=== PATIENT | female | born 1950 | race Caucasian/White ===

== ENCOUNTER 2019-11-15 08:26 | Emergency (ER) | payer MEDICARE, SELFPAY ==
--- NOTE | 2019-11-15 08:27 | XR_ITS ---
WS: [id number] Left wrist, 3 views, 11/15/2019 Clinical Data: injury Comparison: None. Findings: There is a comminuted impacted fracture of the distal radius. There is a fracture of the ulnar styloi d. Soft tissue swelling about the fracture site is present. There is also dorsal displacement of the distal radial fracture. The carpal bones show no fractures. The metacarpals are not remarkable. XR/XR wrist LT min 3V* [id number] Impression: 1. Comminuted, impacted and dorsally displaced fracture of the distal left radi us. 2. Ulnar styloid fracture.
[2019-11-15 08:32] VITALS: BP 162/93; PULSE 65; RESP 18; TEMP 36.8; O2SAT 93; BMI 27.4
--- NOTE | 2019-11-15 08:47 | W.ED.EXTPRO ---
HPI - Extremity Problem General: Chief complaint: Extremity Injury, Upper Stated complaint: LEFT WRIST PAIN Time Seen by Provider: 11/15/19 08:44 Source: patient Mode of arrival: ambulatory Limitations: no limitations History of Present Illness: HPI Narrative: 69-year-old female who fell this morning out of a chair. She states she fell backwards and try to catch herself with her left arm and injured her left wrist. She has obvious deformity to the wrist. States her pain is a 7 out of 10. Denies any other injuries. Denies hitting her head. MD Complaint: extremity pain Onset (ago): hour(s) Associated symptoms: Deny chest pain, fever(s) or rash Review of Systems Const: Denies: fever(s), chills, body aches or change in appetite Eyes: Denies: blurry vision or eye discomfort ENMT: Denies: throat pain or dental pain Card: Denies: chest pain Resp: Denies: dyspnea GI: Denies: abdominal pain, nausea, vomiting or diarrhea : Denies: dysuria Musc: Reports: extremity pain Skin/Breast: Denies: rash Neuro: Denies: headache(s) Psych: Denies: depression Kang/Lymph: Denies: easy bruising All/Imm: Denies: urticaria Physical Exam Const: COMMON NORMALS: no acute distress, patient oriented x3 and healthy appearing HENMT: COMMON NORMALS: normocephalic and atraumatic HEAD & SCALP: normocephalic and atraumatic Eye: COMMON NORMALS: Equal, round and reactive pupils present and EOMs intact bilaterally PUPIL: Yes Equal, round and reactive pupils present Neck/C-Spine: COMMON NORMALS: full ROM and supple Chest: COMMONS NORMALS: normal inspection of the chest and normal palpation of entire chest wall Resp: COMMON NORMALS: normal respiratory effort, No retractions, No use of accessory muscles and clear to auscultation bilaterally AUSCULTATION: clear to auscultation bilaterally Cardio: COMMON NORMALS: regular rate, regular rhythm and No murmurs present (Cardio) RATE: regular rate RHYTHM: regular rhythm GI: COMMON NORMALS: Normal to inspection, nondistended, normoactive bowel sounds present, Soft to palpation, non-tender and no masses PALPATION: Yes Soft to palpation Extremity: NARRATIVE EXTREMITY EXAM: Distal pulses and sensation intact. Obvious deformity to left wrist. No elbow or shoulder pain. Neuro: COMMON NORMALS: patient oriented x3, moves all extremities and no focal motor deficits Psych: COMMON NORMALS: mental status grossly normal, Normal thought process present and cooperative THOUGHT PROCESS: Normal thought process present Skin: COMMON NORMALS: no rashes or lesions noted and no wounds GENERAL SKIN EXAM: no rashes or lesions noted Procedures Orthopedic Fracture Reduction Fracture #1: Time Out Performed: Yes Side: right Fracture Reduction Location: radius Analgesia: procedural sedation Technique: direct manipulation Post Reduction X-rays Demonstrate: anatomical reduction Post-reduction neuro exam: intact Post-reduction vascular exam: intact Splint Applied: Yes Patient Tolerated Procedure: well Procedural Sedation Indication: fracture/dislocation reduction ASA Class: I Time of Last PO Intake: 06:07 IV Propofol dose (mg): 50 Patient Tolerated Procedure: well Complications: none Course Vital Signs: Vital signs: Vital Signs Temperature 98.3 F 11/15/19 08:32 Pulse Rate 67 11/15/19 10:01 Respiratory Rate 20 H 11/15/19 10:01 Blood Pressure 186/102 11/15/19 10:01 Pulse Oximetry 97 11/15/19 10:00 MDM - Extremity (Nontraumatic) MDM Narrative: Medical decision making narrative: Patient presents with a distal radius fracture that was reduced in the ER. Patient placed in a sugar tong splint and is to follow-up with orthopedics. She has good cap refill after reduction and minimal pain. She has no signs of compartment syndrome. Imaging Data^: xr l wrist: Radiologist's impression: [place] [address] XRay Report Signed Patient: Keri Fang Unit #: [id number] : [id number] Age/Sex: 69 / F ADM Date: 11/15/19 Loc: ER Room/Bed: Attending Dr: Ordering Provider/Ordering MD: Swapnil Matias MD Date of Service: 11/15/19 Procedure(s): XR wrist LT min 3V* [id number] Accession Number(s): [id number] Report Number: [id number] WS: [id number] Left wrist, 3 views, 11/15/2019 Clinical Data: injury Comparison: None. Findings: There is a comminuted impacted fracture of the distal radius. There is a fracture of the ulnar styloid. Soft tissue swelling about the fracture site is present. There is also dorsal displacement of the distal radial fracture. The carpal bones show no fractures. The metacarpals are not remarkable. XR/XR wrist LT min 3V* [id number] Impression: 1. Comminuted, impacted and dorsally displaced fracture of the distal left radius. 2. Ulnar styloid fracture. Discharge Plan Discharge Patient Disposition: Home, Self-Care Clinical Impression: Fracture of wrist Qualifiers: Encounter type: initial encounter Fracture type: closed Laterality: left Qualified Code(s): S62.102A - Fracture of unspecified carpal bone, left wrist, initial encounter for closed fracture Condition: Stable Prescriptions: [facility] 5-325 mg tablet 1 tab PO Q6H PRN (Reason: pain) Qty: 14 RF: 0 No Action metformin 500 mg tablet 500 mg PO BID RF: 0 clonidine HCl 0.1 mg tablet 0.1 mg PO BID PRN (Reason: Blood Pressure) RF: 0 atorvastatin 20 mg tablet 20 mg PO DAILY RF: 0 trazodone 50 mg tablet 50 mg PO BEDTIME RF: 0 alendronate 70 mg tablet 70 mg PO Q7D RF: 0 clonazepam 1 mg tablet 1 mg PO DAILY PRN (Reason: Anxiety) RF: 0 glipizide 5 mg tablet extended release 24hr 5 mg PO BID RF: 0 cephalexin 500 mg capsule 500 mg PO TID RF: 0 pantoprazole 40 mg tablet,delayed release (DR/EC) 40 mg PO DAILY PRN (Reason: Acid Reflux) RF: 0 metoprolol tartrate 50 mg tablet 50 mg PO BID RF: 0 aspirin 81 mg Tablet,Chewable 81 mg PO DAILY RF: 0 lisinopril 40 mg tablet 40 mg PO DAILY RF: 0 escitalopram oxalate 20 mg tablet 20 mg PO DAILY RF: 0 Discharge Orders: Discharge Order (Routine); Ordered 11/15/19 Ordered By: Swapnil Matias Referrals: Angela Herrera MD [Physician] - 1-3 days Discharge Diet: Advance as tolerated Discharge Activity: Resume usual activity Patient Instructions: Wrist Fracture in Adults (ED) Coding Level of Care Code ED 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
--- NOTE | 2019-11-15 09:41 | DCPLANNER ---
material control manager was asked to schedule a follow up appointment for patient with ortho. material control manager called the ortho clinic, spoke with Sana, gave clinic patients information. material control manager was told that patients information would be printed and reviewed. Clinic will call patient with appointment information.
[2019-11-15] MEDS: propofol 10 mg/mL SDV 20 mL 50 MG IVP (09:50)
[2019-11-15 09:51] VITALS: BP 175/92; BP 186/102; PULSE 62; PULSE 67; RESP 18; RESP 20; O2SAT 96; O2SAT 97
--- NOTE | 2019-11-15 09:59 | XR_ITS ---
WS: [id number] WRIST LEFT TECHNIQUE: 2 views of the left wrist CLINICAL INFORMATION: post reduction COMPARISON: None. FINDINGS: Splint material. Comminuted impacted fracture of the distal radius. Ulna styloid avulsion. Alignment improved from previous. XR/XR wrist LT 2V [id number] IMPRESSION: Postreduction comminuted impacted fracture distal left radius.
[2019-11-15 10:00] VITALS: BP 171/92; PULSE 62; RESP 20; O2SAT 97
[2019-11-15 10:01] VITALS: BP 186/102; PULSE 67; RESP 20; O2SAT 96
[2019-11-15] MEDS: HYDROcodone-acetaminophen 7.5-325 mg Tablet 2 TAB PO (11:16)
[2019-11-15 11:17] VITALS: BP 172/99; PULSE 70; RESP 17; O2SAT 97
--- NOTE | 2019-11-15 14:30 | PC.NURSE ---
Read and agree with assessment.
--- NOTE | 2019-11-16 08:18 | DCPLANNER ---
Patient has a follow up appointment scheduled for Saturday, November 16, 2019 at 11:[address] Parks at the ortho clinic. Clinic will call patient with appointment information.
--- NOTE | 2019-11-17 15:04 | DCPLANNER ---
Patient attended appointment scheduled for 11.16.19 with ortho.
== END 2019-11-15 11:18 | disposition home or self-care (01) ==
PROVIDERS: Emergency Provider Emergency Medicine
DX: S52.592A Other fractures of lower end of left radius, initial encounter for closed fracture (principal); S52.615A Nondisplaced fracture of left ulna styloid process, initial encounter for closed fracture; W07.XXXA Fall from chair, initial encounter; Z79.82 Long term (current) use of aspirin
CPT/HCPCS: 12345; 25605; 73100; 73110; 96375; 99283; 99284; A4590; J2704

== ENCOUNTER → 2019-11-23 14:28 | Outpatient (BNVA) | payer MEDICARE, SELFPAY | PROVIDERS: Visit Provider Orthopaedic Surgery | DX: S52.502A Unspecified fracture of the lower end of left radius, initial encounter for closed fracture (principal); S52.592A Other fractures of lower end of left radius, initial encounter for closed fracture; X58.XXXA Exposure to other specified factors, initial encounter | CPT/HCPCS: 73110 ==

== ENCOUNTER → 2019-11-26 09:26 | Outpatient (BNVA) | payer MEDICARE, SELFPAY | PROVIDERS: Visit Provider Nurse Practitioner Family | DX: Z11.59 Encounter for screening for other viral diseases (principal); J40 Bronchitis, not specified as acute or chronic; R68.89 Other general symptoms and signs | CPT/HCPCS: 87400; 87635 ==

== ENCOUNTER → 2019-11-30 08:53 | Outpatient (BNVA) | payer MEDICARE, SELFPAY | PROVIDERS: Visit Provider Orthopaedic Surgery | DX: S52.502A Unspecified fracture of the lower end of left radius, initial encounter for closed fracture (principal); S52.572A Other intraarticular fracture of lower end of left radius, initial encounter for closed fracture; X58.XXXA Exposure to other specified factors, initial encounter | CPT/HCPCS: 73110 ==

== ENCOUNTER 2019-11-30 14:38 | Outpatient (CLI) | payer MEDICARE, SELFPAY | END 2019-11-30 14:39 | disposition home or self-care (01) | LOC: SPT 14:39 | PROVIDERS: Visit Provider Orthopaedic Surgery | DX: Z46.89 Encounter for fitting and adjustment of other specified devices (principal); S52.592D Other fractures of lower end of left radius, subsequent encounter for closed fracture with routine healing; X58.XXXD Exposure to other specified factors, subsequent encounter; S52.502A Unspecified fracture of the lower end of left radius, initial encounter for closed fracture; S52.572A Other intraarticular fracture of lower end of left radius, initial encounter for closed fracture; X58.XXXA Exposure to other specified factors, initial encounter | CPT/HCPCS: 73110; 97760; L3982 ==

== ENCOUNTER → 2019-12-21 08:57 | Outpatient (BNVA) | payer MEDICARE, SELFPAY | PROVIDERS: Visit Provider Orthopaedic Surgery | DX: S52.502D Unspecified fracture of the lower end of left radius, subsequent encounter for closed fracture with routine healing (principal); X58.XXXD Exposure to other specified factors, subsequent encounter | CPT/HCPCS: 73110 ==

== ENCOUNTER → 2020-01-18 08:09 | Outpatient (BNVA) | payer MEDICARE, SELFPAY | PROVIDERS: Visit Provider Orthopaedic Surgery | DX: S52.502D Unspecified fracture of the lower end of left radius, subsequent encounter for closed fracture with routine healing (principal); W07.XXXD Fall from chair, subsequent encounter | CPT/HCPCS: 73110 ==

== ENCOUNTER → 2020-03-27 12:30 | Outpatient (BNVA) | payer MEDICARE, SELFPAY | PROVIDERS: Visit Provider Specialist | DX: R20.0 Anesthesia of skin (principal); G56.02 Carpal tunnel syndrome, left upper limb; F17.210 Nicotine dependence, cigarettes, uncomplicated | CPT/HCPCS: 95886; 95910; 95911; G0463 ==

== ENCOUNTER → 2020-04-10 13:15 | Outpatient (BNVA) | payer MEDICARE, SELFPAY | PROVIDERS: Visit Provider Orthopaedic Surgery | DX: G56.02 Carpal tunnel syndrome, left upper limb (principal); S52.502D Unspecified fracture of the lower end of left radius, subsequent encounter for closed fracture with routine healing; S52.612D Displaced fracture of left ulna styloid process, subsequent encounter for closed fracture with routine healing; X58.XXXD Exposure to other specified factors, subsequent encounter | CPT/HCPCS: 73110 ==

== ENCOUNTER → 2020-04-18 10:35 | Outpatient (BNVA) | payer MEDICARE, SELFPAY | PROVIDERS: Referring Provider Orthopaedic Surgery; Visit Provider Orthopaedic Surgery | DX: Z20.828 Contact with and (suspected) exposure to other viral communicable diseases (principal); Z01.812 Encounter for preprocedural laboratory examination | CPT/HCPCS: 87635 ==

== ENCOUNTER 2020-04-24 06:19 | Day surgery (SDC) | payer MEDICARE, SELFPAY ==
[2020-04-21 08:28] VITALS: BMI 26.3
[2020-04-24 06:50] VITALS: BP 220/126; PULSE 104; RESP 18; TEMP 36.6; O2SAT 100
[2020-04-24 06:57] VITALS: BP 220/106
[2020-04-24] MEDS: sodium chloride 0.9% 1,000 ML 30 ML IV (07:10)
[2020-04-24 07:13] LABS: Glucose Point of Care 165 mg/dL (70-110)
--- NOTE | 2020-04-24 07:22 | ANES.PREANE2 ---
Pre-Anesthetic Assessment Pre-Anesthetic Assessment: Height/Weight: Height 1.57 m Weight 65.317 kg Temp Pulse Resp BP Pulse Ox 98 F 104 H 18 220/106 100 04/24/20 06:50 04/24/20 06:50 04/24/20 06:50 04/24/20 06:57 04/24/20 06:50 Preop Diagnosis: Carpal tunnel syndrome left Proposed Procedure: Operation Date: 04/24/20 08:00 Proposed Procedures p Carpal Tunnel Release 11781 G56.02(Left) - Sundar Parks MD Was Beta Kg taken within 24 hours: Yes Last intake: Intake Last Liquid Date 04/23/20 Last Liquid Time 00:00 Last Solid Date 04/23/20 Last Solid Time 00:00 Social: Social History: Tobacco and No alcohol Exam: Pre-Anes Outpt Exam: alert, oriented x 3, clear to auscultation bilaterally and regular rate & rhythm Airway: Submandibular: WNL Cervical ROM: WNL MP: 2 Dentition: Full History/ROS: Other Pulmonary: Pulmonary: COPD CV/HEM: CV/HEM: HTN Comments: Poorly controlled HTN : : None reported Hepatic: Hepatic: None reported GI: GI: GERD Metabolic: Metabolic: None reported Musc/skel: Comments: Left hand contracted Neuropsych: Neuropsych: None reported Anesthetic Plan: ASA status: 3 Anesthesia: MAC and Regional (specify below) Other: Vikymargo christianson Risk of > 500 ml blood loss (7ml/kg in children): No Meds/Allergies Current Medications: Current Medications Generic Name Dose Route Start Last Admin Trade Name Freq PRN Reason Stop Dose Admin Sodium Chloride 1,000 mls @ 30 ml s/hr 04/24/20 06:30 04/24/20 07:10 Sodium Chloride 0.9% IV 04/25/20 06:29 30 mls/hr .Q24H BIBIANA Administration PFSH Anesthesia PFSH: Social History Smoking and tobacco status: current every day smoker cigarettes Alcohol intake: never History of recent travel: No Data Anesthesia Other Labs: Laboratory Results - last 48 hr 04/24/20 07:05 POC Glucose 165 H Cardiac Studies: No Data to Display
--- NOTE | 2020-04-24 09:44 | W.PM.OPSUD ---
Surgery/Procedure H&P Update DATE OF PROCEDURE: April 24, 2020 DATE H&P PERFORMED: 04/10/20 PREOP DIAGNOSIS: Carpal tunnel syndrome left PLANNED PROCEDURE: Operation Date: 04/24/20 08:30 Proposed Procedures p Carpal Tunnel Release 63318 G56.02(Left) - Sundar Parks MD
[2020-04-24 10:31] VITALS: BP 192/109; PULSE 58; RESP 18; TEMP 36.4; O2SAT 94
--- NOTE | 2020-04-24 10:36 | PM.OP ---
Operative Report Date of procedure: April 24, 2020 Pre-op Diagnosis: Carpal tunnel syndrome left Post-op diagnosis: same Post-op Findings: Same Procedure Done: Left carpal tunnel release Pathology: none sent Anesthesia: General Estimated blood loss (mL): 2 Tourniquet time (min): 21 Complications: None Condition: stable Disposition: same day Procedure: Patient was taken to the operating room and anesthesia provided by the anesthesia service. She was prepped and draped with the arm exposed. A timeout was performed. A 3 cm long incision was made in line with the fourth ray from the distal edge of the carpal tunnel extending proximally. The subcutaneous fat and palmar fascia was divided with a scalpel blade. Under loupe magnification the ulnar neurovascular bundle was identified distally. A hemostat could be passed under the transverse carpal ligament allowing the distal 25% to be divided. A slotted guide was then passed beneath the transverse carpal ligament and the middle 50% divided. Blunt scissors were then passed over the guide freeing the proximal ligament. The tourniquet was deflated. Hemostasis provided with electrocautery. Wound edges were infiltrated with 10 cc of a half percent Marcaine solution. Skin edges were reapproximated with 3-0 Prolene. Sterile dressings were applied. The patient was taken to the recovery room in stable condition
[2020-04-24 10:45] VITALS: BP 224/140; PULSE 63; RESP 16; O2SAT 92
--- NOTE | 2020-04-24 11:32 | ANE.PACU2 ---
Inpatient post-anesthesia follow up: Airway intact: Yes Vital signs: Temperature 97.6 F Pulse Rate 63 Respiratory Rate 16 Blood Pressure 224/140 Pulse Oximetry 92 Oxygen Delivery Me thod Room Air Oxygen Flow Rate Fraction of Inspir ed Oxygen Hydration adequate: Yes Nausea and vomiting: No Pain level: 1 Mental status: Baseline
== END 2020-04-24 11:08 | disposition home or self-care (01) ==
PROVIDERS: Visit Provider Orthopaedic Surgery
PROC: (CPT 64721; principal; 2020-04-24 08:30)
DX: G56.02 Carpal tunnel syndrome, left upper limb (principal); J44.9 Chronic obstructive pulmonary disease, unspecified; I10 Essential (primary) hypertension; K21.9 Gastro-esophageal reflux disease without esophagitis; F17.210 Nicotine dependence, cigarettes, uncomplicated; Z79.82 Long term (current) use of aspirin; Z79.84 Long term (current) use of oral hypoglycemic drugs
CPT/HCPCS: 64721; 12345; 36416; 82962; 96365; J0690; J2704; J3010; J3490; J7030

== ENCOUNTER 2021-05-24 08:49 | Day surgery (SDC) | payer MEDICARE, SELFPAY ==
[2021-05-21 14:48] VITALS: BMI 23.8
--- NOTE | 2021-05-24 09:05 | ANES.PREANE2 ---
Pre-Anesthetic Assessment Pre-Anesthetic Assessment: Height/Weight: Height 1.57 m Weight 58.967 kg Preop Diagnosis: Carpal tunnel syndrome left Proposed Procedure: Operation Date: 05/24/21 10:30 Proposed Procedures p Colonoscopy 38185 Z86.010 R63.4(Not Applicable) - Rafael Andrade MD Familial anesthetic complications: None Was Beta Kg taken within 24 hours: N/A Was Clonidine taken within 24 hours: N/A Last intake: > 8 hrs Social: Social History: Tobacco and No alcohol Exam: Pre-Anes Outpt Exam: alert, oriented x 3, clear to auscultation bilaterally and regular rate & rhythm Airway: MP: 2 Dentition: Other (missing) CV/HEM: CV/HEM: HTN GI: GI: GERD Metabolic: Metabolic: DM Neuropsych: Neuropsych: CVA (2010 - no residual deficits) Anesthetic Plan: ASA status: 3 Anesthesia: MAC Risk of > 500 ml blood loss (7ml/kg in children): No PFSH Anesthesia PFSH: Social History Smoking and tobacco status: current every day smoker cigarettes Alcohol intake: never History of recent travel: No Data Anesthesia Cardiac Studies: No Data to Display
[2021-05-24] MEDS: sodium chloride 0.9% 1,000 ML 30 ML IV (09:55)
--- NOTE | 2021-05-24 10:18 | W.PM.OPSUD ---
Surgery/Procedure H&P Update DATE OF PROCEDURE: May 24, 2021 DATE H&P PERFORMED: 05/07/21 H&P UPDATE INFORMATION: I have reviewed H&P completed within last 30 days, I have examined patient prior to procedure and No changes to prior documentation PREOP DIAGNOSIS: History of colon polyps and chronic diarrhea PRIMARY INDICATION FOR PROCEDURE: The same PLANNED PROCEDURE: Operation Date: 05/24/21 10:30 Proposed Procedures p Colonoscopy 69747 Z86.010 R63.4(Not Applicable) - Rafael Andrade MD
[2021-05-24 11:17] VITALS: BP 141/79; PULSE 62; RESP 16; TEMP 36.1; O2SAT 97
--- NOTE | 2021-05-24 11:19 | ANE.PACU2 ---
Inpatient post-anesthesia follow up: Airway intact: Yes Vital signs: Temperature 97.0 F Pulse Rate 62 Respiratory Rate 16 Blood Pressure 141/79 Pulse Oximetry 97 Oxygen Delivery Me thod Nasal Cannula Oxygen Flow Rate 3 Fraction of Inspir ed Oxygen Hydration adequate: Yes Nausea and vomiting: No Pain level: 1 Mental status: Baseline
[2021-05-24 11:26] VITALS: BP 139/90; PULSE 62; RESP 16; O2SAT 95
== END 2021-05-24 11:50 | disposition home or self-care (01) ==
PROVIDERS: Visit Provider Surgery
PROC: 0DJD8ZZ Inspection of Lower Intestinal Tract, Via Natural or Artificial Opening Endoscopic (ICD-10-PCS; CPT 45378; principal; 2021-05-24 10:30)
DX: D12.8 Benign neoplasm of rectum (principal); Z86.010 Personal history of colon polyps; R63.4 Abnormal weight loss; Z68.23 Body mass index [BMI] 23.0-23.9, adult; I10 Essential (primary) hypertension; K21.9 Gastro-esophageal reflux disease without esophagitis; E11.9 Type 2 diabetes mellitus without complications; Z86.73 Personal history of transient ischemic attack (TIA), and cerebral infarction without residual deficits; F17.210 Nicotine dependence, cigarettes, uncomplicated
CPT/HCPCS: 45385; 88305; J2704; J7030

== ENCOUNTER 2021-06-26 10:36 | Outpatient (CLI) | payer MEDICARE, SELFPAY ==
--- NOTE | 2021-06-26 11:15 | FL_ITS ---
WS: [id number] Exam: FL small bowel series* [id number] Date/Time of Exam: 06/26/2021 10:58 AM Reason For Exam: R19.7 - Diarrhea, unspecified Fluoroscopy time: .5 minutes Preliminary abdominal survey shows scattered gas in both large and small bowel loops suggesting adyna jamila ileus. Barium courses through the small bowel without acute obstruction. Small bowel transit time is top vanegas its normal at about 3 hours. The mucosal pattern of the duodenum, jejunum and ileum appears normal. N o sign of bowel loop herniation or displacement. There are several diverticuli of the jejunum. A sing le prominent diverticulum is noted involving the fourth segment of the duodenal C-loop. Compression s pot images of the ileocecal valve demonstrate no significant abnormal finding. Contrast noted in the cecum at about 3 hours. FL/FL small bowel series* [id number] IMPRESSION: 1. Barium courses through the small bowel without acute obstruction. Small justin l transit time was about 3 hours which is top limits normal. 2. Several diverticuli noted in the duodenum and jejunum. 3. Small bowel mucosal pattern is essentially normal.
== END 2021-06-26 10:37 | disposition home or self-care (01) ==
LOC: RAD 10:40
PROVIDERS: PCP Family Medicine; Visit Provider Surgery
DX: R19.7 Diarrhea, unspecified (principal); K57.10 Diverticulosis of small intestine without perforation or abscess without bleeding
CPT/HCPCS: 74250

== ENCOUNTER → 2021-07-09 09:41 | Outpatient (BNVA) | payer MEDICARE, SELFPAY | PROVIDERS: PCP Family Medicine; Visit Provider Surgery | DX: Z20.822 Contact with and (suspected) exposure to COVID-19 (principal); Z11.52 Encounter for screening for COVID-19 | CPT/HCPCS: 87635 ==

== ENCOUNTER 2021-07-12 07:48 | Day surgery (SDC) | payer MEDICARE, SELFPAY ==
--- NOTE | 2021-07-12 08:10 | ANES.PREANE2 ---
Pre-Anesthetic Assessment Height/Weight: Height 1.57 m Weight 58.06 kg Preop Diagnosis: History of colon polyps and chronic diarrhea Operation Date: 07/12/21 09:30 Proposed Procedures p EGD 25001/r19.7(Not Applicable) - Rafael Andrade MD Familial anesthetic complications: None Was Beta Kg taken within 24 hours: Yes Was Clonidine taken within 24 hours: N/A Social Tobacco and No alcohol Exam alert, oriented x 3 and regular rate & rhythm rhonchi Airway Submandibular: within normal limits Cervical ROM: within normal limits Mallampati: Class II Dentition: chipped Comments: Comments: Missing some Pulmonary Chronic Obstructive Pulmonary Disease CV/HEM Hypertension and Peripheral Vascular Disease Metabolic Diabetes Mellitus and Hyperlipidemia Anesthetic Plan ASA status: 3 Anesthesia: MAC Medications/Allergies Home Medications Medication Instructions Recorded Confirmed Last Taken Type aspirin 81 mg chewable tablet 81 mg PO DAILY 11/15/19 07/10/21 05/23/21 History atorvastatin 20 mg tablet 20 mg PO DAILY 11/15/19 07/10/21 05/23/21 History clonazepam 1 mg tablet 1 mg PO DAILY PRN 11/15/19 07/10/21 05/17/21 History escitalopram oxalate 20 mg tablet 20 mg PO DAILY 11/15/19 07/10/21 05/23/21 History glipizide 5 mg tablet, extended 5 mg PO BID 11/15/19 07/10/21 05/23/21 History release 24 hr lisinopril 40 mg tablet 40 mg PO DAILY 11/15/19 07/10/21 05/23/21 History metformin 500 mg tablet 500 mg PO BID 11/15/19 07/10/21 05/23/21 History metoprolol tartrate 50 mg tablet 50 mg PO BID 11/15/19 07/10/21 05/24/21 History pantoprazole 40 mg tablet,delayed 40 mg PO DAILY PRN 11/15/19 07/10/21 04/23/20 History release trazodone 50 mg tablet 50 mg PO BEDTIME 11/15/19 07/10/21 05/23/21 History amlodipine 10 mg tablet 10 mg PO DAILY 05/21/21 07/10/21 05/23/21 History colesevelam 625 mg tablet 625 mg PO DAILY 05/21/21 07/10/21 05/23/21 History duloxetine 60 mg capsule,delayed 60 mg PO DAILY 05/21/21 07/10/21 05/23/21 History release hydralazine 50 mg tablet 50 mg PO TID 05/21/21 07/10/21 05/23/21 History Allergies Allergy/AdvReac Type Severity Reaction Status Date / Time No Known Allergies Allergy Verified 07/10/21 09:05 [facility] Anesthesia Medical History History of colon polyps Social History Smoking and tobacco status: current every day smoker cigarettes Alcohol intake: never History of recent travel: No Data Anesthesia Cardiac Studies: No Data to Display
[2021-07-12 08:19] VITALS: BP 164/94; PULSE 65; RESP 18; TEMP 36.4; O2SAT 96
[2021-07-12] MEDS: sodium chloride 0.9% 1,000 ML 30 ML IV (08:31)
--- NOTE | 2021-07-12 08:45 | W.PM.OPSUD ---
Surgery/Procedure H&P Update DATE OF PROCEDURE: July 12, 2021 DATE H&P PERFORMED: 06/27/21 CHANGES TO PREVIOUS DOCUMENTATION: None PREOP DIAGNOSIS: Change in bowel habits PRIMARY INDICATION FOR PROCEDURE: The same PLANNED PROCEDURE: Operation Date: 07/12/21 09:30 Proposed Procedures p EGD 67935/r19.7(Not Applicable) - Rafael Andrade MD
[2021-07-12 09:44] VITALS: BP 136/73; PULSE 66; RESP 18; TEMP 36.1; O2SAT 91
[2021-07-12 09:57] VITALS: BP 139/87; PULSE 61; RESP 16; O2SAT 95
--- NOTE | 2021-07-12 12:46 | ANE.PACU2 ---
Inpatient post-anesthesia follow up: Airway intact: Yes Vital signs: Temperature 97 F Pulse Rate 61 Respiratory Rate 16 Blood Pressure 139/87 Pulse Oximetry 95 Oxygen Delivery Me thod Room Air Oxygen Flow Rate Fraction of Inspir ed Oxygen Hydration adequate: Yes Nausea and vomiting: No Pain level: 1 Mental status: Baseline
== END 2021-07-12 10:10 | disposition home or self-care (01) ==
PROVIDERS: PCP Family Medicine; Visit Provider Surgery
PROC: 0DJ08ZZ Inspection of Upper Intestinal Tract, Via Natural or Artificial Opening Endoscopic (ICD-10-PCS; CPT 43235; principal; 2021-07-12 09:30)
DX: R19.4 Change in bowel habit (principal); K21.00 Gastro-esophageal reflux disease with esophagitis, without bleeding; K29.70 Gastritis, unspecified, without bleeding; K44.9 Diaphragmatic hernia without obstruction or gangrene; J44.9 Chronic obstructive pulmonary disease, unspecified; I10 Essential (primary) hypertension; I73.9 Peripheral vascular disease, unspecified; E11.9 Type 2 diabetes mellitus without complications; E78.5 Hyperlipidemia, unspecified; Z79.82 Long term (current) use of aspirin; Z79.84 Long term (current) use of oral hypoglycemic drugs; F17.210 Nicotine dependence, cigarettes, uncomplicated
CPT/HCPCS: 43239; 88305; J2704; J7030

== ENCOUNTER 2022-03-06 09:47 | Observation (INO) | payer MEDICARE, SELFPAY ==
[2022-03-06] VITALS (29 sets, daily range): BP systolic 120–169; BP diastolic 70–101; PULSE 61–133; RESP 16–28; TEMP 36.6–37.2; O2SAT 62–98; BMI 21.9
--- NOTE | 2022-03-06 09:58 | CT_ITS ---
WS: [id number] CT HEAD TECHNIQUE: Noncontrast CT of the head obtained from the skullbase to the vertex. CLINICAL INFORMATION: ams, l facial droop COMPARISON: CT 2019 DLP: 968.[address] scans at [facility] use at least one of these dose optimization techniques: automated e xposure control; mA and/or kV adjustment per patient size (includes targeted exams where dose is matc hed to clinical indication); or iterative reconstruction. FINDINGS: No evidence of intracranial hemorrhage or mass effect. Ventricular system and basal cisterns are sorenson nt. Moderate small vessel changes with moderate parenchymal volume loss. A few chronic lacunar infarc ts in the RIGHT basal ganglia. Tiny chronic appearing lacunar infarct in the ilana. No extra-axial flu id collections. No evidence of mass or mass effect. Paranasal sinuses and mastoid air cells are well aerated. .Normal visualized soft tissues. CT/CT head wo con* [id number] IMPRESSION: 1. No evidence of intracranial hemorrhage or mass effect. 2. Moderate small vessel changes. Moderate parenchymal loss. 3. Tiny chronic lacunar infarcts RIGHT basal ganglia and internal capsule. 4. Tiny chronic appearing lacunar infarct in the ilana. This is new from 2019 b ut has a chronic appearance. 5. No acute intracranial findings.
--- NOTE | 2022-03-06 09:58 | XRR_ITS ---
PROCEDURE INFORMATION: Exam: XR Chest Exam date and time: 03/06/2022 10:03 AM Age: 71 years old Clinical indication: Cough and shortness of breath; Additional info: Hypoxemia TECHNIQUE: Imaging protocol: Radiologic exam of the chest. Views: 1 view. COMPARISON: CR XR chest 2V* [id number] 04/02/2018 4:10 PM FINDINGS: Lungs: There is a right basilar infiltrate consistent with a pneumonia. The left lung is clear. Pleural spaces: Unremarkable. No pleural effusion. No pneumothorax. Heart/Mediastinum: Unremarkable. No cardiomegaly. Bones/joints: Unremarkable. XR/XR chest 1V portable [id number] IMPRESSION: Right basilar pneumonia.
--- NOTE | 2022-03-06 09:58 | W.ED.SOB ---
HPI - SOB/Dyspnea General: Chief Complaint: General Medical Stated Complaint: stroke like symptoms Time Seen by Provider: 03/06/22 09:58 History of Present Illness: HPI Narrative: Ms Fang is a 71-year-old lady with history of hypertension, hyperlipidemia, diabetes, tobaccoism presenting to the emergency department due to strokelike symptoms. Last known normal was last night sometime and awoke this morning with possible left facial droop. Patient endorses a few day history of cough, congestion, and generalized malaise. Intensity of symptoms has worsened and is moderate to severe. No other specific changes in health, exacerbating, or alleviating factors identified. Onset (ago): day(s) Timing: progressively worsening Associated symptoms: Reports chest congestion, cough, myalgias and other Review of Systems General: Reports: 10 or more systems reviewed and unremarkable except in HPI and below Resp: Reports: chest congestion PFSH ED PFSH: Medical History Broken wrist Helicobacter pylori gastritis Hiatal hernia History of colon polyps History of skin cancer Surgical History History of appendectomy History of surgery on left wrist History of tubal ligation Family History (Updated 03/07/22 @ 08:28 by Haylie Cleary MD) Other CAD (coronary artery disease) Social History Smoking and tobacco status: current every day smoker cigarettes Alcohol intake: never History of recent travel: No Physical Exam Const: COMMON NORMALS: patient oriented x3 and alert GENERAL APPEARANCE: cooperative and well developed HENMT: COMMON NORMALS: normocephalic and atraumatic HEAD & SCALP: normocephalic and atraumatic THROAT: posterior oropharynx normal Eye: COMMON NORMALS: conjunctivae normal CONJUNCTIVA: Yes conjunctivae normal SCLERA: sclerae normal Neck/C-Spine: COMMON NORMALS: supple GENERAL: Yes trachea midline Resp: EFFORT & INSPECTION: Yes able to speak in complete sentences and Yes tachypneic AUSCULTATION: diminished lung sounds Cardio: COMMON NORMALS: regular rate and regular rhythm RATE: regular rate RHYTHM: regular rhythm GI: COMMON NORMALS: Soft to palpation PALPATION: Yes Soft to palpation and No Tenderness to palpation present (GI) PERCUSSION: normal to percussion Extremity: GENERAL: Yes normal exam except as noted and No edema Neuro: COMMON NORMALS: patient oriented x3, moves all extremities, no focal motor deficits and no sensory deficits noted; negative for CN's II-XII intact bilaterally (Mild left facial droop) SENSORIUM/ORIENTATION: Yes alert and No Orientation impaired Psych: COMMON NORMALS: mental status grossly normal and Normal thought process present THOUGHT PROCESS: Normal thought process present Course Vital Signs: Vital signs: Vital Signs Temperature 98.2 F 03/09/22 14:47 Pulse Rate 73 03/09/22 14:47 Respiratory Rate 17 03/09/22 14:47 Blood Pressure 159/82 03/09/22 14:47 Pulse Oximetry 90 03/09/22 14:47 Oxygen Delivery Me thod 03/09/22 11:59 Oxygen Flow Rate 2 03/09/22 12:57 Fraction of Inspir ed Oxygen 50 03/08/22 08:00 MDM - SOB/Dyspnea Medical Decision Making 71-year-old lady with history of smoking though denies history of known underlying lung disease or baseline oxygen requirement presenting with concern of left facial droop and not acting right. Patient does not have clear last known well and found to have hypoxemia in the 60% range with good waveform which is more likely explain symptoms. Supplemental oxygen applied. Given unknown last well time patient is not a tPA candidate. EKG shows sinus rhythm with right bundle branch block. Laboratory studies with no leukocytosis, normal hemoglobin. Metabolic panel with increased bicarb, no other significant electrolyte derangement. 2-hour delta troponin is negative. COVID PCR panel negative. ABG compensated however hypercapnia and hypoxia are present. Chest x-ray with right basilar pneumonia. 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 Antibiotics for CAP administered. Patient did subsequently develop A. fib, rate improved with metoprolol. Most likely etiology of the patient's symptoms is pneumonia with acute hypercapnic and hypoxic respiratory failure with strokelike symptoms which are likely related to hypoxia. The results of ED evaluation were discussed with the patient including plan for admission due to requirement for level of care not available if discharged to prevent significant worsening/deterioration. Patient agreeable with plan. Hospitalist service contacted and patient admitted. Medical Records I reviewed the patient's medical records. Lab Data I reviewed the patient's lab results. : 03/09/22 04:46 03/09/22 04:46 Labs/Radiology: Radiology Impressions Chest X-Ray 03/06/22 09:58 IMPRESSION: Right basilar pneumonia. Head CT 03/06/22 09:58 IMPRESSION: 1. No evidence of intracranial hemorrhage or mass effect. 2. Moderate small vessel changes. Moderate parenchymal loss. 3. Tiny chronic lacunar infarcts RIGHT basal ganglia and internal capsule. 4. Tiny chronic appearing lacunar infarct in the ilana. This is new from 2019 but has a chronic appearance. 5. No acute intracranial findings. Chest CTA 03/07/22 07:12 IMPRESSION: 1. No evidence of pulmonary embolus. 2. Normal caliber thoracic aorta. 3. Small RIGHT pleural effusion with compressive atelectasis in RIGHT lower lobe and RIGHT middle lobe 4. Patchy infiltrates in the RIGHT middle lobe and RIGHT lower lobe. Secretions in the RIGHT lower lobe bronchi and RIGHT middle lobe bronchi. 5. Tiny LEFT pleural effusion with LEFT basilar atelectasis. 6. No other acute findings. KUB X-Ray 03/08/22 18:30 IMPRESSION: Constipation without bowel dilation to indicate obstruction. Laboratory Results WBC 9.6 10^3/uL (4.0-10.0) 03/06/22 10:00 WBC Cancelled 03/06/22 10:00 Corrected WBC Cancelled 03/06/22 10:00 RBC 4.16 10^6/uL (4.1-5.3) 03/06/22 10:00 RBC Cancelled 03/06/22 10:00 Hgb 12.0 g/dL (11.5-15.3) 03/06/22 10:00 Hgb Cancelled 03/06/22 10:00 Hct 39.8 % (37.0-47.0) 03/06/22 10:00 Hct Cancelled 03/06/22 10:00 MCV 95.7 fl (81-99) 03/06/22 10:00 MCV Cancelled 03/06/22 10:00 MCH 28.8 pg (28.0-34.0) 03/06/22 10:00 MCH Cancelled 03/06/22 10:00 MCHC 30.2 g/dL (30.0-36.0) 03/06/22 10:00 MCHC Cancelled 03/06/22 10:00 RDW 13.7 % (12.1-15.1) 03/06/22 10:00 RDW Cancelled 03/06/22 10:00 Plt Count 185 10^3/cmm (130-400) 03/06/22 10:00 Plt Count Cancelled 03/06/22 10:00 MPV 10.8 fL (7.4-10.4) H 03/06/22 10:00 MPV Cancelled 03/06/22 10:00 Gran % Cancelled 03/06/22 10:00 Neut % (Auto) 80.3 % 03/06/22 10:00 Neut % (Auto) Cancelled 03/06/22 10:00 Lymph % (Auto) 9.9 % 03/06/22 10:00 Lymph % (Auto) Cancelled 03/06/22 10:00 [place] % (Auto) 8.3 % 03/06/22 10:00 [place] % (Auto) Cancelled 03/06/22 10:00 Eos % (Auto) 0.1 % 03/06/22 10:00 Eos % (Auto) Cancelled 03/06/22 10:00 Baso % (Auto) 0.4 % 03/06/22 10:00 Baso % (Auto) Cancelled 03/06/22 10:00 Neut # (Auto) 7.74 10^3/uL (1.8-7.7) H 03/06/22 10:00 Neut # (Auto) Cancelled 03/06/22 10:00 Lymph # (Auto) 1.0 10^3/uL (0.8-4.8) 03/06/22 10:00 Lymph # (Auto) Cancelled 03/06/22 10:00 [place] # (Auto) 0.8 10^3/uL (0.2-0.9) 03/06/22 10:00 [place] # (Auto) Cancelled 03/06/22 10:00 Eos # (Auto) 0.0 10^3/uL (0.0-0.8) 03/06/22 10:00 Eos # (Auto) Cancelled 03/06/22 10:00 Baso # (Auto) 0.0 10^3/uL (0.0-0.1) 03/06/22 10:00 Baso # (Auto) Cancelled 03/06/22 10:00 Absolute Gran (auto) Cancelled 03/06/22 10:00 Nucleated RBC % (auto) 0 % 03/06/22 10:00 Nucleated RBC % (auto) Cancelled 03/06/22 10:00 Nucleated RBCs # 0.0 /100WBC 03/06/22 10:00 Nucleated RBCs # Cancelled 03/06/22 10:00 D-Dimer 1.09 ug/mIFEU (0-0.59) H 03/06/22 10:19 Specimen Type Arterial 03/06/22 10:06 Sample Site Radial, left 03/06/22 10:06 ABG pH 7.39 (7.35-7.45) 03/06/22 10:06 ABG pCO2 57.0 mmHg (35-45) H 03/06/22 10:06 ABG pO2 69.1 mmHg (80.0-100.0) L 03/06/22 10:06 ABG HCO3 34.2 mmol/L (22-26) H 03/06/22 10:06 ABG O2 Saturation 91.7 03/06/22 10:06 ABG Base Excess 7.5 mmol/L (-2.0-2.0) H 03/06/22 10:06 Isai Test Pos 03/06/22 10:06 A-a O2 Gradient 15.7 mmHg (5-10) H 03/06/22 10:06 Hematocrit 37.4 % (37-47) 03/06/22 10:06 Hgb O2 Saturation 88.6 % (95-100) L 03/06/22 10:06 Carboxyhemoglobin 2.0 %THgb (0.4-20.1) 03/06/22 10:06 Methemoglobin 1.2 % (0.4-1.5) 03/06/22 10:06 Total Hemoglobin 12.2 g/dL (12-16) 03/06/22 10:06 Sodium 142.0 mmol/L (131-143) 03/06/22 10:06 Potassium 3.7 mmol/L (3.5-5.0) 03/06/22 10:06 Glucose 175.0 mg/dL (70-115) H 03/06/22 10:06 Ionized Calcium 1.2 mmol/L (1.1-1.4) 03/06/22 10:06 O2 Delivery Device Nc 03/06/22 10:06 O2 Liters/Min 4.0 % 03/06/22 10:06 FiO2 36.0 % 03/06/22 10:06 Front Desk Associate ID Cak 03/06/22 10:06 Sodium 142 mmol/L (136-145) 03/06/22 10:19 Potassium 4.2 mmol/L (3.5-5.1) 03/06/22 10:19 Chloride 99 mmol/L (98-107) 03/06/22 10:19 Carbon Dioxide 32 mmol/L (22-29) H 03/06/22 10:19 Anion Gap 15.2 (5-19) 03/06/22 10:19 BUN 13 mg/dL (8-23) 03/06/22 10:19 Creatinine 0.7 mg/dL (0.5-0.9) 03/06/22 10:19 GFR Calculation Not Reportable 03/06/22 10:19 Glucose 168 mg/dL (65-115) H 03/06/22 10:19 Calculated Osmolality 298 mOsm/kg (285-295) H 03/06/22 10:19 Calcium 9.3 mg/dL (8.5-10.5) 03/06/22 10:19 Total Bilirubin 0.7 mg/dL (0.15-1.2) 03/06/22 10:19 AST 12 U/L (0-32) 03/06/22 10:19 ALT 12 U/L (0-33) 03/06/22 10:19 Alkaline Phosphatase 84 U/L (35-105) 03/06/22 10:19 Troponin T Baseline 28 ng/L (0-10) H 03/06/22 10:19 Troponin T 120 Minute 28.32 ng/L (0-10) H 03/06/22 12:09 Delta Troponin T 0.32 ABS# (0-10) 03/06/22 12:09 C-Reactive Protein 32.4 mg/L (0.0-4.9) H 03/06/22 10:19 NT-Pro-B Natriuret Pep 6146 pg/mL (0-125) H 03/06/22 10:19 Total Protein 6.8 g/dL (6.6-8.7) 03/06/22 10:19 Albumin 4.1 g/dL (3.5-5.2) 03/06/22 10:19 Globulin 2.7 g/dL (1.3-4.6) 03/06/22 10:19 Procalcitonin 0.03 ng/mL (0-0.5) 03/06/22 10:19 Procalcitonin 0.03 ng/mL (0-0.5) 03/06/22 10:19 TSH 0.81 uIU/mL (0.27-4.20) 03/06/22 12:09 Coronavirus 229E (PCR) Not detected (NOT DETECT) 03/06/22 10:12 SARS-CoV-2 (PCR) Not detected (NOT DETECT) 03/06/22 10:12 Critical Care Time Critical Care Time: Critical Care Time: Yes Total Critical Care Time: 45 Attestation: Due to a high probability of clinically significant, possibly life threatening deterioration, the patient required my highest level of attention and preparedness to intervene emergently and I personally spent this critical care time directly and personally managing the patient. This critical care time included obtaining a history; examining the patient; pulse oximetry; ordering and review of laboratory and imaging studies; arranging urgent treatment with development of a management plan; evaluation of patient's response to treatment; frequent reassessment; and, discussions with other providers as applicable. It was exclusive of separately billable procedures. Primary system involved is cardiopulmonary and neuro Discharge Plan Discharge Patient Disposition: Admitted As Inpatient Admit Provider: Haylie Cleary Clinical Impression: Pneumonia, Acute respiratory failure with hypoxia and hypercarbia, Facial droop, New onset a-fib Condition: Stable Coding Level of Care Code ED Nickel Plater for Chg Fwd Exam Comprehensive
--- NOTE | 2022-03-06 10:05 | ECG_ITS ---
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 Measurements Intervals [place] Rate: 84 P: 66 AK: 126 QRS: 56 QRSD: 127 T: 15 QT: 375 QTc: 444 Interpretive Statements SINUS RHYTHM RIGHT BUNDLE BRANCH BLOCK [120+ ms QRS DURATION, UPRIGHT V1, 40+ ms S IN I/aVL/V4/V5/V6] Compared to ECG 09/15/2017 17:25:50 T-wave abnormality no longer present Possible ischemia no longer present Electronically Signed On 03-06-2022 12:08:23 CDT by Brandy Castillo M.D. [id number]
[2022-03-06 10:16] LABS: Basophils % 0.4 %; Eosinophils % 0.1 %; Hematocrit 39.8 % (37.0-47.0); Lymphocytes % 9.9 %; Mean Corpuscular HGB Conc 30.2 g/dL (30.0-36.0); Mean Corpuscular Hemoglobin 28.8 pg (28.0-34.0); Mean Corpuscular Volume 95.7 fl (81-99); Mean Platelet Volume 10.8 fL (7.4-10.4); Monocytes # 0.8 10^3/uL (0.2-0.9); Monocytes % 8.3 %; Neutrophils # 7.74 10^3/uL (1.8-7.7); Neutrophils % 80.3 %; Nucleated Red Blood Cells % 0 %; Platelet Count 185 10^3/cmm (130-400); Red Blood Count 4.16 10^6/uL (4.1-5.3); Red Cell Distribution Width 13.7 % (12.1-15.1); White Blood Count 9.6 10^3/uL (4.0-10.0)
[2022-03-06 10:17] LABS: ABG PH Result 7.39 (7.35-7.45); Alveolar-Arterial Oxygen Gradi 15.7 mmHg (5-10); Arterial Blood Gas Hematocrit 37.4 % (37-47); Base Excess ABG 7.5 mmol/L (-2.0-2.0); Blood Gas Allen Test Pos; Blood Gas Operator Identificat CAK; Blood Gas Sample Site Radial, left; Blood Gas Sample Type Arterial; HCO3 ABG 34.2 mmol/L (22-26); HGB O2 Sat 88.6 % (95-100); Ionized Calcium Level - ABG 1.2 mmol/L (1.1-1.4); Methemoglobin 1.2 % (0.4-1.5); Oxygen Device NC; Oxygen Saturation ABG 91.7; PO2 ABG 69.1 mmHg (80.0-100.0); Potassium Level - ABG 3.7 mmol/L (3.5-5.0); Total Hemoglobin 12.2 g/dL (12-16)
[2022-03-06 10:19] LABS: Slide Review Slide Review Perform
[2022-03-06] MEDS: cefTRIAXone 1,000 MG in sodium chloride 0.9% (plus) 50 ML 100 MG IV (10:34)
--- NOTE | 2022-03-06 10:50 | PC.PHAR ---
pt states she takes care of her own medications-pt states she is taking colesevelam 625mg every other day rx filled 02/18/22 30d/s 625mg daily-pt states she has an inhaler that she is suppose to use daily but states she doesnt use it and cant remember the name of it ext med history doesnt show an inhaler filled recently
[2022-03-06] MEDS: doxycycline 100 MG in sodium chloride 0.9% (plus) 100 ML IV (11:02)
[2022-03-06 11:24] LABS: Troponin(5th) Baseline 28 ng/L (0-10)
[2022-03-06 11:32] LABS: NT Pro B Type Natriuretic Pept 6146 pg/mL (0-125); Procalcitonin 0.03 ng/mL (0-0.5); Thyroid Stimulating Hormone 0.87 uIU/mL (0.27-4.20)
[2022-03-06 11:43] LABS: Alanine Aminotransferase 12 U/L (0-33); Albumin Level 4.1 g/dL (3.5-5.2); Alkaline Phosphatase 84 U/L (35-105); Anion Gap 15.2 (5-19); Aspartate Amino Transferase 12 U/L (0-32); Blood Urea Nitrogen 13 mg/dL (8-23); C Reactive Protein 32.4 mg/L (0.0-4.9); Calcium 9.3 mg/dL (8.5-10.5); Carbon Dioxide 32 mmol/L (22-29); Chloride 99 mmol/L (98-107); Globulin 2.7 g/dL (1.3-4.6); Glucose 168 mg/dL (65-115); Osmolality Calculated 298 mOsm/kg (285-295); Potassium 4.2 mmol/L (3.5-5.1); Sodium 142 mmol/L (136-145); Total Bilirubin 0.7 mg/dL (0.15-1.2); Total Protein 6.8 g/dL (6.6-8.7)
--- NOTE | 2022-03-06 11:59 | ECG_ITS ---
[facility] Test Date: 2022-03-06 Pat Name: Keri Fang Department: Room: Gender: Female Svp Digital Sales: : 1950 Requested By: Shawn Cerda Order Number: [id number] Nikky MD: Brandy Castillo M.D. Measurements Intervals [place] Rate: 82 P: 91 MI: 108 QRS: 92 QRSD: 138 T: 47 QT: 384 QTc: 449 Interpretive Statements SINUS RHYTHM WITH SHORT MI INTERVAL RIGHT BUNDLE BRANCH BLOCK [120+ ms QRS DURATION, UPRIGHT V1, 40+ ms S IN I/aVL/V4/V5/V6] Compared to ECG 03/06/2022 10:05:38 Short MI interval now present Electronically Signed On 03-06-2022 12:13:06 CDT by Brandy Castillo M.D. [id number]
[2022-03-06] MEDS: metoprolol tartrate 1 mg/1 mL SDV 5 mL 5 MG IVP (12:41)
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
[2022-03-06 13:05] LABS: Adenovirus Not Detected (NOT DETECT); Chlamydia Pneumoniae Not Detected (NOT DETECT); Coronavirus 229E,HKU1,NL63,OC4 Not Detected (NOT DETECT); Human Metapneumovirus Not Detected (NOT DETECT); Human Rhinovirus/Enterovirus Not Detected (NOT DETECT); Influenza A Not Detected (NOT DETECT); Influenza A H1 Not Detected (NOT DETECT); Influenza A H1-2009 Not Detected (NOT DETECT); Influenza A H3 Not Detected (NOT DETECT); Influenza B Not Detected (NOT DETECT); Mycoplasma Pneumoniae Not Detected (NOT DETECT); Parainfluenza Virus Type 1 Not Detected (NOT DETECT); Parainfluenza Virus Type 2 Not Detected (NOT DETECT); Parainfluenza Virus Type 3 Not Detected (NOT DETECT); Parainfluenza Virus Type 4 Not Detected (NOT DETECT); Respiratory Syncytial Virus A Not Detected (NOT DETECT); Respiratory Syncytial Virus B Not Detected (NOT DETECT); SARS-COV-2 Not Detected (NOT DETECT)
[2022-03-06 13:11] LABS: Troponin 5 2HR 28.32 ng/L (0-10)
[2022-03-06 13:11] LABS: D Dimer 1.09 ug/mIFEU (0-0.59)
[2022-03-06 13:13] LABS: Troponin 5 2HR Delta 0.32 ABS# (0-10)
[2022-03-06 13:24] LABS: Procalcitonin 0.03 ng/mL (0-0.5)
[2022-03-06 15:39] LABS: Thyroid Stimulating Hormone 0.81 uIU/mL (0.27-4.20)
[2022-03-06] MEDS: enoxaparin 60 mg/0.6 mL Syringe 55 MG SUBCUT (15:58)
[2022-03-06] MEDS: hyDRALAzine 50 mg Tablet PO ×2 (16:01→19:54)
[2022-03-06] MEDS: predniSONE 20 mg Tablet 40 MG PO (16:02)
[2022-03-06 17:32] LABS: Troponin 5 6HR 33.11 ng/L (0-10); Troponin 5 6HR Delta 5.11 ng/L (0-12)
[2022-03-06] MEDS: lisinopril 20 mg Tablet PO (18:46)
[2022-03-06] MEDS: CLONazepam 0.5 mg Tablet PO (18:46)
[2022-03-06] MEDS: metoprolol tartrate 50 mg Tablet PO (18:46)
--- NOTE | 2022-03-06 19:30 | PC.NURSE ---
Report given to Coleen Lea RN.
[2022-03-07] VITALS (14 sets, daily range): BP systolic 117–149; BP diastolic 71–78; PULSE 64–75; RESP 10–26; TEMP 36.7–37.2; O2SAT 90–99
--- NOTE | 2022-03-07 02:04 | PC.NURSE ---
Patient's heart rate dropping into the 30s for brief seconds, non-sustaining. Patient denies any symptoms except for feeling tired and want to sleep. No distress observed. Informed Dr Ocampo at this time. Waiting instruction.
[2022-03-07 03:20] LABS: Anion Gap 13.4 (5-19); Blood Urea Nitrogen 13 mg/dL (8-23); C Reactive Protein 36.5 mg/L (0.0-4.9); Calcium 8.8 mg/dL (8.5-10.5); Carbon Dioxide 29 mmol/L (22-29); Chloride 100 mmol/L (98-107); Glucose 183 mg/dL (65-115); Magnesium 1.6 mg/dL (1.7-2.3); Osmolality Calculated 291 mOsm/kg (285-295); Potassium 4.4 mmol/L (3.5-5.1); Sodium 138 mmol/L (136-145)
[2022-03-07] MEDS: enoxaparin 60 mg/0.6 mL Syringe 55 MG SUBCUT ×2 (04:45→16:25)
[2022-03-07 06:16] LABS: ABG PH Result 7.35 (7.35-7.45); Arterial Blood Gas Hematocrit 37.3 % (37-47); Base Excess ABG 6.5 mmol/L (-2.0-2.0); Blood Gas Allen Test Pos; Blood Gas Operator Identificat WALCI; Blood Gas Sample Site Radial, left; Blood Gas Sample Type Arterial; HCO3 ABG 33.9 mmol/L (22-26); Oxygen Device NC; PO2 ABG 62.9 mmHg (80.0-100.0)
[2022-03-07 06:17] LABS: ABG PCO2 61.3 mmHg (35-45)
--- NOTE | 2022-03-07 07:12 | CT_ITS ---
WS: [id number] CTA OF THE CHEST WITH PULMONARY EMBOLISM PROTOCOL TECHNIQUE: High-resolution contrast enhanced CTA of the chest with coronal and sagittal reformatted i mages with pulmonary embolism protocol. MIP images are also reviewed. CLINICAL INFORMATION: hypoxia COMPARISON: None. DLP: 267.[address] scans at [facility] use at least one of these dose optimization techniques: automated e xposure control; mA and/or kV adjustment per patient size (includes targeted exams where dose is matc hed to clinical indication); or iterative reconstruction. FINDINGS: Proximal main pulmonary arteries are normal. Normal segmental and subsegmental pulmonary arteries. No evidence of pulmonary embolus. Normal caliber thoracic aorta. Aortic calcification. Small RIGHT pleural effusion with compressive at electasis in the RIGHT lower lobe. Secretions with partial opacification the RIGHT lower lobe bronchi . Additional secretions opacification the RIGHT middle lobe bronchus. Patchy infiltrates within the R IGHT middle lobe and RIGHT lower lobe.. LEFT lung is well aerated. Tiny LEFT pleural effusion with LEFT basilar atelectasis.Mild thoracic kyp hosis. Incidental hemangioma mid thoracic spine. Small esophageal hiatal hernia. Mild diffuse body wall anasarca. Adrenal glands are normal. CT/CT angio chest PE protcl [id number] IMPRESSION: 1. No evidence of pulmonary embolus. 2. Normal caliber thoracic aorta. 3. Small RIGHT pleural effusion with compressive atelectasis in RIGHT lower lo be and RIGHT middle lobe 4. Patchy infiltrates in the RIGHT middle lobe and RIGHT lower lobe. Secretion s in the RIGHT lower lobe bronchi and RIGHT middle lobe bronchi. 5. Tiny LEFT pleural effusion with LEFT basilar atelectasis. 6. No other acute findings.
[2022-03-07] MEDS: ipratropium-albuterol 3 mL Neb INHALATION (08:11)
--- NOTE | 2022-03-07 08:26 | USCV_ITS ---
Keri Fang Age: 71 Gender: F : 1950 Exam Date: 03/07/2022 09:24 Ordering Phys: Haylie Cleary MD Technologist: Jeffry uDran [place] [facility] [place]: Congestive heart failure BP: 149 / 78 HR: 65 Rhythm: Sinus Technical Quality: Adequate MEASUREMENTS (Male / Female) Normal Values 2D ECHO LV Diastolic Diameter PLAX 4.4 cm 4.2 - 5.9 / 3.9 - 5.3 cm LV Systolic Diameter PLAX 2.7 cm IVS Diastolic Thickness 1.1 cm 0.6 - 1.0 / 0.6 - 0.9 cm IVS Systolic Thickness 1.3 cm LVPW Diastolic Thickness 1.1 cm 0.6 - 1.0 / 0.6 - 0.9 cm LVPW Systolic Thickness 1.3 cm LVOT Diameter 2.0 cm LV Ejection Fraction 2D Teich 67.7 % LV Ejection Fraction MOD 2C 57.3 % LV Ejection Fraction 2C AL 59.1 % LA Diameter 5.0 cm Aorta at Sinotubular Diameter 2.8 cm M-MODE Aortic Annulus Diameter 3.1 cm LA Ao Ratio MM 1.6 MV E Point Septal Separation 0.7 cm DOPPLER AV Peak Velocity 204.0 cm/s LVOT Peak Velocity 121.0 cm/s AV Area Cont Eq vti 2.2 cm squared AV Area Cont Eq pk 1.9 cm squared MV Area PHT 5.0 cm squared Mitral E to A Ratio 1.6 MV E' Velocity 51.0 cm/s Mitral E to MV E' Ratio 9.0 Mitral E to LV E' Lateral Ratio 7.9 Mitral E to LV E' Septal Ratio 10.4 TR Peak Velocity 290.3 cm/s TR Peak Gradient 33.7 mmHg TV Peak E Velocity 63.0 cm/s Right Atrial Pressure 3.0 mmHg Pulmonary Artery Systolic Pressu 36.7 mmHg PV Peak Velocity 73.0 cm/s RV Acceleration Time 0.1 s FINDINGS Left Ventricle Normal left ventricular size, systolic function and increased wall thickness, with no regional wall motion abnormalities. Left ventricular ejection fraction is estimated at 65 %. Right Ventricle Normal right ventricular size and systolic function. Right Atrium Mildly increased right atrial size. Left Atrium Moderately increased left atrial size. Mitral Valve Mild mitral annular calcification. Mildly thickened mitral valve. No mitral valve stenosis. Trace mitral valve regurgitation. Aortic Valve Aortic valve not well visualized. No aortic valve stenosis. No aortic valve regurgitation. Tricuspid Valve Structurally normal tricuspid valve. Trace to mild tricuspid valve regurgitation. Pulmonic Valve Pulmonic valve not well visualized. Pericardium No pericardial effusion. Aorta Aorta not well visualized. IVC Inferior vena cava not visualized. CONCLUSIONS 1. Normal left ventricular size, systolic function and increased wall thickness, with no regional wall motion abnormalities. Left ventricular ejection fraction is estimated at 65 %. 2. No significant change when compared to study dated 04/02/2018. Brandy Castillo MD (Electronically Signed) Final Date: 09 March 2022 10:40 S
--- NOTE | 2022-03-07 08:31 | PM.PN ---
Subjective Subjective: This morning noticed PO2 PCO2 160 I have requested patient to stay compliant with BiPAP No active symptoms pH is compensated Family is at the bedside Added low-dose sliding scale Change diet to consistent carb Requested CTA to rule out PE for high D-dimer Vitals/I&O/Wt Last Vital Signs Temp 98.7 F 03/07/22 07:37 Pulse 70 03/07/22 08:00 Resp 20 H 03/07/22 08:00 BP 149/78 03/07/22 07:37 Pulse Ox 94 03/07/22 08:00 O2 Del Method 03/07/22 08:00 O2 Flow Rate 4 03/07/22 08:00 FiO2 50 03/06/22 13:41 03/06/22 03/07/22 03/07/22 22:59 06:59 14:59 Intake Total 1000 / 1150 Balance 1000 / 1150 Weight last 48 hrs Weight 54.431 kg Weight 54.431 kg Physical Exam Narrative: Patient is awake and alert Diminished breath sounds no active wheezing Family at the bedside Currently on 4 L No active crackles o conversational dyspnea Abdomen soft No signs of edema S1, S2 sinus tachycardia with PVCs Data : 03/07/22 02:35 03/07/22 02:35 Micro: Microbiology 03/06/22 10:20 Blood Culture - Preliminary Blood SPECIMEN COLLECTED 03/06/22 10:19 Blood Culture - Preliminary Blood SPECIMEN COLLECTED A&P Assessment and plan (1) Acute respiratory failure with hypoxia and hypercarbia: (2) Hypoxia: (3) Afib: (4) COPD exacerbation: (5) Pneumonia: (6) New onset a-fib: Plan Patient is stating that her numbness and slurring of speech was very transient which improved before she came to the hospital CT scan of head unremarkable COPD exacerbation related pneumonia Continue antibiotics Continue steroids Requested CT rule out PE Follow-up with echo Troponin unremarkable Patient does not require nicotine patch for now Essential hypertension continue home regiment Moderate dose sliding scale Check A1c level Full code Currently on therapeutic Lovenox and low-dose metoprolol for her intermittent A. fib TSH normal I will keep her here 1 more day plan to discharge her home with home O2 evaluation probably follow-up tomorrow Attestations Medical Necessity Statement*: Discharge tomorrow if clinically stable Time Spent in Patient Care: 30 Coding Level of Care Code Acute Machine Stonecutter for Chg Fwd Diagnoses Acute respiratory failure with hypoxia and hypercarbia J96.01; J96.02 Hypoxia R09.02 Afib I48.91 COPD exacerbation J44.1 Pneumonia J18.9 New onset a-fib I48.91
[2022-03-07] MEDS: cefTRIAXone 1,000 MG in sodium chloride 0.9% (plus) 50 ML 100 MG IV (08:59)
[2022-03-07] MEDS: azithromycin 250 mg Tablet 500 MG PO (08:59)
[2022-03-07] MEDS: aspirin 81 mg EC Tablet PO (08:59)
[2022-03-07] MEDS: hyDRALAzine 50 mg Tablet PO ×3 (09:00→20:14)
[2022-03-07] MEDS: lisinopril 20 mg Tablet PO ×2 (09:00→17:20)
[2022-03-07] MEDS: duloxetine 60 mg Capsule PO (09:00)
[2022-03-07 09:01] LABS: Estmated Average Glucose 140; Hemoglobin A1C 6.5 % (4.0-6.0)
[2022-03-07] MEDS: sennosides-docusate Tablet 1 TAB PO (09:01)
[2022-03-07] MEDS: pantoprazole DR 40 mg Tablet PO (09:01)
[2022-03-07 10:17] LABS: Add Urine Culture? No; Add Urine Microscopic? YES; Bacteria Urine TRACE /hpf; Bilirubin Urine Neg (Negative); Blood Urine Neg (Negative); Glucose Urine UA Norm (Normal); Ketones Urine Negative (Negative); Leukocyte Esterase Urine Negative (Negative); Nitrate Urine Negative (Negative); Protein Urine Trace (Negative); RBC Urine 0-4 /hpf (0-2); Specific Gravity, Urine 1.015 (1.005-1.030); Squamous Epithelial Cell Urine 0-4 /hpf (0-5); Urine Appearance Clear (CLEAR); Urine Color Yellow (Yellow); Urobilinogen Urine Norm (Negative); WBC Urine 0-4 /hpf (0-5); pH Urine 5 (5-7)
[2022-03-07] MEDS: iohexol 350 mg/mL 500 mL Btl (per mL) IV (10:26)
[2022-03-07 10:52] LABS: Glucose Point of Care 183 mg/dL (70-110)
--- NOTE | 2022-03-07 11:00 | PC.CHAP ---
Pastoral Care Encounter/Spiritual Assessment Type of Contact [] Declined color blender visit [] Patient/Family/Request visit [] Outpatient visit [] Follow-up visit [] Physician referral [] Code/Alert [] Routine visit [] Staff referral [] Actively dying [] Patient sleeping [] Family support [] [] Out of room [] Palliative care [] [] Receiving care in room [] Pre-surgical visit [] Trauma [] Long length of stay [] ICU visit [x] Other: Isolation Relational/Emotional Strength [] Patient feels connected with others/family/visitors/staff [] Distress [] Loneliness/isolation [] Abandonment Spirituality of Patient [] Person of Vivian [] Attends Methodist of their Vivian [] Believes in Prayer [] Reads Bible or Mormon materials [] There are Spiritual issues to be addressed Manager Event Interventions [] Prayer [] Active listening [] Non-anxious presence [] Spiritual/emotional support [] Crisis/trauma care [] Spiritual counseling [] Bereavement support [] Provided bereavement packet [] Provided Bible/devotional materials [] Provided toy/stuffed animal, coloring book to patient or family member [] Provided Communion [] Anointing/[place] [] Salvation [] Completed spiritual assessment [] Other: Impact on Illness or Injury [] Angry [] Fearful [] Anxious [] Often cries [] Exhaustion [] Unable to work [] Unable to attend samaritan [] Unable to walk/stand [] Unable to read [] Unable to drive [] Unable to eat/drink [] Unable to sleep [] Unable to be with family [] Patient intubated [] Other: Summary Isolation Time spent with patient 5 mins
[2022-03-07] MEDS: insulin lispro 100 unit/1 mL SUBCUT ×2 (11:56→17:27)
[2022-03-07] MEDS: dextrose 50% syringe 50 mL 25 ML IVP (14:03)
[2022-03-07 14:04] LABS: Glucose Point of Care 50 mg/dL (70-110)
--- NOTE | 2022-03-07 14:14 | PC.NURSE ---
Addendum entered by Chayito Lovelace RN 03/07/22 14:43: repeat blood [id number].pt is asymptomatic.dr diane has placed pt on low dose insulin regime. Original Note: at 1405 pt rang for staff.c/o dizziness,shaking,sweating, i feel weird .bp153/84,hr 80 sr w/occas pvc's,o2 sat 92% on 2l o2.negative neuro check.blood sugar checked..it was 50.6 units humalog s/s insulin given sq prior to lunch for bgm 183.pt states i only ate strawberries for lunch.1/2 amp d50 given ivp...and juice and snack provided.pt quickly improved.dr diane notified of incident.
[2022-03-07 14:41] LABS: Glucose Point of Care 144 mg/dL (70-110)
[2022-03-07 16:55] LABS: Glucose Point of Care 235 mg/dL (70-110)
[2022-03-07] MEDS: CLONazepam 0.5 mg Tablet PO (20:13)
[2022-03-07 20:32] LABS: Glucose Point of Care 181 mg/dL (70-110)
[2022-03-08] VITALS (14 sets, daily range): BP systolic 122–145; BP diastolic 66–85; PULSE 41–79; RESP 16–29; TEMP 36.5–37.1; O2SAT 91–97
[2022-03-08 02:52] LABS: Basophils % 0.3 %; Eosinophils # 0.1 10^3/uL (0.0-0.8); Eosinophils % 1.6 %; Hematocrit 34.3 % (37.0-47.0); Hemoglobin 10.5 g/dL (11.5-15.3); Lymphocytes # 1.3 10^3/uL (0.8-4.8); Lymphocytes % 17.6 %; Mean Corpuscular HGB Conc 30.6 g/dL (30.0-36.0); Mean Corpuscular Hemoglobin 28.6 pg (28.0-34.0); Mean Corpuscular Volume 93.5 fl (81-99); Monocytes # 0.7 10^3/uL (0.2-0.9); Monocytes % 8.8 %; Neutrophils # 5.34 10^3/uL (1.8-7.7); Neutrophils % 71.4 %; Nucleated Red Blood Cells % 0 %; Platelet Count 179 10^3/cmm (130-400); Red Blood Count 3.67 10^6/uL (4.1-5.3); Red Cell Distribution Width 13.6 % (12.1-15.1); White Blood Count 7.5 10^3/uL (4.0-10.0)
[2022-03-08 03:12] LABS: Anion Gap 9.8 (5-19); Blood Urea Nitrogen 16 mg/dL (8-23); Carbon Dioxide 32 mmol/L (22-29); Chloride 101 mmol/L (98-107); Glucose 140 mg/dL (65-115); Osmolality Calculated 291 mOsm/kg (285-295); Potassium 3.8 mmol/L (3.5-5.1); Sodium 139 mmol/L (136-145)
[2022-03-08] MEDS: enoxaparin 60 mg/0.6 mL Syringe 55 MG SUBCUT ×2 (04:40→15:16)
[2022-03-08 06:36] LABS: Glucose Point of Care 153 mg/dL (70-110)
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
[2022-03-08] MEDS: cefTRIAXone 1,000 MG in sodium chloride 0.9% (plus) 50 ML 100 MG IV (07:55)
[2022-03-08] MEDS: aspirin 81 mg EC Tablet PO (07:56)
[2022-03-08] MEDS: lisinopril 20 mg Tablet PO ×2 (07:56→17:40)
[2022-03-08] MEDS: hyDRALAzine 50 mg Tablet PO ×3 (07:56→20:36)
[2022-03-08] MEDS: pantoprazole DR 40 mg Tablet PO (07:56)
[2022-03-08] MEDS: insulin lispro 100 unit/1 mL SUBCUT ×2 (07:57→11:48)
[2022-03-08] MEDS: duloxetine 60 mg Capsule PO (08:03)
[2022-03-08] MEDS: azithromycin 250 mg Tablet 500 MG PO (08:03)
[2022-03-08] MEDS: metoprolol tartrate 25 mg Tablet 12.5 MG PO (08:59)
[2022-03-08] MEDS: amiodarone 200 mg Tablet 400 MG PO (09:17)
--- NOTE | 2022-03-08 10:17 | PM.PN ---
Subjective Subjective: I was about to discharge the patient, everything was set up however right at the time of discharge with home O2 evaluation treatment A. fib RVR discharge order was canceled And started on Cardizem drip No active symptoms Patient is asymptomatic heart rate has been fluctuating 140s to 150s She was given metoprolol p.o. 12.5 mg, low-dose was chosen because yesterday she became bradycardic with metoprolol however today she is showing refractory response hence decision was made to start her on Cardizem drip, family was updated twice Vitals/I&O/Wt Last Vital Signs Temp 98.7 F 03/08/22 08:00 Pulse 69 03/08/22 08:00 Resp 18 03/08/22 08:00 BP 145/66 03/08/22 08:00 Pulse Ox 94 03/08/22 08:00 O2 Del Method 03/08/22 08:00 O2 Flow Rate 3 03/08/22 08:00 FiO2 50 03/08/22 03:50 03/07/22 03/08/22 03/08/22 22:59 06:59 14:59 Intake Total 170 / 170 Output Total 400 / 600 250 / 850 Balance -400 / -430 -250 / -680 170 / 170 Weight last 48 hrs Weight 54.431 kg Physical Exam Narrative: A. fib RVR heart rate in 140s Euvolemic Abdomen soft No active chest pain Variable S1-S2 Currently on 3 L of oxygen Abdomen is nontender No signs of edema Pleasant cooperative during evaluation Data : 03/08/22 01:46 03/08/22 01:46 Micro: Microbiology 03/06/22 10:20 Blood Culture - Preliminary Blood NEGATIVE TO DATE 03/06/22 10:19 Blood Culture - Preliminary Blood NEGATIVE TO DATE A&P Assessment and plan (1) COPD exacerbation: (2) Afib: (3) Hypoxia: (4) Pneumonia: (5) Acute respiratory failure with hypoxia and hypercarbia: (6) Facial droop: (7) New onset a-fib: Plan Facial droop slurring of speech improved CT head unremarkable Possible TIA Echo report is pending Follow-up with report of carotid Doppler She should get Plavix and Eliquis at the time of discharge A. fib RVR currently on Cardizem drip I have started her on metoprolol as well which is 50 mg twice daily Currently patient is on Cardene drip will need to switch her to p.o. Cardizem once heart rate is better [id number] 4 Patient has been prescribed Eliquis for the discharge In the hospital she is on therapeutic Lovenox Essential hypertension she does get metoprolol, hydralazine, lisinopril COPD exacerbation Acute hypoxia related to community-acquired pneumonia She will need outpatient Dr. Green's appointment I have prescribed inhalers She will need antibiotics at the time of discharge Currently doing well on ceftriaxone and azithromycin Acute hypoxia related to COPD Will need home O2 evaluation before discharge Bradycardic episodes noted after getting AV mireille blocking agent and night ago continue on telemetry monitoring Patient will be able to go home over the weekend Continue cardiac consistent carb diet Glucose well managed on low-dose sliding scale hemoglobin A1c 6.5 Attestations Medical Necessity Statement*: Continue medical management Time Spent in Patient Care: 30 Coding Level of Care Code Acute Industrial Gas Service Helper for [facility] Fwd Diagnoses COPD exacerbation J44.1 Afib I48.91 Hypoxia R09.02 Pneumonia J18.9 Acute respiratory failure with hypoxia and hypercarbia J96.01; J96.02 Facial droop R29.810 New onset a-fib I48.91
--- NOTE | 2022-03-08 10:18 | PC.NURSE ---
pt had discharge orders entered...then at 0840,pt noted to be in afib on monitor...with rate 130-140's.pt stated she felt sob.no chest pain/diaphoresis.bp 131/97.dr diane notified and he initially ordered metoprolol 12.5 po,which was given.then amioderone 400 mg po,which was given...then cardizem drip, which was initiated at 0955 at 5 mg/min.discharge was cancelled.heart rate slowly coming down.pt no longer c/o sob.
--- NOTE | 2022-03-08 10:19 | USCV_ITS ---
Keri Fang Age: 71 Gender: F : 1950 Exam Date: 03/08/2022 10:48 Ordering Phys: Haylie Cleary MD Technologist: CT Exam Location: [facility] – [place] Indication: SYNCOPE Risk Factors: Previous Vascular Surgery: Right Brachial BP: / Left Brachial BP: / Right Left Velocity (cm/s) Spectral Plaque Velocity (cm/s) Spectral Plaque Syst/Diast Broadening Syst/Diast Broadening 61.10/ 10.40 Prox CCA 81.00 / 23.00 56.30/ 15.10 Mid CCA 69.20 / 19.20 46.40/ 12.80 Distal CCA 52.05 / 13.60 41.20/ 13.90 Prox ICA 49.63 / 14.47 49.90/ 15.70 Mid ICA 44.50 / 15.95 48.20/ 15.50 Distal ICA 52.30 / 16.95 33.10 ECA 40.60 0.82 ICA/CCA 0.69 Antegrade Vertebral Antegrade 27.10/ 9.80 cm/s 27.75/ 12.20 cm/s Tri Subclavian Tri 70.60 70.35 CONCLUSIONS Right ICA stenosis <50%. Left ICA stenosis <50%. Normal antegrade Doppler flow noted in the right vertebral artery. Normal antegrade Doppler flow noted in the left vertebral artery. Manas Reyes MD (Electronically Signed) Final Date: 08 March 2022 17:30 S
[2022-03-08 11:08] LABS: Glucose Point of Care 149 mg/dL (70-110)
[2022-03-08 11:29] LABS: Magnesium 1.6 mg/dL (1.7-2.3); Thyroid Stimulating Hormone 2.47 uIU/mL (0.27-4.20)
[2022-03-08] MEDS: dilTIAZem 30 mg Tablet PO ×2 (11:48→23:30)
--- NOTE | 2022-03-08 11:55 | PC.NURSE ---
noted to convert to sr with pac's and pvc's at approx 11:00.dr lock notified.will start on po cardizem and wean drip off as ordered.
[2022-03-08] MEDS: potassium chloride ER 20 mEq Tablet 40 MEQ PO (13:33)
[2022-03-08 16:46] LABS: Glucose Point of Care 99 mg/dL (70-110)
[2022-03-08] MEDS: CLONazepam 0.5 mg Tablet PO (17:40)
--- NOTE | 2022-03-08 17:49 | ECG_ITS ---
[facility] Test Date: 2022-03-08 Pat Name: Keri Fang Department: Room: 276 Gender: Female Records Management Associate: : 1950 Requested By: Haylie Cleary Order Number: [id number] Nikky MD: Brandy Castillo M.D. Measurements Intervals [place] Rate: 62 P: 78 WV: 115 QRS: 23 QRSD: 129 T: -9 QT: 429 QTc: 438 Interpretive Statements SINUS RHYTHM WITH SHORT WV INTERVAL WITH OCCASIONAL VENTRICULAR PREMATURE COMPLEXES RIGHT BUNDLE BRANCH BLOCK [120+ ms QRS DURATION, UPRIGHT V1, 40+ ms S IN I/aVL/V4/V5/V6] Compared to ECG 03/06/2022 10:44:59 Ventricular premature complex(es) now present Electronically Signed On 03-08-2022 18:00:19 CDT by Brandy Castillo M.D. [id number]
--- NOTE | 2022-03-08 18:30 | XRR_ITS ---
PROCEDURE INFORMATION: Exam: XR Abdomen Exam date and time: 03/08/2022 6:35 PM Age: 71 years old Clinical indication: Abdominal pain; Additional info: Left abdominal pain TECHNIQUE: Imaging protocol: Radiologic exam of the abdomen. Views: Frontal supine view of the abdomen. 1 View. COMPARISON: CT abdomen pelvis w con* [id number] 10/28/2015 2:29 PM FINDINGS: Gastrointestinal tract: Constipation without bowel dilation to indicate obstruction. Bones/joints: Unremarkable. XR/XR KUB portable [id number] IMPRESSION: Constipation without bowel dilation to indicate obstruction.
[2022-03-08] MEDS: temazepam 15 mg Capsule PO (20:36)
[2022-03-08] MEDS: morphine IR 15 mg Tablet PO (20:36)
[2022-03-08] MEDS: metoprolol tartrate 50 mg Tablet PO (20:37)
[2022-03-08 21:21] LABS: Glucose Point of Care 208 mg/dL (70-110)
[2022-03-09] VITALS (8 sets, daily range): BP systolic 145–159; BP diastolic 73–82; PULSE 58–73; RESP 17–22; TEMP 36.8–36.9; O2SAT 86–94
[2022-03-09] MEDS: dilTIAZem 30 mg Tablet PO (04:49)
[2022-03-09] MEDS: enoxaparin 60 mg/0.6 mL Syringe 55 MG SUBCUT (04:50)
[2022-03-09 05:24] LABS: Basophils # 0.1 10^3/uL (0.0-0.1); Basophils % 0.4 %; Eosinophils # 0.4 10^3/uL (0.0-0.8); Eosinophils % 2.9 %; Hematocrit 37.1 % (37.0-47.0); Lymphocytes # 0.8 10^3/uL (0.8-4.8); Mean Corpuscular HGB Conc 29.6 g/dL (30.0-36.0); Mean Corpuscular Hemoglobin 27.8 pg (28.0-34.0); Mean Corpuscular Volume 93.7 fl (81-99); Monocytes # 0.9 10^3/uL (0.2-0.9); Monocytes % 7.2 %; Neutrophils # 10.74 10^3/uL (1.8-7.7); Nucleated Red Blood Cells % 0 %; Platelet Count 220 10^3/cmm (130-400); Red Blood Count 3.96 10^6/uL (4.1-5.3); Red Cell Distribution Width 13.5 % (12.1-15.1); White Blood Count 12.9 10^3/uL (4.0-10.0)
[2022-03-09 06:01] LABS: Anion Gap 9.6 (5-19); Blood Urea Nitrogen 11 mg/dL (8-23); Calcium 8.6 mg/dL (8.5-10.5); Carbon Dioxide 33 mmol/L (22-29); Chloride 97 mmol/L (98-107); Glucose 154 mg/dL (65-115); Magnesium 1.7 mg/dL (1.7-2.3); Osmolality Calculated 282 mOsm/kg (285-295); Potassium 4.6 mmol/L (3.5-5.1); Sodium 135 mmol/L (136-145)
[2022-03-09 07:35] LABS: Glucose Point of Care 160 mg/dL (70-110)
[2022-03-09] MEDS: aspirin 81 mg EC Tablet PO (08:44)
[2022-03-09] MEDS: lisinopril 20 mg Tablet PO (08:44)
[2022-03-09] MEDS: azithromycin 250 mg Tablet 500 MG PO (08:44)
[2022-03-09] MEDS: pantoprazole DR 40 mg Tablet PO (08:44)
[2022-03-09] MEDS: insulin lispro 100 unit/1 mL SUBCUT (08:44)
[2022-03-09] MEDS: duloxetine 60 mg Capsule PO (08:44)
[2022-03-09] MEDS: sennosides-docusate Tablet 1 TAB PO (08:44)
[2022-03-09] MEDS: hyDRALAzine 50 mg Tablet PO (08:45)
[2022-03-09] MEDS: cefTRIAXone 1,000 MG in sodium chloride 0.9% (plus) 50 ML 100 MG IV (09:22)
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
[2022-03-09 11:07] LABS: Glucose Point of Care 103 mg/dL (70-110)
--- NOTE | 2022-03-09 14:50 | PC.NURSE ---
Discharge Note Patient discharged to home via car accompanied by friend. Discharge instructions reviewed with patient and/or customer development representative. Mobile pharmacy medications and/or prescriptions provided. Belongings/home medications returned.
== END 2022-03-09 14:51 | disposition home or self-care (01) ==
LOC: ER 12:50 → MEDSURG 17:27 → CSU 03-07 08:35
PROVIDERS: Admitting Provider Internal Medicine; Emergency Provider Emergency Medicine; PCP Family Medicine; Visit Provider Internal Medicine
DX: J18.9 Pneumonia, unspecified organism (principal); J44.1 Chronic obstructive pulmonary disease with (acute) exacerbation; I48.91 Unspecified atrial fibrillation; J96.01 Acute respiratory failure with hypoxia; J96.02 Acute respiratory failure with hypercapnia; R29.810 Facial weakness; I45.10 Unspecified right bundle-branch block; F17.210 Nicotine dependence, cigarettes, uncomplicated; Z79.82 Long term (current) use of aspirin; E11.9 Type 2 diabetes mellitus without complications; I10 Essential (primary) hypertension; E78.5 Hyperlipidemia, unspecified
CPT/HCPCS: 36415; 36416; 36600; 70450; 71045; 71275; 74018; 80048; 80051; 80053; 81001; 82330; 82803; 82805; 82962; 83036; 83735; 83880; 84145; 84443; 84484; 85025; 85378; 86140; 87040; 87070; 87635; 93005; 93306; 93880; 94640; 94660; 94760; 96365; 96366; 96367; 96372; 96375; 99291; G0378; J0696; J1650; J1815; J3475; J3490; J7512; Q0144; Q9967

== ENCOUNTER 2022-03-24 15:22 | Observation (INO) | payer MEDICARE, SELFPAY ==
[2022-03-24] VITALS (8 sets, daily range): BP systolic 158–174; BP diastolic 72–81; PULSE 51–55; RESP 16–20; TEMP 36.6–36.8; O2SAT 81–94
--- NOTE | 2022-03-24 16:40 | CTR_ITS ---
PROCEDURE INFORMATION: Exam: CTA Chest With Contrast Exam date and time: 03/24/2022 5:54 PM Age: 71 years old Clinical indication: Abdominal pain; Chest pressure; Additional info: Pcp ordered CT for llq pain for several weeks TECHNIQUE: Imaging protocol: Computed tomographic angiography of the chest with contrast. 3D rendering (Not supervised by radiologist): MIP and/or 3D reconstructed images were created by the technologist. Radiation optimization: All CT scans at this facility use at least one of these dose optimization techniques: automated exposure control; mA and/or kV adjustment per patient size (includes targeted exams where dose is matched to clinical indication); or iterative reconstruction. Contrast material: OMNIPAQUE 350; Contrast volume: 100 ml; Contrast route: INTRAVENOUS (IV); COMPARISON: CT angio chest PE protcl [id number] 03/07/2022 10:18 AM RADIATION DOSE METRICS: Total DLP (mGy-cm): 650.49 FINDINGS: Pulmonary arteries: The pulmonary arteries are adequately opacified for evaluation to the subsegmental level. There is no filling defect to suggest embolism. Aorta: There is mild aortic atherosclerotic disease. Lungs: There is subsegmental atelectasis in the lung bases. Pleural spaces: Small bilateral pleural effusions. Heart: There is mild cardiac enlargement. There is no pericardial effusion. There is mild coronary artery calcification. Lymph nodes: There is no mediastinal or hilar lymphadenopathy. Diaphragm: There is a small sliding-type hiatal hernia. Intraperitoneal space: Visible structures in the upper abdomen are unremarkable. Bones/joints: Bones are unremarkable. Soft tissues: The extrathoracic soft tissues are unremarkable. PROCEDURE INFORMATION: Exam: CT Abdomen And Pelvis With Contrast Exam date and time: 03/24/2022 5:54 PM Age: 71 years old Clinical indication: Abdominal pain; Chest pressure; Additional info: Pcp ordered CT for llq pain for several weeks TECHNIQUE: Imaging protocol: Computed tomography of the abdomen and pelvis with contrast. Radiation optimization: All CT scans at this facility use at least one of these dose optimization techniques: automated exposure control; mA and/or kV adjustment per patient size (includes targeted exams where dose is matched to clinical indication); or iterative reconstruction. Contrast material: OMNIPAQUE 350; Contrast volume: 100 ml; Contrast route: INTRAVENOUS (IV); COMPARISON: CT abdomen pelvis w con* [id number] 10/28/2015 2:29 PM RADIATION DOSE METRICS: Total DLP (mGy-cm): 650.49 FINDINGS: Diaphragm: There is a small sliding-type hiatal hernia. Liver: The liver is normal. Gallbladder and bile ducts: The gallbladder is absent. There is ectasia of the common bile duct and central intrahepatic ducts. Pancreas: There is mild atrophy of the pancreas. Spleen: The spleen is unremarkable. Adrenal glands: The adrenal glands are hypertrophic bilaterally. Kidneys and ureters: There is an intermediate density right lower pole renal mass measuring 2.4 x 2.0 cm on series 6, image 35. This is significantly increased in size since 2016 when it measured 9 mm diameter. The left kidney and ureter are unremarkable. Stomach and bowel: The stomach is decompressed, preventing meaningful evaluation of wall thickness. The small bowel is nondilated. The colon is unremarkable. The rectum is stool distended. No sign of inflammation. Appendix: The appendix is not visible. Intraperitoneal space: There is no free air or significant intraperitoneal free fluid. Vasculature: There is moderate aortic atherosclerotic disease. The portal, splenic and superior mesenteric veins are patent. Lymph nodes: There is no lymphadenopathy in the retroperitoneum, mesentery, pelvis or inguinal regions. Urinary bladder: The urinary bladder is unremarkable. Reproductive: The uterus is unremarkable. There is no adnexal mass or large cyst. Bones/joints: There is mild degenerative disease in the lumbar spine. The pelvis and hips are unremarkable. Soft tissues: There is a 2.5 x 2.0 cm peripherally hypodense and centrally hyperdense mass centered in the left lower quadrant muscular abdominal wall. See series 6, image 35. The mass is new since the prior abdomen CT in 2016. CT/CT angio chest w abd pel w con IMPRESSION: 1. Small bilateral pleural effusions. 2. No pulmonary embolism. 3. Incidental findings above. IMPRESSION: 1. Left lower quadrant abdominal wall mass measuring 2.5 x 2.0 cm. Possible benign or malignant primary neoplasm versus metastasis. 2. 2.4 x 2.0 cm right renal mass or complicated cyst. Recommend non-emergent MRI without and with contrast or non-emergent CT without and with contrast. MRI is preferred for masses under 1.5 cm. There is no hydronephrosis or stones. 3. Incidental findings above. COMMENTS: Consistent with the [employer]'s Incidental Findings Committee white paper (J Am Micaela Radiol 2018): Any incidental renal lesion less than 1 cm or classified as too small to characterize, or any incidental cystic renal lesion characterized as simple-appearing, is likely benign. No follow-up imaging is recommended for these lesions per consensus recommendations based on imaging criteria.
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
--- NOTE | 2022-03-24 16:48 | ED_ITS ---
HPI - Fall General: Chief Complaint: Fall Stated Complaint: SOB Time Seen by Provider: 03/24/22 16:29 History of Present Illness: 71-year-old former smoker who presents emergency department for generalized weakness resulting in her knees giving out and her falling and hitting the back of her head. She denies loss of consciousness but does take Eliquis for history of atrial fibrillation. The patient was discharged on 09 March and reports she really did not get any improvement like she was hoping. She did take antibiotics in the hospital for pneumonia and was also treated for COPD. She was discharged on Levaquin and completed that at home. Patient reports she is wheezing and coughing up green mucus. Her daughter thought she felt warm this morning but no objectively measured fever. She reports she has not eaten anything today and has no appetite. On the remainder of the history I found out that she has been experiencing left lower quadrant pain for a few weeks now and has constipation. Her doctor had ordered a CT scan of her abdomen and pelvis to be done outpatient but has not yet happened. After talking with the family and the patient we will go ahead and p ursue CT imaging of the head, chest abdomen and pelvis. Typically I would not start with a chest CT but since she already needs a abdomen and pelvis and is already going for a CT scan of her head per [facility] criteria, will add the chest. Associated symptoms-after fall: Reports difficulty walking and lightheadedness; Denies chest pain, headache(s) or neck pain Review of Systems General: Reports: 10 or more systems reviewed and unremarkable except in HPI and below Const: Reports: change in appetite, fatigue, malaise and daytime sleepiness; Denies: fever(s), chills or body aches Eyes: Denies: change in vision ENMT: Denies: throat pain Card: Reports: lightheadedness; Denies: chest pain, edema, swelling of feet/ankles or syncope Resp: Reports: dyspnea, productive cough, wheezing, change in phlegm color and chest congestion; Denies: pain on inspiration or hemoptysis GI: Denies: nausea, vomiting or diarrhea : Denies: flank pain, dysuria or urinary frequency Musc: Denies: neck pain, back pain, extremity pain or extremity swelling Skin/Breast: Denies: rash or erythema Neuro: Reports: weakness in extremities (Generalized weakness) and difficulty walking; Denies: headache(s), numbness in extremities or lack of coordination PFSH ED 2 PFSH: Medical History Broken wrist Helicobacter pylori gastritis Hiatal hernia History of colon polyps History of skin cancer Surgical History History of appendectomy History of surgery on left wrist History of tubal ligation Family History (Updated 03/07/22 @ 08:28 by Haylie Cleary MD) Other CAD (coronary artery disease) Social History Smoking and tobacco status: current every day smoker cigarettes Alcohol intake: never History of recent travel: No Physical Exam Const: COMMON NORMALS: no limitations and alert EXAM LIMITATIONS: no altered mental status HENMT: COMMON NORMALS: normocephalic, atraumatic and external ears normal HEAD & SCALP: normocephalic and atraumatic EXTERNAL EAR: Yes external ears normal MOUTH: no muffled voice Eye: COMMON NORMALS: EOMs intact bilaterally and conjunctivae normal CONJUNCTIVA: Yes conjunctivae normal Neck/C-Spine: GENERAL: Yes normal visual inspection and Yes trachea midline Resp: EFFORT & INSPECTION: No able to speak in complete sentences, Yes abnormal respiratory pattern, Yes tachypneic, Yes respiratory distress, Yes pursed lip breathing, Yes labored, Yes retractions, Yes uses accessory muscles and Yes audible wheezes AUSCULTATION: rales, wheezes and diminished lung sounds Cardio: COMMON NORMALS: regular rhythm RATE: bradycardic RHYTHM: regular rhythm GI: COMMON NORMALS: Soft to palpation PALPATION: Yes Soft to palpation, Yes Tenderness to palpation present (GI) Details: LLQ, No Guarding due to palpation present (GI) and No Rebound tenderness present Extremity: COMMON NORMALS: normal to inspection Neuro: COMMON NORMALS: moves all extremities, no focal motor deficits and no sensory deficits noted SENSORIUM/ORIENTATION: Yes alert Psych: COMMON NORMALS: mental status grossly normal, Normal thought process present, cooperative, normal affect and speech normal SPEECH: Yes normal spee ch THOUGHT PROCESS: Normal thought process present Skin: COMMON NORMALS: no rashes or lesions noted and no jaundice GENERAL SKIN EXAM: no rashes or lesions noted Course Vital Signs: Vital signs: Vital Signs Temperature 98.2 F 03/24/22 16:06 Pulse Rate 55 L 03/24/22 17:02 Respiratory Rate 18 03/24/22 16:55 Blood Pressure 158/74 03/24/22 16:06 Pulse Oximetry 94 03/24/22 16:55 Oxygen Delivery Me thod 03/24/22 16:55 MDM - Fall Medical Decision Making 71-year-old female who was recently admitted to the hospital for pneumonia and COPD among others who presents with increased work of breathing and respiratory distress as well as generalized weakness that resulted in a fall. She did hit the back of her head but there is no signs of trauma on my examination. Because of her age and Eliquis she will get a head CT scan. Furthermore the patient was discharged on 2 L of oxygen and is 87% using the 2 L of oxygen in the emergency department. She has been using Advair, Spiriva, albuterol at home. She is no longer smoking. She has an increase in sputum and the color is green but has not had any fever. This very well could be a COPD exacerbation but given her recent pneumonia I will give her a dose of antibiotics and obtain blood cultures until the CT scan is performed. Due to her weakness and increased oxygen demand as well as her work of breathing, she will likely require admission. ABG is showing compensated respiratory acidosis. White blood cell count is normal. Remainder of labs are unremarkable or unchanged. CT scan of the head did not show any acute findings. CT scan of the chest abdomen and pelvis revealed small bilateral pleural effusions, no pulmonary embolism, and other incidental findings noted in the report. The CT scan of the abdomen and pelvis which was performed for ongoing left lower quadrant pain does demonstrate an abdominal wall mass in the left lower quadrant measuring 2.5 x 2 cm. Unclear etiology. There is also a right renal mass or possibly a complicated cyst that will need further work-up. Taken as a whole, the presentation is most consistent with a COPD exacerbation. I have already given 1 dose of antibiotics and I do not believe that any further antibiotics are required. I have already given some breathing treatments and steroids. Given the patient's increased oxygen demand, weakness and anorexia with falling today, I have paged the hospitalist for admission. Patient will need further work-up of the abdominal wall mass although this may or may not be done in the hospital. Lab Data 03/24/22 17:17 03/24/22 17:17 Radiology Impressions Chest/Abdomen/Pelvis CT 03/24/22 16:40 IMPRESSION: 1. Small bilateral pleural effusions. 2. No pulmonary embolism. 3. Incidental findings above. IMPRESSION: 1. Left lower quadrant abdominal wall mass measuring 2.5 x 2.0 cm. Possible benign or malignant primary neoplasm versus metastasis. 2. 2.4 x 2.0 cm right renal mass or complicated cyst. Recommend non-emergent MRI without and with contrast or non-emergent CT without and with contrast. MRI is preferred for masses under 1.5 cm. There is no hydronephrosis or stones. 3. Incidental findings above. COMMENTS: Consistent with the [employer]'s Incidental Findings Committee white paper (J Am Micaela Radiol 2018): Any incidental renal lesion less than 1 cm or classified as too small to characterize, or any incidental cystic renal lesion characterized as simple-appearing, is likely benign. No follow-up imaging is recommended for these lesions per consensus recommendations based on imaging criteria. Head CT 03/24/22 16:40 IMPRESSION: No acute intracranial abnormality. Laboratory Results WBC 8.5 10^3/uL (4.0-10.0) 03/24/22 17:17 RBC 4.20 10^6/uL (4.1-5.3) 03/24/22 17:17 Hgb 11.8 g/dL (11.5-15.3) 03/24/22 17:17 Hct 40.0 % (37.0-47.0) 03/24/22 17:17 MCV 95.2 fl (81-99) 03/24/22 17:17 MCH 28.1 pg (28.0-34.0) 03/24/22 17:17 MCHC 29.5 g/dL (30.0-36.0) L 03/24/22 17:17 RDW 14.1 % (12.1-15.1) 03/24/22 17:17 Plt Count 244 10^3/cmm (130-400) 03/24/22 17:17 MPV 10.6 fL (7.4-10.4) H 03/24/22 17:17 Neut % (Auto) 79.9 % 03/24/22 17:17 Lymph % (Auto) 12.0 % 03/24/22 17:17 Humphreys % (Auto) 5.6 % 03/24/22 17:17 Eos % (Auto) 1.6 % 03/24/22 17:17 Baso % (Auto) 0.5 % 03/24/22 17:17 Neut # (Auto) 6.79 10^3/uL (1.8-7.7) 03/24/22 17:17 Lymph # (Auto) 1.0 10^3/uL (0.8-4.8) 03/24/22 17:17 Humphreys # (Auto) 0.5 10^3/uL (0.2-0.9) 03/24/22 17:17 Eos # (Auto) 0.1 10^3/uL (0.0-0.8) 03/24/22 17:17 Baso # (Auto) 0.0 10^3/uL (0.0-0.1) 03/24/22 17:17 Nucleated RBC % (auto) 0 % 03/24/22 17:17 Nucleated RBCs # 0.0 /100WBC 03/24/22 17:17 Specimen Type Arterial 03/24/22 16:56 Sample Site Radial, left 03/24/22 16:56 ABG pH 7.41 (7.35-7.45) 03/24/22 16:56 ABG pCO2 55.9 mmHg (35-45) H 03/24/22 16:56 ABG pO2 51.8 mmHg (80.0-100.0) L 03/24/22 16:56 ABG HCO3 35.7 mmol/L (22-26) H 03/24/22 16:56 ABG Base Excess 9.5 mmol/L (-2.0-2.0) H 03/24/22 16:56 Isai Test Pos 03/24/22 16:56 Hematocrit 32.3 % (37-47) L 03/24/22 16:56 O2 Delivery Device Nc 03/24/22 16:56 O2 Liters/Min 2.0 % 03/24/22 16:56 FiO2 28.0 % 03/24/22 16:56 Integration Technician ID Cak 03/24/22 16:56 Sodium 135 mmol/L (136-145) L 03/24/22 17:17 Potassium 4.0 mmol/L (3.5-5.1) 03/24/22 17:17 Chloride 94 mmol/L (98-107) L 03/24/22 17:17 Carbon Dioxide 36 mmol/L (22-29) H 03/24/22 17:17 Anion Gap 9.0 (5-19) 03/24/22 17:17 BUN 13 mg/dL (8-23) 03/24/22 17:17 Creatinine 0.6 mg/dL (0.5-0.9) 03/24/22 17:17 GFR Calculation Not Reportable 03/24/22 17:17 Glucose 150 mg/dL (65-115) H 03/24/22 17:17 Calculated Osmolality 283 mOsm/kg (285-295) L 03/24/22 17:17 Calcium 9.2 mg/dL (8.5-10.5) 03/24/22 17:17 Magnesium 1.9 mg/dL (1.7-2.3) 03/24/22 17:17 Total Bilirubin 0.5 mg/dL (0.15-1.2) 03/24/22 17:17 AST 15 U/L (0-32) 03/24/22 17:17 ALT 12 U/L (0-33) 03/24/22 17:17 Alkaline Phosphatase 84 U/L (35-105) 03/24/22 17:17 NT-Pro-B Natriuret Pep 5702 pg/mL (0-125) H 03/24/22 17:17 Total Protein 7.3 g/dL (6.6-8.7) 03/24/22 17:17 Albumin 3.7 g/dL (3.5-5.2) 03/24/22 17:17 Globulin 3.6 g/dL (1.3-4.6) 03/24/22 17:17 EKG Data EKG 1: Interpretation: Sinus bradycardia at a rate of 53 bpm, normal axis, the QRS is prolonged and there is a right bundle branch block morphology, there are T wave inversions in lead III and some nonspecific ST morphology changes in V3. Discharge Plan Discharge Condition: Stable Prescriptions: No Action atorvastatin 20 mg tablet 20 mg PO QPM glipizide 5 mg tablet extended release 24hr 5 mg PO BID pantoprazole 40 mg tablet,delayed release (DR/EC) 40 mg PO DAILY lisinopril 40 mg tablet 20 mg PO BID hydralazine 50 mg tablet 50 mg PO TID duloxetine 60 mg capsule,delayed release(DR/EC) 60 mg PO DAILY clonazepam 0.5 mg tablet 0.5 mg PO QPM aspirin 81 mg Tablet,Delayed Release (Dr/Ec) 81 mg PO DAILY azelastine 137 mcg (0.1 %) aerosol,spray 2 spray INTRANASAL BID PRN (Reason: Nasal Congestion) Advair HFA 45-21 mcg/actuation HFA aerosol inhaler 2 inh inhalation BID Qty: 12 3RF Spiriva Respimat 1.25 mcg/actuation mist 2 inh inhalation DAILY Qty: 4 2RF albuterol sulfate 90 mcg/actuation HFA aerosol inhaler 2 inh inhalation Q8H PRN (Reason: shortness of breath or wheezing) Qty: 8.5 2RF Eliquis DVT-PE Treat 30D Start 5 mg (74 tabs) tablets,dose pack 5 mg PO BID Qty: 74 2RF trazodone 50 mg Tablet 50 - 150 mg PO BEDTIME PRN (Reason: Insomnia) metoprolol tartrate 50 mg Tablet 50 mg PO TID Referrals: Chayito Kaur MD [Primary Care Provider] - Coding Level of Care Code ED Replanting Machine Operator for Chg Fwd Exam Comprehensive
[2022-03-24] MEDS: ipratropium-albuterol 3 mL Neb INHALATION (16:55)
[2022-03-24 17:08] LABS: ABG PCO2 55.9 mmHg (35-45); ABG PH Result 7.41 (7.35-7.45); Arterial Blood Gas Hematocrit 32.3 % (37-47); Base Excess ABG 9.5 mmol/L (-2.0-2.0); Blood Gas Allen Test Pos; Blood Gas Operator Identificat CAK; Blood Gas Sample Site Radial, left; Blood Gas Sample Type Arterial; HCO3 ABG 35.7 mmol/L (22-26); Oxygen Device NC; PO2 ABG 51.8 mmHg (80.0-100.0)
--- NOTE | 2022-03-24 17:18 | ECG_ITS ---
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 Measurements Intervals [place] Rate: 53 P: 74 CA: 153 QRS: 62 QRSD: 124 T: 4 QT: 483 QTc: 454 Interpretive Statements SINUS BRADYCARDIA RIGHT BUNDLE BRANCH BLOCK [120+ ms QRS DURATION, UPRIGHT V1, 40+ ms S IN I/aVL/V4/V5/V6] Compared to ECG 03/08/2022 17:49:15 Sinus rhythm no longer present Short CA interval no longer present Electronically Signed On 03-25-2022 17:09:44 BLOCK MASON by Yuval Landis M.D. [id number]
[2022-03-24 17:39] LABS: Basophils % 0.5 %; Eosinophils # 0.1 10^3/uL (0.0-0.8); Eosinophils % 1.6 %; Hemoglobin 11.8 g/dL (11.5-15.3); Mean Corpuscular HGB Conc 29.5 g/dL (30.0-36.0); Mean Corpuscular Hemoglobin 28.1 pg (28.0-34.0); Mean Corpuscular Volume 95.2 fl (81-99); Mean Platelet Volume 10.6 fL (7.4-10.4); Monocytes # 0.5 10^3/uL (0.2-0.9); Monocytes % 5.6 %; Neutrophils # 6.79 10^3/uL (1.8-7.7); Neutrophils % 79.9 %; Nucleated Red Blood Cells % 0 %; Platelet Count 244 10^3/cmm (130-400); Red Cell Distribution Width 14.1 % (12.1-15.1); White Blood Count 8.5 10^3/uL (4.0-10.0)
[2022-03-24] MEDS: iohexol 350 mg/mL 500 mL Btl (per mL) IV (17:53)
[2022-03-24 18:07] LABS: Alanine Aminotransferase 12 U/L (0-33); Albumin Level 3.7 g/dL (3.5-5.2); Alkaline Phosphatase 84 U/L (35-105); Aspartate Amino Transferase 15 U/L (0-32); Blood Urea Nitrogen 13 mg/dL (8-23); Calcium 9.2 mg/dL (8.5-10.5); Carbon Dioxide 36 mmol/L (22-29); Chloride 94 mmol/L (98-107); Creatinine Clr Calc Pharmacy 52.1444; Globulin 3.6 g/dL (1.3-4.6); Glucose 150 mg/dL (65-115); Magnesium 1.9 mg/dL (1.7-2.3); NT Pro B Type Natriuretic Pept 5702 pg/mL (0-125); Osmolality Calculated 283 mOsm/kg (285-295); Sodium 135 mmol/L (136-145); Total Bilirubin 0.5 mg/dL (0.15-1.2); Total Protein 7.3 g/dL (6.6-8.7)
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
[2022-03-25] VITALS (14 sets, daily range): BP systolic 142–173; BP diastolic 71–86; PULSE 54–85; RESP 16–58; TEMP 36.6–37.1; O2SAT 90–96
[2022-03-25] MEDS: enoxaparin 40 mg/0.4 mL Syringe SUBCUT (00:06)
[2022-03-25] MEDS: FUROsemide 10 mg/mL SDV 4mL 40 MG IVP (00:06)
[2022-03-25] MEDS: ipratropium-albuterol 3 mL Neb INHALATION ×4 (03:15→21:16)
[2022-03-25 05:48] LABS: Basophils % 0.1 %; Hematocrit 39.3 % (37.0-47.0); Hemoglobin 11.6 g/dL (11.5-15.3); Lymphocytes # 0.2 10^3/uL (0.8-4.8); Lymphocytes % 2.8 %; Mean Corpuscular HGB Conc 29.5 g/dL (30.0-36.0); Mean Corpuscular Hemoglobin 27.8 pg (28.0-34.0); Monocytes % 0.4 %; Neutrophils # 7.49 10^3/uL (1.8-7.7); Neutrophils % 95.9 %; Nucleated Red Blood Cells % 0 %; Platelet Count 227 10^3/cmm (130-400); Red Blood Count 4.18 10^6/uL (4.1-5.3); Red Cell Distribution Width 13.9 % (12.1-15.1); White Blood Count 7.8 10^3/uL (4.0-10.0)
[2022-03-25 06:05] LABS: Alanine Aminotransferase 10 U/L (0-33); Albumin Level 3.4 g/dL (3.5-5.2); Alkaline Phosphatase 78 U/L (35-105); Anion Gap 11.1 (5-19); Aspartate Amino Transferase 7 U/L (0-32); Blood Urea Nitrogen 12 mg/dL (8-23); Calcium 9.1 mg/dL (8.5-10.5); Carbon Dioxide 36 mmol/L (22-29); Chloride 96 mmol/L (98-107); Creatinine Clr Calc Pharmacy 52.1444; Globulin 3.4 g/dL (1.3-4.6); Glucose 309 mg/dL (65-115); Osmolality Calculated 299 mOsm/kg (285-295); Potassium 4.1 mmol/L (3.5-5.1); Sodium 139 mmol/L (136-145); Total Bilirubin 0.5 mg/dL (0.15-1.2); Total Protein 6.8 g/dL (6.6-8.7)
--- NOTE | 2022-03-25 07:22 | ECG_ITS ---
[facility] Test Date: 2022-03-25 Pat Name: Keri Fang Department: Room: 264 Gender: Female Gluing Machine Adjuster: : 1950 Requested By: Kia Ocampo Order Number: [id number] Nikky MD: Yuval Landis M.D. Measurements Intervals [place] Rate: 77 P: 67 FL: 142 QRS: 30 QRSD: 128 T: -2 QT: 416 QTc: 472 Interpretive Statements SINUS RHYTHM WITH OCCASIONAL VENTRICULAR PREMATURE COMPLEXES INDETERMINATE AXIS RIGHT BUNDLE BRANCH BLOCK [120+ ms QRS DURATION, UPRIGHT V1, 40+ ms S IN I/aVL/V4/V5/V6] Compared to ECG 03/24/2022 17:18:15 Ventricular premature complex(es) now present Indeterminate axis now present Sinus bradycardia no longer present Electronically Signed On 03-25-2022 17:07:57 CHANGE ANALYST by Yuval Landis M.D. [id number]
[2022-03-25] MEDS: aspirin 81 mg EC Tablet PO (07:57)
[2022-03-25] MEDS: duloxetine 60 mg Capsule PO (07:57)
[2022-03-25] MEDS: pantoprazole DR 40 mg Tablet PO (07:57)
[2022-03-25] MEDS: lisinopril 20 mg Tablet PO ×2 (07:57→16:38)
[2022-03-25] MEDS: hyDRALAzine 50 mg Tablet PO ×3 (07:57→20:31)
[2022-03-25] MEDS: apixaban 5 mg Tablet PO ×2 (07:58→16:38)
[2022-03-25 08:11] LABS: Troponin(5th) Baseline 18 ng/L (0-10)
[2022-03-25] MEDS: budesonide 0.5 mg/2 mL Neb INHALATION ×2 (08:59→21:16)
--- NOTE | 2022-03-25 09:22 | ECG_ITS ---
[facility] Test Date: 2022-03-25 Pat Name: Keri Fang Department: Room: 264 Gender: Female Tie Tamper: : 1950 Requested By: Kia Ocampo Order Number: [id number] Nikky MD: Yuval Landis M.D. Measurements Intervals [place] Rate: 65 P: 50 [place]: 164 QRS: -30 QRSD: 102 T: 125 QT: 341 QTc: 357 Interpretive Statements SINUS RHYTHM POSSIBLE ANTERIOR MYOCARDIAL INFARCTION , PROBABLY OLD [30 ms Q WAVE IN V3/V4, OR R < 0.2 mV IN V4] Compared to ECG 03/25/2022 09:51:18 Myocardial infarct finding now present Ventricular premature complex(es) no longer present Indeterminate axis no longer present Right bundle-branch block no longer present Electronically Signed On 03-25-2022 18:28:29 ALIGNMENT SPECIALIST by Yuval Landis M.D. [id number]
--- NOTE | 2022-03-25 14:11 | ECG_ITS ---
[facility] Test Date: 2022-03-25 Pat Name: Keri Fang Department: Room: 264 Gender: Female Party Plan Sales Unit Sales Leader: : 1950 Requested By: Kia Ocampo Order Number: [id number] Nikky MD: Yuval Landis M.D. Measurements Intervals [place] Rate: 66 P: 84 [place]: 138 QRS: 24 QRSD: 124 T: -3 QT: 458 QTc: 480 Interpretive Statements SINUS RHYTHM RIGHT BUNDLE BRANCH BLOCK [120+ ms QRS DURATION, UPRIGHT V1, 40+ ms S IN I/aVL/V4/V5/V6] Compared to ECG 03/25/2022 11:00:46 Right bundle-branch block now present Myocardial infarct finding no longer present Electronically Signed On 03-25-2022 18:27:59 CARBONIZER TESTER by Yuval Landis M.D. [id number]
--- NOTE | 2022-03-25 14:39 | PM.PN ---
Subjective Subjective: This morning she was having wheezing, still feeling little better, had just had a breathing treatment, still coughing. At home she is normally on 2 L. She Giurgius [place] and a half, but had stopped chest 5 on exertion. Vitals/I&O/Wt Last Vital Signs Temp 97.8 F 03/25/22 12:00 Pulse 70 03/25/22 14:14 Resp 18 03/25/22 14:07 BP 151/74 03/25/22 12:00 Pulse Ox 92 03/25/22 14:07 O2 Del Method 03/25/22 14:07 O2 Flow Rate 3 03/25/22 14:07 03/24/22 03/25/22 03/25/22 22:59 06:59 14:59 Intake Total 240 / 240 100 / 340 360 / 360 Output Total 1000 / 1000 Balance 240 / 240 -900 / -660 360 / 360 Weight last 48 hrs Weight 56.699 kg Physical Exam Const: COMMON NORMALS: patient oriented x3 and alert GENERAL APPEARANCE: cooperative ORIENTATION/CONSCIOUSNESS: Yes awake HENMT: COMMON NORMALS: oropharynx normal Neck/C-Spine: COMMON NORMALS: no JVD Resp: COMMON NORMALS: normal respiratory effort AUSCULTATION: diminished lung sounds Cardio: COMMON NORMALS: no JVD, regular rhythm, S1 normal heart sound present, S2 normal heart sound present and No murmurs present (Cardio) RHYTHM: regular rhythm HEART SOUNDS: S1 normal heart sound present and S2 normal heart sound present GI: COMMON NORMALS: Normal to inspection, nondistended, normoactive bowel sounds present, Soft to palpation and non-tender PALPATION: Yes Soft to palpation Extremity: COMMON NORMALS: no joint enlargement and no pedal edema Neuro: COMMON NORMALS: patient oriented x3 and moves all extremities SENSORIUM/ORIENTATION: Yes alert Skin: COMMON NORMALS: no rashes or lesions noted GENERAL SKIN EXAM: no rashes or lesions noted Data 03/25/22 05:23 03/25/22 05:23 Micro: Microbiology 03/24/22 17:17 Blood Culture - Preliminary Blood SPECIMEN COLLECTED 03/24/22 17:28 Blood Culture - Preliminary Blood SPECIMEN COLLECTED A&P Assessment and plan (1) Acute exacerbation of chronic obstructive pulmonary disease: Continue Solu-Medrol, budesonide nebs. Continue scheduled DuoNebs, will also add as needed. COVID and influenza rapid antigen requested. Received 1 dose of Lasix, currently not volume overloaded, will not continue for now. Reassess volume status. (2) Abdominal wall mass of left lower quadrant: (3) A-fib: (4) Syncope and collapse: Mild to moderate decrease in blood pressure from 166/86 to 152/75 standing. Heart rate went from 60-72. Elevated bradycardia in the 50s, currently 60s-70s. Troponin series not suggestive of acute ID. She is free of chest pain. As she is noted requiring up to 5 L of oxygen on exertion, normally wears 2 L at home, syncope may have been precipitated by exertional hypoxia. Continue treatment of COPD exacerbation as above. Continue to monitor heart rate on telemetry with initial bradycardia. Beta-roby currently is held. Attestations Medical Necessity Statement*: Continue admission for cyst management of COPD exacerbation, worsening hypoxia, significant exertional hypoxia, syncope and collapse. Coding Level of Care Code Acute Oil And Gas Drafter for Arnold Drake Diagnoses Acute exacerbation of chronic obstructive pulmonary disease J44.1 Abdominal wall mass of left lower quadrant R19.04 A-fib I48.91 Syncope and collapse R55
[2022-03-25 14:45] LABS: Troponin 5 6HR 18.06 ng/L (0-10)
[2022-03-25 14:46] LABS: Troponin 5 6HR Delta 0.06 ng/L (0-12)
[2022-03-25 15:35] LABS: Influenza A by IFA negative (Negative); Influenza B by IFA negative (Negative)
[2022-03-25 15:37] LABS: SARS Covid-2 Antigen negative (Negative)
[2022-03-25] MEDS: atorvastatin 40 mg Tablet 20 MG PO (16:38)
[2022-03-25] MEDS: acetaminophen 325 mg Tablet 650 MG PO (23:27)
[2022-03-26] VITALS (9 sets, daily range): BP systolic 146–182; BP diastolic 70–85; PULSE 69–82; RESP 16–18; TEMP 36.8–37.1; O2SAT 85–96
[2022-03-26] MEDS: HYDROcodone-acetaminophen 5-325 mg Tablet 1 TAB PO (00:36)
[2022-03-26] MEDS: ipratropium-albuterol 3 mL Neb INHALATION ×2 (03:28→09:13)
[2022-03-26 05:28] LABS: Basophils % 0.1 %; Hematocrit 33.8 % (37.0-47.0); Hemoglobin 10.4 g/dL (11.5-15.3); Lymphocytes # 0.2 10^3/uL (0.8-4.8); Mean Corpuscular HGB Conc 30.8 g/dL (30.0-36.0); Mean Corpuscular Hemoglobin 28.3 pg (28.0-34.0); Mean Corpuscular Volume 92.1 fl (81-99); Mean Platelet Volume 11.5 fL (7.4-10.4); Monocytes # 0.2 10^3/uL (0.2-0.9); Monocytes % 1.6 %; Neutrophils # 10.45 10^3/uL (1.8-7.7); Neutrophils % 95.7 %; Nucleated Red Blood Cells % 0 %; Platelet Count 205 10^3/cmm (130-400); Red Blood Count 3.67 10^6/uL (4.1-5.3); Red Cell Distribution Width 14.1 % (12.1-15.1); White Blood Count 10.9 10^3/uL (4.0-10.0)
[2022-03-26 05:54] LABS: Blood Urea Nitrogen 19 mg/dL (8-23); Calcium 8.9 mg/dL (8.5-10.5); Carbon Dioxide 32 mmol/L (22-29); Chloride 92 mmol/L (98-107); Creatinine Clr Calc Pharmacy 52.1444; Glucose 330 mg/dL (65-115); Osmolality Calculated 291 mOsm/kg (285-295); Sodium 133 mmol/L (136-145)
[2022-03-26 05:59] LABS: Anion Gap 13.4 (5-19)
[2022-03-26 06:00] LABS: Potassium 4.4 mmol/L (3.5-5.1)
[2022-03-26] MEDS: lisinopril 20 mg Tablet PO (07:57)
[2022-03-26] MEDS: pantoprazole DR 40 mg Tablet PO (07:57)
[2022-03-26] MEDS: hyDRALAzine 50 mg Tablet PO (07:57)
[2022-03-26] MEDS: apixaban 5 mg Tablet PO (07:57)
[2022-03-26] MEDS: duloxetine 60 mg Capsule PO (07:57)
[2022-03-26] MEDS: aspirin 81 mg EC Tablet PO (07:57)
[2022-03-26] MEDS: budesonide 0.5 mg/2 mL Neb INHALATION (09:13)
--- NOTE | 2022-03-26 12:23 | PM.DCS ---
Discharge Providers Date of Admission: 03/24/22 19:07 Date of Discharge: March 26, 2022 Attending Provider at Admission: Kia Ocampo MD Attending Provider at Discharge: Vincenzo French Primary Care Provider: Chayito Kaur MD Diagnoses at Discharge Discharge Diagnosis (1) Acute exacerbation of chronic obstructive pulmonary disease: Status: Acute (2) Abdominal wall mass of left lower quadrant: Status: Acute (3) A-fib: Status: Acute (4) Syncope and collapse: Status: Acute Reason for Visit Reason for Visit: SOB Hospital Course Hospital Course Pleasant 71-year-old lady with history of COPD, current smoker, with history of atrial fibrillation on anticoagulation, previously admitted in beginning of March and treated for right-sided pneumonia and required BiPAP support, who was admitted for assessment management after presenting with worsening dyspnea, cough, felt very weak, got dizzy, fell at home and struck her head on the floor. CT of the head showed no intracranial bleeding. On presentation CT showed no PE, no focal pneumonia. However, incidentally found to have following incidental findings among others: 1. Left lower quadrant abdominal wall mass measuring 2.5 x 2.0 cm. Possible benign or malignant primary neoplasm versus metastasis. 2. 2.4 x 2.0 cm right renal mass or complicated cyst. Recommend non-emergent MRI without and with contrast or non-emergent CT without and with contrast. MRI is preferred for masses under 1.5 cm. There is no hydronephrosis or stones. On presentation she had also noted vague chest discomfort, and troponin EKG series was completed which noted mild troponin elevation, without suggestion of acute RI on the studies. She remained chest pain-free subsequently. In hospital was treated for COPD exacerbation, was noted to have increased oxygen demand, up to 5 L with exertion initially, which may have contributed to her lightheadedness and syncopal episode. Rapid COVID-19 and influenza antigens were negative. Was treated with Solu-Medrol, budesonide inhalation, duo nebs. Continue with supplemental O2. Showed improvement subjectively feeling better, oxygenation remained steady, however, does have continued increased need with 3 L at rest but 4 L with exertion. Some mild to moderate decrease in blood pressure noted from standing on orthostatic vitals, 166/86 - 152/75, heart rate went from 60-73, but not significant for orthostatic hypotension. At discharge she will complete prednisone taper, short course of cefdinir, and nebulizer is requested for her to continue nebulizer treatments at home. She is also given referral again to follow-up with pulmonology. She is instructed to quit smoking. Once she recovers from COPD exacerbation, please refer her for PFT, stress testing. Continue to encourage smoking cessation, optimize coronary disease risk factors. With some consideration that abdominal wall mass could also be due to hematoma she is on anticoagulation after a fall, she is asked to hold continuation for a week for now. Additionally with renal mass a three-phase CT scan abdomen pelvis is ordered within a week, which should help reassess in the left lower abdominal wall mass as well for resolution in case of hematoma. She is also asked to follow-up with urology. Physical Exam Const: COMMON NORMALS: patient oriented x3 and alert GENERAL APPEARANCE: cooperative ORIENTATION/CONSCIOUSNESS: Yes awake HENMT: COMMON NORMALS: oropharynx normal Neck/C-Spine: COMMON NORMALS: no JVD Resp: COMMON NORMALS: normal respiratory effort AUSCULTATION: other (Better air entry, mild coarse wheeze in the right lower lung.) Cardio: COMMON NORMALS: no JVD, regular rhythm, S1 normal heart sound present, S2 normal heart sound present and No murmurs present (Cardio) RHYTHM: regular rhythm HEART SOUNDS: S1 normal heart sound present and S2 normal heart sound present GI: COMMON NORMALS: Normal to inspection, nondistended, normoactive bowel sounds present, Soft to palpation and non-tender PALPATION: Yes Soft to palpation Extremity: COMMON NORMALS: no joint enlargement and no pedal edema Neuro: COMMON NORMALS: patient oriented x3 and moves all extremities SENSORIUM/ORIENTATION: Yes alert Skin: COMMON NORMALS: no rashes or lesions noted GENERAL SKIN EXAM: no rashes or lesions noted Discharge Data Studies Completed and Pending Completed Studies During Hospitalization Category Date Time Status CT angio chest w abd pel w con Stat Cat Scan 03/24/22 16:[address] head wo con* [id number] Stat Cat Scan 03/24/22 16:40 Completed Pending at discharge Category Date Time Status Basic Metabolic Panel AM LABS Lab 03/27/22 04:00 Ordered Basic Metabolic Panel AM LABS Lab 03/28/22 04:00 Ordered Blood Culture Stat Lab 03/24/22 17:17 Results Complete Blood Count w/Auto AM LABS Lab 03/27/22 04:00 Ordered Complete Blood Count w/Auto AM LABS Lab 03/28/22 04:00 Ordered Radiology Impressions Chest/Abdomen/Pelvis CT 03/24/22 16:40 IMPRESSION: 1. Small bilateral pleural effusions. 2. No pulmonary embolism. 3. Incidental findings above. IMPRESSION: 1. Left lower quadrant abdominal wall mass measuring 2.5 x 2.0 cm. Possible benign or malignant primary neoplasm versus metastasis. 2. 2.4 x 2.0 cm right renal mass or complicated cyst. Recommend non-emergent MRI without and with contrast or non-emergent CT without and with contrast. MRI is preferred for masses under 1.5 cm. There is no hydronephrosis or stones. 3. Incidental findings above. COMMENTS: Consistent with the [employer]'s Incidental Findings Committee white paper (J Am Micaela Radiol 2018): Any incidental renal lesion less than 1 cm or classified as too small to characterize, or any incidental cystic renal lesion characterized as simple-appearing, is likely benign. No follow-up imaging is recommended for these lesions per consensus recommendations based on imaging criteria. Head CT 03/24/22 16:40 IMPRESSION: No acute intracranial abnormality. Laboratory Results WBC 10.9 10^3/uL (4.0-10.0) H 03/26/22 05:09 RBC 3.67 10^6/uL (4.1-5.3) L 03/26/22 05:09 Hgb 10.4 g/dL (11.5-15.3) L 03/26/22 05:09 Hct 33.8 % (37.0-47.0) L 03/26/22 05:09 MCV 92.1 fl (81-99) 03/26/22 05:09 MCH 28.3 pg (28.0-34.0) 03/26/22 05:09 MCHC 30.8 g/dL (30.0-36.0) 03/26/22 05:09 RDW 14.1 % (12.1-15.1) 03/26/22 05:09 Plt Count 205 10^3/cmm (130-400) 03/26/22 05:09 MPV 11.5 fL (7.4-10.4) H 03/26/22 05:09 Neut % (Auto) 95.7 % 03/26/22 05:09 Lymph % (Auto) 2.0 % 03/26/22 05:09 [place] % (Auto) 1.6 % 03/26/22 05:09 Eos % (Auto) 0.0 % 03/26/22 05:09 Baso % (Auto) 0.1 % 03/26/22 05:09 Neut # (Auto) 10.45 10^3/uL (1.8-7.7) H 03/26/22 05:09 Lymph # (Auto) 0.2 10^3/uL (0.8-4.8) L 03/26/22 05:09 [place] # (Auto) 0.2 10^3/uL (0.2-0.9) 03/26/22 05:09 Eos # (Auto) 0.0 10^3/uL (0.0-0.8) 03/26/22 05:09 Baso # (Auto) 0.0 10^3/uL (0.0-0.1) 03/26/22 05:09 Nucleated RBC % (auto) 0 % 03/26/22 05:09 Nucleated RBCs # 0.0 /100WBC 03/26/22 05:09 Specimen Type Arterial 03/24/22 16:56 Sample Site Radial, left 03/24/22 16:56 ABG pH 7.41 (7.35-7.45) 03/24/22 16:56 ABG pCO2 55.9 mmHg (35-45) H 03/24/22 16:56 ABG pO2 51.8 mmHg (80.0-100.0) L 03/24/22 16:56 ABG HCO3 35.7 mmol/L (22-26) H 03/24/22 16:56 ABG Base Excess 9.5 mmol/L (-2.0-2.0) H 03/24/22 16:56 Isai Test Pos 03/24/22 16:56 Hematocrit 32.3 % (37-47) L 03/24/22 16:56 O2 Delivery Device Nc 03/24/22 16:56 O2 Liters/Min 2.0 % 03/24/22 16:56 FiO2 28.0 % 03/24/22 16:56 [employer] Tufting Machine Operator ID Cak 03/24/22 16:56 Sodium 133 mmol/L (136-145) L 03/26/22 05:09 Potassium 4.4 mmol/L (3.5-5.1) 03/26/22 05:09 Chloride 92 mmol/L (98-107) L 03/26/22 05:09 Carbon Dioxide 32 mmol/L (22-29) H 03/26/22 05:09 Anion Gap 13.4 (5-19) 03/26/22 05:09 BUN 19 mg/dL (8-23) 03/26/22 05:09 Creatinine 0.6 mg/dL (0.5-0.9) 03/26/22 05:09 GFR Calculation Not Reportable 03/26/22 05:09 Glucose 330 mg/dL (65-115) H 03/26/22 05:09 Calculated Osmolality 291 mOsm/kg (285-295) 03/26/22 05:09 Calcium 8.9 mg/dL (8.5-10.5) 03/26/22 05:09 Magnesium 1.9 mg/dL (1.7-2.3) 03/24/22 17:17 Total Bilirubin 0.5 mg/dL (0.15-1.2) 03/25/22 05:23 AST 7 U/L (0-32) 03/25/22 05:23 ALT 10 U/L (0-33) 03/25/22 05:23 Alkaline Phosphatase 78 U/L (35-105) 03/25/22 05:23 Troponin T Baseline 18 ng/L (0-10) H 03/25/22 07:45 Troponin T 120 Minute 18.70 ng/L (0-10) H 03/25/22 09:30 Delta Troponin T 0.70 ABS# (0-10) 03/25/22 09:30 Troponin T Hi Sens 6Hr 18.06 ng/L (0-10) H 03/25/22 14:08 Troponin T Hi Sens 6Hr Delta 0.06 ng/L (0-12) 03/25/22 14:08 NT-Pro-B Natriuret Pep 5702 pg/mL (0-125) H 03/24/22 17:17 Total Protein 6.8 g/dL (6.6-8.7) 03/25/22 05:23 Albumin 3.4 g/dL (3.5-5.2) L 03/25/22 05:23 Globulin 3.4 g/dL (1.3-4.6) 03/25/22 05:23 Influenza Type A Ag negative (Negative) 03/25/22 15:00 Influenza Type B Ag negative (Negative) 03/25/22 15:00 SARS-CoV-2 Ag (Rapid) negative (Negative) 03/25/22 15:00 Vitals Last Vital Signs Temp 98.7 F 03/26/22 11:11 Pulse 77 03/26/22 11:11 Resp 18 03/26/22 11:11 BP 174/70 03/26/22 11:11 Pulse Ox 93 03/26/22 11:11 O2 Del Method 03/26/22 11:11 O2 Flow Rate 4 03/26/22 10:40 Discharge Plan Discharge Patient Disposition: Home Condition: Stable Prescriptions: New ipratropium-albuterol 0.5 mg-3 mg(2.5 mg base)/3 mL solution for nebulization 3 ml inhalation Q8H Qty: 90 0RF ipratropium-albuterol 0.5 mg-3 mg(2.5 mg base)/3 mL solution for nebulization 3 ml inhalation Q8H PRN (Reason: shortness of breath or wheezing) Qty: 90 0RF prednisone 20 mg tablet See Rx Instructions .ROUTE .COMPLEX Qty: 20 0RF Rx Instructions: 3 tab daily for 3 days, then 2 tab for 3 days, then 1 tab for 3 days, then 1/2 tab for 2 days. cefdinir 300 mg capsule 300 mg PO BID 5 Days Qty: 10 0RF Mucinex 600 mg tablet extended release 12hr 600 mg PO BID PRN (Reason: congestion) Qty: 20 0RF Continued atorvastatin 20 mg tablet 20 mg PO QPM glipizide 5 mg tablet extended release 24hr 5 mg PO BID pantoprazole 40 mg tablet,delayed release (DR/EC) 40 mg PO DAILY lisinopril 40 mg tablet 20 mg PO BID hydralazine 50 mg tablet 50 mg PO TID duloxetine 60 mg capsule,delayed release(DR/EC) 60 mg PO DAILY clonazepam 0.5 mg tablet 0.5 mg PO QPM aspirin 81 mg Tablet,Delayed Release (Dr/Ec) 81 mg PO DAILY azelastine 137 mcg (0.1 %) aerosol,spray 2 spray INTRANASAL BID PRN (Reason: Nasal Congestion) Advair HFA 45-21 mcg/actuation HFA aerosol inhaler 2 inh inhalation BID Qty: 12 3RF Spiriva Respimat 1.25 mcg/actuation mist 2 inh inhalation DAILY Qty: 4 2RF albuterol sulfate 90 mcg/actuation HFA aerosol inhaler 2 inh inhalation Q8H PRN (Reason: shortness of breath or wheezing) Qty: 8.5 2RF trazodone 50 mg Tablet 50 - 150 mg PO BEDTIME PRN (Reason: Insomnia) metoprolol tartrate 50 mg Tablet 50 mg PO TID Held Eliquis DVT-PE Treat 30D Start 5 mg (74 tabs) tablets,dose pack 5 mg PO BID Qty: 74 2RF Hold Instructions: Resume on 04/04/22. Until after CT is complete and follow up Discharge Orders: Discharge Order (Routine); Ordered 03/26/22 Ordered By: Vincenzo French Other Ambulatory Orders: CT abdomen pelvis w con* [id number] (Routine) Timeframe: 1 Week Facility: [facility] - Location: [facility] Ordered By: Vincenzo French DME: Nebulizer with Neb Kit (Order) Location: None Selected Ordered By: Vincenzo French DME: Oxygen (Order) Location: None Selected Ordered By: Vincenzo French Referrals: David Green MD [Physician] - 05/30/22 1:45 pm (COPD) Alessandro Faye MD [Physician] - 7-10 days (renal mass Message sent to office. Clinic will call patient for an appointment ) Chayito Kaur MD [Primary Care Provider] - 4-7 days (Please call and make a follow up appointment for 1 week) Discharge Diet: Cardiac and Diabetic Discharge Activity: Oxygen as instructed Patient Instructions: Prednisone (By mouth), Ipratropium/Albuterol (By breathing), Cefdinir (By mouth), How to Stop Smoking (GEN), Cigarette Smoking and Your Health (GEN), Using Oxygen at Home (GEN), COPD (Chronic Obstructive Pulmonary Disease) (GEN), Hypoxia (GEN), Opioid Safety Activity Restrictions/Additional Instructions: Please complete prednisone taper, antibiotic course, continue breathing treatments for COPD exacerbation. Please follow-up with your primary doctor for reassessment, you are also given referral for follow-up with lung specialist. Once you recover from acute COPD sedation, please discuss with your primary doctor to refer you for pulmonary function test ideally before seeing the lung specialist. With regards to incidental finding of 2.5 cm x 2 cm left lower quadrant abdominal wall mass, with possibility of benign or malignant primary neoplasm versus metastasis. There is some possibility of this being a small hematoma, due to this please hold blood thinner medication for now until reassessment with CT and follow-up with your primary doctor. Additionally noted 2.4 x 2 cm right renal mass or complicated cyst. Please follow-up with the specialist CT scan of abdomen and pelvis as requested to further visualize the mass, and he will also referred for follow-up with urology. Please stop smoking. Continue smoking will lead to further worsening of lung disease, worsening of COPD, and risking other lung conditions, with also risk of heart disease, cancer and other complications if continue to smoke. Never smoke in 1 year oxygen due to severe fire hazard and risk of airway estrella. Once you recover from COPD exacerbation, please also discuss. Chronic doctor referral for stress testing due to risk factors to further assess for possible coronary disease. Increase oxygen flow with exertion as instructed. Discharge Attestations Time Spent in Discharge Care*: greater than 30 min Quality Metrics Clinical Quality Measures [ No reported AMI, CVA or VTE this stay] Coding Level of Care Code Acute g FW MI note Diagnoses Acute exacerbation of chronic obstructive pulmonary disease J44.1 Abdominal wall mass of left lower quadrant R19.04 A-fib I48.91 Syncope and collapse R55
== END 2022-03-26 14:00 | disposition home or self-care (01) ==
LOC: ER 19:07 → MEDSURG 20:15
PROVIDERS: Admitting Provider Student in an Organized Health Care Education/Training Program; Emergency Provider Emergency Medicine; PCP Family Medicine; Visit Provider Internal Medicine
DX: J44.1 Chronic obstructive pulmonary disease with (acute) exacerbation (principal); R19.04 Left lower quadrant abdominal swelling, mass and lump; I48.91 Unspecified atrial fibrillation; R55 Syncope and collapse; F17.210 Nicotine dependence, cigarettes, uncomplicated; Z79.01 Long term (current) use of anticoagulants; N28.9 Disorder of kidney and ureter, unspecified; R09.02 Hypoxemia
CPT/HCPCS: 36415; 36600; 70450; 71275; 74177; 80048; 80053; 82803; 83735; 83880; 84484; 85025; 87040; 87426; 87804; 93005; 94640; 94664; 94760; 96365; 96372; 96375; 99285; 99291; 99292; G0378; J1650; J1940; J2543; J2920; J2930; J7626; Q9967

== ENCOUNTER → 2022-04-17 13:31 | Outpatient (BNVA) | payer MEDICARE, SELFPAY | PROVIDERS: PCP Family Medicine; Visit Provider Urology | DX: N28.89 Other specified disorders of kidney and ureter (principal) | CPT/HCPCS: 81003; 99203 ==

== ENCOUNTER 2022-05-03 10:43 | Outpatient (CLI) | payer MEDICARE, SELFPAY ==
--- NOTE | 2022-05-03 11:00 | US_ITS ---
WS: [id number] RENAL ULTRASOUND HISTORY: Renal Mass COMPARISON: CT 03/24/2022. TECHNIQUE: 2-D and color Doppler imaging of the kidney submitted. Right kidney: 10.2 cm x 5.0 cm x 3.6 cm. Normal echogenicity with no hydronephrosis or mass. Previously described mass in the lower pole the R IGHT kidney is not evident by ultrasound. The lower pole as well visualized by ultrasound but there d id appear to be a mass in the lower pole on the prior CT. Left kidney: 9.4 cm x 4.2 cm x 3.9 cm. Normal echogenicity with no hydronephrosis or mass. Aorta: Normal. Urinary Bladder: Nondistended. US/US renal BI* [id number] IMPRESSION: 1. No renal mass identified in the lower pole the RIGHT kidney as suspected on the prior CT from 03/24/2022. Recommend additional MR or CT follow-up as the m ass did appear real on the prior CT. Recommend MRI or CT with and without contr ast. 2. No hydronephrosis.
== END 2022-05-03 10:44 | disposition home or self-care (01) ==
LOC: RAD 10:43
PROVIDERS: PCP Family Medicine; Visit Provider Urology
DX: N28.89 Other specified disorders of kidney and ureter (principal)
CPT/HCPCS: 76770; 81003; 99213

== ENCOUNTER → 2022-05-30 13:28 | Outpatient (BNVA) | payer MEDICARE, SELFPAY | PROVIDERS: PCP Family Medicine; Visit Provider Internal Medicine Pulmonary Disease | DX: J96.01 Acute respiratory failure with hypoxia (principal); J96.02 Acute respiratory failure with hypercapnia; J44.9 Chronic obstructive pulmonary disease, unspecified; N28.89 Other specified disorders of kidney and ureter; Z87.891 Personal history of nicotine dependence; I48.91 Unspecified atrial fibrillation; Z79.01 Long term (current) use of anticoagulants | CPT/HCPCS: 99204 ==

== ENCOUNTER 2022-06-19 06:59 | Outpatient (CLI) | payer MEDICARE, SELFPAY | END 2022-06-19 07:00 | disposition home or self-care (01) | LOC: RT 07:02 | PROVIDERS: PCP Family Medicine; Visit Provider Internal Medicine Pulmonary Disease | DX: J44.9 Chronic obstructive pulmonary disease, unspecified (principal); R09.02 Hypoxemia | CPT/HCPCS: 94010; 94618; 94726; 94729; J7613 ==

== ENCOUNTER 2022-06-21 05:55 | Outpatient (CLI) | payer MEDICARE, SELFPAY ==
--- NOTE | 2022-06-21 06:30 | CT_ITS ---
WS: [id number] CT CHEST TECHNIQUE: Noncontrast CT of the chest with coronal and sagittal reformatted images. CLINICAL INFORMATION: Chronic cough. Shortness of breath. COPD. COMPARISON: CT March 24, 2022 DLP: 222.[address] scans at [facility] use at least one of these dose optimization techniques: automated e xposure control; mA and/or kV adjustment per patient size (includes targeted exams where dose is matc hed to clinical indication); or iterative reconstruction. FINDINGS: Moderate chronic emphysematous changes. Subsegmental atelectasis lung bases. Small LEFT and tiny RIGH T pleural effusions. RIGHT pleural effusion has decreased slightly compared to previous. LEFT pleural effusion has increased slightly. Aortic calcification. Coronary calcification. Numerous anterior mediastinal and peribronchial lymph n odes not pathologically enlarged. Adrenal glands are normal. Cholecystectomy clips. Tiny esophageal h iatal hernia. No axillary lymphadenopathy. Incidental hemangioma in the upper thoracic spine at T6 CT/CT chest wo con [id number] IMPRESSION: 1. Moderate chronic emphysematous changes. 2. Small LEFT greater than RIGHT pleural effusions. Subsegmental atelectasis i n the lung bases. RIGHT pleural effusion has decreased from previous. LEFT pleu ral effusion has increased slightly. 3. Aortic calcification. Coronary calcification. 4. Numerous normal sized anterior mediastinal and peribronchial lymph nodes. T hese are nonspecific but likely reactive. 5. Incidental hemangioma in the upper thoracic spine at T6
== END 2022-06-21 05:56 | disposition home or self-care (01) ==
PROVIDERS: PCP Family Medicine; Visit Provider Internal Medicine Pulmonary Disease
DX: Z12.2 Encounter for screening for malignant neoplasm of respiratory organs (principal); J44.9 Chronic obstructive pulmonary disease, unspecified; J96.90 Respiratory failure, unspecified, unspecified whether with hypoxia or hypercapnia; D18.09 Hemangioma of other sites; I70.0 Atherosclerosis of aorta; I25.10 Atherosclerotic heart disease of native coronary artery without angina pectoris; J90 Pleural effusion, not elsewhere classified; J98.11 Atelectasis
CPT/HCPCS: 71250; 99204

== ENCOUNTER 2022-07-10 12:42 | Outpatient (CLI) | payer MEDICARE, SELFPAY ==
--- NOTE | 2022-07-10 12:53 | MR_ITS ---
WS: [id number] MRI ABDOMEN with and without CONTRAST. COMPARISON: Prior CT 03/24/2022, renal ultrasound 05/03/[address] 10/28/2015. Multiplanar, multisequence imaging is performed with and without contrast. MultiHance 13 mL IV RIGHT kidney: Normal size with no hydronephrosis. Heterogeneous a normally cystic mass exophytic from the lower pole measures 1.7 x 1.9 cm. There is a hypointense focus within the central portion along the anterior margin of this cyst. This is a well-circumscribed mass. The postcontrast imaging there i s enhancement which is predominantly within the solid nodular component. The remaining cysts very mil dly enhances also. There is an additional cortical lesion with a maximum diameter of 8 mm in the mid kidney which does not enhance. This may be a small angiomyolipoma. On out of phase images there is si gnificant decreased in signal intensity. LEFT kidney: Normal size. No obstruction. No solid mass. Very tiny cortical cysts in the upper pole a re too small to characterize. No enhancing renal mass. Normal size liver. No solid enhancing masses. Spleen is normal size. No pancreatic mass identified. T he pancreas is not well visualized. No ascites or adenopathy. No thrombus in the renal veins or IVC. Negative portal vein. Seen only on a few of the sequences is an abnormal soft tissue mass in the pelvis. Variable signal in tensity on several sequences. I suspect this could be possibly a fibroid. This enhancing masses to th e LEFT of midline measuring 3.8 x 2.9 cm. MR/MR abdomen wo/w con* [id number] IMPRESSION: 1. Enhancing mass lower pole RIGHT kidney measures 1.7 x 1.9 cm. Suspicious fo r cystic renal neoplasm until proven otherwise. Predominantly cystic mass with focal intracystic nodular enhancing component. 2. Additional angiomyolipoma RIGHT kidney. 3. No thrombus in the RIGHT renal vein. 4. No adenopathy or ascites. 5. Enhancing mass in the LEFT pelvis. Suspect this is a fibroid. Recommend fol low-up transvaginal pelvic ultrasound for evaluation of the uterus and adnexa.
[2022-07-10] MEDS: gadobenate dimeglumine 20 mL vial IV (14:15)
== END 2022-07-10 12:43 | disposition home or self-care (01) ==
LOC: RAD 12:47
PROVIDERS: PCP Family Medicine; Visit Provider Urology
DX: N28.89 Other specified disorders of kidney and ureter (principal); D17.71 Benign lipomatous neoplasm of kidney
CPT/HCPCS: 74183; 81003; 99213; A9577

== ENCOUNTER 2022-07-10 19:14 | Emergency (ER) | payer MEDICARE, SELFPAY ==
--- NOTE | 2022-07-10 19:18 | ECG_ITS ---
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 Measurements Intervals [place] Rate: 62 P: 72 MN: 127 QRS: 117 QRSD: 142 T: -20 QT: 458 QTc: 466 Interpretive Statements SINUS RHYTHM WITH FREQUENT VENTRICULAR PREMATURE COMPLEXES RIGHT AXIS DEVIATION [QRS AXIS > 100] RIGHT BUNDLE BRANCH BLOCK AND POSSIBLE RIGHT VENTRICULAR HYPERTROPHY [RBBB, 1.5 mV R IN V1, RAD] MODERATE T-WAVE ABNORMALITY, CONSIDER ANTEROLATERAL ISCHEMIA [-0.1+ mV T-WAVE IN V3-V6] MODERATE T-WAVE ABNORMALITY, CONSIDER INFERIOR ISCHEMIA [-0.1+ mV T-WAVE IN II/aVF] Compared to ECG 03/25/2022 14:11:00 Ventricular premature complex(es) now present Right-axis deviation now present T-wave abnormality now present Possible ischemia now present Electronically Signed On 07-11-2022 23:29:51 [employer] REPORTS DEVELOPER by Norm Michel M.D. [id number]
--- NOTE | 2022-07-10 19:18 | XRR_ITS ---
PROCEDURE INFORMATION: Exam: XR Chest Exam date and time: 07/10/2022 7:26 PM Age: 71 years old Clinical indication: Shortness of breath; Additional info: SOB, low o2, dizzy, light headed TECHNIQUE: Imaging protocol: Radiologic exam of the chest. Views: 1 view. COMPARISON: CT chest con [id number] 06/21/2022 6:28 AM FINDINGS: Lungs: Emphysematous changes. Right lower lateral lung field 16 mm nodule, not seen on prior exam, chest CT could further evaluate this. Bibasilar atelectasis. Pleural spaces: Unremarkable. No pleural effusion. No pneumothorax. Heart/Mediastinum: Unremarkable. No cardiomegaly. Bones/joints: Unremarkable. XR/XR chest 1V portable [id number] IMPRESSION: 1. Emphysematous changes. 2. Right lower lateral lung field 16 mm nodule, not seen on prior exam, chest CT could further evaluate this. 3. Bibasilar atelectasis.
[2022-07-10 19:25] VITALS: BP 170/82; PULSE 59; RESP 24; TEMP 36.4; O2SAT 99; BMI 21.9
[2022-07-10 20:15] LABS: Basophils % 0.6 %; Eosinophils # 0.3 10^3/uL (0.0-0.8); Eosinophils % 3.8 %; Hematocrit 38.1 % (37.0-47.0); Hemoglobin 11.1 g/dL (11.5-15.3); Lymphocytes # 1.2 10^3/uL (0.8-4.8); Lymphocytes % 16.9 %; Mean Corpuscular HGB Conc 29.1 g/dL (30.0-36.0); Mean Corpuscular Volume 89.2 fl (81-99); Mean Platelet Volume 10.8 fL (7.4-10.4); Monocytes # 0.6 10^3/uL (0.2-0.9); Monocytes % 7.7 %; Neutrophils # 5.07 10^3/uL (1.8-7.7); Neutrophils % 70.7 %; Nucleated Red Blood Cells % 0 %; Platelet Count 178 10^3/cmm (130-400); Red Blood Count 4.27 10^6/uL (4.1-5.3); Red Cell Distribution Width 14.9 % (12.1-15.1); White Blood Count 7.2 10^3/uL (4.0-10.0)
[2022-07-10 20:30] LABS: INR 1.19 (0.8-1.2)
[2022-07-10 20:39] LABS: Troponin(5th) Baseline 20 ng/L (0-10)
[2022-07-10 20:46] LABS: Alanine Aminotransferase 31 U/L (0-33); Albumin Level 4.1 g/dL (3.5-5.2); Alkaline Phosphatase 86 U/L (35-105); Anion Gap 11.8 (5-19); Aspartate Amino Transferase 25 U/L (0-32); Blood Urea Nitrogen 19 mg/dL (8-23); Carbon Dioxide 32 mmol/L (22-29); Chloride 99 mmol/L (98-107); Globulin 2.4 g/dL (1.3-4.6); Glucose 124 mg/dL (65-115); NT Pro B Type Natriuretic Pept 2470 pg/mL (0-125); Osmolality Calculated 292 mOsm/kg (285-295); Potassium 3.8 mmol/L (3.5-5.1); Sodium 139 mmol/L (136-145); Total Bilirubin 0.5 mg/dL (0.15-1.2); Total Protein 6.5 g/dL (6.6-8.7)
[2022-07-10 20:59] VITALS: BP 162/73; PULSE 55; RESP 19; TEMP 36.7; O2SAT 99
== END 2022-07-10 22:59 | disposition left against medical advice (07) ==
LOC: ER 19:21
PROVIDERS: Emergency Medicine; Emergency Provider Family Medicine; PCP Family Medicine
DX: Z53.21 Procedure and treatment not carried out due to patient leaving prior to being seen by health care provider (principal)
CPT/HCPCS: 36415; 71045; 80053; 83880; 84484; 85025; 85610; 93005; 99285

== ENCOUNTER → 2022-07-30 12:42 | Outpatient (BNVA) | payer MEDICARE, SELFPAY | PROVIDERS: PCP Family Medicine; Visit Provider Internal Medicine Pulmonary Disease | DX: J44.9 Chronic obstructive pulmonary disease, unspecified (principal); J96.12 Chronic respiratory failure with hypercapnia; N28.89 Other specified disorders of kidney and ureter; Z87.891 Personal history of nicotine dependence; I48.92 Unspecified atrial flutter; Z79.01 Long term (current) use of anticoagulants; Z99.81 Dependence on supplemental oxygen | CPT/HCPCS: 99214 ==

== ENCOUNTER 2022-08-26 11:00 | Outpatient (CLI) | payer MEDICARE, SELFPAY | END 2022-08-26 11:01 | disposition home or self-care (01) | LOC: SLEEP 08-27 08:45 | PROVIDERS: PCP Family Medicine; Visit Provider Internal Medicine Pulmonary Disease | DX: R09.02 Hypoxemia (principal); J44.9 Chronic obstructive pulmonary disease, unspecified; J96.90 Respiratory failure, unspecified, unspecified whether with hypoxia or hypercapnia | CPT/HCPCS: 94762 ==

== ENCOUNTER 2022-09-04 07:24 | Outpatient (CLI) | payer MEDICARE, SELFPAY ==
--- NOTE | 2022-09-04 08:37 | USCV_ITS ---
Keri Fang Age: 71 Gender: F : 1950 Exam Date: 09/04/2022 08:53 Ordering Phys: Chayito Kaur MD Technologist: MIRIAM Exam Location: [facility] [place] Indication: Rt Leg Swelling HISTORY: Lower extremity swelling. PROCEDURES: Venous duplex imaging was performed in only the right lower extremity. The following venous structures were evaluated: common femoral vein, profunda vein, proximal portion of the greater saphenous vein, superficial femoral vein, and the popliteal vein. In addition, the posterior tibial and peroneal trunk were evaluated. Serial compression, augmentation maneuvers, and spectral Doppler flow evaluation were performed. FINDINGS: No evidence of DVT seen in any vessel visualized at this time. CONCLUSIONS No evidence of right lower extremity DVT. Manas Reyes MD (Electronically Signed) Final Date: 04 Sep 2022 12:16 S
== END 2022-09-04 07:25 | disposition home or self-care (01) ==
PROVIDERS: PCP Family Medicine; Visit Provider Family Medicine
DX: M79.661 Pain in right lower leg (principal)
CPT/HCPCS: 93971

== ENCOUNTER 2022-12-30 19:50 | Emergency (ER) | payer MEDICARE, SELFPAY ==
--- NOTE | 2022-12-30 19:52 | XRR_ITS ---
PROCEDURE INFORMATION: Exam: XR Chest Exam date and time: 12/30/2022 7:59 PM Age: 72 years old Clinical indication: Pain; Chest pressure; Additional info: Cp TECHNIQUE: Imaging protocol: Radiologic exam of the chest. Views: 1 view. COMPARISON: CR XR chest 1V portable [id number] 07/10/2022 7:26 PM FINDINGS: Lungs: Hyperinflated lungs. No consolidation. Pleural spaces: No pleural effusion. No pneumothorax. Heart/Mediastinum: Atherosclerotic calcifications noted at the aortic arch. No cardiomegaly. Bones/joints: Visualized osseous structures are intact. XR/XR chest 1V portable [id number] IMPRESSION: No acute findings.
--- NOTE | 2022-12-30 19:52 | ECG_ITS ---
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 Measurements Intervals [place] Rate: 85 P: -17 CO: 144 QRS: 11 QRSD: 131 T: 27 QT: 377 QTc: 449 Interpretive Statements SINUS RHYTHM WITH OCCASIONAL VENTRICULAR PREMATURE COMPLEXES WITH OCCASIONAL SUPRAVENTRICULAR PREMATURE COMPLEXES RIGHT BUNDLE BRANCH BLOCK [120+ ms QRS DURATION, UPRIGHT V1, 40+ ms S IN I/aVL/V4/V5/V6] Compared to ECG 07/10/2022 19:36:11 Right-axis deviation no longer present T-wave abnormality no longer present Possible ischemia no longer present Electronically Signed On 12-31-2022 23:53:20 CDT by Norm Michel M.D. [id number]
[2022-12-30 20:04] VITALS: BP 175/84; PULSE 86; RESP 18; TEMP 36.7; O2SAT 93; BMI 22.8
[2022-12-30 20:54] LABS: Basophils % 0.4 %; Eosinophils # 0.2 10^3/uL (0.0-0.8); Eosinophils % 2.2 %; Hematocrit 38.5 % (36-47); Lymphocytes % 10.8 %; Mean Corpuscular HGB Conc 31.4 g/dL (30-55); Mean Corpuscular Hemoglobin 27.5 pg (27-33); Mean Corpuscular Volume 87.5 fl (85-98); Mean Platelet Volume 10.1 fL (7.4-10.4); Monocytes % 9.8 %; Neutrophils # 7.39 10^3/uL (1.8-7.7); Neutrophils % 76.6 %; Nucleated Red Blood Cells % 0 %; Platelet Count 224 10^3/cmm (157-399); Red Cell Distribution Width 15.3 % (12.1-15.1); White Blood Count 9.65 10^3/uL (3.29-11.43)
--- NOTE | 2022-12-30 21:06 | ED_ITS ---
HPI - Chest Pain General: Chief Complaint: Chest Pain Stated Complaint: Chest pain Time Seen by Provider: 12/30/22 20:49 History of Present Illness: 72-year-old female presents the emergency department complaining of headache and a chest pressure that is been present since she woke up at about 7 AM this morning. She also found out on arrival to the emergency department that her bl ood pressure is quite elevated. Patient states her medications include metoprolol, hydralazine, lisinopril for blood pressure. She has longstanding hypertension. She denies any history of coronary artery disease although she has been a smoker for a long time. She has not had any nausea, vomiting, neck pain, jaw pain, arm pain, lightheadedness, dizziness. She does have a history of paroxysmal atrial fibrillation and takes Eliquis. Associated symptoms: Deny abdominal pain, dyspnea, fever(s), nausea, syncope or vomiting Review of Systems General: Reports: 10 or more systems reviewed and unremarkable except in HPI and below Const: Denies: fever(s), chills or body aches Eyes: Denies: change in vision ENMT: Denies: throat pain Card: Denies: edema or syncope Resp: Denies: dyspnea or productive cough GI: Denies: abdominal pain, nausea, vomiting or diarrhea : Denies: flank pain, dysuria or urinary frequency Musc: Denies: neck pain, back pain, extremity pain or extremity swelling Skin/Breast: Denies: rash or erythema Neuro: Denies: numbness in extremities, weakness in extremities, lack of coordination or difficulty walking FORMERLY [facility], [facility]–1983 ED PFSH: Medical History Acute respiratory failure with hypoxia and hypercarbia Afib Broken wrist COPD (chronic obstructive pulmonary disease) COPD exacerbation Facial droop Helicobacter pylori gastritis Hiatal hernia History of colon polyps History of skin cancer Hypoxia New onset a-fib Pneumonia Right renal mass Surgical History History of appendectomy History of surgery on left wrist History of tubal ligation Family History Mother , at age 75 Cancer Breast Alzheimer disease Father , at age 69 CAD (coronary artery disease) Pancreatic adenocarcinoma Social History Smoking and tobacco status: former smoker Quit status (tobacco): has quit using tobacco Year quit tobacco: 2021 Former quit date comment: 1.5 ppd X 51 years Alcohol intake: never Substance/Drug Use: never Adopted: No Household members: spouse Marital status: Current occupational status: retired Physical Exam Const: COMMON NORMALS: no limitations, alert and well nourished EXAM LIMITATIONS: no altered mental status HENMT: COMMON NORMALS: normocephalic, atraumatic and external ears normal HEAD & SCALP: normocephalic and atraumatic EXTERNAL EAR: Yes external ears normal MOUTH: no muffled voice Eye: COMMON NORMALS: EOMs intact bilaterally, conjunctivae normal and no scleral icterus CONJUNCTIVA: Yes conjunctivae normal Neck/C-Spine: COMMON NORMALS: no JVD GENERAL: Yes normal visual inspection and Yes trachea midline Resp: COMMON NORMALS: normal respiratory effort and No use of accessory muscles AUSCULTATION: wheezes expiratory wheezes and throughout Cardio: COMMON NORMALS: no JVD and regular rate RATE: regular rate RHYTHM: abnormal rhythm GI: COMMON NORMALS: Soft to palpation and non-tender PALPATION: Yes Soft to palpation and No Guarding due to palpation present (GI) Extremity: COMMON NORMALS: normal to inspection Neuro: COMMON NORMALS: moves all extremities, no focal motor deficits and no sensory deficits noted SENSORIUM/ORIENTATION: Yes alert SPEECH: speech normal Psych: COMMON NORMALS: mental status grossly normal, Normal thought process present, cooperative, normal affect and speech normal SPEECH: Yes normal speech THOUGHT PROCESS: Normal thought process present Skin: COMMON NORMALS: no rashes or lesions noted, turgor normal and no jaundice GENERAL SKIN EXAM: no rashes or lesions noted and turgor normal Course Vital Signs: Vital signs: Vital Signs Temperature 98.0 F 12/30/22 20:04 Pulse Rate 67 12/30/22 23:45 Respiratory Rate 16 12/30/22 23:45 Blood Pressure 141/71 12/30/22 23:45 Pulse Oximetry 94 12/30/22 23:45 Oxygen Delivery Me thod Room Air 12/30/22 20:04 MDM - Chest Pain Medical Decision Making EKG taken at 2006 shows sinus rhythm with PACs and PVCs. [place] within normal limits, QRS is wide at 131 ms with a right bundle branch block morphology, there are few repolarization changes in the precordium, suspected pulmonary P waves . No concerning ST segment elevations or depressions. Differential diagnosis includes accelerated hypertension, CHF, COPD, asthma, ACS, pulmonary edema, paroxysmal atrial fibrillation or other arrhythmia, other. Low suspicion for pulmonary embolism. No acute findings on chest x-ray. Troponin baseline is 24. Patient was reassessed. She says she still has a pressure in her chest but her headache is gone and her blood pressure is improved down into the 140s systolic. Patient is here with 2 family members. We had a [place] conversation about her lifelong smoking and the strong possibility that she has coronary artery disease. She is refusing to be admitted to the hospital. She understands she is at risk of having heart attack, sudden cardiac , or permanent cardiac disability. She will restart aspirin and follow-up as an outpatient. Her family has talked her into staying for a delta troponin. If the delta troponin is significantly elevated, she may change her mind. Patient is already on multiple blood pressure medications including hydralazine, clonidine, large doses of metoprolol, and lisinopril. She does not want to add any further medication because she does not know whether her blood pressure will be up just today or whether it will stay elevated. She is willing to take, prescription for nitroglycerin assuming that her delta troponin is stable. Trop stable. D/c AMA. PCP f/u. BP checks, nitro, return warnings. Lab Data 12/30/22 20:46 12/30/22 20:46 Radiology Impressions Chest X-Ray 12/30/22 19:52 IMPRESSION: No acute findings. Laboratory Results WBC 9.65 10^3/uL (3.29-11.43) 12/30/22 20:46 RBC 4.40 10^6/uL (3.85-5.65) 12/30/22 20:46 Hgb 12.10 g/dL (11.27-16.99) 12/30/22 20:46 Hct 38.5 % (36-47) 12/30/22 20:46 MCV 87.5 fl (85-98) 12/30/22 20:46 MCH 27.5 pg (27-33) 12/30/22 20:46 MCHC 31.4 g/dL (30-55) 12/30/22 20:46 RDW 15.3 % (12.1-15.1) H 12/30/22 20:46 Plt Count 224 10^3/cmm (157-399) 12/30/22 20:46 MPV 10.1 fL (7.4-10.4) 12/30/22 20:46 Neut % (Auto) 76.6 % 12/30/22 20:46 Lymph % (Auto) 10.8 % 12/30/22 20:46 [place] % (Auto) 9.8 % 12/30/22 20:46 Eos % (Auto) 2.2 % 12/30/22 20:46 Baso % (Auto) 0.4 % 12/30/22 20:46 Neut # (Auto) 7.39 10^3/uL (1.8-7.7) 12/30/22 20:46 Lymph # (Auto) 1.0 10^3/uL (0.8-4.8) 12/30/22 20:46 [place] # (Auto) 1.0 10^3/uL (0.2-0.9) H 12/30/22 20:46 Eos # (Auto) 0.2 10^3/uL (0.0-0.8) 12/30/22 20:46 Baso # (Auto) 0.0 10^3/uL (0.0-0.1) 12/30/22 20:46 Nucleated RBC % (auto) 0 % 12/30/22 20:46 Nucleated RBCs # 0.0 /100WBC 12/30/22 20:46 PT 14.70 SECONDS (12.1-14.9) 12/30/22 20:46 INR 1.11 (0.8-1.2) 12/30/22 20:46 Sodium 138 mmol/L (136-145) 12/30/22 20:46 Potassium 4.8 mmol/L (3.5-5.1) 12/30/22 20:46 Chloride 98 mmol/L (98-107) 12/30/22 20:46 Carbon Dioxide 31 mmol/L (22-29) H 12/30/22 20:46 Anion Gap 13.8 (5-19) 12/30/22 20:46 BUN 16 mg/dL (8-23) 12/30/22 20:46 Creatinine 0.9 mg/dL (0.5-0.9) 12/30/22 20:46 GFR Calculation Not Reportable 12/30/22 20:46 Glucose 139 mg/dL (65-115) H 12/30/22 20:46 Calculated Osmolality 289 mOsm/kg (285-295) 12/30/22 20:46 Calcium 9.0 mg/dL (8.5-10.5) 12/30/22 20:46 Total Bilirubin 0.5 mg/dL (0.15-1.2) 12/30/22 20:46 AST 10 U/L (0-32) 12/30/22 20:46 ALT 6 U/L (0-33) 12/30/22 20:46 Alkaline Phosphatase 80 U/L (35-105) 12/30/22 20:46 Troponin T Baseline 24 ng/L (0-10) H 12/30/22 20:46 Troponin T 120 Minute 24.25 ng/L (0-10) H 12/30/22 23:06 Delta Troponin T 0.25 ABS# (0-10) 12/30/22 23:06 Total Protein 6.8 g/dL (6.6-8.7) 12/30/22 20:46 Albumin 4.3 g/dL (3.5-5.2) 12/30/22 20:46 Globulin 2.5 g/dL (1.3-4.6) 12/30/22 20:46 Lipase 15 U/L (13-60) 12/30/22 20:46 Discharge Plan Discharge Patient Disposition: Left Against Medical Advice Clinical Impression: Chest tightness, Elevated blood pressure reading, Currently smokes tobacco Condition: Stable Prescriptions: New nitroglycerin 0.4 mg tablet, sublingual 0.4 mg sublingual Q5M MDD 6 tabs PRN (Reason: chest pain) Qty: 30 0RF Rx Instructions: do not exceed 3 doses per episode No Action (DME) oxygen-air delivery systems Device See Rx Instructions .ROUTE Rx Instructions: As directed atorvastatin 20 mg tablet 20 mg PO QPM glipizide 5 mg tablet extended release 24hr 5 mg PO BID pantoprazole 40 mg tablet,delayed release (DR/EC) 40 mg PO DAILY lisinopril 40 mg tablet 20 mg PO BID hydralazine 50 mg tablet 50 mg PO TID duloxetine 60 mg capsule,delayed release(DR/EC) 60 mg PO DAILY clonazepam 0.5 mg tablet 0.5 mg PO QPM aspirin 81 mg Tablet,Delayed Release (Dr/Ec) 81 mg PO DAILY azelastine 137 mcg (0.1 %) aerosol,spray 2 spray INTRANASAL BID PRN (Reason: Nasal Congestion) Advair HFA 45-21 mcg/actuation HFA aerosol inhaler 2 inh inhalation BID Qty: 12 3RF Spiriva Respimat 1.25 mcg/actuation mist 2 inh inhalation DAILY Qty: 4 2RF albuterol sulfate 90 mcg/actuation HFA aerosol inhaler 2 inh inhalation Q8H PRN (Reason: shortness of breath or wheezing) Qty: 8.5 2RF Eliquis DVT-PE Treat 30D Start 5 mg (74 tabs) tablets,dose pack 5 mg PO BID Qty: 74 2RF Hold Instructions: Resume on 04/04/22. Until after CT is complete and follow up trazodone 50 mg Tablet 50 - 150 mg PO BEDTIME PRN (Reason: Insomnia) metoprolol tartrate 50 mg Tablet 50 mg PO TID ipratropium-albuterol 0.5 mg-3 mg(2.5 mg base)/3 mL solution for nebulization 3 ml inhalation Q8H PRN (Reason: shortness of breath or wheezing) Qty: 90 0RF Discharge Orders: Discharge ED (Routine); Ordered 12/30/22 Ordered By: Nik Finnegan Referrals: Chayito Kaur MD [Primary Care Provider] - 1-3 days (Call tomorrow) Discharge Diet: Advance as tolerated Discharge Activity: Increase activity as tolerated Patient Instructions: Angina (ED), Chest Pain (ED), Hypertension (ED) Activity Restrictions/Additional Instructions: You have been found to have elevated blood pressure here in the emergency department. This could be the cause of your chest tightness. However, as we discussed, you could have coronary artery disease. Many times blood pressure lability and chest pressure are the warning signs of a heart attack. Return to the emergency department if you have ongoing chest discomfort, worsening blood pressure problems, shortness of breath, unexplained nausea, lightheadedness, dizziness, jaw pain, arm pain, or any other worrisome symptoms. Troponin test do not rule out coronary artery disease and you have significant risk factors for heart disease. Coding Level of Care Code ED Senior Java Web Developer for Arnold Drake
[2022-12-30 21:12] LABS: INR 1.11 (0.8-1.2)
[2022-12-30] MEDS: nitroglycerin 0.4 mg sublingual Tablet SUBLINGUAL (21:13)
[2022-12-30] MEDS: acetaminophen 325 mg Tablet 975 MG PO (21:13)
[2022-12-30 21:17] LABS: Troponin(5th) Baseline 24 ng/L (0-10)
[2022-12-30] MEDS: cloNIDine 0.1 mg Tablet PO (21:19)
[2022-12-30 21:21] LABS: Alanine Aminotransferase 6 U/L (0-33); Albumin Level 4.3 g/dL (3.5-5.2); Alkaline Phosphatase 80 U/L (35-105); Anion Gap 13.8 (5-19); Aspartate Amino Transferase 10 U/L (0-32); Blood Urea Nitrogen 16 mg/dL (8-23); Carbon Dioxide 31 mmol/L (22-29); Chloride 98 mmol/L (98-107); Globulin 2.5 g/dL (1.3-4.6); Glucose 139 mg/dL (65-115); Lipase 15 U/L (13-60); Osmolality Calculated 289 mOsm/kg (285-295); Potassium 4.8 mmol/L (3.5-5.1); Sodium 138 mmol/L (136-145); Total Bilirubin 0.5 mg/dL (0.15-1.2); Total Protein 6.8 g/dL (6.6-8.7)
--- NOTE | 2022-12-30 21:52 | ECG_ITS ---
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 Measurements Intervals [place] Rate: 77 P: 86 DE: 135 QRS: 69 QRSD: 129 T: 45 QT: 380 QTc: 431 Interpretive Statements SINUS RHYTHM WITH OCCASIONAL VENTRICULAR PREMATURE COMPLEXES WITH FREQUENT SUPRAVENTRICULAR PREMATURE COMPLEXES RIGHT BUNDLE BRANCH BLOCK [120+ ms QRS DURATION, UPRIGHT V1, 40+ ms S IN I/aVL/V4/V5/V6] Compared to ECG 12/30/2022 20:07:42 No significant changes Electronically Signed On 01-01-2023 0:01:51 CDT by Norm Michel M.D. [id number]
[2022-12-30 21:57] VITALS: BP 157/85; PULSE 81; RESP 16; O2SAT 94
[2022-12-30 23:45] VITALS: BP 141/71; PULSE 67; RESP 16; O2SAT 94
[2022-12-30 23:46] LABS: Troponin 5 2HR 24.25 ng/L (0-10)
[2022-12-30] MEDS: aspirin 81 mg Chew Tablet 324 MG PO (23:49)
[2022-12-30 23:51] LABS: Troponin 5 2HR Delta 0.25 ABS# (0-10)
[2022-12-31 00:13] VITALS: BP 141/71; PULSE 67; RESP 16; TEMP 36.7; O2SAT 94
== END 2022-12-31 00:14 | disposition left against medical advice (07) ==
PROVIDERS: Emergency Medicine; Emergency Provider Emergency Medicine; PCP Family Medicine
DX: R07.89 Other chest pain (principal); F17.210 Nicotine dependence, cigarettes, uncomplicated; R03.0 Elevated blood-pressure reading, without diagnosis of hypertension; Z79.84 Long term (current) use of oral hypoglycemic drugs; Z79.82 Long term (current) use of aspirin; J44.9 Chronic obstructive pulmonary disease, unspecified
CPT/HCPCS: 36415; 71045; 80053; 83690; 84484; 85025; 85610; 93005; 99285

== ENCOUNTER 2023-01-12 19:24 | Inpatient (IN) | payer MEDICARE, SELFPAY ==
[2023-01-12] VITALS (9 sets, daily range): BP systolic 150–202; BP diastolic 94–134; PULSE 84–126; RESP 20–31; TEMP 36.6–36.7; O2SAT 86–99; BMI 22.1
--- NOTE | 2023-01-12 19:33 | ECG_ITS ---
[facility] Test Date: 2023-01-12 Pat Name: Keri Fagn Department: Room: Gender: Female Credit Resolution Representative: : 1950 Requested By: Dorian Mendez Order Number: [id number] Nikky MD: Rod Fallon M.D. Measurements Intervals [place] Rate: 126 P: 0 AR: 0 QRS: 42 QRSD: 142 T: 40 QT: 330 QTc: 479 Interpretive Statements Irregular tachycardia, likely sinus with frequent PACs and PVCs. RIGHT BUNDLE BRANCH BLOCK [120+ ms QRS DURATION, UPRIGHT V1, 40+ ms S IN I/aVL/V4/V5/V6] Compared to ECG 12/30/2022 21:45:56 No change. Electronically Signed On 01-13-2023 16:01:45 CDT by Rod Fallon M.D. [id number]
--- NOTE | 2023-01-12 19:33 | XRR_ITS ---
PROCEDURE INFORMATION: Exam: XR Chest Exam date and time: 01/12/2023 7:59 PM Age: 72 years old Clinical indication: Chest pressure; Patient HX: C/O chest pain. History of copd. ; Additional info: Cp TECHNIQUE: Imaging protocol: Radiologic exam of the chest. Views: 1 view. COMPARISON: CR (CHEST, ) 12/30/2022 7:59 PM FINDINGS: Lungs: Septal thickening is present. Left midlung and basilar subsegmental atelectasis. Pleural spaces: Small bilateral pleural effusions, left greater than right. No pneumothorax. Heart/Mediastinum: New enlargement of the cardiac silhouette. Normal mediastinal contours. Aortic calcifications as before. Bones/joints: No acute osseous abnormality. XR/XR chest 1V portable [id number] IMPRESSION: 1. Enlargement of the cardiac silhouette which may reflect elevated intravascular volume with cardiac chamber enlargement and/or pericardial effusion. Recommend correlation with echocardiogram. 2. Mild interstitial pulmonary edema. Small bilateral pleural effusions.
[2023-01-12] MEDS: aspirin 325 mg Tablet PO (19:52)
[2023-01-12] MEDS: nitroglycerin 1 gm/inch oint Pkt 1 INCH TOPICAL (19:52)
[2023-01-12] MEDS: metoprolol tartrate 1 mg/1 mL SDV 5 mL 5 MG IVP (19:52)
[2023-01-12 19:59] LABS: Basophils % 0.3 %; Eosinophils # 0.1 10^3/uL (0.0-0.8); Eosinophils % 0.5 %; Hematocrit 36.3 % (36-47); Lymphocytes # 1.2 10^3/uL (0.8-4.8); Lymphocytes % 10.1 %; Mean Corpuscular HGB Conc 31.1 g/dL (30-55); Mean Corpuscular Hemoglobin 27.4 pg (27-33); Mean Corpuscular Volume 88.1 fl (85-98); Mean Platelet Volume 11.1 fL (7.4-10.4); Monocytes # 0.9 10^3/uL (0.2-0.9); Monocytes % 7.5 %; Neutrophils # 9.41 10^3/uL (1.8-7.7); Nucleated Red Blood Cells % 0 %; Platelet Count 325 10^3/cmm (157-399); Red Blood Count 4.12 10^6/uL (3.85-5.65); Red Cell Distribution Width 15.6 % (12.1-15.1); White Blood Count 11.62 10^3/uL (3.29-11.43)
--- NOTE | 2023-01-12 20:06 | W.ED.CHESTPA ---
HPI - Chest Pain General: Chief Complaint: Chest Pain Stated Complaint: chest pains Time Seen by Provider: 01/12/23 19:33 History of Present Illness: 72-year-old female with a history of hypertension, COPD, atrial fibrillation, and diabetes. She is a smoker as well. She presents with chest discomfort and shortness of breath that started yesterday. She had been at a family reunion, and began to feel ill. Pain and shortness of breath got worse today. No swelling of her feet. She complains of an increased cough. No fever. She does not normally use oxygen. Associated symptoms: Reports dyspnea and palpitations; Deny abdominal pain, fever(s), nausea or vomiting Review of Systems Const: Denies: fever(s) ENMT: Denies: throat pain Card: Reports: chest pain and palpitations Resp: Reports: dyspnea and non-productive cough GI: Denies: abdominal pain, nausea, vomiting or diarrhea Neuro: Denies: headache(s) Psych: Reports: anxiety PFSH ED PFSH: Medical History Acute respiratory failure with hypoxia and hypercarbia Afib Broken wrist COPD (chronic obstructive pulmonary disease) COPD exacerbation Facial droop Helicobacter pylori gastritis Hiatal hernia History of colon polyps History of skin cancer Hypoxia New onset a-fib Pneumonia Right renal mass Surgical History History of appendectomy History of surgery on left wrist History of tubal ligation Family History Mother , at age 75 Cancer Breast Alzheimer disease Father , at age 69 CAD (coronary artery disease) Pancreatic adenocarcinoma Social History Smoking and tobacco status: former smoker Quit status (tobacco): has quit using tobacco Year quit tobacco: 2021 Former quit date comment: 1.5 ppd X 51 years Alcohol intake: never Substance/Drug Use: never Adopted: No Household members: spouse Marital status: Current occupational status: retired Physical Exam Const: GENERAL APPEARANCE: cooperative, ill appearing and frail appearing ORIENTATION/CONSCIOUSNESS: Yes awake HENMT: COMMON NORMALS: normocephalic, atraumatic and Normal external nose present HEAD & SCALP: normocephalic and atraumatic FACE & SINUS: normal facial exam NOSE: Normal external nose present Eye: COMMON NORMALS: Equal, round and reactive pupils present and EOMs intact bilaterally PUPIL: Yes Equal, round and reactive pupils present Neck/C-Spine: GENERAL: Yes trachea midline Chest: CHEST: Yes Symmetrical chest wall rise Resp: COMMON NORMALS: clear to auscultation bilaterally EFFORT & INSPECTION: Yes tachypneic and Yes labored AUSCULTATION: clear to auscultation bilaterally Cardio: RATE: tachycardic RHYTHM: abnormal rhythm irregularly irregular GI: COMMON NORMALS: Normal to inspection, nondistended, normoactive bowel sounds present Extremity: COMMON NORMALS: capillary refill normal Course Vital Signs: Vital signs: Vital Signs Temperature 98.1 F 01/12/23 19:26 Pulse Rate 105 H 01/12/23 21:14 Respiratory Rate 20 H 01/12/23 21:14 Blood Pressure 155/97 01/12/23 21:14 Pulse Oximetry 92 01/12/23 21:14 Oxygen Delivery Me thod Nasal Cannula 01/12/23 21:14 Oxygen Flow Rate 4 01/12/23 21:14 MDM - Chest Pain Medical Decision Making The patient is quite hypertensive on arrival. 200 systolic. Heart rate in the 140s. She is given 5 mg of IV metoprolol with improvement in blood pressure and rate. Rate is down to 100-1 10 currently. Blood pressure 170 systolic. Saturations are 90% on 3 L. Chest x-ray shows Pulmonary vascular congestion without infiltrate, as well as interstitial edema and small pleural effusions with cardiomegaly. Currently patient is on 4 L satting 93%. Blood pressures improved. Metoprolol improved rate, but did not control it sufficiently. She is now on diltiazem drip. Heart rate is 90. Blood pressure is 147 systolic. She is breathing easier. She has been given Nitropaste for chest discomfort, and afterload reduction, IV Lasix. Breathing treatment for COPD. She will be swabbed for respiratory viral panel. Spoke with hospitalist. She will see the patient in the ER. She will go to the CSU. Lab Data 01/12/23 19:45 01/12/23 19:45 Radiology Impressions Chest X-Ray 01/12/23 19:33 IMPRESSION: 1. Enlargement of the cardiac silhouette which may reflect elevated intravascular volume with cardiac chamber enlargement and/or pericardial effusion. Recommend correlation with echocardiogram. 2. Mild interstitial pulmonary edema. Small bilateral pleural effusions. Laboratory Results WBC 11.62 10^3/uL (3.29-11.43) H 01/12/23 19:45 RBC 4.12 10^6/uL (3.85-5.65) 01/12/23 19:45 Hgb 11.30 g/dL (11.27-16.99) 01/12/23 19:45 Hct 36.3 % (36-47) 01/12/23 19:45 MCV 88.1 fl (85-98) 01/12/23 19:45 MCH 27.4 pg (27-33) 01/12/23 19:45 MCHC 31.1 g/dL (30-55) 01/12/23 19:45 RDW 15.6 % (12.1-15.1) H 01/12/23 19:45 Plt Count 325 10^3/cmm (157-399) 01/12/23 19:45 MPV 11.1 fL (7.4-10.4) H 01/12/23 19:45 Neut % (Auto) 81.0 % 01/12/23 19:45 Lymph % (Auto) 10.1 % 01/12/23 19:45 [place] % (Auto) 7.5 % 01/12/23 19:45 Eos % (Auto) 0.5 % 01/12/23 19:45 Baso % (Auto) 0.3 % 01/12/23 19:45 Neut # (Auto) 9.41 10^3/uL (1.8-7.7) H 01/12/23 19:45 Lymph # (Auto) 1.2 10^3/uL (0.8-4.8) 01/12/23 19:45 [place] # (Auto) 0.9 10^3/uL (0.2-0.9) 01/12/23 19:45 Eos # (Auto) 0.1 10^3/uL (0.0-0.8) 01/12/23 19:45 Baso # (Auto) 0.0 10^3/uL (0.0-0.1) 01/12/23 19:45 Nucleated RBC % (auto) 0 % 01/12/23 19:45 Nucleated RBCs # 0.0 /100WBC 01/12/23 19:45 PT 19.00 SECONDS (12.1-14.9) H 01/12/23 19:45 INR 1.54 (0.8-1.2) H 01/12/23 19:45 APTT 34.3 SECONDS (23.9-36.7) 01/12/23 19:45 Sodium 134 mmol/L (136-145) L 01/12/23 19:45 Potassium 4.8 mmol/L (3.5-5.1) 01/12/23 19:45 Chloride 94 mmol/L (98-107) L 01/12/23 19:45 Carbon Dioxide 29 mmol/L (22-29) 01/12/23 19:45 Anion Gap 15.8 (5-19) 01/12/23 19:45 BUN 15 mg/dL (8-23) 01/12/23 19:45 Creatinine 0.8 mg/dL (0.5-0.9) 01/12/23 19:45 GFR Calculation Not Reportable 01/12/23 19:45 Glucose 340 mg/dL (65-115) H 01/12/23 19:45 Calculated Osmolality 292 mOsm/kg (285-295) 01/12/23 19:45 Calcium 9.0 mg/dL (8.5-10.5) 01/12/23 19:45 Total Bilirubin 0.8 mg/dL (0.15-1.2) 01/12/23 19:45 AST 14 U/L (0-32) 01/12/23 19:45 ALT 20 U/L (0-33) 01/12/23 19:45 Alkaline Phosphatase 110 U/L (35-105) H 01/12/23 19:45 Troponin T Baseline 29 ng/L (0-10) H 01/12/23 19:45 NT-Pro-B Natriuret Pep 2126 pg/mL (0-125) H 01/12/23 19:45 Total Protein 7.1 g/dL (6.6-8.7) 01/12/23 19:45 Albumin 4.3 g/dL (3.5-5.2) 01/12/23 19:45 Globulin 2.8 g/dL (1.3-4.6) 01/12/23 19:45 Critical Care Time Critical Care Time: Critical Care Time: Yes Total Critical Care Time: 40 Attestation: This case had a high probability of a clinically significant, sudden, or life threatening deterioration of this patient's condition which required my full and direct attention, intervention and personal management. Time excludes any procedures performed. Discharge Plan Discharge Patient Disposition: Admitted As Inpatient Clinical Impression: Acute respiratory failure with hypoxia and hypercarbia, Chest pain, Atrial fibrillation with RVR Condition: Fair Prescriptions: No Action (DME) oxygen-air delivery systems Device See Rx Instructions .ROUTE Rx Instructions: As directed atorvastatin 20 mg tablet 20 mg PO QPM glipizide 5 mg tablet extended release 24hr 5 mg PO BID pantoprazole 40 mg tablet,delayed release (DR/EC) 40 mg PO DAILY lisinopril 40 mg tablet 20 mg PO BID hydralazine 50 mg tablet 50 mg PO TID duloxetine 60 mg capsule,delayed release(DR/EC) 60 mg PO DAILY nitroglycerin 0.4 mg tablet, sublingual 0.4 mg sublingual Q5M MDD 6 tabs PRN (Reason: chest pain) Qty: 30 0RF Rx Instructions: do not exceed 3 doses per episode clonazepam 0.5 mg tablet 0.5 mg PO QPM aspirin 81 mg Tablet,Delayed Release (Dr/Ec) 81 mg PO DAILY azelastine 137 mcg (0.1 %) aerosol,spray 2 spray INTRANASAL BID PRN (Reason: Nasal Congestion) Advair HFA 45-21 mcg/actuation HFA aerosol inhaler 2 inh inhalation BID Qty: 12 3RF Spiriva Respimat 1.25 mcg/actuation mist 2 inh inhalation DAILY Qty: 4 2RF albuterol sulfate 90 mcg/actuation HFA aerosol inhaler 2 inh inhalation Q8H PRN (Reason: shortness of breath or wheezing) Qty: 8.5 2RF Eliquis DVT-PE Treat 30D Start 5 mg (74 tabs) tablets,dose pack 5 mg PO BID Qty: 74 2RF Hold Instructions: Resume on 04/04/22. Until after CT is complete and follow up trazodone 50 mg Tablet 50 - 150 mg PO BEDTIME PRN (Reason: Insomnia) metoprolol tartrate 50 mg Tablet 50 mg PO TID ipratropium-albuterol 0.5 mg-3 mg(2.5 mg base)/3 mL solution for nebulization 3 ml inhalation Q8H PRN (Reason: shortness of breath or wheezing) Qty: 90 0RF Referrals: Chayito Kaur MD [Primary Care Provider] - Coding Level of Care Code ED Leather Belt Loop Cutter for Jerrellg Noelle
[2023-01-12 20:14] LABS: INR 1.54 (0.8-1.2)
[2023-01-12 20:15] LABS: Partial Thromboplastin Time 34.3 SECONDS (23.9-36.7)
[2023-01-12 20:22] LABS: Troponin(5th) Baseline 29 ng/L (0-10)
[2023-01-12] MEDS: metoprolol tartrate 1 mg/1 mL SDV 5 mL 2.5 MG IVP (20:23)
[2023-01-12 20:24] LABS: Alanine Aminotransferase 20 U/L (0-33); Albumin Level 4.3 g/dL (3.5-5.2); Alkaline Phosphatase 110 U/L (35-105); Aspartate Amino Transferase 14 U/L (0-32); Blood Urea Nitrogen 15 mg/dL (8-23); Carbon Dioxide 29 mmol/L (22-29); Chloride 94 mmol/L (98-107); Creatinine Clr Calc Pharmacy 52.7102; Globulin 2.8 g/dL (1.3-4.6); Glucose 340 mg/dL (65-115); Osmolality Calculated 292 mOsm/kg (285-295); Sodium 134 mmol/L (136-145); Total Bilirubin 0.8 mg/dL (0.15-1.2); Total Protein 7.1 g/dL (6.6-8.7)
[2023-01-12 20:27] LABS: Anion Gap 15.8 (5-19); Potassium 4.8 mmol/L (3.5-5.1)
[2023-01-12 21:01] LABS: NT Pro B Type Natriuretic Pept 2126 pg/mL (0-125)
[2023-01-12] MEDS: ipratropium-albuterol 3 mL Neb INHALATION (21:01)
[2023-01-12] MEDS: FUROsemide 10 mg/mL SDV 10mL 60 MG IVP (21:10)
[2023-01-12] MEDS: dilTIAZem 100 MG in sodium chloride 0.9% (add-van) 100 ML IV (21:18)
[2023-01-12] MEDS: dilTIAZem 5 mg/mL SDV 5 mL 10 MG IVP (21:20)
--- NOTE | 2023-01-12 21:33 | ECG_ITS ---
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 Measurements Intervals [place] Rate: 89 P: 0 VT: 0 QRS: 16 QRSD: 145 T: 1 QT: 385 QTc: 469 Interpretive Statements ATRIAL FIBRILLATION RIGHT BUNDLE BRANCH BLOCK [120+ ms QRS DURATION, UPRIGHT V1, 40+ ms S IN I/aVL/V4/V5/V6] Compared to ECG 01/12/2023 19:28:50 Aberrant conduction of supraventricular beat(s) no longer present Ventricular premature complex(es) no longer present Electronically Signed On 01-13-2023 16:04:01 CDT by Rod Fallon M.D. [id number]
[2023-01-12 22:02] LABS: SARS Covid-2 Antigen negative (Negative)
[2023-01-13] VITALS (14 sets, daily range): BP systolic 129–152; BP diastolic 74–106; PULSE 76–108; RESP 16–27; TEMP 36.5–36.7; O2SAT 88–96
--- NOTE | 2023-01-13 00:41 | P.HP_ITS ---
Providers/Chief Complaint Admitting Physician: Melanie Aranda MD Primary Care Provider: Chayito Kaur MD Chief Complaint: chest pains History of Present Illness Keri Fang is a 72 year old female with history of atrial fibrillation on Eliquis diabetes COPD not on home oxygen therapy hypertension presented with complaint of shortness of breath chest discomfort and cough productive of green sputum since 2 days. She reports feeling chest tightness initially which gr adually worsened and associated with shortness of breath and cough. She denies any history of fever chest pain nausea vomiting or urinary complaints. In ER she was found to have atrial fibrillation at 140 bpm and hypoxia 88% on room air. She received IV metoprolol x2 and was started on Cardizem drip. Also started on 4 L nasal cannula for hypoxia Review of Systems Narrative: As per HPI Medications/Allergies Home Medications Medication Instructions Recorded Confirmed Last Taken Type atorvastatin 20 mg tablet 20 mg PO QPM 11/15/19 01/12/23 03/23/22 History glipizide 5 mg tablet, extended 5 mg PO BID 11/15/19 01/12/23 03/24/22 History release 24 hr lisinopril 40 mg tablet 20 mg PO BID 11/15/19 01/12/23 03/24/22 History pantoprazole 40 mg tablet,delayed 40 mg PO DAILY 11/15/19 01/12/23 03/24/22 History release duloxetine 60 mg capsule,delayed 60 mg PO DAILY 05/21/21 01/12/23 03/24/22 History release hydralazine 50 mg tablet 50 mg PO TID 05/21/21 01/12/23 03/24/22 History aspirin 81 mg tablet,delayed 81 mg PO DAILY 03/06/22 01/12/23 03/24/22 History release azelastine 137 mcg (0.1 %) nasal 2 spray intranasal BID PRN Nasal 03/06/22 01/12/23 Unknown History spray aerosol Congestion clonazepam 0.5 mg tablet 0.5 mg PO QPM 03/06/22 01/12/23 03/23/22 History apixaban 5 mg (74 tabs) tablets in 5 mg PO BID #74 ea 03/08/22 01/12/23 03/24/22 Rx a dose pack (Eliquis DVT-PE Treat 30D Start) metoprolol tartrate 50 mg tablet 50 mg PO TID 03/24/22 01/12/23 03/24/22 History trazodone 50 mg tablet 50 - 150 mg PO BEDTIME PRN Insomnia 03/24/22 01/12/23 Unknown History nitroglycerin 0.4 mg sublingual 0.4 mg sublingual Q5M PRN chest 12/30/22 01/12/23 Unknown Rx tablet pain #30 tabs Allergies Allergy/AdvReac Type Severity Reaction Status Date / Time No Known Allergies Allergy Verified 12/30/22 20:04 PFSH Acute PFSH: Medical History (Updated 01/13/23 @ 01:38 by Melanie Aranda MD) Acute respiratory failure with hypoxia and hypercarbia Afib Broken wrist COPD (chronic obstructive pulmonary disease) COPD exacerbation Facial droop Helicobacter pylori gastritis Hiatal hernia History of colon polyps History of skin cancer Hypoxia New onset a-fib Pneumonia Right renal mass Surgical History History of appendectomy History of surgery on left wrist History of tubal ligation Family History Mother , at age 75 Cancer Breast Alzheimer disease Father , at age 69 CAD (coronary artery disease) Pancreatic adenocarcinoma Social History Smoking and tobacco status: former smoker Quit status (tobacco): has quit using tobacco Year quit tobacco: 2021 Former quit date comment: 1.5 ppd X 51 years Alcohol intake: never Substance/Drug Use: never Adopted: No Household members: spouse Marital status: Current occupational status: retired Vitals/I&O/Wt Last Vital Signs Temp 97.8 F 01/12/23 23:23 Pulse 89 01/12/23 23:23 Resp 22 H 01/12/23 23:23 BP 150/95 01/12/23 23:23 Pulse Ox 96 01/12/23 23:23 O2 Del Method Nasal Cannula 01/12/23 23:23 O2 Flow Rate 4 01/12/23 22:52 01/12/23 01/12/23 01/13/23 14:59 22:59 06:59 Intake Total 3.117 / 3.117 10.25 / 13.367 Balance 3.117 / 3.117 02.26 Weight last 48 hrs Weight 56.699 kg Physical Exam Narrative: She is alert awake oriented x3, lying comfortably in bed pleasant and divine ative Chest decreased bilateral air entry, bilateral posterior basal crackles present Cardiovascular normal heart sounds with regular rhythm Abdomen NAD Extremities trace bilateral lower extremity edema present Data 01/12/23 19:45 01/12/23 19:45 CXR: Radiologist's impression: IMPRESSION: 1. ? Enlargement of the cardiac silhouette which may reflect elevated intravascular volume with cardiac chamber enlargement and/or pericardial effusion.? Recommend correlation with echocardiogram. 2. ? Mild interstitial pulmonary edema. Small bilateral pleural effusions. ? EKG 1: My Interpretation: Atrial fibrillation with rapid ventricular rate of 126 bpm, right bundle branch block, occasional PVCs seen A&P Assessment and plan (1) Atrial fibrillation with RVR: (2) Acute and chronic respiratory failure with hypoxia: (3) Pulmonary vascular congestion: (4) COPD exacerbation: Plan 72-year-old female with history of atrial fibrillation on Eliquis COPD presented with shortness of breath chest discomfort and productive cough since 2 days, found to have atrial fibrillation with RVR and hypoxia on arrival in ER likely secondary to acute hypoxic respiratory failure secondary to COPD exacerbation secondary to URI I Will start IV ceftriaxone 1 g daily IV azithromycin 1 g daily DuoNebs every 6 hours Continue supplemental oxygen to keep saturation 90 to 92% IV methylprednisone 60 mg daily In view of pulmonary vascular congestion we will give IV Lasix 40 mg x 1 dose now Continue Cardizem drip for now Check 2D echo in a.m. Resume home medications, cardiac diet IV Pepcid 20 mg every 12 for stress ulcer prophylaxis She is already on Eliquis for atrial fibrillation, no need for further DVT prophylaxis She is DNR/DNI Attestations Medical Necessity Statement*: She needs continued hospitalization for more than 2 midnights for management of atrial fibrillation and acute toxic respiratory failure secondary to COPD exacerbation secondary to URI Time Spent in Patient Care: 40 minutes Coding Level of Care Code Critical Care >/= 30 minutes Diagnoses Atrial fibrillation with RVR I48.91 Acute and chronic respiratory failure with hypoxia J96.21 Pulmonary vascular congestion R09.89 COPD exacerbation J44.1 Time Spent (min) 40
[2023-01-13 01:21] LABS: Adenovirus Not Detected (NOT DETECT); Chlamydia Pneumoniae Not Detected (NOT DETECT); Coronavirus 229E,HKU1,NL63,OC4 Not Detected (NOT DETECT); Human Metapneumovirus Not Detected (NOT DETECT); Human Rhinovirus/Enterovirus Not Detected (NOT DETECT); Influenza A Not Detected (NOT DETECT); Influenza A H1 Not Detected (NOT DETECT); Influenza A H1-2009 Not Detected (NOT DETECT); Influenza A H3 Not Detected (NOT DETECT); Influenza B Not Detected (NOT DETECT); Mycoplasma Pneumoniae Not Detected (NOT DETECT); Parainfluenza Virus Type 1 Not Detected (NOT DETECT); Parainfluenza Virus Type 2 Not Detected (NOT DETECT); Parainfluenza Virus Type 3 Not Detected (NOT DETECT); Parainfluenza Virus Type 4 Not Detected (NOT DETECT); Respiratory Syncytial Virus A Not Detected (NOT DETECT); Respiratory Syncytial Virus B Not Detected (NOT DETECT); SARS-COV-2 Not Detected (NOT DETECT)
[2023-01-13 01:49] LABS: Troponin 5 6HR 21.85 ng/L (0-10)
[2023-01-13 01:57] LABS: NT Pro B Type Natriuretic Pept 2203 pg/mL (0-125)
[2023-01-13] MEDS: FUROsemide 10 mg/mL SDV 4mL 40 MG IVP (02:03)
[2023-01-13] MEDS: azithromycin 500 MG in sodium chloride 0.9% 250 ML 250 MG IV (02:06)
[2023-01-13] MEDS: hyDRALAzine 25 mg Tablet PO (03:12)
[2023-01-13] MEDS: cefTRIAXone 1,000 MG in sodium chloride 0.9% (plus) 50 ML 100 MG IV (03:16)
--- OUTSIDE RECORDS SUMMARY | 2023-01-13 06:40 | XMS_ITS | Continuity of Care Document ---
Author Name Unknown Organization [facility] Address [address] [place] [address]- Care Team Providers Care Library Information Technician Name Role Phone Chayito Kaur MD Primary Care Physician Encounter [facility] Number [id number] Date(s): 09/11/22 - 09/13/22 [facility] [address] [place] [address]- Attending Physician: Russ Mckeon MD Allergies, Adverse Reactions, Alerts No Known Allergies Assessment and Plan Future Appointments Appointment Date:09/18/2022 11:15:00 AM Scheduled Provider: Location:[facility] Surgery Appointment Type:Surgery Appointment Date:10/03/2022 11:45:00 AM Scheduled Provider:Tariq Luu Location:[facility] Appointment Type:Hospital Follow Up (Established) Appointment Date:11/29/2022 10:45:00 AM Scheduled Provider:Chayito Kaur MD Location:[facility] Appointment Type:Established Patient Future Scheduled Tests Radiology* CT Abd Pelvis w Contrast Routine 02/12/22 * US VL Venous LE Right 08/29/22 Immunizations Given and Recorded Vaccine Date Status Refusal Reason COVID-19 Moderna Bivalent Booster 6+ 02/07/22 Chris rded influenza virus vaccine 01/17/22 Recorded influenza virus vaccine 01/26/21 Given influenza virus vaccine 02/03/20 Recorded influenza virus vaccine 02/04/19 Given influenza virus vaccine 01/22/18 Given influenza virus vaccine 02/14/16 Given influenza virus vaccine 03/07/15 Given influenza virus vaccine 02/14/14 Given influenza virus vaccine 01/21/13 Given influenza virus vaccine 01/31/12 Given Tdap-ADULT/ADOL tetanus/diphth/pertuss,a 12/06/21 Given Tdap-ADULT/ADOL tetanus/diphth/pertuss,a 02/15/15 Given COVID-19 SARS-CoV-2 mRNA-1273 Moderna 09/12/21 Rec orded COVID-19 SARS-CoV-2 mRNA-1273 Moderna 03/09/21 Rec orded COVID-19 SARS-CoV-2 mRNA-1273 Moderna 08/10/20 Rec orded COVID-19 SARS-CoV-2 mRNA-1273 Moderna 07/13/20 Rec orded COVID-19 SARS-CoV-2 mRNA-1273 Moderna 1 07/13/20 R ecorded zoster vaccine Shingrix, inactivated 12/06/19 Chris rded zoster vaccine Shingrix, inactivated 12/05/19 Chris rded zoster vaccine Shingrix, inactivated 09/15/19 Chris rded Pneumovax 23 pneumococcal 23-valent 01/22/18 Given Pneumovax 23 pneumococcal 23-valent 06/08/10 Given Prevnar 13 pneumococcal 13-valent 03/07/15 Given tetanus-diphth toxoids (Td) adult/adol 01/11/05 Gi taina tetanus-diphth toxoids (Td) adult/adol 02/03/96 Re corded 1Location History: [facility] Medications Advair HFA 45 mcg-21 mcg/inh inhalation aerosol 2 puff, Inhalation, BID, rinse mouth and throat after use, # 12 g, Refill(s) 5, Route to Pharmacy Electronically, Pharmacy: [facility], [id number], AEROSOL, 2 puff Inhalation BID,Instr:rinse mouth and throat afte... Start Date: 05/10/22 Status: Ordered Albuterol (Eqv-ProAir HFA) 90 mcg/inh inhalation aerosol 8 g, Refill(s) 0 Start Date: 03/13/22 Status: Ordered albuterol 2.5 mg/3 mL (0.083%) inhalation solution = 1 vial, NEB, Q6H, PRN for shortness of breath, # 300 mL, Refill(s) 5, Pharmacy: [facility], [id number], 1 vial NEB Q6H,PRN:for shortness of breath, 58.18, 05/07/22 9:30:00 MEDICAL PRACTICE MANAGER, kg, Weight Start Date: 05/10/22 Status: Ordered atorvastatin 20 mg oral tablet = 1 tab, By mouth, QPM (every evening), FOR CHOLESTEROL., # 30 tab, Refill(s) 11, Pharmacy: [facility], [id number], TAKE 1 TABLET BY MOUTH DAILY EVERY EVENING FOR CHOLESTEROL, 58.64, 12/06/21 16:14:00 CDT, kg, We... Start Date: 12/06/21 Status: Ordered azelastine nasal 0.1% (137 mcg/inh) spray 2 spray, Intranasal, BID, # 30 mL, 30, Refill(s) 5, Route to Pharmacy Electronically, Pharmacy: [facility], [id number], 2 SPRAYS BOTH NOSTRILS TWICE A DAY, 55, 0 07/11/22 10:17:00 MEDICAL PRACTICE MANAGER, kg, Weight Start Date: 07/31/22 Status: Ordered Chantix 1 mg oral tablet 1 mg = 1 tab, By mouth, BID, after meals, # 60 tab, Refill(s) 5, Pharmacy: [facility],[id number], 1 tab By mouth BID,Instr:after meals, 56.82, 08/15/22 11:17:00 CDT, kg, Weight Start Date: 08/15/22 Status: Ordered clonazePAM 0.5 mg oral tablet 0.5 mg, = 1 tab, By mouth, QPM (every evening), reduced from 1mg as of 4.29.21, 30 tab, 5, 5, Substitution Permitted, [facility], 63, Height, 05/07/22 9:30:00 MEDICAL PRACTICE MANAGER, in, 58.18, Weight, 05/07/22 9:30:00 MEDICAL PRACTICE MANAGER, kg Start Date: 05/24/22 Status: Ordered cloNIDine 0.1 mg oral tablet See Instructions, 1 tab po bid, # 60 tab, Refill(s) 5, Pharmacy: [facility], [id number], Instructions Replace Required Details, 1 tab po bid, 55, 07/11/22 10:17:00 MEDICAL PRACTICE MANAGER, kg, Weight Start Date: 07/19/22 Status: Ordered dilTIAZem 180 mg/24 hours oral tablet, extended release 180 mg = 1 tab, By mouth, BID, # 60 EA, Refill(s) 5, Pharmacy: [facility], [id number], this replaces once a day as of 3.9.23, 1 tab By mouth BID, 55, 07/11/22 10:17:00 MEDICAL PRACTICE MANAGER, kg, Weight Start Date: 07/11/22 Status: Ordered DULoxetine 60 mg oral delayed release capsule = 1 cap, By mouth, Daily, THIS IS TO REPLACE LEXAPRO., # 30 cap, Refill(s) 5, Pharmacy: [facility], [id number], TAKE 1 CAPSULE BY MOUTH DAILY THIS IS TO REPLACELEXAPRO, 61.82, 04/02/22 15:04:00 MEDICAL PRACTICE MANAGER, kg, Weight Start Date: 04/16/22 Status: Ordered Eliquis 5 mg oral tablet 5 mg = 1 tab, By mouth, BID, 60 tab, # 60 tab, Refill(s) 11, Pharmacy: [facility], [id number], TAB, 1 tab By mouth BID,Instr:60 tab, 54.55, 06/10/22 11:12:00 MEDICAL PRACTICE MANAGER, kg, Weight Start Date: 06/10/22 Status: Ordered glipiZIDE 5 mg oral tablet, extended release See Instructions, 1 TABLET BY MOUTH TWICE A DAY WITH MEALS, # 60 tab, Refill(s) 5, Pharmacy: [facility], NCPDP_ID-[id number], Instructions Replace Required Details, 1 TABLET BY MOUTH TWICE A DAY WITH MEALS, 56.82, 08/15/22 11:17:00 CDT, kg,... Start Date: 08/29/22 Status: Ordered hydrALAZINE 100 mg oral tablet 100 mg = 1 tab, By mouth, TID, # 270 tab, Refill(s) 1, Pharmacy: [facility], [id number], this replaces 50mg, 1 tab By mouth TID, 55.45, 06/25/22 13:25:00 MEDICAL PRACTICE MANAGER, kg, Weight Start Date: 06/25/22 Status: Ordered hydroCHLOROthiazide 12.5 mg oral tablet 12.5 mg = 1 tab, By mouth, Daily, # 90 tab, Refill(s) 0, Pharmacy: [facility], [id number], 1 tab By mouth Daily, 56.82, 08/15/22 11:17:00 CDT, kg, Weight Start Date: 08/15/22 Status: Ordered lisinopril 40 mg oral tablet See Instructions, TAKE 1/2 TABLET BY MOUTH TWICE A DAY, # 30 tab, Refill(s) 5, Pharmacy: [facility], [id number], Instructions Replace Required Details, TAKE 1/2TABLET BY MOUTH TWICE A DAY, 54.55, 06/10/22 11:12:... Start Date: 06/25/22 Status: Ordered metformin 500 mg oral tablet 1,000 mg = 2 tab, By mouth, QPM (every evening), # 180 tab, Refill(s) 1, Pharmacy: [facility], NCPDP_ID-[id number], new higher amount per day as of 08.30.22, 2 tab By mouth QPM (every evening), 55.45, 08/29/22 11:24:00 CDT, kg, Weight Start Date: 08/30/22 Status: Ordered mupirocin topical 2% ointment See Instructions, apply to sore Topical TID X 10d, # 15 g, Refill(s) 0, Route to Pharmacy Electronically, Pharmacy: [facility], [id number], Instructions ReplaceRequired Details, apply to sore Topical TID X 10d,... Start Date: 11/02/21 Status: Ordered One Touch Ultra One Touch Ultra, See Instructions, Test strips and lancets and one glucometer to check glucose oncedaily E11.65, # 100 EA, Refills(s) 3, Route to Pharmacy Electronically, Pharmacy: [facility], Test strips and lancets and one glucometer t... Start Date: 04/02/22 Status: Ordered pantoprazole 40 mg oral delayed release tablet = 1 tab, By mouth, Daily, # 30 tab, Refill(s) 5, Pharmacy: [facility], [id number], TAKE 1 TABLET BY MOUTH DAILY, 55, 07/11/22 10:17:00 MEDICAL PRACTICE MANAGER, kg, Weight Start Date: 07/31/22 Status: Ordered SEROquel 25 mg oral tablet 25 mg = 1 tab, By mouth, QPM (every evening), to replace abilify, # 30 tab, Refill(s) 5, Pharmacy: [facility], [id number], 1 tab By mouth QPM (every evening),Ins tr:to replace abilify, 55, 07/11/22 10:17:00 MEDICAL PRACTICE MANAGER, k... Start Date: 07/11/22 Status: Ordered Spiriva HandiHaler 18 mcg inhalation capsule = 1 cap, Inhalation, Daily, # 30 cap, Refill(s) 1, Pharmacy: [facility], [id number], 1 cap Inhalation Daily, 55, 07/11/22 10:17:00 MEDICAL PRACTICE MANAGER, kg, Weight Start Date: 07/31/22 Status: Ordered traZODone 150 mg oral tablet 150 mg = 1 tab, By mouth, at bedtime, for sleep; this replaces 3 tabs of 50mg as of ..22, # 90 tab, Refill(s) 1, Pharmacy: [facility], NCPDP_ID- [id number], 1 tab By mouth at bedtime,Instr:for sleep; this replaces 3 tabs of 50mg as of 11.... Start Date: 08/29/22 Status: Ordered Welchol 625 mg oral tablet = 1 tab, By mouth, Daily, # 30 tab, Refill(s) 11, Pharmacy: [facility], [id number], TAKE 1 TABLET BY MOUTH DAILY, 56.82, 11/02/21 9:11:00 CDT, kg, Weight Start Date: 11/07/21 Status: Ordered Problem List Condition Confirmation Course Effective Dates Status Health Status Informant Abdominal aortic atherosclerosis Confirmed Active Chronic diarrhea Confirmed Active Chronic gastritis Confirmed Active COPD, severity to be determined Confirmed Active Stress reaction, chronic Confirmed Active C. difficile diarrhea Confirmed Resolved Requires oxygen therapy 1 Confirmed Active Oxygen dependent Confirmed Active Depression Confirmed 01/20/12 Active Anticoagulated by anticoagulation treatment Confirmed Active Bilateral lower extremity edema Confirmed Active Essential hypertension Confirmed Active Ex-smoker Confirmed Active patient Fatigue Confirmed Active Hiatal hernia with GERD and esophagitis Confirmed Active Helicobacter pylori gastritis Confirmed Active Hx of TIA (transient ischemic attack) and stroke Confirmed Active Hypercholesteremia Confirmed Active Hyponatremia Confirmed Resolved Knee pain Confirmed 06/17/13 Active Low back pain Confirmed 11/29/13 Active Bilateral lower abdominal pain Confirmed Resolved Left lower quadrant abdominal wall mass 2 Confirmed Active Osteoporosis Confirmed Active Mastodynia Confirmed Resolved Paresthesia Confirmed 08/16/14 Active Paroxysmal atrial fibrillation Confirmed Active Insomnia Confirmed 12/23/13 Active Recent weight loss Confirmed Resolved Right renal mass 3, 4, 5 Confirmed Active Tobacco use Confirmed Active patient Transient ischemic attack (TIA) Confirmed 08/13/10 Active Uncontrolled type 2 diabetes mellitus with peripheral neuropathy Confirmed Active Uncontrolled type 2 diabetes mellitus with hyperglycemia, without long-term current use of insulin Confirmed Active Urinary incontinence Confirmed Active 1started on portable Oxygen while hospitalized [facility] for pneumonia 2on CT at [facility] 03/26---they have ordered another [address]--it is scheduled for May 30 2022--it is thought it may be hematoma as she was on eliquis and fell 3now has seen urology at [facility]--it is renal cell CA--going to have surgery 43.12.25 MRI shows probable kidney cancer per family--Dr. Young referred her to urologist In [facility]. [place] 5on CT at [facility] 03.26.22--2.4 X 2.0cm; they scheduled her f/u with Dr. Young urology to follow on this Procedures Procedure Date Related Diagnosis Body Site Status EGD done at [facility]--see comments 1, 2 07/12/21 Completed Colonoscopy at [facility]: adenomat ous polyps, repeat 2 yrs 05/24/21 Completed right cataract 01/2021 Completed left cataract 12/12/20 Completed Left Carpal Tunnel Release 12/2019 Completed Cholecystectomy 1993 Completed Tubal ligation 1972 Completed Appendectomy 1955 Completed Colonoscopy 11-24-15--no poly ps; has c diff Completed 1reflux esophagitis, hiatal hernia, gastritis--biopsies taken--no report yet 2he treated her for H pylori Social History Social History Type Response Smoking Status Former smoker; Smoke less tobacco use: Never; Former smoker last 30 days Former smoker > 30 days; Has the patient smoked in the last 365 days, even once? Yes; Type: Cigarettes 1 entered on: 09/11/22 Sex Female 1quit Implantable Device List Procedure Provider Procedure Date Device Type Site Extraction Cataract Phacoemulsification Unknown 01/16/21 Unknown Eye, Right Device Identifier Serial Number Lot or Batch Number Manufacturing Date Expiration Date Distinct Identification Code MRI Safety Implantable Status Assigning Authority [id number] Unknown Unknown 04/03/24 Unknown Unknown Active GS1 Procedure Provider Procedure Date Device Type Site Extraction Cataract Phacoemulsification Unknown 12/12/20 Non Biological Eye, Left Device Identifier Serial Number Lot or Batch Number Manufacturing Date Expiration Date Distinct Identification Code MRI Safety Implantable Status Assigning Authority [id number] Unknown [id number] Unknown 02/02/24 Unknown Unknown Active GS1 Patient Care team information Care Team Personnel Name: Chayito Kaur MD Position: PX Physician - Family Practice Member Role: Primary Care Physician Address: Address: [address] [place] [address]- [place] Name: Russ Mckeon MD Position: PX Physician - Urology Med Service: Urology Member Role: Attending Physician Address: Address: [address] [place] [address]- [place] Care Team Related Persons Name: RADHA ZAFAR Name: RENATO ZAFAR Name: DOMINIQUE ZAFAR Address: home [address] [place], [place] [id number] [facility] Address: mailing [address] [place] [phone] [facility] Name: ECHO DONOVAN
--- OUTSIDE RECORDS SUMMARY | 2023-01-13 06:40 | XMS_ITS | Continuity of Care Document ---
Author Name Unknown Organization [facility] Address [address] [place] [address]- Care Team Providers Care Supervisor Television [employer] Name Role Phone Vincent HOOD, Chayito Sherwood Primary Care Physician Encounter 10/03/22 - 10/04/22 [id number] [address] [place] [address]- [place] Encounter Diagnosis Right renal mass(Discharge Diagnosis) - 10/03/22 Encounter for screening for other disorder(Discharge Diagnosis) - 10/03/22 Attending Physician: Tariq Luu Allergies, Adverse Reactions, Alerts No Known Allergies Assessment and Plan Extracted from: Title:Office Visit - Comprehensive Author:Tariq Luu Date:10/03/22 1.??Right renal mass(Other s pecified disorders of kidney and ureter: N28.89) Patient is doing??well??postoperatively.?? Creatinine??stable at 0.70.?She is having some abdominal tenderness, however, she is not requiring pain??medications and this is expected postoperatively.?? I??discussed with the patient to avoid heavy??lifting for??at least??6 weeks postoperatively. ??I??discussed with the patient that if she continues??to??have low-grade??temperatures, I would recommend??that??she reach out to??her primary??care as??she does not appear??to have a UTI??and surgical incision??sites do not??appear to be infected.?? Patient verbalized understanding.?Pathology??revealed benign simple cyst.?? We will plan to??have the patient repeat a??renal ultrasound??in??6 months to assess for development??of new cysts. ??If this is unremarkable, no further workup??is needed. Ordered: [place] Visit [id number] ?? Orders: BMP Urinalysis w/ microscopy RTC??in??6 months with??UA/bilateral renal ultrasound? Future Appointments Appointment Date:11/29/2022 10:45:00 AM Scheduled Provider:Chayito Kaur MD Location:[facility] [facility] Appointment Type:Established Patient Appointment Date:04/04/2023 09:30:00 AM Scheduled Provider: Location: Radiology Appointment Type:Ultrasound 30 Appointment Date:04/04/2023 10:45:00 AM Scheduled Provider:Tariq Luu Location:-Urology Sp Appointment Type:Established Patient Future Scheduled Tests Radiology* CT Abd Pelvis w Contrast Routine 02/12/22 * US VL Venous LE Right 08/29/22 Immunizations Given and Recorded Vaccine Date Status Refusal Reason SARS-CoV-2 (COVID-19) mRNA-1273 biv vax 02/07/22 R ecorded influenza virus vaccine 01/17/22 Recorded influenza virus [...] Refill(s) 5, Route to Pharmacy Electronically, Pharmacy: [facility], [id number], AEROSOL, 2 puff Inhalation BID,Instr:rinse mouth and throat afte... 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, kg, Weight Start Date: 05/10/22 Status: Ordered atorvastatin 20 mg oral tablet = 1 tab, By mouth, QPM (every evening), FOR CHOLESTEROL., # 60 tab, Refill(s) 11, Pharmacy: [facility], [id number], TAKE 1 TABLET BY MOUTH DAILY EVERY EVENING FOR CHOLESTEROL, 55.4, 09/18/22 10:04:00 CDT, kg, Weight Start Date: 09/27/22 Status: Ordered azelastine nasal 0.1% (137 mcg/inh) spray 2 spray, Intranasal, BID, # 30 mL, 30, Refill(s) 5, Route to Pharmacy Electronically, Pharmacy: [facility], [id number], 2 SPRAYS BOTH NOSTRILS TWICE A DAY, 55, 0 07/11/22 10:17:00 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, kg, Weight Start Date: 07/31/22 Status: Ordered Chantix 1 mg oral tablet 1 mg = 1 tab, By mouth, BID, after meals, # 60 tab, Refill(s) 5, Pharmacy: [facility],[id number], 1 tab By mouth BID,Instr:after meals, 56.82, 08/15/22 11:17:00 CDT, kg, Weight Start Date: 08/15/22 Status: Ordered clonazePAM 0.5 mg oral tablet 0.5 mg, = 1 tab, By mouth, QPM (every evening), reduced from 1mg as of 4.29.21, 30 tab, 5, 5, Substitution Permitted, [facility], 63, Height, 05/07/22 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, in, 58.18, Weight, 05/07/22 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, kg Start Date: 05/24/22 Status: Ordered cloNIDine 0.1 mg oral tablet = 1 tab, By mouth, BID, # 180 tab, Refill(s) 5, Pharmacy: [facility], [id number], TAKE 1 TABLET BY MOUTH TWICE A DAY, 55.4, 09/18/22 10:04:00 CDT, kg, Weight Start Date: 09/27/22 Status: Ordered DilTIAZem (Eqv-Cardizem CD) 180 mg/24 hours oral capsule, extended release = 1 cap, By mouth, Daily, # 90 cap, Refill(s) 5, Pharmacy: [facility], [id number], TAKE 1 CAPSULE BY MOUTH DAILY, 55.4, 09/18/22 10:04:00 CDT, kg, Weight Start Date: 09/27/22 Status: Ordered docusate sodium 100 mg oral capsule 100 mg = 1 cap, By mouth, BID, PRN for constipation, # 20 cap, Refill(s) 0, Pharmacy: [facility], [id number], 1 cap By mouth BID,PRN:for constipation, 55.4, 09/18/22 10:04:00 CDT, kg, Weight Start Date: 09/20/22 Status: Ordered DULoxetine 60 mg oral delayed release capsule = 1 cap, By mouth, Daily, THIS IS TO REPLACE LEXAPRO., # 30 cap, Refill(s) 5, Pharmacy: [facility], [id number], TAKE 1 CAPSULE BY MOUTH DAILY THIS IS TO REPLACELEXAPRO, 55.4, 09/18/22 10:04:00 CDT, kg, Weight Start Date: 09/27/22 Status: Ordered Eliquis 5 mg oral tablet 5 mg = 1 tab, By mouth, BID, 60 tab, # 60 tab, Refill(s) 11, Pharmacy: [facility], [id number], TAB, 1 tab By mouth BID,Instr:60 tab, 54.55, 06/10/22 11:12:00 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 Start Date: 08/29/22 Status: Ordered hydrALAZINE 100 mg oral tablet = 1 tab, By mouth, TID, # 270 tab, Refill(s) 1, Pharmacy: [facility], [id number], 1 TABLET BY MOUTH 3 TIMES A DAY, 55.4, 09/18/22 10:04:00 CDT, kg, Weight Start Date: 09/27/22 Status: Ordered hydroCHLOROthiazide 12.5 mg oral tablet 12.5 mg = 1 tab, By mouth, Daily, # 90 tab, Refill(s) 0, Pharmacy: [facility], [id number], 1 tab By mouth Daily, 56.82, 08/15/22 11:17:00 CDT, kg, Weight Start Date: 08/15/22 Status: Ordered lisinopril 40 mg oral tablet = 0.5 tab, By mouth, BID, # 90 tab, Refill(s) 5, Pharmacy: [facility], [id number], TAKE 1/2 TABLET BY MOUTH TWICE A DAY, 55.4, 09/18/22 10:04:00 CDT, kg, Weight Start Date: 09/27/22 Status: Ordered metformin 500 mg oral tablet 1,000 mg = 2 tab, By mouth, QPM (every evening), # 180 tab, Refill(s) 1, Pharmacy: [facility], NCPDP_ID-[id number], new higher amount per day as of .., 2 tab By mouth QPM (every evening), 55.45, 08/29/22 11:24:00 CDT, kg, Weight Start Date: 08/30/22 Status: Ordered mupirocin topical 2% ointment See Instructions, apply to sore Topical TID X 10d, # 15 g, Refill(s) 0, Route to Pharmacy Electronically, Pharmacy: [facility], [id number], Instructions ReplaceRequired Details, apply to sore Topical TID X 10d,... Start Date: 11/02/21 Status: Ordered One Touch Ultra One Touch Ultra, See Instructions, Test strips and lancets and one glucometer to check glucose oncedaily E11.65, # 100 EA, Refills(s) 3, Route to Pharmacy Electronically, Pharmacy: [facility], Test strips and lancets and one glucometer t... 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 Start Date: 09/27/22 Status: Ordered Spiriva HandiHaler 18 mcg inhalation capsule = 1 cap, Inhalation, Daily, # 30 cap, Refill(s) 1, Pharmacy: [facility], [id number], 1 cap Inhalation Daily, 55.4, 09/18/22 10:04:00 CDT, kg, Weight Start Date: 09/27/22 Status: Ordered traZODone 150 mg oral tablet = 1 tab, By mouth, at bedtime, FOR SLEEP., # 90 tab, Refill(s) 1, Pharmacy: [facility], [id number], TAKE 1 TABLET BY MOUTH BY MOUTH AT BEDTIME FOR SLEEP, 55.4, 09/18/22 10:04:00 CDT, kg, Weight Start Date: 09/27/22 Status: Ordered Welchol 625 mg oral tablet = 1 tab, By mouth, Daily, # 30 tab, Refill(s) 11, Pharmacy: [facility], [id number], TAKE 1 TABLET BY MOUTH DAILY, 56.82, [...] Active 1started on portable Oxygen while hospitalized [facility] for pneumonia 2on CT at [facility] 03/26---they have ordered another [address]--it is scheduled for May 30 2022--it is thought it may be hematoma as she was on eliquis and fell 3now has seen urology at [facility]--it is renal cell CA--going to have surgery 43.8.23 MRI shows probable kidney cancer per family--Dr. Young referred her to urologist In [facility]. HOme 5on CT at [facility] 03.26.22--2.4 X 2.0cm; they scheduled her f/u with Dr. Young urology to follow on this Procedures Procedure Date Related Diagnosis Body Site Status EGD done at [facility]--see comments 1, 2 07/12/21 Completed Colonoscopy at [facility]: adenomat ous polyps, repeat 2 yrs 05/24/21 Completed right cataract 01/2021 Completed left cataract 12/12/20 Completed Left Carpal Tunnel Release 12/2019 Completed Cholecystectomy 1993 Completed Tubal ligation 1972 Completed Appendectomy 1955 Completed Colonoscopy 11-24-15--no poly ps; has c diff Completed 1reflux esophagitis, hiatal hernia, gastritis--biopsies taken--no report yet 2he treated her for H pylori Vital Signs Most recent to oldest [Reference Range]: 1 Height (inches) (Clinical) 64 in (10/03/22 11:47 AM) BMI (Clinical) 0 kg/m2 (10/03/22 11:47 AM) Social History Social History Type Response Smoking [...] Code MRI Safety Implantable Status Assigning Authority [id number] Unknown Unknown 04/03/24 Unknown Unknown Active GS1 Procedure Provider Procedure Date Device Type Site Extraction Cataract Phacoemulsification Unknown 12/12/20 Non Biological Eye, Left Device Identifier Serial Number Lot or Batch Number Manufacturing Date Expiration Date Distinct Identification Code MRI Safety Implantable Status Assigning Authority [id number] Unknown [id number] Unknown 02/02/24 Unknown Unknown Active GS1 Urology Outpatient Note * [facility]: PERFORM Event Display: Urology Office/Clinic Note Authored Date: [id number] Chief Complaint 2wk po partial nephrectomy Nurse Intake Nursing Intake?? General Information?? Pain Information?? Physicians and Specialties: Dr Kaur - PCP ?? CMTG Dr Vidales ??cataract ??[employer] Hugo PraterDr Giurgius ?? GI- ??OZHDr Young OZH ??Urology (10/03/22) Pain ??Quality: Dull (10/03/22) ?? Pain Present: Yes actual or suspected pain (10/03/22) History of Present Illness Patient is a??71-year-old female??who presents today??for??2 week follow-up.?? Patient??has a history??of 2 cm right??renal mass and underwent a robotic right??partial??nephrectomy with?Mike??on 09/23. ?? Patient reports??that she has been doing well.?? She states??she does have some??abdominal??discomfort, however, states??that she is no longer taking??any??pain medications.?? She denies any??UTI symptoms.?? She??was discharged home with??home oxygen.?? She states??she is no longer utilizing??this during??the day??but??will wear this at night.?? She denies??any??shortness of breath.?? She??does state that she??checks her??pulse oximetry twice a day and this has remained over 90%.?She does states that over the past??week??she??has experienced??a low-grade fever for approximately 100.??Denies any redness, drainage, or increased??swelling??from surgical incision sites. ?? UA today shows??1+ protein, otherwise unremarkable Creatinine 0.70 (previously 0.79) -Pathology shows mass to be a benign simple cyst Physical Exam Vitals & Measurements HT:??64??in?? BMI:??0?? General: alert and oriented in no acute distress. Resp: nonlabored respirations CV: normal peripheral perfusion MSK: ambulatory Abdomen: ??Surgical incision sites present.?? No redness or??drainage??is noted.?? They appear to be healing well. Assessment/Plan 1.??Right renal mass(Other specified disorders of kidney and ureter: N28.89) Patient is doing??well??postoperatively.?? Creatinine??stable at 0.70.?She is having some abdominal tenderness, however, she is not requiring pain??medications and this is expected postoperatively.?? I??discussed with the patient to avoid heavy??lifting for??at least??6 weeks postoperatively. ??I ??discussed with the patient that if she continues??to??have low- grade??temperatures, I would recommend??that??she reach out to??her primary??care as??she does not appear??to have a UTI??and surgical incision??sites do not??appear to be infected.?? Patient verbalized understanding.?Pathology??revealed benign simple cyst.?? We will plan to??have the patient repeat a??renal ultrasound??in??6 months to assess for development??of new cysts. ??If this is unremarkable, no further workup??is needed. Ordered: Postoperative Follow Up Visit [id number] ?? Orders: BMP Urinalysis w/ microscopy Other RTC??in??6 months with??UA/bilateral renal ultrasound? Problem List/Past Medical History Abdominal aortic atherosclerosis: ?? Chronic diarrhea: ?? Chronic gastritis: ?? COPD, severity to be determined: ?? Stress reaction, chronic: ?? Requires oxygen therapy: ??started on portable Oxygen while hospitalized [facility] for pneumonia Oxygen dependent: ?? Depression: ?? Anticoagulated by anticoagulation treatment: ?? Bilateral lower extremity edema: ?? Essential hypertension: ?? Fatigue: ?? Hiatal hernia with GERD and esophagitis: ?? Helicobacter pylori gastritis: ?? Hx of TIA (transient ischemic attack) and stroke: ?? Hypercholesteremia: ?? Knee pain: ?? Low back pain: ?? Left lower quadrant abdominal wall mass: ??on CT at [facility] 03/26---they have ordered another [address]--it is scheduled for May 30 2022--it is thought it may be hematoma as she was on eliquis and fell Osteoporosis: ?? Paresthesia: ?? Paroxysmal atrial fibrillation: ?? Insomnia: ?? Right renal mass: ??now has seen urology at [facility]--it is renal cell CA--going to have surgery Transient ischemic attack (TIA): ?? 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 Uncontrolled type 2 diabetes mellitus with hyperglycemia, without long-term current use of insulin:?? Urinary incontinence: ?? Procedure/Surgical History ???EGD done at [facility]--see comments (07/12/2021)???Colonoscopy at [facility]: adenomatous polyps, repeat 2 yrs (05/24/2021)???right cataract ()???left cataract (12/12/2020)???Left Carpal Tunnel Release ()???Cholecystectomy (1993)???Tubal ligation (1972)???Appendectomy (1955)???Colonoscopy 11-24-15--no polyps; has c diff Medications Home Medications (24) Active Advair HFA 45 mcg-21 mcg/inh inhalation aerosol??2 puff,Start_date: 05/10/22,Refills: 5, Inhalation, BID Albuterol (Eqv-ProAir HFA) 90 mcg/inh inhalation aerosol?? albuterol 2.5 mg/3 mL (0.083%) inhalation solution??1 vial,Start_date: 05/10/22,Refills: 5, PRN, NEB, Q6H atorvastatin 20 mg oral tablet??1 tab,Start_date: 09/27/22,Refills: 11, By mouth, QPM (every evening) azelastine nasal 0.1% (137 mcg/inh) spray??2 spray,Start_date: 07/31/22,Refills: 5, Intranasal, BID Chantix 1 mg oral tablet??1 mg = 1 tab,Start_date: 08/15/22,Refills: 5, By mouth, BID clonazePAM 0.5 mg oral tablet??0.5 mg = 1 tab,Start_date: 05/24/22,Refills: 5, By mouth, QPM (everyevening) cloNIDine 0.1 mg oral tablet??1 tab,Start_date: 09/27/22,Refills: 5, By mouth, BID DilTIAZem (Eqv-Cardizem CD) 180 mg/24 hours oral capsule, extended release??1 cap,Start_date: 09/27/22,Refills: 5, By mouth, Daily docusate sodium 100 mg oral capsule??100 mg = 1 cap,Start_date: 09/20/22,Refills: 0, PRN, By mouth,BID DULoxetine 60 mg oral delayed release capsule??1 cap,Start_date: 09/27/22,Refills: 5, By mouth, Daily Eliquis 5 mg oral tablet??5 mg = 1 tab,Start_date: 06/10/22,Refills: 11, By mouth, BID glipiZIDE 5 mg oral tablet, extended release??See Instructions:1 TABLET BY MOUTH TWICE A DAY WITH MEALS,Start_date: 08/29/22,Refills: 5 hydrALAZINE 100 mg oral tablet??1 tab,Start_date: 09/27/22,Refills: 1, By mouth, TID hydroCHLOROthiazide 12.5 mg oral tablet??12.5 mg = 1 tab,Start_date: 08/15/22,Refills: 0, By mouth,Daily lisinopril 40 mg oral tablet??0.5 tab,Start_date: 09/27/22,Refills: 5, By mouth, BID metformin 500 mg oral tablet??1,000 mg = 2 tab,Start_date: 08/30/22,Refills: 1, By mouth, QPM (every evening) mupirocin topical 2% ointment??See Instructions:apply to sore Topical TID X 10d,Start_date: 11/02/21,Refills: 0 One Touch Ultra??See Instructions:Test strips and lancets and one glucometer to check glucose once daily E11.65,Start_date: 04/02/22,Refills: 3 pantoprazole 40 mg oral delayed release tablet??1 tab,Start_date: 07/31/22,Refills: 5, By mouth, Daily QUEtiapine 25 mg oral tablet??1 tab,Start_date: 09/27/22,Refills: 5, By mouth, QPM (every evening) Spiriva HandiHaler 18 mcg inhalation capsule??1 cap,Start_date: 09/27/22,Refills: 1, Inhalation, Daily traZODone 150 mg oral tablet??1 tab,Start_date: 09/27/22,Refills: 1, By mouth, at bedtime Welchol 625 mg oral tablet??1 tab,Start_date: ,Refills: 11, By mouth, Daily Medication reconciliation completed on this patient today Allergies No Known Allergies Social History Alcohol Denies Employment/School Highest education level: Some college. Status: Unemployed. 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 Exercise Frequency: None. Type: active--carrying in wood every day. Home/Environment Marital status . 2 living children. Had a daugther who was handicapped and age 33 of [place]. Seatbelt use: Always. Lives with: Spouse. Nutrition/Health Type of diet: Poor dietary habits. Caffeine intake amount: 1-2 drinks/day. Type of caffeine drinks:Coffee, Tea. Calcium intake: Adequate Intake. Sun exposure: Frequently - w/o sunscreen. Sexual Sexually active: No. High risk behavior: No. Substance Abuse Denies Tobacco Smoking Status: Former smoker. Smokeless tobacco use: Never. Former smoker last 30 days: Former smoker > 30 days. Has the patient smoked in the last 365 days, even once? Yes. Type: Cigarettes. Family History Alzheimer disease.....: MOTHER. Breast cancer: MOTHER. Colon cancer.: MGF. Crohn disease: SISTER. Hypertension: FATHER and MGM. Liver disease.....: SISTER. Lung cancer.....: MGM. KS (myocardial infarction).....: PGM.Negative: MGM. Pancreatic cancer: FATHER. Electronically signed by:Tariq Luu 10/03/22 14:11 Electronically cosigned by: Russ Mckeon MD 10/04/22 08:53 Patient Care team information Care Team Personnel Name: Chayito Kaur MD Position: PX Physician - Family Practice Member Role: Primary Care Physician Address: Address: [address] [place] [address]- Care Team Related Persons Name: RADHA ZAFAR Name: RENATO ZAFAR Name: DOMINIQUE ZAFAR Address: home [address] [place], [place] [id number] [facility] Address: mailing [address] [place] [phone] [facility] Name: ECHO DONOVAN
--- OUTSIDE RECORDS SUMMARY | 2023-01-13 06:40 | XMS_ITS | Continuity of Care Document ---
Author Name Unknown Organization [facility] Address [address] [place] [address]- Care Team Providers Care Digital Campaign Specialist Name Role Phone Vincent HOOD, Chayito Sherwood Primary Care Physician Encounter 08/20/22 - 08/21/22 [facility] [address] [place] [address]- [place] Encounter Diagnosis Renal mass(Discharge Diagnosis) - 08/13/22 Urinary frequency(Discharge Diagnosis) - 08/20/22 Nocturia(Discharge Diagnosis) - 08/20/22 Encounter for screening for other disorder(Discharge Diagnosis) - 08/20/22 Attending Physician: Russ Mckeon MD Allergies, Adverse Reactions, Alerts No Known Allergies Assessment and Plan Extracted from: Title:Office Visit - Comprehensive Author:Russ Mcneill MD Date:08/20/22 1.??Renal mass(Other specifi ed disorders of kidney and ureter: N28.89) The patient has a small right renal mass??consistent??with??renal cell carcinoma.??It appears localized??on imaging. I reviewed the imaging with the patient. I discussed the 2cm renal mass with the patient her??family including diagnosis, natural history, and outlined management options including: ?? 1. active surveillance 2. cryoablation number 3. partial nephrectomy ?? I then reviewed a meta-analysis from Urology Gold Journal from 2018 that describe the safety of Active Surveillance in small renal masses with a risk of progression 1% with imaging protocols of q3-6mo for the first year. ? I??further discussed the??partial nephrectomy including risks, benefits, and alternatives.?? I??discussed her??hospital expectations??as well??as potential??severe??complications??including VT, CVA, DVT, PE.??We also discussed that??there is??potential the??whole kidney may have to be removed during surgery if the partial nephrectomy??is determined to be unsafe. ? The patient is in agreement??with??getting??scheduled??for a robotic right partial nephrectomy??and we will get her??on the schedule in the near future.? 2.??Urinary frequency(Frequency of micturition: R35.0) 3.??Nocturia(Nocturia: R35.1) We will contact PCP to ensure pt is able to hold ASA and Eliquis for the procedure. The scribe's notes accurately reflects work done and decisions made directly by Physician. Future Appointments Appointment Date:08/29/2022 11:30:00 AM Scheduled Provider:Chayito Kaur MD Location:[facility] Appointment Type:Established Patient Appointment Date:09/18/2022 11:15:00 AM Scheduled Provider: Location:[facility] Surgery Appointment Type:Surgery Appointment Date:10/03/2022 11:45:00 AM Scheduled Provider:Tariq Luu Location:-Urology Sp Appointment Type:Hospital Follow Up (Established) Future Scheduled Tests Radiology* CT Abd Pelvis w Contrast Routine 02/12/22 * [place] Mammo Screen Bilat Digital 07/27/21 Immunizations Given and Recorded Vaccine Date Status [...] Refill(s) 5, Route to Pharmacy Electronically, Pharmacy: [facility], [id number], AEROSOL, 2 puff Inhalation BID,Instr:rinse mouth and throat afte... Start Date: 05/10/22 Status: Ordered Albuterol (Eqv-ProAir HFA) 90 mcg/inh inhalation aerosol 8 g, Refill(s) 0 Start Date: 03/13/22 Status: Ordered albuterol 2.5 mg/3 mL (0.083%) inhalation solution = 1 vial, NEB, Q6H, PRN for shortness of breath, # 300 mL, Refill(s) 5, Pharmacy: [facility], [id number], 1 vial NEB Q6H,PRN:for shortness of breath, 58.18, 05/07/22 9:30:00 PHYSICIAN COMPENSATION ANALYST, kg, Weight Start Date: 05/10/22 Status: Ordered aspirin 81 mg oral tablet 81 mg = 1 tab, By mouth, Daily, # 30 tab, Refill(s) 0, other Start Date: 03/07/15 Status: Ordered atorvastatin 20 mg oral tablet = 1 tab, By mouth, QPM (every evening), FOR CHOLESTEROL., # 30 tab, Refill(s) 11, Pharmacy: [facility], [id number], TAKE 1 TABLET BY MOUTH DAILY EVERY EVENING FOR CHOLESTEROL, 58.64, 12/06/21 16:14:00 CDT, kg, We... Start Date: 12/06/21 Status: Ordered azelastine nasal 0.1% (137 mcg/inh) spray 2 spray, Intranasal, BID, # 30 mL, 30, Refill(s) 5, Route to Pharmacy Electronically, Pharmacy: [facility], [id number], 2 SPRAYS BOTH NOSTRILS TWICE A DAY, 55, 0 07/11/22 10:17:00 PHYSICIAN COMPENSATION ANALYST, kg, Weight Start Date: 07/31/22 Status: Ordered Chantix 1 mg oral tablet 1 mg = 1 tab, By mouth, BID, after meals, # 60 tab, Refill(s) 5, Pharmacy: [facility],[id number], 1 tab By mouth BID,Instr:after meals, 56.82, 08/15/22 11:17:00 CDT, kg, Weight Start Date: 08/15/22 Status: Ordered clonazePAM 0.5 mg oral tablet 0.5 mg, = 1 tab, By mouth, QPM (every evening), reduced from 1mg as of 4.29.21, 30 tab, 5, 5, Substitution Permitted, [facility], 63, Height, 05/07/22 9:30:00 PHYSICIAN COMPENSATION ANALYST, in, 58.18, Weight, 05/07/22 9:30:00 PHYSICIAN COMPENSATION ANALYST, kg Start Date: 05/24/22 Status: Ordered cloNIDine 0.1 mg oral tablet See Instructions, 1 tab po bid, # 60 tab, Refill(s) 5, Pharmacy: [facility], [id number], Instructions Replace Required Details, 1 tab po bid, 55, 07/11/22 10:17:00 PHYSICIAN COMPENSATION ANALYST, kg, Weight Start Date: 07/19/22 Status: Ordered dilTIAZem 180 mg/24 hours oral tablet, extended release 180 mg = 1 tab, By mouth, BID, # 60 EA, Refill(s) 5, Pharmacy: [facility], [id number], this replaces once a day as of 3.9.23, 1 tab By mouth BID, 55, 07/11/22 10:17:00 PHYSICIAN COMPENSATION ANALYST, kg, Weight Start Date: 07/11/22 Status: Ordered DULoxetine 60 mg oral delayed release capsule = 1 cap, By mouth, Daily, THIS IS TO REPLACE LEXAPRO., # 30 cap, Refill(s) 5, Pharmacy: [facility], [id number], TAKE 1 CAPSULE BY MOUTH DAILY THIS IS TO REPLACELEXAPRO, 61.82, 04/02/22 15:04:00 PHYSICIAN COMPENSATION ANALYST, kg, Weight Start Date: 04/16/22 Status: Ordered Eliquis 5 mg oral tablet 5 mg = 1 tab, By mouth, BID, 60 tab, # 60 tab, Refill(s) 11, Pharmacy: [facility], [id number], TAB, 1 tab By mouth BID,Instr:60 tab, 54.55, 06/10/22 11:12:00 PHYSICIAN COMPENSATION ANALYST, kg, Weight Start Date: 06/10/22 Status: Ordered glipiZIDE 5 mg oral tablet, extended release = 1 tab, By mouth, BIDWM (twice daily with meals), # 60 tab, Refill(s) 5, Pharmacy: [facility], [id number], 1 TABLET BY MOUTH TWICE A DAY WITH MEALS, 56.36, 02/11/22 13:14:00 CDT, kg, Weight Start Date: 02/18/22 Status: Ordered hydrALAZINE 100 mg oral tablet 100 mg = 1 tab, By mouth, TID, # 270 tab, Refill(s) 1, Pharmacy: [facility], [id number], this replaces 50mg, 1 tab By mouth TID, 55.45, 06/25/22 13:25:00 PHYSICIAN COMPENSATION ANALYST, kg, Weight Start Date: 06/25/22 Status: Ordered hydroCHLOROthiazide 12.5 mg oral tablet 12.5 mg = 1 tab, By mouth, Daily, # 90 tab, Refill(s) 0, Pharmacy: [facility], [id number], 1 tab By mouth Daily, 56.82, 08/15/22 11:17:00 CDT, kg, Weight Start Date: 08/15/22 Status: Ordered lisinopril 40 mg oral tablet See Instructions, TAKE 1/2 TABLET BY MOUTH TWICE A DAY, # 30 tab, Refill(s) 5, Pharmacy: [facility], [id number], Instructions Replace Required Details, TAKE 1/2TABLET BY MOUTH TWICE A DAY, 54.55, 06/10/22 11:12:... Start Date: 06/25/22 Status: Ordered metformin 500 mg oral tablet 500 mg = 1 tab, By mouth, QPM (every evening), # 90 tab, Refill(s) 1, Pharmacy: [facility], [id number], 1 tab By mouth QPM (every evening), 58.18, 05/07/22 9:30:00 PHYSICIAN COMPENSATION ANALYST, kg, Weight Start Date: 05/08/22 Status: Ordered mupirocin topical 2% ointment See Instructions, apply to sore Topical TID X 10d, # 15 g, Refill(s) 0, Route to Pharmacy Electronically, Pharmacy: [facility], [id number], Instructions ReplaceRequired Details, apply to sore Topical TID X 10d,... Start Date: 11/02/21 Status: Ordered One Touch Ultra One Touch Ultra, See Instructions, Test strips and lancets and one glucometer to check glucose oncedaily E11.65, # 100 EA, Refills(s) 3, Route to Pharmacy Electronically, Pharmacy: [facility], Test strips and lancets and one glucometer t... Start Date: 04/02/22 Status: Ordered pantoprazole 40 mg oral delayed release tablet = 1 tab, By mouth, Daily, # 30 tab, Refill(s) 5, Pharmacy: [facility], [id number], TAKE 1 TABLET BY MOUTH DAILY, 55, 07/11/22 10:17:00 PHYSICIAN COMPENSATION ANALYST, kg, Weight Start Date: 07/31/22 Status: Ordered SEROquel 25 mg oral tablet 25 mg = 1 tab, By mouth, QPM (every evening), to replace abilify, # 30 tab, Refill(s) 5, Pharmacy: [facility], [id number], 1 tab By mouth QPM (every evening),Ins tr:to replace abilify, 55, 07/11/22 10:17:00 PHYSICIAN COMPENSATION ANALYST, k... Start Date: 07/11/22 Status: Ordered Spiriva HandiHaler 18 mcg inhalation capsule = 1 cap, Inhalation, Daily, # 30 cap, Refill(s) 1, Pharmacy: [facility], [id number], 1 cap Inhalation Daily, 55, 07/11/22 10:17:00 PHYSICIAN COMPENSATION ANALYST, kg, Weight Start Date: 07/31/22 Status: Ordered traZODone 150 mg oral tablet 150 mg = 1 tab, By mouth, at bedtime, for sleep; this replaces 3 tabs of 50mg as of 11.28.22, # 90 tab, Refill(s) 1, Pharmacy: [facility], [id number], 1 tab By mouth at bedtime,Instr:for sleep; this replaces 3 ta... Start Date: 04/02/22 Status: Ordered Welchol 625 mg oral tablet = 1 tab, By mouth, Daily, # 30 tab, Refill(s) 11, Pharmacy: [facility], [id number], TAKE 1 TABLET BY MOUTH DAILY, 56.82, [...] loss Confirmed Resolved Right renal mass 3, 4 Confirmed Active Tobacco use Confirmed Active patient Transient ischemic attack (TIA) Confirmed 08/13/10 Active Uncontrolled type 2 diabetes mellitus with peripheral neuropathy Confirmed Active Uncontrolled type 2 diabetes mellitus with hyperglycemia, without long-term current use of insulin Confirmed Active Urinary incontinence Confirmed Active 1started on portable Oxygen while hospitalized [facility] for pneumonia 2on CT at [facility] 03/26---they have ordered another [address]--it is scheduled for May 30 2022--it is thought it may be hematoma as she was on eliquis and fell 33.8.23 MRI shows probable kidney cancer per family--Dr. Young referred her to urologist In [facility]. [place] 4on CT at [facility] 03.26.22--2.4 X 2.0cm; they scheduled her f/u with Dr. Young urology to follow on this Procedures Procedure Date Related Diagnosis Body Site Status EGD done at [facility]--see comments 1, 2 07/12/21 Completed Colonoscopy at [facility]: adenomat ous polyps, repeat 2 [...] oldest [Reference Range]: 1 Height (inches) (Clinical) 63 in (08/20/22 11:24 AM) BMI (Clinical) 0 kg/m2 (08/20/22 11:24 AM) Social History Social History Type Response Smoking Status Current every day sm oker; Smokeless tobacco use: Never; Former smoker last 30 days Former smoker > 30 days; Has the patient smoked in the last 365 days, even once? Yes; Type: Cigarettes; Tobacco use per day: 10 or more cigarettes (1/2 pack or more)/day in last 30 days 1 entered on: 07/11/22 Sex Female 1quit Implantable Device List Procedure Provider Procedure Date Device Type Site Extraction Cataract Phacoemulsification Unknown 01/16/21 Unknown Eye, Right Device Identifier Serial Number Lot or Batch Number Manufacturing Date Expiration Date Distinct Identification Code MRI Safety Implantable Status Assigning Authority [id number] Unknown Unknown 04/03/24 Unknown Unknown Active GS1 Procedure Provider Procedure Date Device Type Site Extraction Cataract Phacoemulsification Unknown 12/12/20 Non Biological Eye, Left Device Identifier Serial Number Lot or Batch Number Manufacturing Date Expiration Date Distinct Identification Code MRI Safety Implantable Status Assigning Authority [id number] Unknown [id number] Unknown 02/02/24 Unknown Unknown Active GS1 Urology Outpatient Note * Mike HOOD, Russ Domingo: PERFORM, MODIFY Janis Cardoso: MODIFY Event Display: Urology Office/Clinic Note Authored Date: [id number] Chief Complaint New Patient--- Renal mass General Information Information Given By: Patient, Other: Granddaughter (08/20/22 11:24:00) Nurse Intake Nursing Intake?? General Information?? Pain Information?? Physicians and Specialties: Dr Kaur - PCP ?? CMTG Dr Vidales ??cataract ??[employer] Hugo PraterDr Giurgius ?? GI- ??[facility]Or Young [facility] ??Urology (08/20/22) Pain Intensity: 5 (08/20/22) Information Given By: Patient, Other: Granddaughter (08/20/22) Pain Location: Abdomen (08/20/22) ?? Pain ??Quality: Aching (08/20/22) ?? Pain Present: Yes actual or suspected pain (08/20/22) History of Present Illness This note was created by Janis Cardoso acting as a chief medical director for Dr. Russ Mckeon MD.? The patient is a??71 YO??female with numerous medical comorbidities including T2DM, COPD, hx of AFIB who presents for renal mass. She was referred by urology: Dr. Young in [place]. I have reviewed the external documents and radiology. She is on ASA and Eliquis. No urologic meds. ?? Pt reports she had MRI abd/pelvis done around the time she had pneumonia and she was having numerous labs/scans??done. States she has urinary frequency and endorses nocturia. She takes glipizide for T2DM. ?? Her PCP is managing anti-coagulant. ?? PSHx: appendectomy, tubal ligation, cholecystectomy ?? Cr. from February 2022: 0.67 MRI abd/pelvis 07/10 showed 2cm enhancing cystic mass on posterior??lower pole of right kidney. Left kidney was normal. UA shows 3+ glucose, otherwise normal Physical Exam Vitals & Measurements HT:??63??in?? BMI:??0?? GENERAL: In no acute distress. Alert & oriented. Behavior and affect appropriate to situation. HEENT: normocephalic, no scleral icterus INTEGUMENT: Warm and dry. No rash or suspicious lesions noted. Skin turgor normal for age. CV: Normal peripheral perfusion. RESP: Respirations even and unlabored. MUSK: Ambulatory. Assessment/Plan 1.??Renal mass(Other specified disorders of kidney and ureter: N28.89) The patient has a small right renal mass??consistent??with??renal cell carcinoma.??It appears localized??on imaging. I reviewed the imaging with the patient. I discussed the 2cm renal mass with the patient her??family including diagnosis, natural history, and outlined management options including: ?? 1. active surveillance 2. cryoablation number 3. partial nephrectomy ?? I then reviewed a meta-analysis from Urology Gold Journal from 2018 that describe the safety of Active Surveillance in small renal masses with a risk of progression 1% with imaging protocols of q3-6mo for the first year. ?? I??further discussed the??partial nephrectomy including risks, benefits, and alternatives.?? I??discussed her??hospital expectations??as well??as potential??severe??complications??including VT, CVA, DVT, PE.??We also discussed that??there is??potential the??whole kidney may have to be removed during surgery if the partial nephrectomy??is determined to be unsafe. ? The patient is in agreement??with??getting??scheduled??for a robotic right partial nephrectomy??and we will get her??on the schedule in the near future.? 2.??Urinary frequency(Frequency of micturition: R35.0) 3.??Nocturia(Nocturia: R35.1) We will contact PCP to ensure pt is able to hold ASA and Eliquis for the procedure. Other The scribe's notes accurately reflects work done and decisions made directly by Physician. Problem List/Past Medical History Abdominal aortic atherosclerosis: ?? Chronic diarrhea: ?? Chronic gastritis: ?? COPD, severity to be determined: ?? Stress reaction, chronic: ?? Requires oxygen therapy: ??started on portable Oxygen while hospitalized [facility] for pneumonia Oxygen dependent: ?? Depression: ?? Anticoagulated by anticoagulation treatment: ?? Bilateral lower extremity edema: ?? Essential hypertension: ?? Fatigue: ?? Hiatal hernia with GERD and esophagitis: ?? Helicobacter pylori gastritis: ?? Hx of TIA (transient ischemic attack) and stroke: ?? Hypercholesteremia: ?? Knee pain: ?? Low back pain: ?? Left lower quadrant abdominal wall mass: ??on CT at [facility] 03/26---they have ordered another [address]--it is scheduled for May 30 2022--it is thought it may be hematoma as she was on eliquis and fell Osteoporosis: ?? Paresthesia: ?? Paroxysmal atrial fibrillation: ?? Insomnia: ?? Right renal mass: ??3.8. MRI shows probable kidney cancer per family--Dr. Young referred her to urologist In [facility]. HOme Transient ischemic attack (TIA): ?? 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 Uncontrolled type 2 diabetes mellitus with hyperglycemia, without long-term current use of insulin:?? Urinary incontinence: ?? Procedure/Surgical History ???EGD done at [facility]--see comments (07/12/2021)???Colonoscopy at [facility]: adenomatous polyps, repeat 2 yrs (05/24/2021)???right cataract ()???left cataract (12/12/2020)???Left Carpal Tunnel Release ()???Cholecystectomy (1993)???Tubal ligation (1972)???Appendectomy (1955)???Colonoscopy 11-24-15--no polyps; has c diff Medications Home Medications (24) Active Advair HFA 45 mcg-21 mcg/inh inhalation aerosol??2 puff,Start_date: 05/10/22,Refills: 5, Inhalation, BID Albuterol (Eqv-ProAir HFA) 90 mcg/inh inhalation aerosol?? albuterol 2.5 mg/3 mL (0.083%) inhalation solution??1 vial,Start_date: 05/10/22,Refills: 5, PRN, NEB, Q6H aspirin 81 mg oral tablet??81 mg = 1 tab,Start_date: 03/07/15,Refills: 0, By mouth, Daily atorvastatin 20 mg oral tablet??1 tab,Start_date: ,Refills: 11, By mouth, QPM (every evening) azelastine nasal 0.1% (137 mcg/inh) spray??2 spray,Start_date: 07/31/22,Refills: 5, Intranasal, BID Chantix 1 mg oral tablet??1 mg = 1 tab,Start_date: 08/15/22,Refills: 5, By mouth, BID clonazePAM 0.5 mg oral tablet??0.5 mg = 1 tab,Start_date: 05/24/22,Refills: 5, By mouth, QPM (everyevening) cloNIDine 0.1 mg oral tablet??See Instructions:1 tab po bid,Start_date: 07/19/22,Refills: 5 dilTIAZem 180 mg/24 hours oral tablet, extended release??180 mg = 1 tab,Start_date: 07/11/22,Refills: 5, By mouth, BID DULoxetine 60 mg oral delayed release capsule??1 cap,Start_date: 04/16/22,Refills: 5, By mouth, Daily Eliquis 5 mg oral tablet??5 mg = 1 tab,Start_date: 06/10/22,Refills: 11, By mouth, BID glipiZIDE 5 mg oral tablet, extended release??1 tab,Start_date: 02/18/22,Refills: 5, By mouth, BIDWM (twice daily with meals) hydrALAZINE 100 mg oral tablet??100 mg = 1 tab,Start_date: 06/25/22,Refills: 1, By mouth, TID hydroCHLOROthiazide 12.5 mg oral tablet??12.5 mg = 1 tab,Start_date: 08/15/22,Refills: 0, By mouth,Daily lisinopril 40 mg oral tablet??See Instructions:TAKE 1/2 TABLET BY MOUTH TWICE A DAY,Start_date: 06/25/22,Refills: 5 metformin 500 mg oral tablet??500 mg = 1 tab,Start_date: 05/08/22,Refills: 1, By mouth, QPM (every evening) mupirocin topical 2% ointment??See Instructions:apply to sore Topical TID X 10d,Start_date: 11/02/21,Refills: 0 One Touch Ultra??See Instructions:Test strips and lancets and one glucometer to check glucose once daily E11.65,Start_date: 04/02/22,Refills: 3 pantoprazole 40 mg oral delayed release tablet??1 tab,Start_date: 03/29/23,Refills: 5, By mouth, Daily SEROquel 25 mg oral tablet??25 mg = 1 tab,Start_date: 07/11/22,Refills: 5, By mouth, QPM (every evening) Spiriva HandiHaler 18 mcg inhalation capsule??1 cap,Start_date: 07/31/22,Refills: 1, Inhalation, Daily traZODone 150 mg oral tablet??150 mg = 1 tab,Start_date: 04/02/22,Refills: 1, By mouth, at bedtime Welchol 625 mg oral tablet??1 tab,Start_date: ,Refills: 11, By mouth, Daily Allergies No Known Allergies Social History Alcohol Denies Employment/School Highest education level: Some college. Status: Unemployed. 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 Previous employment/school: Used to work for [employer]. Exercise Frequency: None. Type: active--carrying in wood [...] No. Substance Abuse Denies Tobacco Smoking Status: Current every day smoker. Smokeless tobacco use: Never. Former smoker last 30 days:Former smoker > 30 days. Has the patient smoked in the last 365 days, even once? Yes. Type: Cigarettes. Tobacco use per day: 10 or more cigarettes (1/2 pack or more)/day in last 30 days. Family History Alzheimer disease.....: MOTHER. Breast cancer: MOTHER. Colon cancer.: MGF. Crohn disease: SISTER. Hypertension: FATHER and MGM. Liver disease.....: SISTER. Lung cancer.....: MGM. VT (myocardial infarction).....: PGM.Negative: MGM. Pancreatic cancer: FATHER. Electronically signed by:Russ Mckeon MD 08/20/22 12:54 Patient Care team information Care Team Personnel Name: Chayito Kaur MD Position: PX Physician - Family Practice Member Role: Primary Care Physician Address: Address: [address] [place] [address]- Name: Russ Mckeon MD Position: PX Physician - Urology Med Service: Urology Member Role: Attending Physician Address: Address: [address] [place] [address]- Care Team Related Persons Name: RADHA ZAFAR Name: RENATO ZAFAR Name: DOMINIQUE ZAFAR Address: home [address], [place] [id number] [facility] Address: mailing [address] [place] [phone] [facility] Name: ECHO DONOVAN
--- OUTSIDE RECORDS SUMMARY | 2023-01-13 06:40 | XMS_ITS | Continuity of Care Document ---
Author Name Unknown Organization [facility] Address [address] [address]- Care Team Providers Care Jig Grinder Name Role Phone Chayito Kaur MD Primary Care Physician Encounter 08/08/22 - 08/09/22 [facility] [address] [address]- [place] Encounter Diagnosis Bradycardia(Discharge Diagnosis) - 08/08/22 Paroxysmal atrial fibrillation(Discharge Diagnosis) - 08/08/22 Bilateral leg edema(Discharge Diagnosis) - 08/08/22 Right foot pain(Discharge Diagnosis) - 08/08/22 Encounter for screening for other disorder(Discharge Diagnosis) - 08/08/22 Attending Physician: Chayito Kaur MD Allergies, Adverse Reactions, Alerts No Known Allergies Assessment and Plan Extracted from: Title:Office Visit - Comprehensive Author:Chayito Coon MD Date:08/08/22 Bilateral leg edema(Localize d edema: R60.0) clinically, this is not gout and with all the issue with bradycardia and edema related to the bradycardia causing decreased return of blood and thus decreased systolic pressure, the swelling is most likely due to some CHF related to the bradycardia Ordered: Office Visit Level 4 Established 30-39 min 08532 ?? Bradycardia(Bradycardia, unspecified: R00.1) she never decreased her metoprolol 50mg to 1/2 tab po bid and last month I increased her diltiazem to bid---she is now bradycardic and BP low--STOP METOPROLOL COMPLETELY; WE WILL CALL HER IN AM FOR PULSE AND BP CHECK AND WILL SEE HER ON FRIDAY AND RE-EVALUATE FOOT THEN WELL ?? ekg SHOWS BRADYCARDIA WITH A FIB ?? Ordered: EKG 12-Lead Clinic Routine Office Visit Level 4 Established 30-39 min 41084 ?? Paroxysmal atrial fibrillation(Paroxysmal atrial fibrillation: I48.0) OVERMEDICATED DUE TO HER NOT DECREASEING METOPROLOL Ordered: Office Visit Level 4 Established 30-39 min 05865 ?? Right foot pain(Pain in right foot: M79.671) WILL RE-EVALUATE FRIDAY, SHOULD BE IMPROVING, IF NOT WILL GET LABS Ordered: Office Visit Level 4 Established 30-39 min 64063 ?? Future Appointments Appointment Date:08/12/2022 09:45:00 AM Scheduled Provider:Chayito [facility]aur [facility] Appoint[facility] Type:Established Patient Appointment Date:08/13/2022 09:30:00 AM Scheduled Provider:Chayito Kaur MD Location:[facility] Appointment Type:Established Patient Appointment Date:08/20/2022 11:40:00 AM Scheduled Provider:Russ Mckeon MD Location:[facility] Appointment Type:New Patient Future Scheduled Tests Radiology* CT Abd [...] Refill(s) 5, Route to Pharmacy Electronically, Pharmacy: [facility], [id number], AEROSOL, 2 puff Inhalation BID,Instr:rinse mouth and throat afte... Start Date: 05/10/22 Status: Ordered Albuterol (Eqv-ProAir HFA) 90 mcg/inh inhalation aerosol 8 g, Refill(s) 0 Start Date: 03/13/22 Status: Ordered albuterol 2.5 mg/3 mL (0.083%) inhalation solution = 1 vial, NEB, Q6H, PRN for shortness of breath, # 300 mL, Refill(s) 5, Pharmacy: [facility], [id number], 1 vial NEB Q6H,PRN:for shortness of breath, 58.18, 05/07/22 9:30:00 [employer], kg, Weight Start Date: 05/10/22 Status: Ordered aspirin 81 mg oral tablet 81 mg = 1 tab, By mouth, Daily, # 30 tab, Refill(s) 0, other Start Date: 03/07/15 Status: Ordered atorvastatin 20 mg oral tablet = 1 tab, By mouth, QPM (every evening), FOR CHOLESTEROL., # 30 tab, Refill(s) 11, Pharmacy: [facility], [id number], TAKE 1 TABLET BY MOUTH DAILY EVERY EVENING FOR CHOLESTEROL, 58.64, 12/06/21 16:14:00 CDT, kg, We... Start Date: 12/06/21 Status: Ordered azelastine nasal 0.1% (137 mcg/inh) spray 2 spray, Intranasal, BID, # 30 mL, 30, Refill(s) 5, Route to Pharmacy Electronically, Pharmacy: [facility], [id number], 2 SPRAYS BOTH NOSTRILS TWICE A DAY, 55, 0 07/11/22 10:17:00 [employer], kg, Weight Start Date: 07/31/22 Status: Ordered Chantix Starter Pack 0.5 mg-1 mg oral tablet 1 tab, By mouth, BID, as directed on package labeling, # 53 tab, Refill(s) 0, Route to Pharmacy Electronically, Pharmacy: [facility], [id number], 1 tab By mouthBID,Instr:as directed on package labeling, 55, 03/0... Start Date: 07/11/22 Status: Ordered clonazePAM 0.5 mg oral tablet 0.5 mg, = 1 tab, By mouth, QPM (every evening), reduced from 1mg as of 4.29.21, 30 tab, 5, 5, Substitution Permitted, [facility], 63, Height, 05/07/22 9:30:00 [employer], in, 58.18, Weight, 05/07/22 9:30:00 [employer], kg Start Date: 05/24/22 Status: Ordered cloNIDine 0.1 mg oral tablet See Instructions, 1 tab po bid, # 60 tab, Refill(s) 5, Pharmacy: [facility], [id number], Instructions Replace Required Details, 1 tab po bid, 55, 07/11/22 10:17:00 [employer], kg, Weight Start Date: 07/19/22 Status: Ordered dilTIAZem 180 mg/24 hours oral tablet, extended release 180 mg = 1 tab, By mouth, BID, # 60 EA, Refill(s) 5, Pharmacy: [facility], [id number], this replaces once a day as of 3.9.23, 1 tab By mouth BID, 55, 07/11/22 10:17:00 [employer], kg, Weight Start Date: 07/11/22 Status: Ordered DULoxetine 60 mg oral delayed release capsule = 1 cap, By mouth, Daily, THIS IS TO REPLACE LEXAPRO., # 30 cap, Refill(s) 5, Pharmacy: [facility], [id number], TAKE 1 CAPSULE BY MOUTH DAILY THIS IS TO REPLACELEXAPRO, 61.82, 04/02/22 15:04:00 [employer], kg, Weight Start Date: 04/16/22 Status: Ordered Eliquis 5 mg oral tablet 5 mg = 1 tab, By mouth, BID, 60 tab, # 60 tab, Refill(s) 11, Pharmacy: [facility], [id number], TAB, 1 tab By mouth BID,Instr:60 tab, 54.55, 06/10/22 11:12:00 [employer], kg, Weight Start Date: 06/10/22 Status: Ordered glipiZIDE 5 mg oral tablet, extended release = 1 tab, By mouth, BIDWM (twice daily with meals), # 60 tab, Refill(s) 5, Pharmacy: [facility], [id number], 1 TABLET BY MOUTH TWICE A DAY WITH MEALS, 56.36, 02/11/22 13:14:00 CDT, kg, Weight Start Date: 02/18/22 Status: Ordered hydrALAZINE 100 mg oral tablet 100 mg = 1 tab, By mouth, TID, # 270 tab, Refill(s) 1, Pharmacy: [facility], [id number], this replaces 50mg, 1 tab By mouth TID, 55.45, 06/25/22 13:25:00 [employer], kg, Weight Start Date: 06/25/22 Status: Ordered lisinopril 40 mg oral tablet See Instructions, TAKE 1/2 TABLET BY MOUTH TWICE A DAY, # 30 tab, Refill(s) 5, Pharmacy: [facility], [id number], Instructions Replace Required Details, TAKE 1/2TABLET BY MOUTH TWICE A DAY, 54.55, 06/10/22 11:12:... Start Date: 06/25/22 Status: Ordered metformin 500 mg oral tablet 500 mg = 1 tab, By mouth, QPM (every evening), # 90 tab, Refill(s) 1, Pharmacy: [facility], [id number], 1 tab By mouth QPM (every evening), 58.18, 05/07/22 9:30:00 [employer], kg, Weight Start Date: 05/08/22 Status: Ordered mupirocin topical 2% ointment See Instructions, apply to sore Topical TID X 10d, # 15 g, Refill(s) 0, Route to Pharmacy Electronically, Pharmacy: [facility], [id number], Instructions ReplaceRequired Details, apply to sore Topical TID X 10d,... Start Date: 11/02/21 Status: Ordered One Touch Ultra One Touch Ultra, See Instructions, Test strips and lancets and one glucometer to check glucose oncedaily E11.65, # 100 EA, Refills(s) 3, Route to Pharmacy Electronically, Pharmacy: [facility], Test strips and lancets and one glucometer t... Start Date: 04/02/22 Status: Ordered pantoprazole 40 mg oral delayed release tablet = 1 tab, By mouth, Daily, # 30 tab, Refill(s) 5, Pharmacy: [facility], [id number], TAKE 1 TABLET BY MOUTH DAILY, 55, 03/09/23 10:17:00 [employer], kg, Weight Start Date: 07/31/22 Status: Ordered SEROquel 25 mg oral tablet 25 mg = 1 tab, By mouth, QPM (every evening), to replace abilify, # 30 tab, Refill(s) 5, Pharmacy: [facility], [id number], 1 tab By mouth QPM (every evening),Ins tr:to replace abilify, 55, 07/11/22 10:17:00 [employer] IN[employer]ER, k... Start Date: 07/11/22 Status: Ordered Spiriva HandiHaler 18 mcg inhalation capsule = 1 cap, Inhalation, Daily, # 30 cap, Refill(s) 1, Pharmacy: [facility], [id number], 1 cap Inhalation Daily, 55, 07/11/22 10:17:00 [employer] IN[employer], kg, Weight Start Date: 07/31/22 Status: Ordered traZODone 150 mg oral tablet 150 mg = 1 tab, By mouth, at bedtime, for sleep; this replaces 3 tabs of 50mg as of 04.01.22, # 90 tab, Refill(s) 1, Pharmacy: [facility], [id number], 1 tab By mouth at bedtime,Instr:for sleep; this replaces 3 ta... Start Date: 04/02/22 Status: Ordered Welchol 625 mg oral tablet = 1 tab, By mouth, Daily, # 30 tab, Refill(s) 11, Pharmacy: [facility], [id number], TAKE 1 TABLET BY MOUTH DAILY, 56.82, [...] Active Oxygen dependent Confirmed Active Depression Confirmed 9/17/12 Active Anticoagulated by anticoagulation treatment Confirmed Active [...] Active 1started on portable Oxygen while hospitalized [facility] for pneumonia 2on CT at [facility] 03/26---they have ordered another [address]--it is scheduled for May 30 2022--it is thought it may be hematoma as she was on eliquis and fell 33.8.23 MRI shows probable kidney cancer per family--Dr. Young referred her to urologist [facility]. HOme 4on CT at [facility] 03.26.22--2.4 X 2.0cm; they scheduled her f/u with Dr. Young urology to follow on this Procedures Procedure Date Related Diagnosis Body Site Status EGD done at [facility]--see comments 1, 2 07/12/21 Completed Colonoscopy at [facility]: adenomat ous polyps, repeat 2 yrs [...] Most recent to oldest [Reference Range]: 1 Blood Pressure 109/64 (08/08/22 11:12 AM) Height (inches) (Clinical) 63 in (08/08/22 11:12 AM) Weight (kg) (Clinical) 58.18 kg (08/08/22 11:12 AM) BMI (Clinical) 22.7 kg/m2 (08/08/22 11:12 AM) Social History Social History Type Response [...] Code MRI Safety Implantable Status Assigning Authority [id number] 012 [id number] Unknown Unknown 04/03/24 Unknown Unknown Active GS1 Procedure Provider Procedure Date Device Type Site Extraction Cataract Phacoemulsification Unknown 12/12/20 Non Biological Eye, Left Device Identifier Serial Number Lot or Batch Number Manufacturing Date Expiration Date Distinct Identification Code MRI Safety Implantable Status Assigning Authority [id number] 346 Unknown [id number] Unknown 02/02/24 Unknown Unknown Active GS1 Family medicine Note * Vincent HOOD, Chayito Sherwood: PERFORM Event Display: Family Practice Office/Clinic Note Authored Date: [id number] Chief Complaint right foot is swollen and painful x few weeks General Information Information Given By: Patient (08/08/22 11:12:00) Nurse Intake Nursing Intake?? General Information?? Pain Information?? Physicians and Specialties: Dr Kaur - PCP ?? CMTG Dr Vidales ??cataract ??[employer] Hugo PraterDr Giurgius ?? GI- ??OZHDr Young OZH ??Urology (08/08/22) Pain Intensity: 4 (08/08/22) Information Given By: Patient (08/08/22) Pain Location: right foot (08/08/22) ?? Pain ??Quality: With movement (08/08/22) ?? Pain Present: Yes actual or suspected pain (08/08/22) History of Present Illness Patient is here because??she thinks??she??has gout.?? She has never had gout??before.?? For the past??2 weeks??her right??foot??has been more swollen??normally it is more swollen than??the left??but it is even more swollen??and it is hurting in the forefoot??more as the day??goes??on and she has been up on??it.?? She denies any??injury??no new activity??no new shoe wear. ?? She has not??had any fevers. ?? Her pulse is very low??on vitals today??so I check it myself??and it is 32??beats per minute??onmy??exam listening??for a whole minute.?? On??her EKG??it is 26.??She has a history of atrial??fibrillation that was not controlled.?? She has been on metoprolol??and??was supposed to be taking metopr olol??50 mg a half a tablet??twice a day??since May 04.?? She had been??on diltiazem 2.?? July 11 when I saw??her I increased her diltiazem??to twice a day because her??pulse was still??in the 80s and her??blood pressure was high.?? I called??the pharmacy to verify??she had not been getting ??any??amlodipine??and??she has not??had any??of??that??since February.?? She is getting??the diltiazem??they have been refilling the metoprolol??50 mg twice a day every month??and so when??I ask her??she says she??never decreased??it to half a tablet??twice a day.?? She says??she has been very tired??the past??month.?? No chest pains??no??heart racing. Review of Systems no f/c ?? Physical Exam Vitals & Measurements T:??96.9?F?? HR:??34?? RR:??17?? BP:??109/64?? SpO2:??93%?? HT:??63??in?? WT:??58.18??kg?? WT:??128??lb?? BMI:??22.7?? General: In no acute distress. Alert & oriented. Behavior and affect appropriate to situation. Skin: Warm and dry. No rash or suspicious lesions noted. Skin turgor normal for age. HEENT: Anicteric. MM moist and pink. Neck supple. No thyromegaly. No lymphadenopathy. CV: Bradycardic, irregular, 32 on my exam. No gallops or rubs. No murmur. L lower leg and calf withtrace pitting edema. R calf and foot with 1+ pitting edema, forefoot is tender, no calor but slighterythema; no calf tenderness or calor Chest: Respirations even and unlabored. Lungs clear to auscultation. No rhonchi. No crackles. No wheezing. Assessment/Plan Bilateral leg edema(Localized edema: R60.0) clinically, this is not gout and with all the issue with bradycardia and edema related to the bradycardia causing decreased return of blood and thus decreased systolic pressure, the swelling is most likely due to some CHF related to the bradycardia Ordered: Office Visit Level 4 Established 30-39 min 36858 ?? Bradycardia(Bradycardia, unspecified: R00.1) she never decreased her metoprolol 50mg to 1/2 tab po bid and last month I increased her diltiazem to bid---she is now bradycardic and BP low--STOP METOPROLOL COMPLETELY; WE WILL CALL HER IN AM FOR PULSE AND BP CHECK AND WILL SEE HER ON FRIDAY AND RE-EVALUATE FOOT THEN WELL ?? ekg SHOWS BRADYCARDIA WITH A FIB Ordered: EKG 12-Lead Clinic Routine Office Visit Level 4 Established 30-39 min 59886 ?? Paroxysmal atrial fibrillation(Paroxysmal atrial fibrillation: I48.0) OVERMEDICATED DUE TO HER NOT DECREASEING METOPROLOL Ordered: Office Visit Level 4 Established 30-39 min 04359 ?? Right foot pain(Pain in right foot: M79.671) WILL RE-EVALUATE FRIDAY, SHOULD BE IMPROVING, IF NOT WILL GET LABS Ordered: Office Visit Level 4 Established 30-39 min 78716 ?? Problem List/Past Medical History Abdominal aortic atherosclerosis: ?? Chronic diarrhea: ?? Chronic gastritis: ?? COPD, severity to be determined: ?? Stress reaction, chronic: ?? Requires oxygen therapy: ??started on portable Oxygen while hospitalized [facility] for pneumonia Oxygen dependent: ?? Depression: ?? Anticoagulated by anticoagulation treatment: ?? Bilateral lower extremity edema: ?? Essential hypertension: ?? Fatigue: ?? Hiatal hernia with GERD and esophagitis: ?? Helicobacter pylori gastritis: ?? Hx of TIA (transient ischemic attack) and stroke: ?? Hypercholesteremia: ?? Knee pain: ?? Low back pain: ?? Left lower quadrant abdominal wall mass: ??on CT at [facility] 03/26---they have ordered another [address]--it is scheduled for May 30 2022--it is thought it may be hematoma as she was on eliquis and fell Osteoporosis: ?? Paresthesia: ?? Paroxysmal atrial fibrillation: ?? Insomnia: ?? Right renal mass: ??07.10.22 MRI shows probable kidney cancer per family--Dr. Young referred her to urologist [facility]. HOme Transient ischemic attack (TIA): ?? 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 Uncontrolled type 2 diabetes mellitus with hyperglycemia, without long-term current use of insulin:?? Urinary incontinence: ?? Procedure/Surgical History ???EGD done at [facility]--see comments (07/12/2021)???Colonoscopy at [facility]: adenomatous polyps, repeat 2 yrs (05/24/2021)???right cataract ()???left cataract (12/12/2020)???Left Carpal Tunnel Release ()???Cholecystectomy (1993)???Tubal ligation (1972)???Appendectomy (1955)???Colonoscopy 11-24-15--no polyps; has c diff Medications Home Medications () Active Advair HFA 45 mcg-21 mcg/inh inhalation [...] spray??2 spray,Start_date: 07/31/22,Refills: 5, Intranasal, BID Chantix Starter Pack 0.5 mg-1 mg oral tablet??1 tab,Start_date: 07/11/22,Refills: 0, By mouth, BID clonazePAM 0.5 mg oral [...] 1 tab,Start_date: 06/25/22,Refills: 1, By mouth, TID lisinopril 40 mg oral tablet??See Instructions:TAKE 1/2 [...] tablet??1 tab,Start_date: 07/31/22,Refills: 5, By mouth, Daily SEROquel 25 mg [...] 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 Exercise Frequency: None. Type: active--carrying in wood every day. Home/Environment Marital status . 2 living children. Had [facility] daug[facility] who was handicapped and [facility] 33 [facility] Seatbelt use: Always. Lives with: Spouse. Nutrition/Health [...] MGM. Liver disease.....: SISTER. Lung cancer.....: MGM. PR (myocardial infarction).....: PGM.Negative: MGM. Pancreatic cancer: FATHER. Electronically signed by:Chayito Kaur MD 08/08/22 12:26 Patient Care team information Care Team Personnel Name: Chayito Kaur MD Position: PX Physician - Family Practice Member Role: Primary Care Physician Address: Address: [address] [place] [address]- Care Team Related Persons Name: RADHA ZAFAR Name: RENATO ZAFAR Name: DOMINIQUE ZAFAR Address: home [address], [place] [id number] [facility] Address: mailing [address] [place] [phone] [facility] Name: ECHO DONOVAN
--- OUTSIDE RECORDS SUMMARY | 2023-01-13 06:40 | XMS_ITS | Continuity of Care Document ---
Author Name Unknown Organization [facility] thi Ball Address [address] [place] [facility] [place] [address]- Care Team Providers Care Account Executive Trainee Name Role Phone Chayito Kaur MD Primary Care Physician Encounter 08/12/22 - 08/13/22 [facility] [address] [place] [facility] [place] [address]- [place] Allergies, Adverse Reactions, Alerts No Known Allergies Assessment and Plan Future Appointments Appointment Date:08/15/2022 11:00:00 AM Scheduled Provider:Chayito Kaur MD Location:[facility] Appointment Type:Established Patient Appointment Date:08/20/2022 11:40:00 AM Scheduled Provider:Russ Mckeon MD Location:-Urology [facility] Appointment Type:New Patient Future Scheduled Tests Laboratory* Urinalysis w/ microscopy 08/13/22 Radiology* CT Abd Pelvis w Contrast Routine [...] Refill(s) 5, Route to Pharmacy Electronically, Pharmacy: [facility], [id number], AEROSOL, 2 puff Inhalation BID,Instr:rinse mouth and throat afte... Start Date: 05/10/22 Status: Ordered Albuterol (Eqv-ProAir HFA) 90 mcg/inh inhalation aerosol 8 g, Refill(s) 0 Start Date: 03/13/22 Status: Ordered albuterol 2.5 mg/3 mL (0.083%) inhalation solution = 1 vial, NEB, Q6H, PRN for shortness of breath, # 300 mL, Refill(s) 5, Pharmacy: [facility], [id number], 1 vial NEB Q6H,PRN:for shortness of breath, 58.18, 05/07/22 9:30:00 [employer], kg, Weight Start Date: 05/10/22 Status: Ordered aspirin 81 mg oral tablet 81 mg = 1 tab, By mouth, Daily, # 30 tab, Refill(s) 0, other Start Date: 03/07/15 Status: Ordered atorvastatin 20 mg oral tablet = 1 tab, By mouth, QPM (every evening), FOR CHOLESTEROL., # 30 tab, Refill(s) 11, Pharmacy: [facility], [id number], TAKE 1 TABLET BY MOUTH DAILY EVERY EVENING FOR CHOLESTEROL, 58.64, 12/06/21 16:14:00 CDT, kg, We... Start Date: 12/06/21 Status: Ordered azelastine nasal 0.1% (137 mcg/inh) spray 2 spray, Intranasal, BID, # 30 mL, 30, Refill(s) 5, Route to Pharmacy Electronically, Pharmacy: [facility], [id number], 2 SPRAYS BOTH NOSTRILS TWICE A DAY, 55, 0 07/11/22 10:17:00 [employer], kg, Weight Start Date: 07/31/22 Status: Ordered Chantix Starter Pack 0.5 mg-1 mg oral tablet 1 tab, By mouth, BID, as directed on package labeling, # 53 tab, Refill(s) 0, Route to Pharmacy Electronically, Pharmacy: [facility], [id number], 1 tab By mouthBID,Instr:as directed on package labeling, 55, 03/0... Start Date: 07/11/22 Status: Ordered clonazePAM 0.5 mg oral tablet 0.5 mg, = 1 tab, By mouth, QPM (every evening), reduced from 1mg as of 4.29.21, 30 tab, 5, 5, Substitution Permitted, [facility], 63, Height, 05/07/22 9:30:00 [employer], in, 58.18, Weight, 05/07/22 9:30:00 [employer], kg Start Date: 05/24/22 Status: Ordered cloNIDine 0.1 mg oral tablet See Instructions, 1 tab po bid, # 60 tab, Refill(s) 5, Pharmacy: [facility], [id number], Instructions Replace Required Details, 1 tab po bid, 55, 07/11/22 10:17:00 [employer], kg, Weight Start Date: 07/19/22 Status: Ordered dilTIAZem 180 mg/24 hours oral tablet, extended release 180 mg = 1 tab, By mouth, BID, # 60 EA, Refill(s) 5, Pharmacy: [facility], [id number], this replaces once a day as of 3.9.23, 1 tab By mouth BID, 55, 07/11/22 10:17:00 [employer], kg, Weight Start Date: 07/11/22 Status: Ordered DULoxetine 60 mg oral delayed release capsule = 1 cap, By mouth, Daily, THIS IS TO REPLACE LEXAPRO., # 30 cap, Refill(s) 5, Pharmacy: [facility], [id number], TAKE 1 CAPSULE BY MOUTH DAILY THIS IS TO REPLACELEXAPRO, 61.82, 04/02/22 15:04:00 [employer], kg, Weight Start Date: 04/16/22 Status: Ordered Eliquis 5 mg oral tablet 5 mg = 1 tab, By mouth, BID, 60 tab, # 60 tab, Refill(s) 11, Pharmacy: [facility], [id number], TAB, 1 tab By mouth BID,Instr:60 tab, 54.55, 06/10/22 11:12:00 [employer], kg, Weight Start Date: 06/10/22 Status: Ordered glipiZIDE 5 mg oral tablet, extended release = 1 tab, By mouth, BIDWM (twice daily with meals), # 60 tab, Refill(s) 5, Pharmacy: [facility], [id number], 1 TABLET BY MOUTH TWICE A DAY WITH MEALS, 56.36, 02/11/22 13:14:00 CDT, kg, Weight Start Date: 02/18/22 Status: Ordered hydrALAZINE 100 mg oral tablet 100 mg = 1 tab, By mouth, TID, # 270 tab, Refill(s) 1, Pharmacy: [facility], [id number], this replaces 50mg, 1 tab By mouth TID, 55.45, 06/25/22 13:25:00 [employer], kg, Weight Start Date: 06/25/22 Status: Ordered lisinopril 40 mg oral tablet See Instructions, TAKE 1/2 TABLET BY MOUTH TWICE A DAY, # 30 tab, Refill(s) 5, Pharmacy: [facility], [id number], Instructions Replace Required Details, TAKE 1/2TABLET BY MOUTH TWICE A DAY, 54.55, 06/10/22 11:12:... Start Date: 06/25/22 Status: Ordered metformin 500 mg oral tablet 500 mg = 1 tab, By mouth, QPM (every evening), # 90 tab, Refill(s) 1, Pharmacy: [facility], [id number], 1 tab By mouth QPM (every evening), 58.18, 05/07/22 9:30:00 [employer], kg, Weight Start Date: 05/08/22 Status: Ordered mupirocin topical 2% ointment See Instructions, apply to sore Topical TID X 10d, # 15 g, Refill(s) 0, Route to Pharmacy Electronically, Pharmacy: [facility], [id number], Instructions ReplaceRequired Details, apply to sore Topical TID X 10d,... Start Date: 11/02/21 Status: Ordered One Touch Ultra One Touch Ultra, See Instructions, Test strips and lancets and one glucometer to check glucose oncedaily E11.65, # 100 EA, Refills(s) 3, Route to Pharmacy Electronically, Pharmacy: [facility], Test strips and lancets and one glucometer t... Start Date: 04/02/22 Status: Ordered pantoprazole 40 mg oral delayed release tablet = 1 tab, By mouth, Daily, # 30 tab, Refill(s) 5, Pharmacy: [facility], [id number], TAKE 1 TABLET BY MOUTH DAILY, 55, 07/11/22 10:17:00 [employer], kg, Weight Start Date: 07/31/22 Status: Ordered SEROquel 25 mg oral tablet 25 mg = 1 tab, By mouth, QPM (every evening), to replace abilify, # 30 tab, Refill(s) 5, Pharmacy: [facility], [id number], 1 tab By mouth QPM (every evening),Ins tr:to replace abilify, 55, 07/11/22 10:17:00 [employer], k... Start Date: 07/11/22 Status: Ordered Spiriva HandiHaler 18 mcg inhalation capsule = 1 cap, Inhalation, Daily, # 30 cap, Refill(s) 1, Pharmacy: [facility], [id number], 1 cap Inhalation Daily, 55, 07/11/22 10:17:00 [employer], kg, Weight Start Date: 07/31/22 Status: Ordered traZODone 150 mg oral tablet 150 mg = 1 tab, By mouth, at bedtime, for sleep; this replaces 3 tabs of 50mg as of .28.22, # 90 tab, Refill(s) 1, Pharmacy: [facility], [id number], 1 tab By mouth at bedtime,Instr:for sleep; this replaces 3 ta... Start Date: 04/02/22 Status: Ordered Welchol 625 mg oral tablet = 1 tab, By mouth, Daily, # 30 tab, Refill(s) 11, Pharmacy: [facility], [id number], TAKE 1 TABLET BY MOUTH DAILY, 56.82, [...] Active 1started on portable Oxygen while hospitalized [facility] for pneumonia 2on CT at [facility] 03/26---they have ordered another [address]--it is scheduled for May 30 2022--it is thought it may be hematoma as she was on eliquis and fell 33.8.23 MRI shows probable kidney cancer per family--Dr. Young referred her to urologist In [facility]. HOme 4on CT at [facility] 03.26.22--2.4 X 2.0cm; they scheduled her f/u with Dr. Young urology to follow on this Procedures Procedure Date Related Diagnosis Body Site Status EGD done at [facility]--see comments 1, 2 07/12/21 Completed Colonoscopy at [facility]: adenomat ous polyps, repeat 2 [...] Code MRI Safety Implantable Status Assigning Authority [id number] Unknown Unknown 04/03/24 Unknown Unknown Active GS1 Procedure Provider Procedure Date Device Type Site Extraction Cataract Phacoemulsification Unknown 12/12/20 Non Biological Eye, Left Device Identifier Serial Number Lot or Batch Number Manufacturing Date Expiration Date Distinct Identification Code MRI Safety Implantable Status Assigning Authority [id number] Unknown [id number] Unknown 02/02/24 Unknown Unknown Active GS1 Patient Care team information Care Team Personnel Name: Vincent HOOD, Chayito Sherwood Position: PX Physician - Family Practice Member Role: Primary Care Physician Address: Address: [address] [place] [address]- Care Team Related Persons Name: RADHA ZAFAR Name: RENATO ZAFAR Name: DOMINIQUE ZAFAR Address: home [address] [place], [place] [id number] [facility] Address: mailing [address] [place] [phone] [facility] Name: ECHO DONOVAN
--- OUTSIDE RECORDS SUMMARY | 2023-01-13 06:40 | XMS_ITS | Continuity of Care Document ---
Author Name Unknown Organization [facility] [address] [address]- Care Team Providers Care Central Scheduler Name Role Phone Chayito Kaur MD Primary Care Physician Encounter 08/29/22 - 08/30/22 [facility] [address] [address]- [place] Encounter Diagnosis Right leg swelling(Discharge Diagnosis) - 08/29/22 Edema of right lower leg(Discharge Diagnosis) - 08/29/22 Right calf pain(Discharge Diagnosis) - 08/29/22 Anticoagulated by anticoagulation treatment(Discharge Diagnosis) - 08/29/22 Essential hypertension(Discharge Diagnosis) - 08/29/22 Paroxysmal atrial fibrillation(Discharge Diagnosis) - 08/29/22 Uncontrolled type 2 diabetes mellitus with hyperglycemia, without long-term current use of insulin(Discharge Diagnosis) - 08/29/22 Other specified health status(Discharge Diagnosis) - 08/29/22 Encounter for screening for other disorder(Discharge Diagnosis) - 08/29/22 Attending Physician: Chayito Kaur MD Allergies, Adverse Reactions, Alerts No Known Allergies Assessment and Plan Extracted from: Title:Office Visit - Comprehensive Author:Chayito Coon MD Date:08/29/22 Anticoagulated by anticoagul ation treatment(penitentiary (current) use of anticoagulants: Z79.01) check CBC Ordered: Office Visit Level 4 Established 30-39 min 88101 Venipuncture Ambulatory ?? Edema of right lower leg(Localized edema: R60.0) urgent US ordered to r/o DVT but may be popliteal cyst would be strange to have DVT while on eliquis Ordered: Office Visit Level 4 Established 30-39 min 16907 US VL Venous LE Right Venipuncture Ambulatory ?? Essential hypertension(Essential (primary) hypertension: I10) much better now, stay on all meds Ordered: Office Visit Level 4 Established 30-39 min 81966 Venipuncture Ambulatory ?? Paroxysmal atrial fibrillation(Paroxysmal atrial fibrillation: I48.0) stay on eliquis, diltiazem Ordered: Office Visit Level 4 Established 30-39 min 99694 Venipuncture Ambulatory ?? Right calf pain(Pain in right lower leg: M79.661) get urgent US Ordered: Office Visit Level 4 Established 30-39 min 88319 US VL Venous LE Right ?? Right leg swelling(Other specified soft tissue disorders: M79.89) Ordered: Office Visit Level 4 Established 30-39 min 25433 US VL Venous LE Right Venipuncture Ambulatory ?? Uncontrolled type 2 diabetes mellitus with hyperglycemia, without long-term current use of insulin(Type 2 diabetes mellitus with hyperglycemia: E11.65) on meds; overdue for A1C Ordered: Office Visit Level 4 Established 30-39 min 28665 Venipuncture Ambulatory ?? Orders: glipiZIDE, See Instructions, 1 TABLET BY MOUTH TWICE A DAY WITH MEALS, # 60 tab, Refill(s) 5, Pharmacy: [facility], NCPDP_ID-[id number], Instructions Replace Required Details, 1 TABLET BY MOUTH TWICE A DAY WITH MEALS, 56.82, 08/15/22 11:17:00 CDT, kg,... traZODone, 150 mg = 1 tab, By mouth, at bedtime, for sleep; this replaces 3 tabs of 50mg as of 11.28.22, # 90 tab, Refill(s) 1, Pharmacy: [facility], NCPDP_ID-[id number], 1 tab By mouth at bedtime,Instr:for sleep; this replaces 3 tabs of 50mg as of 11.... CBC-d CMP Hgb A1C Future Appointments Appointment Date:09/18/2022 11:15:00 AM Scheduled Provider: Location:[facility] Surgery Appointment Type:Surgery Appointment Date:10/03/2022 11:45:00 AM Scheduled Provider:Tariq Luu Location:[facility] Appointment Type:Hospital Follow Up (Established) Appointment Date:11/29/2022 10:45:00 AM Scheduled Provider:Chayito Kaur MD Location:[facility] Appointment Type:Established Patient Future Scheduled Tests Radiology* [...] Refill(s) 5, Route to Pharmacy Electronically, Pharmacy: [facility], [id number], AEROSOL, 2 puff Inhalation BID,Instr:rinse mouth and throat afte... 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, kg, Weight Start Date: 07/31/22 Status: Ordered Chantix 1 mg oral tablet 1 mg = 1 tab, By mouth, BID, after meals, # 60 tab, Refill(s) 5, Pharmacy: [facility],[id number], 1 tab By mouth BID,Instr:after meals, 56.82, 08/15/22 11:17:00 CDT, kg, Weight Start Date: 08/15/22 Status: Ordered clonazePAM 0.5 mg oral tablet 0.5 mg, = 1 tab, By mouth, QPM (every evening), reduced from 1mg as of 4.29.21, 30 tab, 5, 5, Substitution Permitted, [facility], 63, Height, 05/07/22 9:30:00 DIRECTOR 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, in, 58.18, Weight, 05/07/22 9:30:00 DIRECTOR 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, kg Start Date: 05/24/22 Status: Ordered cloNIDine 0.1 mg oral tablet See Instructions, 1 tab po bid, # 60 tab, Refill(s) 5, Pharmacy: [facility], [id number], Instructions Replace Required Details, 1 tab po bid, 55, 07/11/22 10:17:00 DIRECTOR 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, kg, Weight Start Date: 07/19/22 Status: Ordered dilTIAZem 180 mg/24 hours oral tablet, extended release 180 mg = 1 tab, By mouth, BID, # 60 EA, Refill(s) 5, Pharmacy: [facility], [id number], this replaces once a day as of 3.9.23, 1 tab By mouth BID, 55, 07/11/22 10:17:00 DIRECTOR 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, kg, Weight Start Date: 07/11/22 Status: Ordered DULoxetine 60 mg oral delayed release capsule = 1 cap, By mouth, Daily, THIS IS TO REPLACE LEXAPRO., # 30 cap, Refill(s) 5, Pharmacy: [facility], [id number], TAKE 1 CAPSULE BY MOUTH DAILY THIS IS TO REPLACELEXAPRO, 61.82, 04/02/22 15:04:00 DIRECTOR 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, kg, Weight Start Date: 04/16/22 Status: Ordered Eliquis 5 mg oral tablet 5 mg = 1 tab, By mouth, BID, 60 tab, # 60 tab, Refill(s) 11, Pharmacy: [facility], [id number], TAB, 1 tab By mouth BID,Instr:60 tab, 54.55, 06/10/22 11:12:00 DIRECTOR 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, kg, Weight Start Date: 06/10/22 Status: Ordered glipiZIDE 5 mg oral tablet, extended release See Instructions, 1 TABLET BY MOUTH TWICE A DAY WITH MEALS, # 60 tab, Refill(s) 5, Pharmacy: [facility], NCPDP_ID-[id number], Instructions Replace Required Details, 1 TABLET BY MOUTH TWICE A DAY WITH MEALS, 56.82, 08/15/22 11:17:00 CDT, kg,... Start Date: 08/29/22 Status: Ordered hydrALAZINE 100 mg oral tablet 100 mg = 1 tab, By mouth, TID, # 270 tab, Refill(s) 1, Pharmacy: [facility], [id number], this replaces 50mg, 1 tab By mouth TID, 55.45, 06/25/22 13:25:00 DIRECTOR 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, kg, Weight Start Date: 06/25/22 Status: Ordered hydroCHLOROthiazide 12.5 mg oral tablet 12.5 mg = 1 tab, By mouth, Daily, # 90 tab, Refill(s) 0, Pharmacy: [facility], [id number], 1 tab By mouth Daily, 56.82, 08/15/22 11:17:00 CDT, kg, Weight Start Date: 08/15/22 Status: Ordered lisinopril 40 mg oral tablet See Instructions, TAKE 1/2 TABLET BY MOUTH TWICE A DAY, # 30 tab, Refill(s) 5, Pharmacy: [facility], [id number], Instructions Replace Required Details, TAKE 1/2TABLET BY MOUTH TWICE A DAY, 54.55, 06/10/22 11:12:... Start Date: 06/25/22 Status: Ordered metformin 500 mg oral tablet 1,000 mg = 2 tab, By mouth, QPM (every evening), # 180 tab, Refill(s) 1, Pharmacy: [facility], NCPDP_ID-[id number], new higher amount per day as of 4.28.23, 2 tab By mouth QPM (every evening), 55.45, 08/29/22 11:24:00 CDT, kg, Weight Start Date: 08/30/22 Status: Ordered mupirocin topical 2% ointment See Instructions, apply to sore Topical TID X 10d, # 15 g, Refill(s) 0, Route to Pharmacy Electronically, Pharmacy: [facility], [id number], Instructions ReplaceRequired Details, apply to sore Topical TID X 10d,... Start Date: 11/02/21 Status: Ordered One Touch Ultra One Touch Ultra, See Instructions, Test strips and lancets and one glucometer to check glucose oncedaily E11.65, # 100 EA, Refills(s) 3, Route to Pharmacy Electronically, Pharmacy: [facility], Test strips and lancets and one glucometer t... Start Date: 04/02/22 Status: Ordered pantoprazole 40 mg oral delayed release tablet = 1 tab, By mouth, Daily, # 30 tab, Refill(s) 5, Pharmacy: [facility], [id number], TAKE 1 TABLET BY MOUTH DAILY, 55, 07/11/22 10:17:00 DIRECTOR 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, kg, Weight Start Date: 07/31/22 Status: Ordered SEROquel 25 mg oral tablet 25 mg = 1 tab, By mouth, QPM (every evening), to replace abilify, # 30 tab, Refill(s) 5, Pharmacy: [facility], [id number], 1 tab By mouth QPM (every evening),Ins tr:to replace abilify, 55, 07/11/22 10:17:00 DIRECTOR 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, k... Start Date: 07/11/22 Status: Ordered Spiriva HandiHaler 18 mcg inhalation capsule = 1 cap, Inhalation, Daily, # 30 cap, Refill(s) 1, Pharmacy: [facility], [id number], 1 cap Inhalation Daily, 55, 07/11/22 10:17:00 DIRECTOR 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, kg, Weight Start Date: 07/31/22 Status: Ordered traZODone 150 mg oral tablet 150 mg = 1 tab, By mouth, at bedtime, for sleep; this replaces 3 tabs of 50mg as of 04.01.22, # 90 tab, Refill(s) 1, Pharmacy: [facility], NCPDP_ID- [id number], 1 tab By mouth at bedtime,Instr:for sleep; this replaces 3 tabs of 50mg as of 11.... Start Date: 08/29/22 Status: Ordered Welchol 625 mg oral tablet = 1 tab, By mouth, Daily, # 30 tab, Refill(s) 11, Pharmacy: [facility], [id number], TAKE 1 TABLET BY MOUTH DAILY, 56.82, [...] Confirmed Active Mastodynia Confirmed Resolved Paresthesia Confirmed 4/14/15 Active Paroxysmal atrial fibrillation Confirmed Active Insomnia [...] Active 1started on portable Oxygen while hospitalized [facility] for pneumonia 2on CT at [facility] 03/26---they have ordered another [address]--it is scheduled for May 30 2022--it is thought it may be hematoma as she was on eliquis and fell 3now has seen urology at [facility]--it is renal cell CA--going to have surgery MRI shows probable kidney cancer per family--Dr. Young referred her to urologist In [facility] HOme 5on CT at [facility] 03.26.22--2.4 X 2.0cm; they scheduled her f/u with Dr. Young urology to follow on this Procedures Procedure Date Related Diagnosis Body Site Status COLLECTION VENOUS BLOOD VENIPUNCTURE 08/29/22 Completed EGD done at [facility]--see comments 1, 2 07/12/21 Completed Colonoscopy at [facility]: adenomat ous polyps, repeat 2 yrs [...] to oldest [Reference Range]: 1 Blood Pressure 126/75 (08/29/22 11:22 AM) Height (inches) (Clinical) 63 in (08/29/22 11:22 AM) Weight (kg) (Clinical) 55.45 kg (08/29/22 11:22 AM) BMI (Clinical) 21.6 kg/m2 (08/29/22 11:22 AM) Social History Social History Type Response [...] Code MRI Safety Implantable Status Assigning Authority [id number] 149 [id number] Unknown Unknown 04/03/24 Unknown Unknown Active GS1 Procedure Provider Procedure Date Device Type Site Extraction Cataract Phacoemulsification Unknown 12/12/20 Non Biological Eye, Left Device Identifier Serial Number Lot or Batch Number Manufacturing Date Expiration Date Distinct Identification Code MRI Safety Implantable Status Assigning Authority [id number] Unknown [id number] Unknown 02/02/24 Unknown Unknown Active GS1 Family medicine Note * Vincent HOOD, Chayito Sherwood: PERFORM Event Display: Family Practice Office/Clinic Note Authored Date: [id number] Chief Complaint f/u on leg swelling General Information Information Given By: Patient (08/29/22 11:22:00) Nurse Intake Nursing Intake?? General Information?? Pain Information?? Physicians and Specialties: Dr Kaur - PCP ?? CMTG Dr Vidales ??cataract ??[employer] Hugo PraterDr Giurgius ?? GI- ??OZHDr Young OZH ??Urology (08/29/22) Pain Intensity: 3 (08/29/22) Information Given By: Patient (08/29/22) Pain Location: feet (08/29/22) ?? Pain ??Quality: ache - worse at night (08/29/22) ?? Pain Present: Yes actual or suspected pain (08/29/22) History of Present Illness She is here actually for recheck??of her??blood pressure in AFib after some change??in medication??but??she is actually overdue??for??her diabetic check up.?? She says??she has actually not been checking??her sugars??at home.?? I see where??she had seen the urologist??at [facility]??now and they??do think??it is a??renal cell carcinoma??and they are planning surgery.?? She is??on the Eliquis??but??she stopped taking the aspirin??she denies??any??blood in??her stools or dark black stools.?? Her right leg??has been swelling for the past??month it is not getting??worse it does hurt??to walk??on??it no f vinicio??again??she is on the??blood thinners.?? She denies any??injury. ?? She denies??any??chest??pains??palpitations.?? She had had significant bradycardia??because??shewas taking her medication??incorrectly but??now she??has got that straightened out.?? She is on multiple medications??for??blood pressure. Review of Systems no f/c no UrIs denies chest pains, orthopnea, cough no diarrhea or constipation but having gas Physical Exam Vitals & Measurements T:??97.7?F?? HR:??102?? RR:??17?? BP:??126/75?? SpO2:??97%?? HT:??63??in?? WT:??55.45??kg?? WT:??122??lb?? BMI:??21.6?? General: In no acute distress. Alert & oriented. Behavior and affect appropriate to situation. Pleasant. Skin: Warm and dry. No rash or suspicious lesions noted. Skin turgor normal for age. HEENT: Anicteric. Mm moist and pink.?? NO carotid bruits. Neck supple. No thyromegaly. No lymphadenopathy. CV: Irregularly irregular, rate controlled; no mrg.?? LLE w/o edema. R lower leg with trace pittingedema and calf tenderness, calf circ larger than on R Chest: Respirations even and unlabored. Lungs clear to auscultation. No rhonchi. No crackles. No wheezing. ABD: Normoactive bowel sounds. Soft; no hepatosplenomegaly or palpable masses. No tenderness to palpation. Assessment/Plan Anticoagulated by anticoagulation treatment(penitentiary (current) use of anticoagulants: Z79.01) check CBC Ordered: Office Visit Level 4 Established 30-39 min 53684 Venipuncture Ambulatory ?? Edema of right lower leg(Localized edema: R60.0) urgent US ordered to r/o DVT but may be popliteal cyst would be strange to have DVT while on eliquis Ordered: Office Visit Level 4 Established 30-39 min 69674 US VL Venous LE Right Venipuncture Ambulatory ?? Essential hypertension(Essential (primary) hypertension: I10) much better now, stay on all meds Ordered: Office Visit Level 4 Established 30-39 min 98471 Venipuncture Ambulatory ?? Paroxysmal atrial fibrillation(Paroxysmal atrial fibrillation: I48.0) stay on eliquis, diltiazem Ordered: Office Visit Level 4 Established 30-39 min 13830 Venipuncture Ambulatory ?? Right calf pain(Pain in right lower leg: M79.661) get urgent US Ordered: Office Visit Level 4 Established 30-39 min 27119 US VL Venous LE Right ?? Right leg swelling(Other specified soft tissue disorders: M79.89) Ordered: Office Visit Level 4 Established 30-39 min 20684 US VL Venous LE Right Venipuncture Ambulatory ?? Uncontrolled type 2 diabetes mellitus with hyperglycemia, without long-term current use of insulin(Type 2 diabetes mellitus with hyperglycemia: E11.65) on meds; overdue for A1C Ordered: Office Visit Level 4 Established 30-39 min 27982 Venipuncture Ambulatory ?? Orders: glipiZIDE, See Instructions, 1 TABLET BY MOUTH TWICE A DAY WITH MEALS, # 60 tab, Refill(s) 5, Pharmacy: [facility], [id number], Instructions Replace Required Details, 1 TABLET BY MOUTH TWICE A DAY WITH MEALS, 56.82, 08/15/22 11:17:00 CDT, kg,... traZODone, 150 mg = 1 tab, By mouth, at bedtime, for sleep; this replaces 3 tabs of 50mg as of 04.01.22, # 90 tab, Refill(s) 1, Pharmacy: [facility], [id number], 1 tab By mouth at bedtime,Instr:for sleep; this replaces 3 tabs of 50mg as of 11.... CBC-d CMP Hgb A1C Problem List/Past Medical History Abdominal aortic atherosclerosis: ?? Chronic diarrhea: ?? Chronic gastritis: ?? COPD, severity to be determined: ?? Stress reaction, chronic: ?? Requires oxygen therapy: ??started on portable Oxygen while hospitalized [facility] for pneumonia Oxygen dependent: ?? Depression: ?? Anticoagulated by anticoagulation treatment: ?? Bilateral lower extremity edema: ?? Essential hypertension: ?? Fatigue: ?? Hiatal hernia with GERD and esophagitis: ?? Helicobacter pylori gastritis: ?? Hx of TIA (transient ischemic attack) and stroke: ?? Hypercholesteremia: ?? Knee pain: ?? Low back pain: ?? Left lower quadrant abdominal wall mass: ??on CT at [facility] 03/26---they have ordered another [address]--it is scheduled for May 30 2022--it is thought it may be hematoma as she was on eliquis and fell Osteoporosis: ?? Paresthesia: ?? Paroxysmal atrial fibrillation: ?? Insomnia: ?? Right renal mass: ??now has seen urology at [facility]--it is renal cell CA--going to have surgery Transient ischemic attack (TIA): ?? 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 Uncontrolled type 2 diabetes mellitus with hyperglycemia, without long-term current use of insulin:?? Urinary incontinence: ?? Procedure/Surgical History ???EGD done at [facility]--see comments (07/12/2021)???Colonoscopy at [facility]: adenomatous polyps, repeat 2 yrs (05/24/2021)???right [...] MEALS,Start_date: 08/29/22,Refills: 5 hydrALAZINE 100 mg oral tablet??100 mg = [...] mg oral tablet??150 mg = 1 tab,Start_date: 08/29/22,Refills: 1, By mouth, at bedtime Welchol 625 mg oral tablet??1 tab,Start_date: ,Refills: 11, By mouth, Daily Medication reconciliation completed on this patient today Allergies No Known Allergies Social History Alcohol Denies Employment/School Highest education level: Some college. Status: Unemployed. 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 Previous employment/school: Used to work for [employer]. Exercise Frequency: None. Type: active--carrying in wood every day. Home/Environment Marital status . 2 living children. Had a daugther who was handicapped and age 33 of [facility]. Seatbelt use: Always. Lives with: Spouse. Nutrition/Health [...] MGM. Liver disease.....: SISTER. Lung cancer.....: MGM. FL (myocardial infarction).....: PGM.Negative: MGM. Pancreatic cancer: FATHER. Other PHQ?? Electronically signed by:Chayito Kaur MD 08/29/22 13:03 Patient Care team information Care Team Personnel Name: Chayito Kaur MD Position: PX Physician - Family Practice Member Role: Primary Care Physician Address: Address: [address] [place] [id number]- Care Team Related Persons Name: RADHA ZAFAR Name: RENATO ZAFAR Name: DOMINIQUE ZAFAR Address: home [address] [place] [address] [place], [place] [id number] [facility] Address: mailing [address] [place] [phone] [facility] Name: ECHO DONOVAN
--- OUTSIDE RECORDS SUMMARY | 2023-01-13 06:41 | XMS_ITS | Continuity of Care Document ---
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 Name Role Phone Chayito Kaur MD Primary Care Physician Encounter 08/15/22 - 08/16/22 [facility] [address] [address]- [place] Encounter Diagnosis Bilateral lower extremity edema(Discharge Diagnosis) - 08/15/22 Essential hypertension(Discharge Diagnosis) - 08/15/22 Paroxysmal atrial fibrillation(Discharge Diagnosis) - 08/15/22 Other specified health status(Discharge Diagnosis) - 08/15/22 Encounter for screening for other disorder(Discharge Diagnosis) - 08/15/22 Attending Physician: Chayito Kaur MD Allergies, Adverse Reactions, Alerts No Known Allergies Assessment and Plan Extracted from: Title:Office Visit - Comprehensive Author:Chayito Coon MD Date:08/15/22 Bilateral lower extremity ed darian(Localized edema: R60.0) add HCTZ Ordered: Office Visit Level 3 Established 20-29 min 80490 Return to Clinic, Return in 2 weeks ?? Essential hypertension(Essential (primary) hypertension: I10) add HCTZ Ordered: Office Visit Level 3 Established 20-29 min 21031 Return to Clinic, Return in 2 weeks ?? Paroxysmal atrial fibrillation(Paroxysmal atrial fibrillation: I48.0) stay on diltiazem; do not take metoprolol Ordered: Office Visit Level 3 Established 20-29 min 92505 ?? Orders: hydroCHLOROthiazide, 12.5 mg = 1 tab, By mouth, Daily, # 90 tab, Refill(s) 0, Pharmacy: [facility], [id number], 1 tab By mouth Daily, 56.82, 08/15/22 11:17:00 CDT, kg, Weight varenicline, 1 mg = 1 tab, By mouth, BID, after meals, # 60 tab, Refill(s) 5, Pharmacy: [facility], [id number], 1 tab By mouth BID,Instr:after meals, 56.82, 08/15/22 11:17:00 CDT, kg, Weight Future Appointments Appointment Date:08/20/2022 11:40:00 AM Scheduled Provider:Russ Mckeon MD Location:-Urology Sp Appointment Type:New Patient Appointment Date:08/29/2022 11:30:00 AM Scheduled Provider:Chayito Kaur MD Location:[facility] Appointment Type:Established Patient Future Scheduled Tests Laboratory* Urinalysis w/ [...] Refill(s) 5, Route to Pharmacy Electronically, Pharmacy: [facility], [id number], AEROSOL, 2 puff Inhalation BID,Instr:rinse mouth and throat afte... Start Date: 05/10/22 Status: Ordered Albuterol (Eqv-ProAir HFA) 90 mcg/inh inhalation aerosol 8 g, Refill(s) 0 Start Date: 03/13/22 Status: Ordered albuterol 2.5 mg/3 mL (0.083%) inhalation solution = 1 vial, NEB, Q6H, PRN for shortness of breath, # 300 mL, Refill(s) 5, Pharmacy: [facility], [id number], 1 vial NEB Q6H,PRN:for shortness of breath, 58.18, 05/07/22 9:30:00 QUALITY ASSURANCE MONITOR FINAL, kg, Weight Start Date: 05/10/22 Status: Ordered aspirin 81 mg oral tablet 81 mg = 1 tab, By mouth, Daily, # 30 tab, Refill(s) 0, other Start Date: 03/07/15 Status: Ordered atorvastatin 20 mg oral tablet = 1 tab, By mouth, QPM (every evening), FOR CHOLESTEROL., # 30 tab, Refill(s) 11, Pharmacy: [facility], [id number], TAKE 1 TABLET BY MOUTH DAILY EVERY EVENING FOR CHOLESTEROL, 58.64, 12/06/21 16:14:00 CDT, kg, We... Start Date: 12/06/21 Status: Ordered azelastine nasal 0.1% (137 mcg/inh) spray 2 spray, Intranasal, BID, # 30 mL, 30, Refill(s) 5, Route to Pharmacy Electronically, Pharmacy: [facility], [id number], 2 SPRAYS BOTH NOSTRILS TWICE A DAY, 55, 0 07/11/22 10:17:00 QUALITY ASSURANCE MONITOR FINAL, kg, Weight Start Date: 07/31/22 Status: Ordered Chantix 1 mg oral tablet 1 mg = 1 tab, By mouth, BID, after meals, # 60 tab, Refill(s) 5, Pharmacy: [facility],[id number], 1 tab By mouth BID,Instr:after meals, 56.82, 08/15/22 11:17:00 CDT, kg, Weight Start Date: 08/15/22 Status: Ordered clonazePAM 0.5 mg oral tablet 0.5 mg, = 1 tab, By mouth, QPM (every evening), reduced from 1mg as of 4.29.21, 30 tab, 5, 5, Substitution Permitted, [facility], 63, Height, 05/07/22 9:30:00 QUALITY ASSURANCE MONITOR FINAL, in, 58.18, Weight, 05/07/22 9:30:00 QUALITY ASSURANCE MONITOR FINAL, kg Start Date: 05/24/22 Status: Ordered cloNIDine 0.1 mg oral tablet See Instructions, 1 tab po bid, # 60 tab, Refill(s) 5, Pharmacy: [facility], [id number], Instructions Replace Required Details, 1 tab po bid, 55, 07/11/22 10:17:00 QUALITY ASSURANCE MONITOR FINAL, kg, Weight Start Date: 07/19/22 Status: Ordered dilTIAZem 180 mg/24 hours oral tablet, extended release 180 mg = 1 tab, By mouth, BID, # 60 EA, Refill(s) 5, Pharmacy: [facility], [id number], this replaces once a day as of 3.9.23, 1 tab By mouth BID, 55, 07/11/22 10:17:00 QUALITY ASSURANCE MONITOR FINAL, kg, Weight Start Date: 07/11/22 Status: Ordered DULoxetine 60 mg oral delayed release capsule = 1 cap, By mouth, Daily, THIS IS TO REPLACE LEXAPRO., # 30 cap, Refill(s) 5, Pharmacy: [facility], [id number], TAKE 1 CAPSULE BY MOUTH DAILY THIS IS TO REPLACELEXAPRO, 61.82, 04/02/22 15:04:00 QUALITY ASSURANCE MONITOR FINAL, kg, Weight Start Date: 04/16/22 Status: Ordered Eliquis 5 mg oral tablet 5 mg = 1 tab, By mouth, BID, 60 tab, # 60 tab, Refill(s) 11, Pharmacy: [facility], [id number], TAB, 1 tab By mouth BID,Instr:60 tab, 54.55, 06/10/22 11:12:00 QUALITY ASSURANCE MONITOR FINAL, kg, Weight Start Date: 06/10/22 Status: Ordered glipiZIDE 5 mg oral tablet, extended release = 1 tab, By mouth, BIDWM (twice daily with meals), # 60 tab, Refill(s) 5, Pharmacy: [facility], [id number], 1 TABLET BY MOUTH TWICE A DAY WITH MEALS, 56.36, 02/11/22 13:14:00 CDT, kg, Weight Start Date: 02/18/22 Status: Ordered hydrALAZINE 100 mg oral tablet 100 mg = 1 tab, By mouth, TID, # 270 tab, Refill(s) 1, Pharmacy: [facility], [id number], this replaces 50mg, 1 tab By mouth TID, 55.45, 06/25/22 13:25:00 QUALITY ASSURANCE MONITOR FINAL, kg, Weight Start Date: 06/25/22 Status: Ordered hydroCHLOROthiazide 12.5 mg oral tablet 12.5 mg = 1 tab, By mouth, Daily, # 90 tab, Refill(s) 0, Pharmacy: [facility], [id number], 1 tab By mouth Daily, 56.82, 08/15/22 11:17:00 CDT, kg, Weight Start Date: 08/15/22 Status: Ordered lisinopril 40 mg oral tablet See Instructions, TAKE 1/2 TABLET BY MOUTH TWICE A DAY, # 30 tab, Refill(s) 5, Pharmacy: [facility], [id number], Instructions Replace Required Details, TAKE 1/2TABLET BY MOUTH TWICE A DAY, 54.55, 06/10/22 11:12:... Start Date: 06/25/22 Status: Ordered metformin 500 mg oral tablet 500 mg = 1 tab, By mouth, QPM (every evening), # 90 tab, Refill(s) 1, Pharmacy: [facility], [id number], 1 tab By mouth QPM (every evening), 58.18, 05/07/22 9:30:00 QUALITY ASSURANCE MONITOR FINAL, kg, Weight Start Date: 05/08/22 Status: Ordered mupirocin topical 2% ointment See Instructions, apply to sore Topical TID X 10d, # 15 g, Refill(s) 0, Route to Pharmacy Electronically, Pharmacy: [facility], [id number], Instructions ReplaceRequired Details, apply to sore Topical TID X 10d,... Start Date: 11/02/21 Status: Ordered One Touch Ultra One Touch Ultra, See Instructions, Test strips and lancets and one glucometer to check glucose oncedaily E11.65, # 100 EA, Refills(s) 3, Route to Pharmacy Electronically, Pharmacy: [facility], Test strips and lancets and one glucometer t... Start Date: 04/02/22 Status: Ordered pantoprazole 40 mg oral delayed release tablet = 1 tab, By mouth, Daily, # 30 tab, Refill(s) 5, Pharmacy: [facility], [id number], TAKE 1 TABLET BY MOUTH DAILY, 55, 07/11/22 10:17:00 QUALITY ASSURANCE MONITOR FINAL, kg, Weight Start Date: 07/31/22 Status: Ordered SEROquel 25 mg oral tablet 25 mg = 1 tab, By mouth, QPM (every evening), to replace abilify, # 30 tab, Refill(s) 5, Pharmacy: [facility], [id number], 1 tab By mouth QPM (every evening),Ins tr:to replace abilify, 55, 07/11/22 10:17:00 QUALITY ASSURANCE MONITOR FINAL, k... Start Date: 07/11/22 Status: Ordered Spiriva HandiHaler 18 mcg inhalation capsule = 1 cap, Inhalation, Daily, # 30 cap, Refill(s) 1, Pharmacy: [facility], [id number], 1 cap Inhalation Daily, 55, 07/11/22 10:17:00 QUALITY ASSURANCE MONITOR FINAL, kg, Weight Start Date: 07/31/22 Status: Ordered traZODone 150 mg oral tablet 150 mg = 1 tab, By mouth, at bedtime, for sleep; this replaces 3 tabs of 50mg as of 11.28.22, # 90 tab, Refill(s) 1, Pharmacy: [facility], [id number], 1 tab By mouth at bedtime,Instr:for sleep; this replaces 3 ta... Start Date: 04/02/22 Status: Ordered Welchol 625 mg oral tablet = 1 tab, By mouth, Daily, # 30 tab, Refill(s) 11, Pharmacy: [facility], [id number], TAKE 1 TABLET BY MOUTH DAILY, 56.82, [...] Active 1started on portable Oxygen while hospitalized [facility] for pneumonia 2on CT at [facility] 03/26---they have ordered another [address]--it is scheduled for May 30 2022--it is thought it may be hematoma as she was on eliquis and fell 33.8.23 MRI shows probable kidney cancer per family--Dr. Young referred her to urologist In [facility]. HOme 4on CT at [facility] 03.26.22--2.4 X 2.0cm; they scheduled her f/u with Dr. Young urology to follow on this Procedures Procedure Date Related Diagnosis Body Site Status EGD done at [facility]--see comments 1, 2 07/12/21 Completed Colonoscopy at [facility]: adenomat ous polyps, repeat 2 [...] to oldest [Reference Range]: 1 Blood Pressure 129/76 (08/15/22 11:15 AM) Height (inches) (Clinical) 63 in (08/15/22 11:15 AM) Weight (kg) (Clinical) 56.82 kg (08/15/22 11:15 AM) BMI (Clinical) 22.1 kg/m2 (08/15/22 11:15 AM) Social History Social History Type Response [...] 1 entered on: 07/11/22 Sex Female 1quit 7 Implantable Device List Procedure Provider Procedure Date Device Type Site Extraction Cataract Phacoemulsification Unknown 01/16/21 Unknown Eye, Right Device Identifier Serial Number Lot or Batch Number Manufacturing Date Expiration Date Distinct Identification Code MRI Safety Implantable Status Assigning Authority [id number] Unknown Unknown 04/03/24 Unknown Unknown Active GS1 Procedure Provider Procedure Date Device Type Site Extraction Cataract Phacoemulsification Unknown 12/12/20 Non Biological Eye, Left Device Identifier Serial Number Lot or Batch Number Manufacturing Date Expiration Date Distinct Identification Code MRI Safety Implantable Status Assigning Authority [id number] Unknown [id number] Unknown 02/02/24 Unknown Unknown Active GS1 Family medicine Note * Vincent HOOD, Chayito Sherwood: PERFORM Event Display: Family Practice Office/Clinic Note Authored Date: [id number] Chief Complaint feet are still swelling / painful General Information Information Given By: Patient (08/15/22 11:15:00) Nurse Intake Nursing Intake?? General Information?? Pain Information?? Physicians and Specialties: Dr Kaur - PCP ?? CMTG Dr Vidales ??cataract ??Mattax Hugo PraterDr Giurgius ?? GI- ??OZHDr Young OZH ??Urology (08/15/22) Pain Intensity:??6??Critical (08/15/22) Information Given By: Patient (08/15/22) Pain Location: feet (08/15/22) ?? Pain ??Quality: throbbing (08/15/22) ?? Pain Present: Yes actual or suspected pain (08/15/22) History of Present Illness Patient is here??for follow-up from last week after??she presented??with??significant??bradycardia due to??not taking medication??correctly.?? She has??now stopped??the metoprolol??and is just taking??the diltiazem.?? Her pulse is back up??she says she does not??feel as tired??she is not having anychest??pain she feels like??her feet??are swelling??more.?? She is not having any??orthopnea.?? Seat she??has oxygen at home??she is not wearing??it today. Review of Systems no f/c taking chantix--wants refill Physical Exam Vitals & Measurements T:??98.1?F?? HR:??91?? RR:??18?? BP:??129/76?? SpO2:??97%?? HT:??63??in?? WT:??125??lb?? WT:??56.82??kg?? BMI:??22.1?? General: In no acute distress. Alert & oriented. Behavior and affect appropriate to situation Skin: Warm and dry. No rash or suspicious lesions noted. Skin turgor normal for age. HEENT: Anicteric. MM moist and pink. Neck supple. No thyromegaly. No lymphadenopathy. CV: Irregularly irregular, rate controlled; non pitting 1+ edema both ankles and feet Chest: Respirations even and unlabored. Lungs clear to auscultation. No rhonchi. No crackles. No wheezing. Assessment/Plan Bilateral lower extremity edema(Localized edema: R60.0) add HCTZ Ordered: Office Visit Level 3 Established 20-29 min 27479 Return to Clinic, Return in 2 weeks ?? Essential hypertension(Essential (primary) hypertension: I10) add HCTZ Ordered: Office Visit Level 3 Established 20-29 min 67976 Return to Clinic, Return in 2 weeks ?? Paroxysmal atrial fibrillation(Paroxysmal atrial fibrillation: I48.0) stay on diltiazem; do not take metoprolol Ordered: Office Visit Level 3 Established 20-29 min 40510 ?? Orders: hydroCHLOROthiazide, 12.5 mg = 1 tab, By mouth, Daily, # 90 tab, Refill(s) 0, Pharmacy: [facility], [id number], 1 tab By mouth Daily, 56.82, 08/15/22 11:17:00 CDT, kg, Weight varenicline, 1 mg = 1 tab, By mouth, BID, after meals, # 60 tab, Refill(s) 5, Pharmacy: [facility], [id number], 1 tab By mouth BID,Instr:after meals, 56.82, 08/15/22 11:17:00 CDT, kg, Weight Problem List/Past Medical History Abdominal aortic atherosclerosis: ?? Chronic diarrhea: ?? Chronic gastritis: ?? COPD, severity to be determined: ?? Stress reaction, chronic: ?? Requires oxygen therapy: ??started on portable Oxygen while hospitalized [facility] for pneumonia Oxygen dependent: ?? Depression: ?? Anticoagulated by anticoagulation treatment: ?? Bilateral lower extremity edema: ?? Essential hypertension: ?? Fatigue: ?? Hiatal hernia with GERD and esophagitis: ?? Helicobacter pylori gastritis: ?? Hx of TIA (transient ischemic attack) and stroke: ?? Hypercholesteremia: ?? Knee pain: ?? Low back pain: ?? Left lower quadrant abdominal wall mass: ??on CT at [facility] 03/26---they have ordered another [address]--it is scheduled for May 30 2022--it is thought it may be hematoma as she was on eliquis and fell Osteoporosis: ?? Paresthesia: ?? Paroxysmal atrial fibrillation: ?? Insomnia: ?? Right renal mass: ??07.10.22 MRI shows probable kidney cancer per family--Dr. Young referred her to urologist In [facility] Transient ischemic attack (TIA): ?? 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 Uncontrolled type 2 diabetes mellitus with hyperglycemia, without long-term current use of insulin:?? Urinary incontinence: ?? 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 Exercise Frequency: None. Type: active--carrying in wood every day. Home/Environment Marital status . 2 living children. Had a daugther who was handicapped and age 33 of MIchildren. Seatbelt use: Always. Lives with: Spouse. Nutrition/Health [...] MGM. Liver disease.....: SISTER. Lung cancer.....: MGM. TN (myocardial infarction).....: PGM.Negative: MGM. Pancreatic cancer: FATHER. Electronically signed by:Chayito Kaur MD 08/15/22 18:15 Patient Care team information Care Team Personnel Name: Chayito Kaur MD Position: PX Physician - Family Practice Member Role: Primary Care Physician Address: Address: [address] [place] [address] [place] [address]- Care Team Related Persons Name: RADHA ZAFAR Name: RENATO ZAFAR Name: DOMINIQUE ZAFAR Address: home [address] [place] [id number] [facility] Address: mailing [address] [place] [phone] [facility] Name: ECHO DONOVAN
--- OUTSIDE RECORDS SUMMARY | 2023-01-13 06:41 | XMS_ITS | Continuity of Care Document ---
Author Name Unknown Organization [facility] Address [address] [place] [address]- Care Team Providers Care Director Furniture Name Role Phone Vincent HOOD, Chayito Sherwood Primary Care Physician [phone] Encounter [facility] Number [id number] Date(s): 09/18/22 - 09/20/22 [facility] [address] [place] [address]- [phone] Encounter Diagnosis COPD, severity to be determined(Discharge Diagnosis) - 09/18/22 Essential hypertension(Discharge Diagnosis) - 09/18/22 Uncontrolled type 2 diabetes mellitus with hyperglycemia, without long-term current use of insulin(Discharge Diagnosis) - 09/18/22 Right renal mass(Discharge Diagnosis) - 09/18/22 Hypercholesteremia(Discharge Diagnosis) - 09/18/22 Anticoagulated by anticoagulation treatment(Discharge Diagnosis) - 09/18/22 Hx of TIA (transient ischemic attack) and stroke(Discharge Diagnosis) - 09/18/22 Discharge Disposition: .Discharge to Home (Routine) Attending Physician: Russ Mckeon MD Admitting Physician: Russ Mckeon MD Allergies, Adverse Reactions, Alerts No Known Allergies Assessment and Plan Extracted from: Title:Instructions to Patients Author:Betty Juárez RN Date:09/20/22 [facility] Minimally Invasive Nephrectomy, Care After This sheet gives you information about how to care for yourself after your procedure. Your health care provider may also give you more specific instructions. If you have problems or questions, contact your health care provider. What can I expect after the procedure? After the procedure, it is common to have: ? ? Pain. ? ? Soreness and numbness in the area around your incisions. Follow these instructions at home: Medicines ? ? Take kiet-cwa-emkkvrj and prescription medicines only as told by your health care provider. ? ? Avoid using NSAIDs regularly over a long period of time. These include aspirin and ibuprofen. Doing so may damage your remaining kidney. ? ? Ask your health care provider if the medicine prescribed to you: ? ? Requires you to avoid driving or using machinery. ? ? Can cause constipation. You may need to take these actions to prevent or treat constipation: ? ? Drink enough fluid to keep your urine pale yellow. ? ? Take jsla-xmd-lmpdepg or prescription medicines. ? ? Eat foods that are high in fiber, such as beans, whole grains, and fresh fruits and vegetables. ? ? Limit foods that are high in fat and processed sugars, such as fried or sweet foods. Incision care and drain care ? ? Follow instructions from your health care provider about how to take care of your incisions. Make sure you: ? ? Wash your hands with soap and water for at least 20 seconds before and after you change your bandage (dressing). If soap and water are not available, use hand port cdl a driver. ? ? Change your dressing as told by your health care provider. ? ? Leave stitches (sutures), skin glue, or adhesive strips in place. These skin closures may need to be in place for 2 weeks or longer. If adhesive strip edges start to loosen and curl up, you may trim the loose edges. Do not remove adhesive strips completely unless your health care provider tells you to do that. ? ? Check your incision area every day for signs of infection. Check for: ? ? Redness, swelling, or more pain. ? ? Fluid or blood. ? ? Warmth. ? ? Pus or a bad smell. ? ? If you have a drain in place, follow your health care provider's instructions for drain care. This may include emptying the drain and keeping track of the amount of drainage. Activity ? ? Rest as told by your health care provider. ? ? Avoid sitting for a long time without moving. Get up to take short walks every 1? 2 hours. This is important to improve blood flow and breathing. Ask for help if you feel weak or unsteady. ? ? Do not lift anything that is heavier than 10 lb (4.5 kg), or the limit that you are told, until your health care provider says that it is safe. ? ? Do not play contact sports. Doing so may damage your remaining kidney. ? ? Return to your normal activities as told by your health care provider. Ask your health care provider what activities are safe for you. Catheter care If you have a urinary catheter, care for it as told by your health care provider. You may be told to: ? ? Wash your hands with soap and water for at least 20 seconds before and after touching the catheter, tubing, or drainage bag. If soap and water are not available, use hand port cdl a driver. ? ? Empty the drainage bag every 2? 4 hours, or more often if needed. Do not let the bag get completely full. ? ? Monitor the amount and color of your urine as told by your health care provider. ? ? Keep the area around the catheter clean and dry. ? ? Make sure to keep the catheter secured to avoid pulling and accidental removal. ? ? Always keep the urine collection bag below the level of your bladder. ? ? Check the catheter tubing regularly to make sure there are no kinks or blockages. ? ? Make sure that the catheter is not placed under water. General instructions ? ? Do not take baths, swim, or use a hot tub until your health care provider approves. Ask your health care provider if you may take showers. You may only be allowed to take sponge baths. ? ? Do deep breathing exercises as told by your health care provider. These help to prevent lung infection (pneumonia). ? ? Wear compression stockings as told by your health care provider. These stockings help to prevent blood clots and reduce swelling in your legs. ? ? Keep all follow-up visits. This is important. Contact a health care provider if: ? ? You have a fever or chills. ? ? You have pain that is not controlled by your pain medicine. ? ? You have redness, swelling, or more pain at an incision site. ? ? You have a cough. ? ? An incision is warm to the touch. ? ? You have blood in your urine. ? ? You have not had a bowel movement in 3 days. ? ? You have diarrhea. Get help right away if: ? ? You have trouble breathing or feel short of breath. ? ? You have chest pain. ? ? You have severe pain. ? ? There is fluid or blood coming from an incision. ? ? There is pus or a bad smell coming from an incision. ? ? You cannot urinate. ? ? You have warmth, redness, and tenderness in your leg. These symptoms may represent a serious problem that is an emergency. Do not wait to see if the symptoms will go away. Get medical help right away. Call your local emergency services (911 in the [place] Do not drive yourself to the hospital. Summary ? ? Follow instructions from your health care provider about how to take care of your incisions. Check your incision area every day for signs of infection. ? ? Take gswc-tzb-ebabykp and prescription medicines only as told by your health care provider. ? ? Return to your normal activities as told by your health care provider. Ask your health care provider what activities are safe for you. ? ? Keep all follow-up visits. This is important. This information is not intended to replace advice given to you by your health care provider. Make sure you discuss any questions you have with your health care provider. Document Revised: 08/14/2020 Document Reviewed: 08/14/2020 [email or web address] Patient Education ?? 2021 [employer] Renal Mass A renal mass is an abnormal growth in the kidney. It may be found while performing an MRI, CT scan, or ultrasound to evaluate other problems of the abdomen. A renal mass that is cancerous (malignant) may grow or spread quickly. Others are not cancerous (benign). Renal masses include: ? ? Tumors. These may be malignant or benign. ? ? The most common type of kidney cancer in adults is renal cell carcinoma. In children, the most common type of kidney cancer is Wilms tumor. ? ? The most common benign tumors of the kidney include renal adenomas, oncocytomas, and angiomyolipoma (AML). ? ? Cysts. These are fluid-filled sacs that form on or in the kidney. What are the causes? Certain types of cancers, infections, or injuries can cause a renal mass. It is not always known what causes a cyst to develop in or on the kidney. What are the signs or symptoms? Often, a renal mass does not cause any signs or symptoms; most kidney cysts do not cause symptoms. How is this diagnosed? Your health care provider may recommend tests to diagnose the cause of your renal mass. These tests may be done if a renal mass is found: ? ? Physical exam. ? ? Blood tests. ? ? Urine tests. ? ? Imaging tests, such as ultrasound, CT scan, or MRI. ? ? Biopsy. This is a small sample that is removed from the renal mass and tested in a lab. The exact tests and how often they are done will depend on: ? ? The size and appearance of the renal mass. ? ? Risk factors or medical conditions that increase your risk for problems. ? ? Any symptoms associated with the renal mass, or concerns that you have about it. Tests and physical exams may be done once, or they may be done regularly for a period of time. Tests and exams that are done regularly will help monitor whether the mass is growing and beginning to cause problems. How is this treated? Treatment is not always needed for this condition. Your health care provider may recommend careful monitoring and regular tests and exams. Treatment will depend on the cause of the mass. Treatment for a cancerous renal mass may include surgical removal, chemotherapy, radiation, or immunotherapy. Most kidney cysts do not need to be treated. Follow these instructions at home: What you need to do at home will depend on the cause of the mass. Follow the instructions that your health care provider gives to you. In general: ? ? Take nrua-obb-mrnxbir and prescription medicines only as told by your health care provider. ? ? If you were prescribed an antibiotic medicine, take it as told by your health care provider. Do not stop taking the antibiotic even if you start to feel better. ? ? Follow any restrictions that are given to you by your health care provider. ? ? Keep all follow-up visits. This is important. ? ? You may need to see your health care provider once or twice a year to have CT scans and ultrasounds. These tests will show if your renal mass has changed or grown. Contact a health care provider if you: ? ? Have pain in your side or back (flank pain). ? ? Have a fever. ? ? Feel full soon after eating. ? ? Have pain or swelling in the abdomen. ? ? Lose weight. Get help right away if: ? ? Your pain gets worse. ? ? There is blood in your urine. ? ? You cannot urinate. ? ? You have chest pain. ? ? You have trouble breathing. These symptoms may represent a serious problem that is an emergency. Do not wait to see if the symptoms will go away. Get medical help right away. Call your local emergency services (911 in the [place] Summary ? ? A renal mass is an abnormal growth in the kidney. It may be cancerous (malignant) and grow or spread quickly, or it may not be cancerous (benign). Renal masses often do not have any signs or symptoms. ? ? Renal masses may be found while performing an MRI, CT scan, or ultrasound for other problems of the abdomen. ? ? Your health care provider may recommend that you have tests to diagnose the cause of your renal mass. These may include a physical exam, blood tests, urine tests, imaging, or a biopsy. ? ? Treatment is not always needed for this condition. Careful monitoring may be recommended. This information is not intended to replace advice given to you by your health care provider. Make sure you discuss any questions you have with your health care provider. Document Revised: 10/16/2020 Document Reviewed: 10/16/2020 [employer] Patient Education ?? 2021 [employer]. Medication Leaflets: docusate (oral/rectal) (DOK ue sate) Colace, Diocto, Doc-Q-Lace, Docu, Doculase, Docusil, Docusoft S, DocuSol, Dulcolax Stool Softener, Enemeez Mini, Kiran-Tin, Pedia-Lax Stool Softener, Galan Stool Softener, Promolaxin, Silace, Surfak Stool Softener, Louise-Q-Lax What is the most important information I should know about docusate? You should not use docusate if you also use mineral oil, unless your doctor tells you to. What is docusate? Docusate is a stool softener that makes bowel movements softer and easier to pass. Docusate is used to relieve occasional constipation (irregularity). There are many brands and forms of docusate available. Not all brands are listed on this leaflet. Docusate may also be used for purposes not listed in this medication guide. What should I discuss with my healthcare provider before using docusate? You should not use docusate if you are allergic to it. Ask a doctor or pharmacist if this medicine is safe to use if you have: ? stomach pain; ? ? nausea; ? ? vomiting; or ? ? a sudden change in bowel habits that lasts over 2 weeks. Ask a doctor before using this medicine if you are or . Do not give this medicine to a child without medical advice. How should I use docusate? Use exactly as directed on the label, or as prescribed by your doctor. Drink plenty of liquids while you are using docusate. Measure liquid medicine carefully. Use the dosing syringe provided, or use a medicine dose-measuring device (not a kitchen spoon). Do not take the rectal enema by mouth. Rectal medicine is for use only in the rectum. Wash your hands before and after using the enema. To use the enema, lie on your left side with your left leg extended and your right leg slightly bent. Remove the cap from the applicator tip and gently insert the tip into your rectum. Slowly squeeze the bottle to empty the contents into the rectum. After using the enema, lie down on your left side for at least 30 minutes to allow the liquid to distribute throughout your intestines. Avoid using the bathroom, and hold in the enema at least 1 hour, or all night if possible. Read and carefully follow any Instructions for Use provided with your medicine. Ask your doctor or pharmacist if you do not understand these instructions. Docusate generally produces bowel movement in 12 to 72 hours. Call your doctor if your symptoms do not improve after 72 hours. You should not use docusate for longer than 1 week, unless your doctor tells you to. Store at room temperature away from moisture, light, and heat. Do not freeze liquid medicine. What happens if I miss a dose? Since docusate is used when needed, you may not be on a dosing schedule. Skip any missed dose if it's almost time for your next dose. Do not use two doses at one time. What happens if I overdose? Seek emergency medical attention or call the Poison Help line at . What should I avoid while using docusate? Avoid using mineral oil, unless told to do so by a doctor. What are the possible side effects of docusate? Get emergency medical help if you have signs of an allergic reaction: hives; difficult breathing; swelling of your face, lips, tongue, or throat. Stop using docusate and call your doctor at once if: ? you have rectal bleeding; ? ? no bowel movement occurs after using a laxative; ? ? you need to use a stool softener for more than 1 week; or ? ? rash occurs. Less serious side effects may be more likely, and you may have none at all. This is not a complete list of side effects and others may occur. Call your doctor for medical advice about side effects. You may report side effects to FDA at 4-705-ACW-3470. What other drugs will affect docusate? Other drugs may affect docusate, including prescription and pwnw-hta-qajuyoj medicines, vitamins, and herbal products. Tell your doctor about all other medicines you use. Where can I get more information? Your pharmacist can provide more information about docusate. Remember, keep this and all other medicines out of the reach of children, never share your medicines with others, and use this medication only for the indication prescribed. Every effort has been made to ensure that the information provided by [employer]') is accurate, up-to-date, and complete, but no guarantee is made to that effect. Drug information contained herein may be time sensitive. [employer] information has been compiled for use by healthcare practitioners and consumers in the [place] and therefore [employer] does not warrant that uses outside of the [place] are appropriate, unless specifically indicated otherwise. [employer] drug information does not endorse drugs, diagnose patients or recommend therapy. [employer] drug information is an informational resource designed to assist licensed healthcare practitioners in caring for their patients and/or to serve consumers viewing this service as a supplement to, and not a substitute for, the expertise, skill, knowledge and judgment of healthcare practitioners. The absence of a warning for a given drug or drug combination in no way should be construed to indicate that the drug or drug combination is safe, effective or appropriate for any given patient. [employer] does not assume any responsibility for any aspect of healthcare administered with the aid of information [employer] provides. The information contained herein is not intended to cover all possible uses, directions, precautions, warnings, drug interactions, allergic reactions, or adverse effects. If you have questions about the drugs you are taking, check with your doctor, nurse or pharmacist. Copyright 4862-0118 [employer]. Version: 5.01. Revision Date: 05/31/2021. acetaminophen and hydrocodone (a SEET a MIN oh fen and jeni droe KOE done) Hycet, Lorcet, Creswell, Verdrocet, Vicodin, Xodol, Zamicet What is the most important information I should know about acetaminophen and hydrocodone? MISUSE OF OPIOID MEDICINE CAN CAUSE ADDICTION, OVERDOSE, OR . Keep the medication in a place where others cannot get to it. Taking opioid medicine during may cause life-threatening withdrawal symptoms in the . Fatal side effects can occur if you use opioid medicine with alcohol, or with other drugs that cause drowsiness or slow your breathing. Stop taking this medicine and call your doctor right away if you have skin redness or a rash that spreads and causes blistering and peeling. What is acetaminophen and hydrocodone? Acetaminophen and hydrocodone is a combination medicine used to relieve moderate to severe pain. Acetaminophen and hydrocodone contains an opioid medicine, and may be habit- forming. Acetaminophen and hydrocodone may also be used for purposes not listed in this medication guide. What should I discuss with my healthcare provider before taking acetaminophen and hydrocodone? You should not use this medicine if you are allergic to acetaminophen or hydrocodone, or if you have: ? severe asthma or breathing problems; or ? ? a blockage in your stomach or intestines. Tell your doctor if you have ever had: ? breathing problems, sleep apnea (breathing stops during sleep); ? ? liver disease; ? ? a drug or alcohol addiction; ? ? kidney disease; ? ? a head injury or seizures; ? ? urination problems; or ? ? problems with your thyroid, pancreas, or gallbladder. If you use opioid medicine while you are , your baby could become dependent on the drug. This can cause life-threatening withdrawal symptoms in the baby after it is born. Babies born dependent on opioids may need medical treatment for several weeks. Ask a doctor before using opioid medicine if you are . Tell your doctor if you notice severe drowsiness or slow breathing in the nursing baby. How should I take acetaminophen and hydrocodone? Follow all directions on your prescription label. Never take this medicine in larger amounts, or for longer than prescribed. An overdose can damage your liver or cause . Tell your doctor if you feel an increased urge to use more of this medicine. Never share this medicine with another person, especially someone with a history of drug abuse or addiction. MISUSE CAN CAUSE ADDICTION, OVERDOSE, OR . Keep the medicine in a place where others cannot get to it. Selling or giving away this medicine is against the law. Measure liquid medicine carefully. Use the dosing syringe provided, or use a medicine dose-measuring device (not a kitchen spoon). If you need surgery or medical tests, tell the doctor ahead of time that you are using this medicine. You should not stop using this medicine suddenly. Follow your doctor's instructions about tapering your dose. Store at room temperature away from moisture and heat. Keep track of your medicine. You should be aware if anyone is using it improperly or without a prescription. Do not keep leftover opioid medication. Just one dose can cause in someone using this medicine accidentally or improperly. Ask your pharmacist where to locate a drug take-back disposal program. If there is no take-back program, flush the unused medicine down the toilet. What happens if I miss a dose? Since this medicine is used for pain, you are not likely to miss a dose. Skip any missed dose if it is almost time for your next dose. Do not use two doses at one time. What happens if I overdose? Seek emergency medical attention or call the Poison Help line at . An overdose of this medicine can be fatal, especially in a child or other person using the medicine without a prescription. Overdose symptoms may include nausea, vomiting, sweating, severe drowsiness, pinpoint pupils, slow breathing, or no breathing. Your doctor may recommend you get naloxone (a medicine to reverse an opioid overdose) and keep it with you at all times. A person caring for you can give the naloxone if you stop breathing or don't wake up. Your caregiver must still get emergency medical help and may need to perform CPR (cardiopulmonary resuscitation) on you while waiting for help to arrive. Anyone can buy naloxone from a pharmacy or local health department. Make sure any person caring for you knows where you keep naloxone and how to use it. What should I avoid while taking acetaminophen and hydrocodone? Avoid driving or operating machinery until you know how this medicine will affect you. Dizziness or drowsiness can cause falls, accidents, or severe injuries. Do not drink alcohol. Dangerous side effects or could occur. Ask a doctor or pharmacist before using any other medicine that may contain acetaminophen (sometimes abbreviated as APAP). Taking certain medications together can lead to a fatal overdose. What are the possible side effects of acetaminophen and hydrocodone? Get emergency medical help if you have signs of an allergic reaction: hives; difficulty breathing; swelling of your face, lips, tongue, or throat. Opioid medicine can slow or stop your breathing, and may occur. A person caring for you should give naloxone and/or seek emergency medical attention if you have slow breathing with long pauses, blue colored lips, or if you are hard to wake up. In rare cases, acetaminophen may cause a severe skin reaction that can be fatal. This could occur even if you have taken acetaminophen in the past and had no reaction. Stop taking this medicine and call your doctor right away if you have skin redness or a rash that spreads and causes blistering and peeling. Call your doctor at once if you have: ? noisy breathing, sighing, shallow breathing, breathing that stops; ? ? a light-headed feeling, like you might pass out; ? ? liver problems--nausea, upper stomach pain, tiredness, loss of appetite, dark urine, ramin-colored stools, jaundice (yellowing of the skin or eyes); ? ? low cortisol levels-- nausea, vomiting, loss of appetite, dizziness, worsening tiredness or weakness; o ? ? high levels of serotonin in the body--agitation, hallucinations, fever, sweating, shivering, fast heart rate, muscle stiffness, twitching, loss of coordination, nausea, vomiting, diarrhea. Serious breathing problems may be more likely in older adults and in those who are debilitated or have wasting syndrome or chronic breathing disorders. Common side effects include: ? dizziness, drowsiness, feeling tired; ? ? nausea, vomiting, stomach pain; ? ? constipation; or ? ? headache. This is not a complete list of side effects and others may occur. Call your doctor for medical advice about side effects. You may report side effects to FDA at [id number]. What other drugs will affect acetaminophen and hydrocodone? You may have breathing problems or withdrawal symptoms if you start or stop taking certain other medicines. Tell your doctor if you also use an antibiotic, antifungal medication, heart or blood pressure medication, seizure medication, or medicine to treat HIV or hepatitis C. Opioid medication can interact with many other drugs and cause dangerous side effects or . Be sure your doctor knows if you also use: ? cold or allergy medicines, bronchodilator asthma/COPD medication, or a diuretic ('water pill'); ? ? medicines for motion sickness, irritable bowel syndrome, or overactive bladder; ? ? other opioids--opioid pain medicine or prescription cough medicine; ? ? a sedative like Valium--diazepam, alprazolam, lorazepam, Xanax, Klonopin, Versed, and others; ? ? drugs that make you sleepy or slow your breathing--a sleeping pill, muscle relaxer, medicine to treat mood disorders or mental illness; ? ? drugs that affect serotonin levels in your body--a stimulant, or medicine for depression, Parkinson's disease, migraine headaches, serious infections, or nausea and vomiting. This list is not complete. Other drugs may affect acetaminophen and hydrocodone, including prescription and xeoz-ibk-iaahsld medicines, vitamins, and herbal products. Not all possible interactions are listed here. Where can I get more information? Your doctor or pharmacist can provide more information about acetaminophen and hydrocodone. Remember, keep this and all other medicines out of the reach of children, never share your medicines with others, and use this medication only for the indication prescribed. Every effort has been made to ensure that the information provided by [employer] ('[employer]') is accurate, up-to-date, and complete, but no guarantee is made to that effect. Drug information contained herein may be time sensitive. [employer] information has been compiled for use by healthcare practitioners and consumers in the [place] and therefore [employer] does not warrant that uses outside of the [place] are appropriate, unless specifically indicated otherwise. [employer] drug information does not endorse drugs, diagnose patients or recommend therapy. [employer] drug information is an informational resource designed to assist licensed healthcare practitioners in caring for their patients and/or to serve consumers viewing this service as a supplement to, and not a substitute for, the expertise, skill, knowledge and judgment of healthcare practitioners. The absence of a warning for a given drug or drug combination in no way should be construed to indicate that the drug or drug combination is safe, effective or appropriate for any given patient. [employer] does not assume any responsibility for any aspect of healthcare administered with the aid of information [employer] provides. The information contained herein is not intended to cover all possible uses, directions, precautions, warnings, drug interactions, allergic reactions, or adverse effects. If you have questions about the drugs you are taking, check with your doctor, nurse or pharmacist. Copyright 2820-6378 [employer]. Version: 16.03. Revision Date: 06/06/2020. Accessing??PushToTest??Express??Patient??Portal Access medications, test results, radiology reports, and more through [employer] secure patient portal. Please be patient if waiting on lab results, as these can take several days to process. [place] online at??[email or web address]??Use your community medical record number (CMRN) located below to verify your identity on the Self-Enrollment form.We also offer the ability for you to securely connect other health management apps to your health record. See the [facility] Connection link on the website above for more details. Watch [employer] Patient Education Videos and Access Resources anytime online! Visit [email or web address]. Extracted from: Title:Discharge Note Author:Tariq Luu Da te:09/20/22 Discharge Follow Up 09/20/22 8:44:00 CDT, Provider/Time: Return to clinic in 2 weeks with UA/BMP Discharge Diet 09/20/22 8:44:00 CDT, Discharge Diet: Regular Discharge Activity 09/20/22 8:44:00 CDT, No lifting/hard activity for 6 weeks ? Extracted from: Title:Urology Progress SOAP Note Author:Tariq Rodriguez Date:09/19/22 1.??COPD, severity to be det ermined(Chronic obstructive pulmonary disease, unspecified: J44.9) Ordered: [facility] 83962 ?? 2.??Essential hypertension(Essential (primary) hypertension: I10) Ordered: [facility] 39218 ?? 3.??Uncontrolled type 2 diabetes mellitus with hyperglycemia, without long-term current use of insulin(Type 2 diabetes mellitus with hyperglycemia: E11.65) Ordered: [facility] 29208 ?? 4.??Right renal mass(Other specified disorders of kidney and ureter: N28.89) Ordered: [facility] 19248 ?? 5.??Hypercholesteremia(Familial hypercholesterolemia: E78.01) Ordered: [facility] 76771 ?? 6.??Anticoagulated by anticoagulation treatment(correction (current) use of anticoagulants: Z79.01) Ordered: [facility] 73528 ?? 7.??Hx of TIA (transient ischemic attack) and stroke(Personal history of transient ischemic attack (TIA), and cerebral infarction without residual deficits: Z86.73) Ordered: [facility] 22496 ?? Orders: Nursing Communication Order, Okay to remove BERENICE drain Regular diet Future Appointments Appointment Date:10/03/2022 11:45:00 AM Scheduled Provider:Tariq Luu Location:[facility] Appointment Type:Hospital Follow Up (Established) Appointment Date:11/29/2022 10:45:00 AM Scheduled Provider:Chayito Kaur MD Location:[facility] Appointment Type:Established Patient Future [...] Refill(s) 5, Route to Pharmacy Electronically, Pharmacy: [facility], [id number], AEROSOL, 2 puff Inhalation BID,Instr:rinse mouth and throat afte... 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 Start Date: 12/06/21 Status: Ordered azelastine nasal 0.1% (137 mcg/inh) spray 2 spray, Intranasal, BID, # 30 mL, 30, Refill(s) 5, Route to Pharmacy Electronically, Pharmacy: [facility], [id number], 2 SPRAYS BOTH NOSTRILS TWICE A DAY, 55, 0 07/11/22 10:17:00 SEW OUT OPERATOR, kg, Weight Start Date: 07/31/22 Status: Ordered Chantix 1 mg oral tablet 1 mg = 1 tab, By mouth, BID, after meals, # 60 tab, Refill(s) 5, Pharmacy: [facility],[id number], 1 tab By mouth BID,Instr:after meals, 56.82, 08/15/22 11:17:00 CDT, kg, Weight Start Date: 08/15/22 Status: Ordered clonazePAM 0.5 mg oral tablet 0.5 mg, = 1 tab, By mouth, QPM (every evening), reduced from 1mg as of 4.29.21, 30 tab, 5, 5, Substitution Permitted, [facility], 63, Height, 05/07/22 9:30:00 SEW OUT OPERATOR, in, 58.18, Weight, 05/07/22 9:30:00 SEW OUT OPERATOR, kg Start Date: 05/24/22 Status: Ordered cloNIDine 0.1 mg oral tablet See Instructions, 1 tab po bid, # 60 tab, Refill(s) 5, Pharmacy: [facility], [id number], Instructions Replace Required Details, 1 tab po bid, 55, 07/11/22 10:17:00 SEW OUT OPERATOR, kg, Weight Start Date: 07/19/22 Status: Ordered dilTIAZem 180 mg/24 hours oral tablet, extended release 180 mg = 1 tab, By mouth, BID, # 60 EA, Refill(s) 5, Pharmacy: [facility], [id number], this replaces once a day as of 3.9.23, 1 tab By mouth BID, 55, 07/11/22 10:17:00 SEW OUT OPERATOR, kg, Weight Start Date: 07/11/22 Status: Ordered docusate sodium 100 mg oral capsule 100 mg = 1 cap, By mouth, BID, PRN for constipation, # 20 cap, Refill(s) 0, Pharmacy: [facility], [id number], 1 cap By mouth BID,PRN:for constipation, 55.4, 09/18/22 10:04:00 CDT, kg, Weight Start Date: 09/20/22 Status: Ordered DULoxetine 60 mg oral delayed release capsule = 1 cap, By mouth, Daily, THIS IS TO REPLACE LEXAPRO., # 30 cap, Refill(s) 5, Pharmacy: [facility], [id number], TAKE 1 CAPSULE BY MOUTH DAILY THIS IS TO REPLACELEXAPRO, 61.82, 04/02/22 15:04:00 SEW OUT OPERATOR, kg, Weight Start Date: 04/16/22 Status: Ordered Eliquis 5 mg oral tablet 5 mg = 1 tab, By mouth, BID, 60 tab, # 60 tab, Refill(s) 11, Pharmacy: [facility], [id number], TAB, 1 tab By mouth BID,Instr:60 tab, 54.55, 06/10/22 11:12:00 SEW OUT OPERATOR, kg, Weight Start Date: 06/10/22 Status: Ordered glipiZIDE 5 mg oral tablet, extended release See Instructions, 1 TABLET BY MOUTH TWICE A DAY WITH MEALS, # 60 tab, Refill(s) 5, Pharmacy: [facility], NCPDP_ID-[id number], Instructions Replace Required Details, 1 TABLET BY MOUTH TWICE A DAY WITH MEALS, 56.82, 08/15/22 11:17:00 CDT, kg,... Start Date: 08/29/22 Status: Ordered hydrALAZINE 100 mg oral tablet 100 mg = 1 tab, By mouth, TID, # 270 tab, Refill(s) 1, Pharmacy: [facility], [id number], this replaces 50mg, 1 tab By mouth TID, 55.45, 06/25/22 13:25:00 SEW OUT OPERATOR, kg, Weight Start Date: 06/25/22 Status: Ordered hydroCHLOROthiazide 12.5 mg oral tablet 12.5 mg = 1 tab, By mouth, Daily, # 90 tab, Refill(s) 0, Pharmacy: [facility], [id number], 1 tab By mouth Daily, 56.82, 08/15/22 11:17:00 CDT, kg, Weight Start Date: 08/15/22 Status: Ordered lisinopril 40 mg oral tablet See Instructions, TAKE 1/2 TABLET BY MOUTH TWICE A DAY, # 30 tab, Refill(s) 5, Pharmacy: [facility], [id number], Instructions Replace Required Details, TAKE 1/2TABLET BY MOUTH TWICE A DAY, 54.55, 06/10/22 11:12:... Start Date: 06/25/22 Status: Ordered metformin 500 mg oral tablet 1,000 mg = 2 tab, By mouth, QPM (every evening), # 180 tab, Refill(s) 1, Pharmacy: [facility], NCPDP_ID-[id number], new higher amount per day as of 4..23, 2 tab By mouth QPM (every evening), 55.45, 08/29/22 11:24:00 CDT, kg, Weight Start Date: 08/30/22 Status: Ordered mupirocin topical 2% ointment See Instructions, apply to sore Topical TID X 10d, # 15 g, Refill(s) 0, Route to Pharmacy Electronically, Pharmacy: [facility], [id number], Instructions ReplaceRequired Details, apply to sore Topical TID X 10d,... Start Date: 11/02/21 Status: Ordered Creswell 5 mg-325 mg oral tablet 1 tab, By mouth, Q4H, PRN for pain, 5 Days, 18 tab, 0, 0, 09/25/22 6:33:00 CDT, Substitution Permitted, [facility], 64, Height, 09/18/22 10:04:00 CDT, in, 55.4, Weight, 09/18/22 10:04:00 CDT, kg Start Date: 09/20/22 Stop Date: 09/25/22 Status: Ordered One Touch Ultra One Touch Ultra, See Instructions, Test strips and lancets and one glucometer to check glucose oncedaily E11.65, # 100 EA, Refills(s) 3, Route to Pharmacy Electronically, Pharmacy: [facility], Test strips and lancets and one glucometer t... Start Date: 04/02/22 Status: Ordered pantoprazole 40 mg oral delayed release tablet = 1 tab, By mouth, Daily, # 30 tab, Refill(s) 5, Pharmacy: [facility], [id number], TAKE 1 TABLET BY MOUTH DAILY, 55, 07/11/22 10:17:00 SEW OUT OPERATOR, kg, Weight Start Date: 07/31/22 Status: Ordered SEROquel 25 mg oral tablet 25 mg = 1 tab, By mouth, QPM (every evening), to replace abilify, # 30 tab, Refill(s) 5, Pharmacy: [facility], [id number], 1 tab By mouth QPM (every evening),Ins tr:to replace abilify, 55, 07/11/22 10:17:00 SEW OUT OPERATOR, k... Start Date: 07/11/22 Status: Ordered Spiriva HandiHaler 18 mcg inhalation capsule = 1 cap, Inhalation, Daily, # 30 cap, Refill(s) 1, Pharmacy: [facility], [id number], 1 cap Inhalation Daily, 55, 07/11/22 10:17:00 SEW OUT OPERATOR, kg, Weight Start Date: 07/31/22 Status: Ordered traZODone 150 mg oral tablet 150 mg = 1 tab, By mouth, at bedtime, for sleep; this replaces 3 tabs of 50mg as of 11.28.22, # 90 tab, Refill(s) 1, Pharmacy: [facility], NCPDP_ID- [id number], 1 tab By mouth at bedtime,Instr:for sleep; this replaces 3 tabs of 50mg as of .... Start Date: 08/29/22 Status: Ordered Welchol 625 mg oral tablet = 1 tab, By mouth, Daily, # 30 tab, Refill(s) 11, Pharmacy: [facility], [id number], TAKE 1 TABLET BY MOUTH DAILY, 56.82, [...] Active 1started on portable Oxygen while hospitalized [facility] for pneumonia 2on CT at [facility] 03/26---they have ordered another [address]--it is scheduled for May 30 2022--it is thought it may be hematoma as she was on eliquis and fell 3now has seen urology at [facility]--it is renal cell CA--going to have surgery 43.8.23 MRI shows probable kidney cancer per family--Dr. Young referred her to urologist [facility]. HOme 5on CT at [facility] 11.22.22--2.4 X 2.0cm; they scheduled her f/u with Dr. Young urology to follow on this Procedures Procedure Date Related Diagnosis Body Site Status NEPHRECTOMY PARTIAL 09/18/22 Compl eted EGD done at [facility]--see comments 1, 2 07/12/21 Completed Colonoscopy at [facility]: adenomat ous polyps, repeat 2 yrs 05/24/21 Completed right cataract 01/2021 Completed left cataract 12/12/20 Completed Left Carpal Tunnel Release 12/2019 Completed Cholecystectomy 1993 Completed Tubal ligation 1972 Completed Appendectomy 1955 Completed Colonoscopy 11-24-15--no poly ps; has c diff Completed 1reflux esophagitis, hiatal hernia, gastritis--biopsies taken--no report yet 2he treated her for H pylori Results Laboratory List Name Date BMP 09/19/22 H&H 09/19/22 Urinalysis with Reflex Culture 09/18/22 Antibody Screen auto 09/18/22 CMP 09/18/22 Hemogram (CBC Hemogram) 09/18/22 Type 09/18/22 Most recent to oldest [Reference Range]: 1 2 3 Type and RH Interp A Positive *Unknown* (09/18/22 9:40 AM) Bedside Glucose 208 mg/dL 1 (09/20/22 7:25 AM) 195 mg/dL 2 (09/19/22 9:16 PM) 151 mg/dL 3 (09/19/22 5:04 PM) Antibody Screen Interp a Negative (09/18/22 9:40 AM) Anion Gap [2-15 mEq/L] 4 mEq/L (09/19/22 2:55 AM) 6 mEq/L (09/18/22 9:40 AM) RTE Casts None Seen (09/18/22 10:05 AM) RTEs None Seen (09/18/22 10:05 AM) Glucose, Serum/Plasma [70-100 mg/dL] 121 mg/dL *HI* (09/19/22 2:55 AM) 164 mg/dL *HI* (09/18/22 9:40 AM) WBC [4.8-10.8 Thous/mm3] 7.2 Thous/mm3 (09/18/22 9:40 AM) Hct [37.0-47.0 %] 38.0 % (09/19/22 2:55 AM) 39.8 % (09/18/22 9:40 AM) Hgb [12.0-16.0 g/dL] 11.1 g/dL *LOW* (09/19/22 2:55 AM) 12.0 g/dL (09/18/22 9:40 AM) RBC [4.20-5.40 Million/mm3] 4.51 Million /mm3 (09/18/22 9:40 AM) MCV [80.0-100.0 fl] 88.2 fl (09/18/22 9:40 AM) MCH [26.0-34.0 pg] 26.6 pg (09/18/22 9:40 AM) MCHC [31.0-36.5 g/dL] 30.2 g/dL *LOW* (09/18/22:40 AM) RDW [10.4-14.4 %] 16.9 % *HI* (09/18/22 9:40 AM) Platelets [130-440 Thous/mm3] 179 Thous/mm3 (09/18/22 9:40 AM) MPV [9.4-12.4 fl] 10.3 fl (09/18/22 9:40 AM) Sodium [136-145 mEq/L] 138 mEq/L (09/19/22 2:55 AM) 140 mEq/L (09/18/22 9:40 AM) Potassium [3.5-5.1 mEq/L] 4.1 mEq/L (09/19/22 2:55 AM) 4.3 mEq/L (09/18/22 9:40 AM) Chloride [98-107 mEq/L] 106 mEq/L (09/19/22 2:55 AM) 105 mEq/L (09/18/22 9:40 AM) CO2 [21-32 mEq/L] 28 mEq/L (09/19/22 2:55 AM) 29 mEq/L (09/18/22 9:40 AM) BUN [7-18 mg/dL] 11 mg/dL (09/19/22 2:55 AM) 11 mg/dL (09/18/22 9:40 AM) Creatinine [0.55-1.02 mg/dL] 0.79 mg/dL (09/19/22 2:55 AM) 0.76 mg/dL (09/18/22 9:40 AM) Bilirubin, Total [0.2-1.0 mg/dL] 0.5 mg/dL (09/18/22 9:40 AM) Calcium [8.3-10.6 mg/dL] 8.0 mg/dL *LOW* (09/19/22 2:55 AM) 9.0 mg/dL (09/18/22 9:40 AM) Protein Total [6.4-8.5 g/dL] 7.2 g/dL (09/18/22 9:40 AM) Albumin [3.4-5.0 g/dL] 3.8 g/dL (09/18/22 9:40 AM) AST [15-37 U/L] 15 U/L (09/18/22 9:40 AM) Alk Phos [45-117 U/L] 81 U/L (09/18/22 9:40 AM) ALT [10-49 U/L] <7 U/L *LOW* (09/18/22 9:40 AM) Appearance [Clear] Clear (09/18/22 10:05 AM) Color [Yellow] Yellow *NA* (09/18/22 10:05 AM) Sp. [place] [1.001-1.035] 1.011 (09/18/22 10:05 AM) Ketones [Negative] Negative (09/18/22 10:05 AM) Glucose [Negative] Negative (09/18/22 10:05 AM) Protein [Negative] 3+ *ABN* (09/18/22 10:05 AM) Blood [Negative] Negative (09/18/22 10:05 AM) Nitrites UA [Negative] Negative (09/18/22 10:05 AM) Bilirubin UA [Negative] Negative (09/18/22 10:05 AM) Urobilinogen [1.0 mg/dL] 0.2 mg/dL (09/18/22 10:05 AM) Leuko Esterase UA [Negative] Negative (09/18/22 10:05 AM) pH UA [5.0-9.0] 7.0 (09/18/22 10:05 AM) RBC [0-2/hpf] 0-2/hpf (09/18/22 10:05 AM) WBC [0-5/hpf] 0-5/hpf (09/18/22 10:05 AM) Hyaline Casts [0-2/lpf] 0-2/lpf (09/18/22 10:05 AM) Bacteria [None Seen] None Seen (09/18/22 10:05 AM) Epithelium [None Seen] Occasional *ABN* (09/18/22 10:05 AM) eGFR [>=60 mL/min/1.73 m2] 71 mL/min/1.7 3 m2 (09/19/22 2:55 AM) 75 mL/min/1.73 m2 (09/18/22 9:40 AM) eGFR if [>=60 mL/min/1.73 m2] 86 mL/min/1.73 m2 (09/19/22 2:55 AM) 90 mL/min/1.73 m2 (09/18/22 9:40 AM) Volume 3 mL *NA* (09/18/22 10:05 AM) 1Result Comment: Yara SIGALA/ Performed at:[address], [address] Reference Ranges: Age 0 - 24 hours: 45 - 115 mg/dL Age 24 hours - 30 days: 55 - 115 mg/dL Age > 30 days: 70 - 100 mg/dL Critical Results Requiring Immediate Notification: Age <72 Hours: <40 or >350 mg/dL Age >72 Hours: <50 or >400 mg/dL 2Result Comment: Yara SIGALA/ Performed at:[facility], [address] [place] [address], [id number] Reference Ranges: Age 0 - 24 hours: 45 - 115 mg/dL Age 24 hours - 30 days: 55 - 115 mg/dL Age > 30 days: 70 - 100 mg/dL Critical Results Requiring Immediate Notification: Age <72 Hours: <40 or >350 mg/dL Age >72 Hours: <50 or >400 mg/dL 3Result Comment: Yara SIAGLA/ Performed at:[facility], [address] [place] [address], [id number] Reference Ranges: Age 0 - 24 hours: 45 - 115 mg/dL Age 24 hours - 30 days: 55 - 115 mg/dL Age > 30 days: 70 - 100 mg/dL Critical Results Requiring Immediate Notification: Age <72 Hours: <40 or >350 mg/dL Age >72 Hours: <50 or >400 mg/dL Vital Signs Most recent to oldest [Reference Range]: 1 2 3 Blood Pressure 144/69mmHg (09/20/22 10:23 AM) 115/60mmHg (09/20/22 7:09 AM) 113/63mmHg (09/20/22 3:35 AM) Height (inches) (Clinical) 64 in (09/18/22 8:04 PM) 64 in (09/18/22 10:03 AM) Weight (kg) (Clinical) 55.4 kg (09/18/22 8:04 PM) 55.4 kg (09/18/22 10:03 AM) BMI (Clinical) 20.9 kg/m2 (09/18/22 8:04 PM) Social History Social History Type Response Smoking [...] Code MRI Safety Implantable Status Assigning Authority [id number] Unknown Unknown 04/03/24 Unknown Unknown Active GS1 Procedure Provider Procedure Date Device Type Site Extraction Cataract Phacoemulsification Unknown 12/12/20 Non Biological Eye, Left Device Identifier Serial Number Lot or Batch Number Manufacturing Date Expiration Date Distinct Identification Code MRI Safety Implantable Status Assigning Authority [id number] Unknown [id number] Unknown 02/02/24 Unknown Unknown Active GS1 Hospital Discharge Instructions Patient Education 09/20/2022 11:22:02 Minimally Invasive Nephrectomy, Care After Minimally Invasive Nephrectomy, Care After This sheet gives you information about how to care for yourself after your procedure. Your health care provider may also give you more specific instructions. If you have problems or questions, contact your health care provider. What can I expect after the procedure? After the procedure, it is common to have: ??? Pain. ??? Soreness and numbness in the area around your incisions. Follow these instructions at home: Medicines ??? Take dzba-cov-wmbjsqg and prescription medicines only as told by your health care provider. ??? Avoid using NSAIDs regularly over a long period of time. These include aspirin and ibuprofen. Doing so may damage your remaining kidney. ??? Ask your health care provider if the medicine prescribed to you: ??? Requires you to avoid driving or using machinery. ??? Can cause constipation. You may need to take these actions to prevent or treat constipation: ??? Drink enough fluid to keep your urine pale yellow. ??? Take ywbw-epj-nmtwfxe or prescription medicines. ??? Eat foods that are high in fiber, such as beans, whole grains, and fresh fruits and vegetables. ??? Limit foods that are high in fat and processed sugars, such as fried or sweet foods. Incision care and drain care ??? Follow instructions from your health care provider about how to take care of your incisions. Make sure you: ??? Wash your hands with soap and water for at least 20 seconds before and after you change your bandage (dressing). If soap and water are not available, use hand port cdl a driver. ??? Change your dressing as told by your health care provider. ??? Leave stitches (sutures), skin glue, or adhesive strips in place. These skin closures may need to be in place for 2 weeks or longer. If adhesive strip edges start to loosen and curl up, you may trim the loose edges. Do not remove adhesive strips completely unless your health care provider tellsyou to do that. ??? Check your incision area every day for signs of infection. Check for: ??? Redness, swelling, or more pain. ??? Fluid or blood. ??? Warmth. ??? Pus or a bad smell. ??? If you have a drain in place, follow your health care provider's instructions for drain care. This may include emptying the drain and keeping track of the amount of drainage. Activity ??? Rest as told by your health care provider. ??? Avoid sitting for a long time without moving. Get up to take short walks every 1???2 hours. This is important to improve blood flow and breathing. Ask for help if you feel weak or unsteady. ??? Do not lift anything that is heavier than 10 lb (4.5 kg), or the limit that you are told, untilyour health care provider says that it is safe. ??? Do not play contact sports. Doing so may damage your remaining kidney. ??? Return to your normal activities as told by your health care provider. Ask your health care provider what activities are safe for you. Catheter care If you have a urinary catheter, care for it as told by your health care provider. You may be told to: ??? Wash your hands with soap and water for at least 20 seconds before and after touching the catheter, tubing, or drainage bag. If soap and water are not available, use hand port cdl a driver. ??? Empty the drainage bag every 2???4 hours, or more often if needed. Do not let the bag get completely full. ??? Monitor the amount and color of your urine as told by your health care provider. ??? Keep the area around the catheter clean and dry. ??? Make sure to keep the catheter secured to avoid pulling and accidental removal. ??? Always keep the urine collection bag below the level of your bladder. ??? Check the catheter tubing regularly to make sure there are no kinks or blockages. ??? Make sure that the catheter is not placed under water. General instructions ??? Do not take baths, swim, or use a hot tub until your health care provider approves. Ask your health care provider if you may take showers. You may only be allowed to take sponge baths. ??? Do deep breathing exercises as told by your health care provider. These help to prevent lung infection (pneumonia). ??? Wear compression stockings as told by your health care provider. These stockings help to prevent blood clots and reduce swelling in your legs. ??? Keep all follow-up visits. This is important. Contact a health care provider if: ??? You have a fever or chills. ??? You have pain that is not controlled by your pain medicine. ??? You have redness, swelling, or more pain at an incision site. ??? You have a cough. ??? An incision is warm to the touch. ??? You have blood in your urine. ??? You have not had a bowel movement in 3 days. ??? You have diarrhea. Get help right away if: ??? You have trouble breathing or feel short of breath. ??? You have chest pain. ??? You have severe pain. ??? There is fluid or blood coming from an incision. ??? There is pus or a bad smell coming from an incision. ??? You cannot urinate. ??? You have warmth, redness, and tenderness in your leg. These symptoms may represent a serious problem that is an emergency. Do not wait to see if the symptoms will go away. Get medical help right away. Call your local emergency services (911 in the [place] Do not drive yourself to the hospital. Summary ??? Follow instructions from your health care provider about how to take care of your incisions. Check your incision area every day for signs of infection. ??? Take zuuy-rfr-gvhxngf and prescription medicines only as told by your health care provider. ??? Return to your normal activities as told by your health care provider. Ask your health care provider what activities are safe for you. ??? Keep all follow-up visits. This is important. This information is not intended to replace advice given to you by your health care provider. Make sure you discuss any questions you have with your health care provider. Document Revised: 08/14/2020 Document Reviewed: 08/14/2020 [employer] Patient Education ?? 2021 [employer]. 09/20/2022 11:22:02 Renal Mass Renal Mass A renal mass is an abnormal growth in the kidney. It may be found while performing an MRI, CT scan,or ultrasound to evaluate other problems of the abdomen. A renal mass that is cancerous (malignant)may grow or spread quickly. Others are not cancerous (benign). Renal masses include: ??? Tumors. These may be malignant or benign. ??? The most common type of kidney cancer in adults is renal cell carcinoma. In children, the most common type of kidney cancer is Wilms tumor. ??? The most common benign tumors of the kidney include renal adenomas, oncocytomas, and angiomyolipoma (AML). ??? Cysts. These are fluid-filled sacs that form on or in the kidney. What are the causes? Certain types of cancers, infections, or injuries can cause a renal mass. It is not always known what causes a cyst to develop in or on the kidney. What are the signs or symptoms? Often, a renal mass does not cause any signs or symptoms; most kidney cysts do not cause symptoms. How is this diagnosed? Your health care provider may recommend tests to diagnose the cause of your renal mass. These testsmay be done if a renal mass is found: ??? Physical exam. ??? Blood tests. ??? Urine tests. ??? Imaging tests, such as ultrasound, CT scan, or MRI. ??? Biopsy. This is a small sample that is removed from the renal mass and tested in a lab. The exact tests and how often they are done will depend on: ??? The size and appearance of the renal mass. ??? Risk factors or medical conditions that increase your risk for problems. ??? Any symptoms associated with the renal mass, or concerns that you have about it. Tests and physical exams may be done once, or they may be done regularly for a period of time. Tests and exams that are done regularly will help monitor whether the mass is growing and beginning to cause problems. How is this treated? Treatment is not always needed for this condition. Your health care provider may recommend careful monitoring and regular tests and exams. Treatment will depend on the cause of the mass. Treatment for a cancerous renal mass may include surgical removal, chemotherapy, radiation, or immunotherapy. Most kidney cysts do not need to be treated. Follow these instructions at home: What you need to do at home will depend on the cause of the mass. Follow the instructions that yourhealth care provider gives to you. In general: ??? Take ixfb-etp-lvtldal and prescription medicines only as told by your health care provider. ??? If you were prescribed an antibiotic medicine, take it as told by your health care provider. Donot stop taking the antibiotic even if you start to feel better. ??? Follow any restrictions that are given to you by your health care provider. ??? Keep all follow-up visits. This is important. ??? You may need to see your health care provider once or twice a year to have CT scans and ultrasounds. These tests will show if your renal mass has changed or grown. Contact a health care provider if you: ??? Have pain in your side or back (flank pain). ??? Have a fever. ??? Feel full soon after eating. ??? Have pain or swelling in the abdomen. ??? Lose weight. Get help right away if: ??? Your pain gets worse. ??? There is blood in your urine. ??? You cannot urinate. ??? You have chest pain. ??? You have trouble breathing. These symptoms may represent a serious problem that is an emergency. Do not wait to see if the symptoms will go away. Get medical help right away. Call your local emergency services (911 in the [place] Summary ??? A renal mass is an abnormal growth in the kidney. It may be cancerous (malignant) and grow or spread quickly, or it may not be cancerous (benign). Renal masses often do not have any signs or symptoms. ??? Renal masses may be found while performing an MRI, CT scan, or ultrasound for other problems ofthe abdomen. ??? Your health care provider may recommend that you have tests to diagnose the cause of your renalmass. These may include a physical exam, blood tests, urine tests, imaging, or a biopsy. ??? Treatment is not always needed for this condition. Careful monitoring may be recommended. This information is not intended to replace advice given to you by your health care provider. Make sure you discuss any questions you have with your health care provider. Document Revised: 10/16/2020 Document Reviewed: 10/16/2020 [employer] Patient Education ?? 2021 [employer] Follow Up Care 09/10/2022 12:52:26 With:Tariq Carvajal Address: [address] [place] [id number] Business (1) When:10/03/2022 11:45:00 Progress note * Tariq Luu: PERFORM Event Display: Progress Notes Authored Date: [id number] Hospital Course Patient is a??71-year-old??female??with 2 cm right renal mass??who??underwent??robotic??right??partial??nephrectomy??with Dr. Mckeon??on 09/18. Subjective Patient lying in bed upon??arrival,??eating clear liquid breakfast.?? No acute??events overnight.??Patient states she has??had abdominal??pain throughout the night??that is tolerated??oral pain??medications.?? She is tolerating clear liquid diet.?? She states??she has not been up out??of bed as??of yet.?? Catheter was removed??this morning.?? Patient states she has not urinated. ?? Creatinine??stable at??0.79 (previously 0.76).?? Patient is noted to be on nasal cannula??2 L.??Patient denies??shortness of breath.?? All other vital??signs are stable. Objective Vitals & Measurements ??Vital Signs (last 24 hrs)?Last Charted?Minimum?Maximum?Temp?98.3 (SEPTEMBER 19 07:11)?97 (SEPTEMBER 18 21:33)?98.5 (SEPTEMBER 18 22:44)?Heart Rate?78 (SEPTEMBER 19 08:29)?62 (SEPTEMBER 18 17:10)?80 (SEPTEMBER 18 14:20)?Resp Rate?16 (SEPTEMBER 19 07:28)?12 (SEPTEMBER 18 15:40)?20 (SEPTEMBER 18 18:00)?SBP?132 (SEPTEMBER 19 07:11)?122 (SEPTEMBER 18 16:00)?177 (SEPTEMBER 18 10:54)?DBP?66 (SEPTEMBER 19 07:11)?56 (SEPTEMBER 18 16:40)?97 (SEPTEMBER 18 10:54)?SpO2?92 (SEPTEMBER 19 07:11)?91 (SEPTEMBER 18 19:29)?100 (SEPTEMBER 18 14:10)?O2?Other: (SEPTEMBER 19:17)?Simple (SEPTEMBER 18 14:10)?Simple (SEPTEMBER 18 14:10)?O2 Flow?1 (SEPTEMBER 19 07:11)?1 (SEPTEMBER 19 07:11)?10 (SEPTEMBER 18 14:10)?Weight?55.4 (SEPTEMBER 18 20:04)?55.4 (SEPTEMBER 18 20:04)?55.4 (SEPTEMBER 18 20:04)?? Physical Exam General: alert and oriented in no acute distress. Resp: nonlabored respirations, on nasal cannula CV: normal peripheral perfusion MSK: ambulatory Skin: ??Surgical incision sites??present.?No drainage or??redness??noted.?? BERENICE??drain??present in right??upper quadrant??with serosanguineous??drainage noted??in the bulb. Assessment/Plan 1.??COPD, severity to be determined(Chronic obstructive pulmonary disease, unspecified: J44.9) Ordered: [facility] 57461 ?? 2.??Essential hypertension(Essential (primary) hypertension: I10) Ordered: [facility] 21825 ?? 3.??Uncontrolled type 2 diabetes mellitus with hyperglycemia, without long-term current use of insulin(Type 2 diabetes mellitus with hyperglycemia: E11.65) Ordered: [facility] 98448 ?? 4.??Right renal mass(Other specified disorders of kidney and ureter: N28.89) Ordered: [facility] 08600 ?? 5.??Hypercholesteremia(Familial hypercholesterolemia: E78.01) Ordered: [facility] 34732 ?? 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 7.??Hx of TIA (transient ischemic attack) and stroke(Personal history of transient ischemic attack (TIA), and cerebral infarction without residual deficits: Z86.73) Ordered: [facility] 38404 ?? Orders: Nursing Communication Order, Okay to remove BERENICE drain Regular diet Other Patient is doing well??postoperatively.?? She is having??some abdominal pain,??expected postoperatively.?? Continue oral??pain??medications as needed.?? We can also??order the patient abdominal binder??to help??with abdominal pain.?? Her catheter??has been removed??and she has not voided??yet.?? Will continue to monitor I's??and O's closely.?? Patient??has tolerated a clear liquid diet.?Patient can advance to a regular diet. ??Okay to remove BERENICE??drain.?? Recommend patient up out??of bed??at least??3 times daily.?? We will plan??to repeat??BMP in the morning.?As long as??patient's clinical status??remains??stable,??we??can consider??discharge home tomorrow.? Medications Medications (19) Active Scheduled: (17) atorvastatin 20 mg TAB ??20 mg 1 tab, By mouth, QPM (every evening) ClonazePAM *HAZ* 0.5 mg TAB ??0.5 mg 1 tab, By mouth, QPM (every evening) cloNIDine 0.1 mg IR TAB ??0.1 mg 1 tab, By mouth, BID dilTIAZem ??CD 180 mg CAP ??180 mg 1 cap, By mouth, BID DULoxetine 60 mg CAP ??60 mg 1 cap, By mouth, Daily HEParin 5,000 units/1 mL INJ ??5,000 Units 1 mL, SubQ, Q12H hydrALAZINE 50 mg TAB ??100 mg 2 tab, By mouth, TID hydrochlorothiazide 25 mg TAB ??12.5 mg 0.5 tab, By mouth, Daily Insulin Lispro (HumaLOG) 100 units/mL 3 ml Pen ??Medium dose scale, SUBQ, With Meals & Bedtime lisinopril 20 mg TAB ??20 mg 1 tab, By mouth, BID mometasone-formoterol 100 mcg-5 mcg/inh INHALER ??1 puff, Inhalation, RespBID pantoprazole 40 mg TAB ??40 mg 1 tab, By mouth, Daily QUEtiapine 25 mg IR TAB ??25 mg 1 tab, By mouth, QPM (every evening) SARS-CoV-2 (COVID-19) mRNA (tozinameran 12y+) bivalent booster vaccine ??30 mcg 0.3 mL, IM, Unscheduled sodium chloride 0.9% INJ SYR 5 mL ??5 mL, IVP, Q12H tiotropium 18 mcg/CAP INH ??18 mcg 1 cap, Inhalation, RespQAM traZODone 150 mg TAB ??150 mg 1 tab, By mouth, at bedtime Continuous: (2) IVF sodium chloride 0.45% INJ 1000 mL 1,000 mL ??1,000 mL, IV, 125 ml/hr IVF sodium chloride 0.9% IVPB 1000 mL 1,000 mL ??1,000 mL, IV, 75 ml/hr Lab Results Labs??(Last two charted values on this encounter) WBC 7.2 ??(SEPTEMBER 18) ?? Hgb 11.1 ??(SEPTEMBER 19) 12.0 ??(SEPTEMBER 18) Hct 38.0 ??(SEPTEMBER 19) 39.8 ??(SEPTEMBER 18) Platelets 179 ??(SEPTEMBER 18) ?? Na 138 ??(SEPTEMBER 19) 140 ??(SEPTEMBER 18) K 4.1 ??(SEPTEMBER 19) 4.3 ??(SEPTEMBER 18) Cl 106 ??(SEPTEMBER 19) 105 ??(SEPTEMBER 18) CO2 28 ??(SEPTEMBER 19) 29 ??(SEPTEMBER 18) BUN 11 ??(SEPTEMBER 19) 11 ??(SEPTEMBER 18) Cr 0.79 ??(SEPTEMBER 19) 0.76 ??(SEPTEMBER 18) Ca ?8.0 ??(SEPTEMBER 19) ?9.0 ??(SEPTEMBER 18) ProteinT ?7.2 ??(SEPTEMBER 18) ?? Albumin ?3.8 ??(SEPTEMBER 18) ?? Bilirubin ,Total ??0.5 ??(SEPTEMBER 18) ?? Alk Phos ?81 ??(SEPTEMBER 18) ?? ALT ?<7 ??(SEPTEMBER 18) ?? AST ?15 ??(SEPTEMBER 18) ?? Bedside Glucose 162 ??(SEPTEMBER 19) 131 ??(SEPTEMBER 18) Glucose,Plasma 121 ??(SEPTEMBER 19) 164 ??(SEPTEMBER 18) Electronically signed by:Tariq Luu 09/19/22 10:23 Electronically cosigned by: Russ Mckeon MD 09/19/22 16:10 Surgical operation note * Russ Mckeon MD: MODIFY, PERFORM Event Display: Operative Report Authored Date: [id number] Indication for Surgery Patient is a??71-year-old??female with??a??2 cm??right??renal mass who presents today??for??robotic??right partial nephrectomy.? Pain Information Nurse Intake Pain Information?? Preoperative Diagnosis Right??renal mass Postoperative Diagnosis Same Operation Robotic??Right??partial??nephrectomy Intraoperative ultrasound to evaluate??the margins of the renal mass?? Surgeon(s) Russ Mckeon MD Anesthesia General Estimated Blood Loss 100 cc Findings After informed consent was obtained, the patient was brought to the operating room. Anesthesia was induced and an OG and urethral catheter were placed. The patient was placed in modified lateral decubitus with the??right side up. Pressure points were padded and the patient was secured to the bed. The patient was prepped and draped, preoperative antibiotics, and preoperative heparin were administered.? Access was obtained by placing a Veress needle in the??right upper quadrant and confirmed to be intraperitoneal via drop test. CO2 insufflation was then obtained to 15mmHg. An approximately 1cm incision was made 3 cm superior and lateral to the umbilicus. An 8mm robotic trocar was then placed and the 0-degree camera placed through the port. No Veress injury was seen and the Veress was removed on direct vision. Next, under vision 3 additional 8mm robot ports were placed. One superiorly and two inferiorly for the robotic working arms. Finally, a 12mm technical administrative assistant port was placed just inferior to the umbilicus at the midline. The Airseal was hooked up to the technical administrative assistant port and Airseal initiated.??A 5mm port just inferior to the xiphoid was placed for liver??retraction.? No Significant intraperitoneal adhesions were noted. Dissection was carried down along the white line of Toldt using blunt, sharp, and electrocautery. The colon was medialized. Next, the gonadal veinand ureter were identified traversing over the psoas muscle. This tissue was raised superiorly off of the psoas muscle and dissection carried cephalad to the renal hilum. The IVC was encountered and the duodenum was kocherized. The single renal vein??was encountered. Dissection along the renal hilum identified the large single artery and vein.? Once the renal artery??had been??adequately??mobilized so that??a bulldog??clamp could be applied??I then??turned??my attention to??taking??down??the Gerota's??near the renal mass.? The??Gerotas tissue and fat??along the kidney??was??mobilized until there??was??a good??margin??around the??renal mass.?? I then??introduced the??intraoperative ultrasound??and??evaluated??the mass??to confirm that??it was indeed??the concerning mass??on CT??as well??as??to map the margins and depth??of the renal mass. ? Once this??was adequately??performed??I then??had the technical administrative assistant??place a??bulldog??clamp??on the renal artery. ?I then??used??the monopolar??scissors??to excise??the renal mass.?? There was??no con cern??for??positive margin as it appeared??to be good??healthy renal parenchyma??on all edges.?? There was good??hemostasis??with some??venous??back bleeding.?? The renal mass??was then??placed in the right??upper quadrant to be removed later.?? I then??switched my instruments to??robotic needle drivers??and performed the renorrhaphy.?? First use??3 0 V lock??suture for a deep??parenchymal suture.?? There was??a hemo lock??placed??at the end??of the suture??to act as??a pledget.?? A??2nd heme lock was then placed??to??complete the pledget.?? I then??introduced??FloSeal into the renorrhaphy??bed as well??as??a rolled??surgicel.?? Next the renorrhaphy was completed with??3-0 interrupted??V lock sutures again with??hemo??lock?? to secure the suture??and perform a pledget.?? Additional FloSeal was placed??on top of the renorrhaphy.?? We then removed the??bulldog??clamp off??of the renal artery.? Warm ischemia time was 23 min. There??was good hemostasis??at the renorrhaphy??bed.?? Gerotas fascia was placed??back??over??the??kidney??and hemostasis??was again??noted??to be??adequate. ?? The??renal mass??was then??placed in an Endo-Catch bag and pulled??to the umbilical??technical administrative assistant port.?? A round??drain??was placed??through??1 of the robotic ports??and placed near the renorrhaphy??bed.?? Next??we undocked??the robot.? An approximately??2 cm incision was made in the midline combining the existing technical administrative assistant port into the incision. The incision was made just large enough to easily remove the specimen which was sent off for permanent section pathology.?? The midline incision was closed with??#0 looped stratafix??and 4-0 monocryl. The robot ports were closed with 4-0 monocryl. Dermabond was placed at all incisions. ??The drain was secured??with??2-0 nylon.?The patient was then unsecured and placed supine. The patient was then awakened from anesthesia and taken to PACU in good condition.? Specimen(s) Right??renal mass Fat over mass Complications None Technique Endoscopic Medication reconciliation completed on this patient today Electronically signed by:Russ Mckeon MD 09/18/22 14:04 Discharge summary * Tariq Luu: PERFORM Event Display: Discharge Summary Authored Date: [id number] Discharge Information Admit date:09/18/2022 Discharge date:09/20/2022 Primary Care Physician:Chayito Kaur MD Attending Physician:Russ Mckeon MD Consulting Physician:Jose L Plata MD Admitting Physician:Russ Mckeon MD Discharge Diagnosis COPD, severity to be determined Essential hypertension Uncontrolled type 2 diabetes mellitus with hyperglycemia, without long-term current use of insulin Right renal mass Hypercholesteremia Anticoagulated by anticoagulation treatment Hx of TIA (transient ischemic attack) and stroke Procedures During Visit Procedures: 09-18-22 11:40??Laparoscopic Partial Nephrectomy/Robot Assisted?? Right?? aTriq Luu Physician's Traffic Checker?? Russ Mckeon MD Surgeon - Primary?? Admission History Patient is a??71-year-old??female??with 2 cm right renal mass??who??underwent??robotic??right??partial??nephrectomy??with Dr. Mckeon??on 09/18. Hospital Course ??Patient lying in bed upon??arrival, eating??breakfast.?? Patient??did??have an increase??in oxygen??requirements overnight.?? Patient is back??to 2 L nasal??cannula.?? She states??that??she??was not experiencing??any shortness of breath.?? Patient is tolerating a regular diet.?? She continues??to urinate??without issue.?? Vital signs stable. ?? 24 hour urine??output 895 cc Vitals & Measurements ??Vital Signs (last 24 hrs)?Last Charted?Minimum?Maximum?Temp?98.4 (SEPTEMBER 20 07:09)?98.1 (SEPTEMBER 19 15:29)?99.4 (MAY 19 03:35)?Heart Rate?65 (SEPTEMBER 20 07:09)?51 (SEPTEMBER 19 15:29)?87 (SEPTEMBER 19 20:23)?Resp Rate?16 (SEPTEMBER 20 07:09)?16 (SEPTEMBER 19 15:29)?18 (SEPTEMBER 19 13:44)?SBP?115 (SEPTEMBER 20 07:09)?108 (SEPTEMBER 19 10:38)?128 (SEPTEMBER 19 19:35)?DBP?60 (SEPTEMBER 20:09)?60 (SEPTEMBER 19 10:38)?69 (SEPTEMBER 19 19:35)?SpO2?90 (SEPTEMBER 20:09)?C??88(SEPTEMBER 19:35)?97 (SEPTEMBER 19 10:38)?O2?Other: (SEPTEMBER 20 07:45)?Nasal (SEPTEMBER 19 10:38)?Nasal (SEPTEMBER 19 10:38)?O2 Flow?2 (SEPTEMBER 20 07:09)?2 (SEPTEMBER 19 13:44)?6 (SEPTEMBER 19 21:08)?? Physical Exam General: alert and oriented in no acute distress. Resp: nonlabored respirations CV: normal peripheral perfusion MSK: ambulatory Skin: Surgical incision sites present, dry??and intact.?? BERENICE drain is still in place??with serosanguineous drainage??noted. Patient Discharge Condition Stable.?? We will remove BERENICE drain today. ??Patient is requiring??2 L nasal??cannula.?? Will plan to??have the patient undergo??home oxygen evaluation??and??will plan to send??the patient home on oxygen therapy.?? Patient is otherwise??stable??from a urologic standpoint.?? Discussed with the patientto avoid heavy??lifting??for??6 weeks postoperatively.?? Patient to continue??oral pain??medications and stool softeners as needed.?? Patient??can restart Eliquis on Friday.?Patient is to follow-up??in the urology clinic in 2 weeks with??UA/BMP??with Tariq??Alena, BEHAVIORAL HEALTH CARE MANAGER. ? Discharge Orders Discharge Follow Up 09/20/22 8:44:00 CDT, Provider/Time: Return to clinic in 2 weeks with UA/BMP Discharge Diet 09/20/22 8:44:00 CDT, Discharge Diet: Regular Discharge Activity 09/20/22 8:44:00 CDT, No lifting/hard activity for 6 weeks Medications Home Medications (25) Active Advair HFA 45 mcg-21 mcg/inh inhalation aerosol??2 puff, Inhalation, BID Albuterol (Eqv-ProAir HFA) 90 mcg/inh inhalation aerosol?? albuterol 2.5 mg/3 mL (0.083%) inhalation solution??1 vial, PRN, NEB, Q6H atorvastatin 20 mg oral tablet??1 tab, By mouth, QPM (every evening) azelastine nasal 0.1% (137 mcg/inh) spray??2 spray, Intranasal, BID Chantix 1 mg oral tablet??1 mg = 1 tab, By mouth, BID clonazePAM 0.5 mg oral tablet??0.5 mg = 1 tab, By mouth, QPM (every evening) cloNIDine 0.1 mg oral tablet??See Instructions dilTIAZem 180 mg/24 hours oral tablet, extended release??180 mg = 1 tab, By mouth, BID docusate sodium 100 mg oral capsule??100 mg = 1 cap, PRN, By mouth, BID DULoxetine 60 mg oral delayed release capsule??1 cap, By mouth, Daily Eliquis 5 mg oral tablet??5 mg = 1 tab, By mouth, BID glipiZIDE 5 mg oral tablet, extended release??See Instructions hydrALAZINE 100 mg oral tablet??100 mg = 1 tab, By mouth, TID hydroCHLOROthiazide 12.5 mg oral tablet??12.5 mg = 1 tab, By mouth, Daily lisinopril 40 mg oral tablet??See Instructions metformin 500 mg oral tablet??1,000 mg = 2 tab, By mouth, QPM (every evening) mupirocin topical 2% ointment??See Instructions Creswell 5 mg-325 mg oral tablet??1 tab, PRN, By mouth, Q4H One Touch Ultra??See Instructions pantoprazole 40 mg oral delayed release tablet??1 tab, By mouth, Daily SEROquel 25 mg oral tablet??25 mg = 1 tab, By mouth, QPM (every evening) Spiriva HandiHaler 18 mcg inhalation capsule??1 cap, Inhalation, Daily traZODone 150 mg oral tablet??150 mg = 1 tab, By mouth, at bedtime Welchol 625 mg oral tablet??1 tab, By mouth, Daily Medication reconciliation completed on this patient today Pending Labs PENDING LABS No Laboratory Orders Pending ? Lab Results Labs??(Last two charted values on this encounter) WBC 7.2 ??(SEPTEMBER 18) ?? Hgb 11.1 ??(SEPTEMBER 19) 12.0 ??(SEPTEMBER 18) Hct 38.0 ??(SEPTEMBER 19) 39.8 ??(SEPTEMBER 18) Platelets 179 ??(SEPTEMBER 18) ?? Na 138 ??(SEPTEMBER 19) 140 ??(SEPTEMBER 18) K 4.1 ??(SEPTEMBER 19) 4.3 ??(SEPTEMBER 18) Cl 106 ??(SEPTEMBER 19) 105 ??(SEPTEMBER 18) CO2 28 ??(SEPTEMBER 19) 29 ??(SEPTEMBER 18) BUN 11 ??(SEPTEMBER 19) 11 ??(SEPTEMBER 18) Cr 0.79 ??(SEPTEMBER 19) 0.76 ??(SEPTEMBER 18) Ca ?8.0 ??(SEPTEMBER 19) ?9.0 ??(SEPTEMBER 18) ProteinT ?7.2 ??(SEPTEMBER 18) ?? Albumin ?3.8 ??(SEPTEMBER 18) ?? Bilirubin ,Total ??0.5 ??(SEPTEMBER 18) ?? Alk Phos ?81 ??(SEPTEMBER 18) ?? ALT ?<7 ??(SEPTEMBER 18) ?? AST ?15 ??(SEPTEMBER 18) ?? Bedside Glucose 208 ??(SEPTEMBER 20) 195 ??(SEPTEMBER 19) Glucose,Plasma 121 ??(SEPTEMBER 19) 164 ??(SEPTEMBER 18) Diagnostic Results No clinical data available for specified time frame. Other No qualifying data available. Airway Management No Data Available Electronically signed by:Tariq Luu 09/20/22 09:53 Electronically cosigned by: Mike HOOD, [facility] * Jeremie Aviles MD: TRANSCRIBE, PERFORM, VERIFY Event Display: Diagnosis Authored Date: Fat over right renal mass, excision: - Negative for malignancy. Right renal mass, partial nephrectomy: - Benign simple cyst. SBJ Verified by: Jeremie Aviles M.D. Pathologist (Electronic Signature) 09/20/22 13:35 * Jeremie Aviles MD: VERIFY Jeremie Aviles MD: VERIFY Stacey Kerr: PERFORM Event Display: Gross Description Authored Date: Received are two formalin-filled containers with patient label stating Keri Fang. Specimen A has additional label fat over mass and consists of a disrupted portion of yellow-lizama fatty tissue 1.7 x 1.0 x 0.3 cm. This specimen is sectioned and submitted entirely in cassette A1. Specimen B has additional label right renal mass and consists of a 2.7 x 2.4 x 1.6 cm wedge of kidney. The resection margin is inked blue, with the fat overlying the external surface is inked orange. Sectioning reveals a 2.5 x 2.0 x 1.5 cm cystic structure filled with brown-tinged fluid. Protruding from the smooth cyst wall is a 0.8 x 0.7 x 0.5 cm lizama-brown friable lesion. The cyst wall and lesion is within 0.2 cm of the blue-inked resection margin. The lesion is 0.3 cm from the orange-inked perirenal fat margin. The specimen is submitted entirely in cassettes B1-B6. BERENICE/elis * Jeremie Aviles MD: VERIFY Jeremie Aviles MD: Stacey Santacruz: PERFORM Event Display: Clinical Information Authored Date: Renal mass * Jeremie Aviles MD: VERIFY Jeremie Aviles MD: Stacey Santacruz: PERFORM Event Display: Source of Tissue Authored Date: [id number] A) Fat over mass B) Right renal mass Patient Care team information Care Team Personnel Name: Chayito Kaur MD Position: PX Physician - Family Practice Member Role: Primary Care Physician Address: Address: [address] [place], [place] [address] [address] Name: Tracy Russell CNA Position: Patient 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
--- NOTE | 2023-01-13 07:46 | PM.PN ---
Subjective Subjective: Patient was interviewed today. History and physical reviewed. She denies any complaints currently. No chest discomfort. She does report she had some chest discomfort that felt like bricks, and noted that her heart rate was high. 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 Does have a cough productive of sputum. Medications: Reviewed: Yes Vitals/I&O/Wt Last Vital Signs Temp 98.1 F 01/13/23 04:00 Pulse 88 01/13/23 05:49 Resp 25 H 01/13/23 04:00 BP 132/94 01/13/23 04:00 Pulse Ox 94 01/13/23 04:00 O2 Del Method Nasal Cannula 01/13/23 04:00 O2 Flow Rate 3 01/13/23 03:12 01/12/23 01/13/23 01/13/23 22:59 06:59 14:59 Intake Total 3.117 / 3.117 499.875 / 502.992 Output Total 800 / 800 Balance 3.117 / 3.117 -300.125 / -297.008 Weight last 48 hrs Weight 56.699 kg Physical Exam Narrative: General exam no distress Neck is supple Cardiovascular irregular, irregular with controlled rate on IV Cardizem. No murmur Lungs diminished breath sounds bilaterally but no wheezes or crackles Abdomen is soft, nontender Extremities no cyanosis clubbing or edema Data 01/12/23 19:45 01/12/23 19:45 Other Labs: Echocardiogram has been ordered, but pending Chest x-ray reviewed, my read is small amount of fluid right fissure, atherosclerosis, cardiomegaly. Question small left pleural effusion A&P Assessment and plan (1) Atrial fibrillation with RVR: Patient presents with atrial fibrillation with rapid ventricular rate Echocardiogram is ordered and pending Currently on a Cardizem drip Continue her metoprolol 50 mg twice daily Add diltiazem 30 mg every 6 hours, wean Cardizem drip off Continue Eliquis CBC, CMP, magnesium in the morning Check BMP today secondary to significant amount of Lasix yesterday (2) COPD exacerbation: Patient presents with COPD exacerbation. She was given IV steroids, is Rocephin, Zithromax. Add budesonide twice daily Continue DuoNeb every 6 hours Discontinue Solu-Medrol Add prednisone 40 mg daily Wean oxygen as tolerated If patient continues to improve consider changing to Levaquin or doxycycline as discharge becomes apparent. (3) Pulmonary vascular congestion: Patient presented with pulmonary vascular congestion She has no evidence clinically currently of fluid overload. I suspect her fluid overload was secondary to atrial fibrillation with rapid ventricular rate Hold any further Lasix today Wean oxygen as tolerated (4) Acute and chronic respiratory failure with hypoxia: Causation as above Wean oxygen as tolerated Plan Hypertension. Monitor blood pressure closely while addition of diltiazem. May need to reduce hydralazine. Multiple other medical problems as outlined in past medical history Eliquis will suffice for DVT prophylaxis Change Pepcid to p.o. Attestations Medical Necessity Statement*: Needs continued hospitalization for treatment of COPD exacerbation, weaning oxygen, adjustment of medications for oral treatment of A-fib Diagnoses Atrial fibrillation with RVR I48.91 COPD exacerbation J44.1 Pulmonary vascular congestion R09.89 Acute and chronic respiratory failure with hypoxia J96.21 Time Spent (min) 25
[2023-01-13] MEDS: hyDRALAzine 50 mg Tablet PO ×3 (08:13→20:38)
[2023-01-13] MEDS: lisinopril 20 mg Tablet PO ×2 (08:13→17:37)
[2023-01-13] MEDS: apixaban 5 mg Tablet PO ×2 (08:13→17:37)
[2023-01-13] MEDS: dilTIAZem 30 mg Tablet PO ×3 (08:13→20:38)
[2023-01-13] MEDS: duloxetine 60 mg Capsule PO (08:13)
[2023-01-13] MEDS: aspirin 81 mg EC Tablet PO (08:13)
[2023-01-13] MEDS: metoprolol tartrate 50 mg Tablet PO ×2 (08:13→17:36)
[2023-01-13] MEDS: predniSONE 20 mg Tablet 40 MG PO (08:13)
[2023-01-13] MEDS: ipratropium-albuterol 3 mL Neb INHALATION ×4 (09:02→19:48)
[2023-01-13] MEDS: budesonide 0.5 mg/2 mL Neb INHALATION ×2 (09:02→19:48)
[2023-01-13 10:11] LABS: Anion Gap 11.3 (5-19); Blood Urea Nitrogen 15 mg/dL (8-23); Calcium 8.5 mg/dL (8.5-10.5); Carbon Dioxide 37 mmol/L (22-29); Chloride 93 mmol/L (98-107); Creatinine Clr Calc Pharmacy 52.7102; Glucose 255 mg/dL (65-115); Osmolality Calculated 294 mOsm/kg (285-295); Potassium 4.3 mmol/L (3.5-5.1); Sodium 137 mmol/L (136-145)
[2023-01-13] MEDS: famotidine 20 mg Tablet PO ×2 (11:21→17:37)
[2023-01-13 11:27] LABS: Glucose Point of Care 311 mg/dL (70-110)
[2023-01-13] MEDS: insulin lispro 100 unit/1 mL SUBCUT ×2 (13:00→17:37)
[2023-01-13 16:28] LABS: Glucose Point of Care 224 mg/dL (70-110)
[2023-01-13] MEDS: atorvastatin 40 mg Tablet 20 MG PO (17:37)
[2023-01-13] MEDS: CLONazepam 0.5 mg Tablet PO (17:37)
[2023-01-13] MEDS: trazodone 50 mg Tablet PO (20:38)
[2023-01-13 21:45] LABS: Glucose Point of Care 112 mg/dL (70-110)
[2023-01-14] VITALS (62 sets, daily range): BP systolic 127–155; BP diastolic 77–91; PULSE 76–109; RESP 16–23; TEMP 36.4–36.6; O2SAT 68–96
[2023-01-14] MEDS: dilTIAZem 30 mg Tablet PO (01:20)
[2023-01-14] MEDS: azithromycin 500 MG in sodium chloride 0.9% 250 ML 250 MG IV (01:21)
[2023-01-14] MEDS: cefTRIAXone 1,000 MG in sodium chloride 0.9% (plus) 50 ML 100 MG IV (02:42)
[2023-01-14 03:48] LABS: Basophils % 0.1 %; Hematocrit 33.7 % (36-47); Lymphocytes % 6.5 %; Mean Corpuscular Hemoglobin 27.2 pg (27-33); Mean Corpuscular Volume 90.6 fl (85-98); Mean Platelet Volume 10.3 fL (7.4-10.4); Monocytes # 1.1 10^3/uL (0.2-0.9); Monocytes % 7.8 %; Neutrophils # 12.45 10^3/uL (1.8-7.7); Neutrophils % 84.9 %; Nucleated Red Blood Cells % 0 %; Platelet Count 361 10^3/cmm (157-399); Red Blood Count 3.72 10^6/uL (3.85-5.65); Red Cell Distribution Width 15.3 % (12.1-15.1); White Blood Count 14.66 10^3/uL (3.29-11.43)
[2023-01-14 04:13] LABS: Alanine Aminotransferase 16 U/L (0-33); Albumin Level 3.8 g/dL (3.5-5.2); Alkaline Phosphatase 100 U/L (35-105); Aspartate Amino Transferase 9 U/L (0-32); Blood Urea Nitrogen 18 mg/dL (8-23); Calcium 9.1 mg/dL (8.5-10.5); Carbon Dioxide 33 mmol/L (22-29); Chloride 95 mmol/L (98-107); Creatinine Clr Calc Pharmacy 52.7102; Globulin 2.4 g/dL (1.3-4.6); Glucose 215 mg/dL (65-115); Magnesium 1.8 mg/dL (1.7-2.3); Osmolality Calculated 290 mOsm/kg (285-295); Sodium 136 mmol/L (136-145); Total Bilirubin 0.4 mg/dL (0.15-1.2); Total Protein 6.2 g/dL (6.6-8.7)
[2023-01-14 06:33] LABS: Glucose Point of Care 251 mg/dL (70-110)
[2023-01-14] MEDS: ipratropium-albuterol 3 mL Neb INHALATION ×4 (07:46→19:32)
[2023-01-14] MEDS: budesonide 0.5 mg/2 mL Neb INHALATION ×2 (07:46→19:32)
--- NOTE | 2023-01-14 08:48 | PM.PN ---
Subjective Subjective: Keri reports no problems overnight. She is still short of breath. She has some wheezing. No chest discomfort. Medications: Reviewed: Yes Vitals/I&O/Wt Last Vital Signs Temp 97.6 F 01/14/23 07:23 Pulse 84 01/14/23 07:55 Resp 16 01/14/23 07:48 BP 152/77 01/14/23 07:23 Pulse Ox 95 01/14/23 07:48 O2 Del Method Nasal Cannula 01/14/23 07:48 O2 Flow Rate 4 01/14/23 07:48 01/13/23 01/14/23 01/14/23 22:59 06:59 14:59 Intake Total 500 / 897.008 300 / 1197.008 Output Total 0 / 1050 0 / 1050 Balance 500 / -152.992 300 / 147.008 Weight last 48 hrs Weight 56.699 kg Physical Exam Narrative: General exam no distress. Telemetry indicates better control of heart rate with most of her heart rates less than 100 Neck is supple Cardiovascular irregular, irregular without murmur Lungs bilateral expiratory wheezes Abdomen is soft, nontender Extremities no cyanosis clubbing or edema Data 01/14/23 03:02 01/14/23 03:02 A&P Assessment and plan (1) Atrial fibrillation with RVR: Patient presents with atrial fibrillation with rapid ventricular rate Echocardiogram is ordered and pending Weaned off Cardizem drip yesterday to oral Cardizem, short acting. Changed to extended release Cardizem today on 180 mg Continue her metoprolol 50 mg twice daily Continue Eliquis CBC, CMP, magnesium in the morning Initiate Lasix 40 mg once daily. (2) COPD exacerbation: Patient presents with COPD exacerbation. She was given IV steroids, is Rocephin, Zithromax. Continue budesonide twice daily Continue DuoNeb every 6 hours Continue prednisone 40 mg a day Wean oxygen as tolerated If patient continues to improve consider changing to Levaquin or doxycycline as discharge becomes apparent. (3) Pulmonary vascular congestion: Patient presented with pulmonary vascular congestion Add Lasix 40 mg daily Still requiring 4 L of oxygen. Taper as tolerated (4) Acute and chronic respiratory failure with hypoxia: Causation as above Wean oxygen as tolerated Plan Hypertension. Stable Multiple other medical problems as outlined in past medical history Eliquis will suffice for DVT prophylaxis [facility] Necessity Statement*: Needs continued hospitalization for treatment of COPD exacerbation, adjustment of medications for A-fib. Possible discharge tomorrow. Diagnoses Atrial fibrillation with RVR I48.91 COPD exacerbation J44.1 Pulmonary vascular congestion R09.89 Acute and chronic respiratory failure with hypoxia J96.21 Time Spent (min) 21
[2023-01-14] MEDS: dilTIAZem ER (24HR) 180 mg Capsule PO (10:06)
[2023-01-14] MEDS: FUROsemide 40 mg Tablet PO (10:06)
[2023-01-14] MEDS: apixaban 5 mg Tablet PO ×2 (10:06→17:25)
[2023-01-14] MEDS: famotidine 20 mg Tablet PO ×2 (10:06→17:25)
[2023-01-14] MEDS: aspirin 81 mg EC Tablet PO (10:06)
[2023-01-14] MEDS: duloxetine 60 mg Capsule PO (10:06)
[2023-01-14] MEDS: lisinopril 20 mg Tablet PO ×2 (10:07→17:25)
[2023-01-14] MEDS: predniSONE 20 mg Tablet 40 MG PO (10:07)
[2023-01-14] MEDS: hyDRALAzine 50 mg Tablet PO ×3 (10:07→20:32)
[2023-01-14] MEDS: insulin lispro 100 unit/1 mL SUBCUT ×3 (10:07→21:06)
[2023-01-14] MEDS: metoprolol tartrate 50 mg Tablet PO (10:07)
[2023-01-14 11:43] LABS: Glucose Point of Care 225 mg/dL (70-110)
--- NOTE | 2023-01-14 15:43 | USCV_ITS ---
Keri Fang Age: 72 Gender: F : 1950 Exam Date: 01/14/2023 00:49 Ordering Phys: Jose Duffy MD Technologist: JANA [place] [facility] [place]: COPD, SOB, DM, long-term smoker, continues smoking, atrial fibrillation. No history of cardiac intervention per patient. BP: 137 / 74 HR: 91 Rhythm: Atrial fibrillation Technical Quality: Adequate MEASUREMENTS (Male / Female) Normal Values 2D ECHO LV Diastolic Diameter PLAX 4.5 cm 4.2 - 5.9 / 3.9 - 5.3 cm LV Systolic Diameter PLAX 2.9 cm IVS Diastolic Thickness 1.4 cm 0.6 - 1.0 / 0.6 - 0.9 cm IVS Systolic Thickness 2.0 cm LVPW Diastolic Thickness 1.1 cm 0.6 - 1.0 / 0.6 - 0.9 cm LVPW Systolic Thickness 1.6 cm LVOT Diameter 1.7 cm LV Ejection Fraction 2D Teich 65.5 % LV Ejection Fraction MOD 2C 66.8 % LV Ejection Fraction 2C AL 67.0 % LA Diameter 4.8 cm LA Width 5.3 cm LA Height 7.1 cm RA Width 3.9 cm RA Height 5.8 cm Aorta at Sinotubular Diameter 2.9 cm IVC Diameter 2.5 cm DOPPLER AV Peak Velocity 142.0 cm/s LVOT Peak Velocity 83.0 cm/s AV Area Cont Eq vti 1.3 cm squared AV Area Cont Eq pk 1.4 cm squared MV Peak Velocity 127.0 cm/s MV Area PHT 4.3 cm squared MV E' Velocity 56.5 cm/s Mitral E to MV E' Ratio 10.8 Mitral E to LV E' Lateral Ratio 10.4 Mitral E to LV E' Septal Ratio 11.3 TR Peak Velocity 279.5 cm/s TR Peak Gradient 31.2 mmHg TV Peak E Velocity 84.0 cm/s Right Atrial Pressure 10.0 mmHg Pulmonary Artery Systolic Pressu 41.2 mmHg PV Peak Velocity 94.0 cm/s RV Acceleration Time 0.1 s RV Ejection Time 0.3 s RV AcT/ET 0.3 FINDINGS Left Ventricle Left ventricle is normal in size. LV systolic function is normal with EF of 60 to 65%. No regional wall motion abnormalities are seen. Right Ventricle Normal in size and function Right Atrium Normal in size Left Atrium Severely dilated Mitral Valve Mild mitral annular calcification is seen. Mild to moderate mitral regurgitation. Aortic Valve Structurally normal aortic valve. No significant stenosis. Mild aortic regurgitation. Tricuspid Valve Mild tricuspid regurgitation. RVSP is 40-45mmHg. This is consistent with mild pulmonary hypertension. Pulmonic Valve Not well visualized Pericardium Medium sized pericardial effusion. Pleural effusion is seen Aorta Normal in size IVC Dilated CONCLUSIONS LV systolic function is normal with EF of 60 to 65%. Left atrial dilation Mild to moderate mitral regurgitation Mild aortic regurgitation. Mild tricuspid regurgitation. Mild pulmonary hypertension Medium sized pericardial effusion. Pleural effusion is seen IVC is dilated Compared to prior echocardiogram from 2021, patient now has mild pulmonary hypertension and medium sized pericardial effusion is seen. Yuval Landis MD (Electronically Signed) Final Date: 14 January 2023 09:23 S
[2023-01-14 17:20] LABS: Glucose Point of Care 121 mg/dL (70-110)
[2023-01-14] MEDS: CLONazepam 0.5 mg Tablet PO (17:25)
[2023-01-14] MEDS: metoprolol tartrate 50 mg Tablet 75 MG PO (17:25)
[2023-01-14] MEDS: atorvastatin 40 mg Tablet 20 MG PO (17:26)
[2023-01-14] MEDS: trazodone 50 mg Tablet PO (20:32)
[2023-01-14 20:37] LABS: Glucose Point of Care 366 mg/dL (70-110)
--- NOTE | 2023-01-14 20:37 | PC.NURSE ---
Patient standing in hallway requesting medication at 1999. When arriving back to room after getting medications, patient was not in room or bathroom. Patient gown was laying on bed and most of patient belonging were missing. Initiated elopement protocol. Patient found outside, stated she was waiting on her daughter . Patient returned back to CSU via wheelchair. Moved to room closer to nurses station. Patient alert to self and situation. Patient educated on risks associated with elopement, verbalized understanding. Patient placed on continuos cardiac and pulseox monitoring. O2 sats in 70s. Oxygen applied via nasal cannula at 3L. sats increased to above 90. Patient bed alarm set and elopement bracelet applied.
[2023-01-15] VITALS (135 sets, daily range): BP systolic 105–165; BP diastolic 54–108; PULSE 66–108; RESP 14–35; TEMP 36.3–36.6; O2SAT 83–99
[2023-01-15] MEDS: azithromycin 500 MG in sodium chloride 0.9% 250 ML 250 MG IV (01:26)
[2023-01-15] MEDS: cefTRIAXone 1,000 MG in sodium chloride 0.9% (plus) 50 ML 100 MG IV (02:36)
[2023-01-15 04:22] LABS: Basophils % 0.1 %; Hematocrit 33.8 % (36-47); Lymphocytes # 0.7 10^3/uL (0.8-4.8); Lymphocytes % 4.6 %; Mean Corpuscular HGB Conc 30.8 g/dL (30-55); Mean Corpuscular Hemoglobin 27.2 pg (27-33); Mean Corpuscular Volume 88.5 fl (85-98); Mean Platelet Volume 9.8 fL (7.4-10.4); Monocytes # 1.1 10^3/uL (0.2-0.9); Neutrophils # 13.24 10^3/uL (1.8-7.7); Neutrophils % 87.9 %; Nucleated Red Blood Cells % 0 %; Platelet Count 375 10^3/cmm (157-399); Red Blood Count 3.82 10^6/uL (3.85-5.65); Red Cell Distribution Width 15.2 % (12.1-15.1); White Blood Count 15.06 10^3/uL (3.29-11.43)
[2023-01-15 04:43] LABS: Anion Gap 12.7 (5-19); Blood Urea Nitrogen 31 mg/dL (8-23); Calcium 9.4 mg/dL (8.5-10.5); Carbon Dioxide 35 mmol/L (22-29); Chloride 94 mmol/L (98-107); Glucose 217 mg/dL (65-115); Osmolality Calculated 297 mOsm/kg (285-295); Potassium 4.7 mmol/L (3.5-5.1); Sodium 137 mmol/L (136-145)
[2023-01-15 06:08] LABS: Glucose Point of Care 221 mg/dL (70-110)
[2023-01-15] MEDS: budesonide 0.5 mg/2 mL Neb INHALATION (07:40)
[2023-01-15] MEDS: ipratropium-albuterol 3 mL Neb INHALATION ×3 (07:41→16:11)
[2023-01-15] MEDS: insulin lispro 100 unit/1 mL SUBCUT ×3 (07:56→21:45)
[2023-01-15] MEDS: duloxetine 60 mg Capsule PO (07:57)
[2023-01-15] MEDS: aspirin 81 mg EC Tablet PO (07:57)
[2023-01-15] MEDS: apixaban 5 mg Tablet PO ×2 (07:57→17:56)
[2023-01-15] MEDS: famotidine 20 mg Tablet PO ×2 (07:57→17:56)
[2023-01-15] MEDS: FUROsemide 40 mg Tablet PO (07:57)
[2023-01-15] MEDS: dilTIAZem ER (24HR) 180 mg Capsule PO (08:04)
[2023-01-15] MEDS: lisinopril 20 mg Tablet PO (08:04)
[2023-01-15] MEDS: hyDRALAzine 50 mg Tablet PO ×3 (08:04→20:45)
[2023-01-15] MEDS: metoprolol tartrate 50 mg Tablet 75 MG PO ×2 (08:04→17:56)
--- NOTE | 2023-01-15 08:20 | CT_ITS ---
WS: [id number] CT chest wo con [id number] HISTORY: dyspnea TECHNIQUE: Axial imaging performed through the thorax. Coronal and sagittal reformats are submitted. All CT scans at [facility] use at least one of these dose optimization techniques: automated exposure control; mA and/or kV adjustment per patient size (includes targeted exams where dose is mat ched to clinical indication); or iterative reconstruction. CONTRAST: None DLP: 233.60 mGy.cm COMPARISON: 06/21/2022 Lungs and central airway: Lungs are hyperexpanded. Chronic emphysema. There is breathing motion artif act. Areas of atelectasis and dependent changes at the lung bases. Increasing compressive atelectasis due to increasing bilateral pleural effusions. Pleura: Small bilateral pleural effusions have slightly increased in size since 06/21/2022. Heart and pericardium: Heart is moderately enlarged. There is a new circumferential pericardial effus ion. Mediastinum and bernadette: Small mediastinal and hilar lymph nodes. Lymph nodes have increased slightly in size and number and probably reactive. There is increased fluid in the pericardial recesses. Vessels: Mild atherosclerosis aorta. Enlarged pulmonary artery. Chest wall and lower neck: Soft tissue edema. There are several lymph nodes in the axilla, LEFT great er than RIGHT. Very similar to the prior study of 06/21/2022. Mild soft tissue anasarca. Upper abdomen: No adrenal mass. Osseous structures: Mild increase in thoracic kyphosis. Hemangioma at T6. IMPRESSION: 1. Moderate circumferential pericardial effusion is new since 06/21/2022. Slight increased attenuation within the pericardial fluid. Cannot exclude pericarditis or hemopericardium. 2. New small bilateral pleural effusions with compressive atelectasis at the lung bases. 3. Mild soft tissue anasarca. 4. Slight increase in the number of mediastinal, hilar and LEFT axillary lymph nodes. Very likely paige ctive. 5. Pulmonary hypertension.
--- NOTE | 2023-01-15 09:34 | P.PN_ITS ---
Subjective Subjective: Patient was noted to be confused overnight, however had returned to baseline in the morning. She companied of wheezing and claimed to not be feeling better, however she stated her wheezing is decreased from yesterday. Fluid is to be restricted A CT scan without contrast was ordered to rule out possible pleural effusion She is currently on 3L of oxygen Medications: Reviewed: Yes Medication Review Details: Prednisone was reduced to 20mg in light of the overnight confusion Nicoderm was added upon patient request Metropolol was discontuinued Vitals/I&O/Wt Last Vital Signs Temp 98 F 01/15/23 08:21 Pulse 108 H 01/15/23 08:04 Resp 25 H 01/15/23 08:04 BP 165/108 01/15/23 08:04 Pulse Ox 91 01/15/23 08:04 O2 Del Method Nasal Cannula 01/15/23 08:04 O2 Flow Rate 3 01/15/23 08:04 01/14/23 01/15/23 01/15/23 22:59 06:59 14:59 Intake Total 240 / 720 300 / 1020 222 / 222 Balance 240 / 720 300 / 1020 222 / 222 Physical Exam Narrative: General exam no distress. Telemetry indicates better control of heart rate with most of her heart rates less than 100 Neck is supple Cardiovascular irregular, irregular without murmur Lungs bilateral expiratory wheezes Abdomen is soft, nontender Extremities no cyanosis clubbing or edema Data 01/15/23 04:12 01/15/23 04:12 Other Labs: CT scan reviewed personally by me as well. She has mild effusions bilaterally. Pericardial effusion is noted. It is not suspected that this is hemopericardium A&P Assessment and plan (1) Atrial fibrillation with RVR: Patient presents with atrial fibrillation with rapid ventricular rate Echocardiogram demonstrates preserved EF, moderate mitral regurgitation. Modera te pericardial effusion is noted. She has been changed to oral Cardizem, and metoprolol has been increased to 75 mg twice daily Continue Eliquis CBC, BMP, magnesium in the morning Change Lasix to 40 mg IV every [address] scan results (2) COPD exacerbation: Patient presents with COPD exacerbation. She was given IV steroids, is Rocephin, Zithromax. Continue budesonide twice daily Continue DuoNeb every 6 hours Prednisone reduced to 20 mg daily Wean oxygen as tolerated If patient continues to improve consider changing to Levaquin or doxycycline as discharge becomes apparent. (3) Pulmonary vascular congestion: With patient's effusions, elevated BNP, pulmonary hypertension, she appears to have acute diastolic heart failure. To some degree this is been present on admission. Increase Lasix to 40 mg IV every 12 hours Monitor renal function, BMP in the morning. Wean oxygen as tolerated Patient still experiences bilateral wheezing. Chest CT without contrast to rule out possible pulmonary effusion. (4) Acute and chronic respiratory failure with hypoxia: Causation as above Wean oxygen as tolerated Plan Pericardial effusion. Doubt hemopericardium Confusion. Reduce prednisone. May be secondary to steroid effect, psychosis Hypertension. Stable Multiple other medical problems as outlined in past medical history Eliquis will suffice for DVT prophylaxis Discussed with family in detail Attestations 2 Medical Necessity Statement*: Needs continued hospitalization for diuresis secondary to acute diastolic heart failure Diagnoses Atrial fibrillation with RVR I48.91 COPD exacerbation J44.1 Pulmonary vascular congestion R09.89 Acute and chronic respiratory failure with hypoxia J96.21 Time Spent (min) 29
[2023-01-15] MEDS: predniSONE 20 mg Tablet PO (09:51)
[2023-01-15] MEDS: nicotine 21 mg Patch 1 PATCH TRANSDERMA (09:51)
[2023-01-15 11:43] LABS: Glucose Point of Care 238 mg/dL (70-110)
[2023-01-15 17:27] LABS: Glucose Point of Care 440 mg/dL (70-110)
[2023-01-15] MEDS: insulin lispro 100 unit/1 mL 12 UNIT SUBCUT (17:49)
[2023-01-15] MEDS: FUROsemide 10 mg/mL SDV 4mL 40 MG IVP (17:49)
[2023-01-15] MEDS: CLONazepam 0.5 mg Tablet PO (17:56)
[2023-01-15] MEDS: atorvastatin 40 mg Tablet 20 MG PO (17:56)
[2023-01-15 21:45] LABS: Glucose Point of Care 440 mg/dL (70-110)
[2023-01-15 21:45] LABS: Glucose Point of Care 412 mg/dL (70-110)
[2023-01-15 21:45] LABS: Glucose Point of Care 400 mg/dL (70-110)
[2023-01-16] VITALS (64 sets, daily range): BP systolic 131–180; BP diastolic 92–125; PULSE 68–94; RESP 16–20; TEMP 36.5; O2SAT 87–100
[2023-01-16] MEDS: azithromycin 500 MG in sodium chloride 0.9% 250 ML 250 MG IV (02:38)
[2023-01-16] MEDS: cefTRIAXone 1,000 MG in sodium chloride 0.9% (plus) 50 ML 100 MG IV (03:45)
[2023-01-16] MEDS: hyDRALAzine 50 mg Tablet PO (04:34)
--- NOTE | 2023-01-16 04:38 | PC.NURSE ---
Patients blood pressure has been raising throughout the night. Now 177/120. Hospitalist notified. Given orders to give morning dose of Hydralazine early.
[2023-01-16 04:39] LABS: Basophils % 0.2 %; Eosinophils % 0.1 %; Hematocrit 36.1 % (36-47); Lymphocytes # 1.3 10^3/uL (0.8-4.8); Lymphocytes % 8.6 %; Mean Corpuscular HGB Conc 30.2 g/dL (30-55); Mean Corpuscular Hemoglobin 26.8 pg (27-33); Mean Corpuscular Volume 88.7 fl (85-98); Mean Platelet Volume 10.1 fL (7.4-10.4); Monocytes # 1.6 10^3/uL (0.2-0.9); Monocytes % 10.2 %; Neutrophils % 80.5 %; Nucleated Red Blood Cells % 0 %; Platelet Count 410 10^3/cmm (157-399); Red Blood Count 4.07 10^6/uL (3.85-5.65); Red Cell Distribution Width 15.1 % (12.1-15.1); White Blood Count 15.64 10^3/uL (3.29-11.43)
[2023-01-16 05:01] LABS: Alanine Aminotransferase 13 U/L (0-33); Alkaline Phosphatase 91 U/L (35-105); Anion Gap 12.8 (5-19); Aspartate Amino Transferase 8 U/L (0-32); Blood Urea Nitrogen 27 mg/dL (8-23); Calcium 9.3 mg/dL (8.5-10.5); Carbon Dioxide 40 mmol/L (22-29); Chloride 92 mmol/L (98-107); Glucose 109 mg/dL (65-115); Magnesium 1.6 mg/dL (1.7-2.3); Osmolality Calculated 298 mOsm/kg (285-295); Potassium 3.8 mmol/L (3.5-5.1); Sodium 141 mmol/L (136-145); Total Bilirubin 0.5 mg/dL (0.15-1.2)
[2023-01-16] MEDS: FUROsemide 10 mg/mL SDV 4mL 40 MG IVP (05:43)
[2023-01-16 06:33] LABS: Glucose Point of Care 158 mg/dL (70-110)
[2023-01-16] MEDS: magnesium sulfate premix 2 GM/50 ML PIGGYBACK IV (07:59)
[2023-01-16] MEDS: insulin lispro 100 unit/1 mL SUBCUT ×2 (08:00→11:44)
[2023-01-16] MEDS: famotidine 20 mg Tablet PO (08:03)
[2023-01-16] MEDS: isosorbide mononitrate ER 30 mg Tablet PO (08:03)
[2023-01-16] MEDS: lisinopril 20 mg Tablet 40 MG PO (08:03)
[2023-01-16] MEDS: metoprolol tartrate 50 mg Tablet 75 MG PO (08:03)
[2023-01-16] MEDS: apixaban 5 mg Tablet PO (08:03)
[2023-01-16] MEDS: aspirin 81 mg EC Tablet PO (08:03)
[2023-01-16] MEDS: duloxetine 60 mg Capsule PO (08:03)
[2023-01-16] MEDS: dilTIAZem ER (24HR) 180 mg Capsule PO (08:03)
[2023-01-16] MEDS: nicotine 21 mg Patch 1 PATCH TRANSDERMA (08:05)
[2023-01-16] MEDS: ipratropium-albuterol 3 mL Neb INHALATION (08:37)
[2023-01-16] MEDS: budesonide 0.5 mg/2 mL Neb INHALATION (08:37)
--- NOTE | 2023-01-16 09:45 | PC.SOCIAL ---
IMM update IMM updated with patient. Copy Pg 2 provided. Verbalized an understanding. Initialled, dated, timed, and placed in chart.
--- NOTE | 2023-01-16 09:49 | PM.DCS ---
Discharge Providers Date of Admission: 01/13/23 00:37 Date of Discharge: January 16, 2023 Attending Provider at Admission: Melanie Aranda MD Attending Provider at Discharge: Jose Duffy MD Primary Care Provider: Chayito Kaur MD Diagnoses at Discharge Discharge Diagnosis (1) Atrial fibrillation with RVR: Status: Acute (2) COPD exacerbation: Status: Acute (3) Pulmonary vascular congestion: Status: Acute (4) Acute and chronic respiratory failure with hypoxia: Status: Acute Reason for Visit Reason for Visit: chest pains Hospital Course Hospital Course Keri is a 72-year-old white female who presented to the emergency department complaining of shortness of breath and wheezing. She was found to have a COPD exacerbation, and there was concern of fluid overload. She was diuresed initially, placed on IV antibiotics, given IV steroids as well as breathing treatments. With this she improved slightly. Medication was adjusted to further diurese her during her hospital course, and to treat her atrial fibrillation with rapid ventricular rate that was present on admission. Ultimately her metoprolol dose was changed to 75 mg twice daily, and extended release diltiazem was added. Prednisone which was given following IV steroids was eventually discontinued secondary to concern of psychosis with this. This resolved and she was alert and oriented by end of hospital stay. Other medication was adjusted for her blood pressure, which improved by the time of discharge. Other studies done while in the hospital included COVID PCR which was negative, a chest CT which showed a moderate pericardial effusion, mild/small bilateral pleural effusions. An echocardiogram was also done which demonstrated small to medium sized pericardial effusion without any impairment of cardiac function, normal EF, mild pulmonary hypertension, and mild to moderate mitral regurgitation. By end of hospital stay she was feeling better, alert and oriented, and on 3 L of oxygen. Plan for home oxygen evaluation prior to discharge, counseled her on stopping smoking. Reviewed her medications in detail and added appropriate medications to improve blood pressure, and continue to treat her fluid overload. She should see her primary care provider in 3 to 5 days with a BMP, pulmonary in 2 weeks, cardiology in 2 weeks. Her glipizide was also discontinued, and Jardiance added. Risks and benefits were discussed with the patient. This should help her fluid overload, diabetes. She was given an opportunity ask questions, and agreed with the plan. I also discussed her hospital course with her son who will be taking care of her upon discharge. Physical Exam Narrative: General exam no distress Neck is supple Cardiovascular irregular, irregular with controlled rate Lungs diminished breath sounds bilaterally but no wheezes or crackles Abdomen is soft, positive bowel sounds Extremities no cyanosis clubbing or edema Discharge Data Studies Completed and Pending Completed Studies During Hospitalization Category Date Time Status CT chest wo con [id number] Routine Cat Scan 01/15/23 08:20 Completed XR chest 1V portable [id number] Stat Exams 01/12/23 19:33 Completed CV. echo complete* [id number] Routine Ultrasound 01/14/23 15:43 Completed Pending at discharge Category Date Time Status CA echo doppler complete Routine Exams 01/13/23 01:25 Stop Req Radiology Impressions Chest X-Ray 01/12/23 19:33 IMPRESSION: 1. Enlargement of the cardiac silhouette which may reflect elevated intravascular volume with cardiac chamber enlargement and/or pericardial effusion. Recommend correlation with echocardiogram. 2. Mild interstitial pulmonary edema. Small bilateral pleural effusions. Laboratory Results WBC 15.64 10^3/uL (3.29-11.43) H 01/16/23 03:58 RBC 4.07 10^6/uL (3.85-5.65) 01/16/23 03:58 Hgb 10.90 g/dL (11.27-16.99) L 01/16/23 03:58 Hct 36.1 % (36-47) 01/16/23 03:58 MCV 88.7 fl (85-98) 01/16/23 03:58 MCH 26.8 pg (27-33) L 01/16/23 03:58 MCHC 30.2 g/dL (30-55) 01/16/23 03:58 RDW 15.1 % (12.1-15.1) 01/16/23 03:58 Plt Count 410 10^3/cmm (157-399) H 01/16/23 03:58 MPV 10.1 fL (7.4-10.4) 01/16/23 03:58 Neut % (Auto) 80.5 % 01/16/23 03:58 Lymph % (Auto) 8.6 % 01/16/23 03:58 Cedar % (Auto) 10.2 % 01/16/23 03:58 Eos % (Auto) 0.1 % 01/16/23 03:58 Baso % (Auto) 0.2 % 01/16/23 03:58 Neut # (Auto) 12.60 10^3/uL (1.8-7.7) H 01/16/23 03:58 Lymph # (Auto) 1.3 10^3/uL (0.8-4.8) 01/16/23 03:58 Cedar # (Auto) 1.6 10^3/uL (0.2-0.9) H 01/16/23 03:58 Eos # (Auto) 0.0 10^3/uL (0.0-0.8) 01/16/23 03:58 Baso # (Auto) 0.0 10^3/uL (0.0-0.1) 01/16/23 03:58 Nucleated RBC % (auto) 0 % 01/16/23 03:58 Nucleated RBCs # 0.0 /100WBC 01/16/23 03:58 PT 19.00 SECONDS (12.1-14.9) H 01/12/23 19:45 INR 1.54 (0.8-1.2) H 01/12/23 19:45 APTT 34.3 SECONDS (23.9-36.7) 01/12/23 19:45 Sodium 141 mmol/L (136-145) 01/16/23 03:58 Potassium 3.8 mmol/L (3.5-5.1) 01/16/23 03:58 Chloride 92 mmol/L (98-107) L 01/16/23 03:58 Carbon Dioxide 40 mmol/L (22-29) H 01/16/23 03:58 Anion Gap 12.8 (5-19) 01/16/23 03:58 BUN 27 mg/dL (8-23) H 01/16/23 03:58 Creatinine 0.9 mg/dL (0.5-0.9) 01/16/23 03:58 GFR Calculation Not Reportable 01/16/23 03:58 Glucose 109 mg/dL (65-115) 01/16/23 03:58 POC Glucose 158 mg/dL (70-110) H 01/16/23 06:20 Calculated Osmolality 298 mOsm/kg (285-295) H 01/16/23 03:58 Calcium 9.3 mg/dL (8.5-10.5) 01/16/23 03:58 Magnesium 1.6 mg/dL (1.7-2.3) L 01/16/23 03:58 Total Bilirubin 0.5 mg/dL (0.15-1.2) 01/16/23 03:58 AST 8 U/L (0-32) 01/16/23 03:58 ALT 13 U/L (0-33) 01/16/23 03:58 Alkaline Phosphatase 91 U/L (35-105) 01/16/23 03:58 Troponin T Baseline 29 ng/L (0-10) H 01/12/23 19:45 Troponin T 120 Minute 24.50 ng/L (0-10) H 01/12/23 21:35 Delta Troponin T -4.50 ABS# (0-10) L 01/12/23 21:35 Troponin T Hi Sens 6Hr 21.85 ng/L (0-10) H 01/13/23 01:26 Troponin T Hi Sens 6Hr Delta -7.15 ng/L (0-12) L 01/13/23 01:26 NT-Pro-B Natriuret Pep 2203 pg/mL (0-125) H 01/13/23 01:26 Total Protein 7.0 g/dL (6.6-8.7) 01/16/23 03:58 Albumin 4.0 g/dL (3.5-5.2) 01/16/23 03:58 Globulin 3.0 g/dL (1.3-4.6) 01/16/23 03:58 Nasal Influ A H1 2008 PCR Not detected (NOT DETECT) 01/12/23 21:47 Adenovirus (PCR) Not detected (NOT DETECT) 01/12/23 21:47 C. pneumoniae DNA (PCR) Not detected (NOT DETECT) 01/12/23 21:47 Coronavirus 229E (PCR) Not detected (NOT DETECT) 01/12/23 21:47 Human Metapneumovir PCR Not detected (NOT DETECT) 01/12/23 21:47 Influenza A (H1) PCR Not detected (NOT DETECT) 01/12/23 21:47 Influenza A (H3) PCR Not detected (NOT DETECT) 01/12/23 21:47 Influenza Type A (PCR) Not detected (NOT DETECT) 01/12/23 21:47 Influenza Type B (PCR) Not detected (NOT DETECT) 01/12/23 21:47 M. pneumoniae (PCR) Not detected (NOT DETECT) 01/12/23 21:47 Parainfluenza 1 (PCR) Not detected (NOT DETECT) 01/12/23 21:47 Parainfluenza 2 (PCR) Not detected (NOT DETECT) 01/12/23 21:47 Parainfluenza 3 (PCR) Not detected (NOT DETECT) 01/12/23 21:47 Parainfluenza 4 (PCR) Not detected (NOT DETECT) 01/12/23 21:47 RSV Type A (PCR) Not detected (NOT DETECT) 01/12/23 21:47 RSV Type B (PCR) Not detected (NOT DETECT) 01/12/23 21:47 Entero/Rhino (PCR) Not detected (NOT DETECT) 01/12/23 21:47 SARS-CoV-2 (PCR) Not detected (NOT DETECT) 01/12/23 21:47 SARS-CoV-2 Ag (Rapid) negative (Negative) 01/12/23 21:36 Vitals Last Vital Signs Temp 97.7 F 01/16/23 07:12 Pulse 94 01/16/23 08:37 Resp 16 01/16/23 08:37 BP 169/108 01/16/23 07:12 Pulse Ox 88 L 01/16/23 08:38 O2 Del Method Nasal Cannula 01/16/23 08:37 O2 Flow Rate 3 01/16/23 08:38 Discharge Plan Discharge Patient Disposition: Home Condition: Stable Prescriptions: New ipratropium-albuterol 0.5 mg-3 mg(2.5 mg base)/3 mL Solution For Nebulization 3 ml inhalation QID.RESPIRATORY Qty: 360 0RF metoprolol tartrate 50 mg Tablet 75 mg PO BID Qty: 90 0RF lisinopril 20 mg Tablet 40 mg PO DAILY Qty: 60 0RF cefdinir 300 mg capsule 300 mg PO BID 6 Days Qty: 12 0RF Jardiance 10 mg tablet 10 mg PO DAILY Qty: 30 0RF budesonide 0.5 mg/2 mL Suspension For Nebulization 0.5 mg inhalation BID.RESPIRATORY Qty: 120 0RF diltiazem HCl [DILT-XR] 180 mg Capsule,Ext.Rel 24h Degradable 180 mg PO DAILY Qty: 30 0RF isosorbide mononitrate 30 mg Tablet Extended Release 24 Hr 30 mg PO DAILY Qty: 30 0RF furosemide [Lasix] 40 mg tablet 40 mg PO QAM Qty: 30 0RF Continued atorvastatin 20 mg tablet 20 mg PO QPM pantoprazole 40 mg tablet,delayed release (DR/EC) 40 mg PO DAILY hydralazine 50 mg tablet 50 mg PO TID duloxetine 60 mg capsule,delayed release(DR/EC) 60 mg PO DAILY nitroglycerin 0.4 mg tablet, sublingual 0.4 mg sublingual Q5M MDD 6 tabs PRN (Reason: chest pain) Qty: 30 0RF Rx Instructions: do not exceed 3 doses per episode metformin 1,000 mg Tablet 1,000 mg PO QPM clonazepam 0.5 mg tablet 0.5 mg PO QPM aspirin 81 mg Tablet,Delayed Release (Dr/Ec) 81 mg PO DAILY azelastine 137 mcg (0.1 %) aerosol,spray 2 spray INTRANASAL BID PRN (Reason: Nasal Congestion) Eliquis DVT-PE Treat 30D Start 5 mg (74 tabs) tablets,dose pack 5 mg PO BID Qty: 74 2RF Hold Instructions: Resume on 04/04/22. Until after CT is complete and follow up Discontinued glipizide 5 mg tablet extended release 24hr 5 mg PO BID lisinopril 40 mg tablet 20 mg PO BID trazodone 50 mg Tablet 50 - 150 mg PO BEDTIME PRN (Reason: Insomnia) metoprolol tartrate 50 mg Tablet 50 mg PO TID Discharge Orders: Discharge Order (Routine); Ordered 01/16/23 Ordered By: Jose Duffy Other Ambulatory Orders: DME: Nebulizer with Neb Kit (Order) Location: None Selected Ordered By: Jose Duffy DME: Oxygen (Order) Location: None Selected Ordered By: Jose Duffy Referrals: OlegrDavid MD [Physician] - 2 weeks Chayito Kaur MD [Primary Care Provider] - 4-7 days Renetta Correa FNP [Nurse Practitioner] - 2 weeks (follow up AFib, CHF) Discharge Diet: Cardiac and Diabetic Discharge Activity: Increase activity as tolerated Patient Instructions: Opioid Safety Activity Restrictions/Additional Instructions: Take all medicine as prescribed. Follow-up with your primary care provider 3 to 5 days Follow-up with cardiology in 2 weeks for atrial fibrillation. Please arrange appointment with provider. Follow-up with pulmonary in 2 weeks Home oxygen evaluation prior to discharge Keep track of blood pressure twice daily to report to primary care provider. Discharge Attestations Time Spent in Discharge Care*: greater than 30 min Quality Metrics Clinical Quality Measures [ No reported AMI, CVA or VTE this stay] Coding Level of Care Code 66432 Total time (in minutes) for Discharge: 49 Diagnoses Atrial fibrillation with RVR I48.91 COPD exacerbation J44.1 Pulmonary vascular congestion R09.89 Acute and chronic respiratory failure with hypoxia J96.21
[2023-01-16 11:27] LABS: Glucose Point of Care 257 mg/dL (70-110)
--- NOTE | 2023-01-16 15:24 | PC.NURSE ---
carlos called to notify about the nebulizer equipment they will deliver it to house.
== END 2023-01-16 15:13 | disposition home or self-care (01) | DRG 190 ==
LOC: ER 21:47 → CSU 01-13 00:32
PROVIDERS: Admitting Provider Internal Medicine; Emergency Provider Emergency Medicine; PCP Family Medicine; Visit Provider Internal Medicine
DX: J44.1 Chronic obstructive pulmonary disease with (acute) exacerbation (principal); J96.21 Acute and chronic respiratory failure with hypoxia; I31.39 Other pericardial effusion (noninflammatory); J90 Pleural effusion, not elsewhere classified; I48.91 Unspecified atrial fibrillation; E87.70 Fluid overload, unspecified; I08.1 Rheumatic disorders of both mitral and tricuspid valves; F17.200 Nicotine dependence, unspecified, uncomplicated; E11.9 Type 2 diabetes mellitus without complications; Z79.84 Long term (current) use of oral hypoglycemic drugs; Z79.82 Long term (current) use of aspirin; Z79.01 Long term (current) use of anticoagulants; Z85.828 Personal history of other malignant neoplasm of skin; Z87.01 Personal history of pneumonia (recurrent); I27.20 Pulmonary hypertension, unspecified; I10 Essential (primary) hypertension; R41.0 Disorientation, unspecified; T38.0X5A Adverse effect of glucocorticoids and synthetic analogues, initial encounter
CPT/HCPCS: 36415; 36416; 71045; 71250; 80048; 80053; 82962; 83735; 83880; 84484; 85025; 85610; 85730; 87426; 87486; 87581; 87633; 93005; 93306; 94640; 94664; 94760; 96365; 96372; 96375; 96376; 99285; J0456; J0696; J1815; J1940; J3475; J3490; J7050; J7512; J7626

== ENCOUNTER 2023-01-22 08:57 | Outpatient (CLI) | payer MEDICARE, SELFPAY ==
--- NOTE | 2023-01-22 | ECG_ITS ---
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 Interpretive Statements NAME OF STUDY: LEXISCAN SESTAMIBI STRESS TEST INDICATION: [Chest Pain, ] Procedure: At the baseline, the blood pressure was 121/68 mmHg with a heart rate of 62 bpm. The electrocardiogram showed atrial fibrillation with frequent PVCs. The Lexiscan was infused over a period of 20 seconds. A total of 0.4 mg of Lexiscan was infused. The stress phase was continued for a total of 5 minutes. Heart rate was at the end of stress phase was 63 bpm and a blood pressure of 99/57 mmHg. The EKG at the peak infusion revealed atrial fibrillation with no significant ST-T wave changes. Sestamibi was injected 20 seconds after the Lexiscan infusion. Blood pressure at the end of recovery phase was 95/56 mmHg with a heart rate of 66 bpm. Conclusion: 1. Normal EKG response to Lexiscan infusion 2. No Lexiscan induced chest pain or cardiac arrhythmia. 3. Normal blood pressure and heart rate response. 4. Sestamibi/sestamibi perfusion scan pending; see separate report. Electronically Signed On 01-30-2023 14:35:29 CDT by Yuval Landis M.D. [id number]
--- NOTE | 2023-01-22 09:02 | NMCV_ITS ---
NM clint perf SPECT r/s* [id number] Keri Fang Age: 72 Gender: F : 1950 Exam Date: 01/22/2023 10:02 Ordering Phys: Chayito Kaur MD Technologist: REMEDIOS Frank Exam Location: [facility] Indications: CHEST PAIN STRESS TEST [facility] IMAGE PROTOCOL Rest/Stress 1 Lexiscan Day Radiopharmaceutical Dose (mCi) Administration Site Administered by Rest: Tc-99m 10.9 IV REMEDIOS Zacarias Sestamibi Stress:Tc-99m 32.8 IV REMEDIOS Zacarias Sestamibi Rest: 22-Jan-2023 60 Discovery 630 Stress: 22-Jan-2023 30 Discovery 630 0.4mg Lexiscan. Supine position only as patient was unable to lay prone. SPECT RESULTS Technical Quality: Excellent Raw Data Analysis: Normal Image Corrections: No attenuation or motion correction applied Summed Stress Score: 1 Summed Rest Score: 2 Summed Difference Score: 0 PERFUSION FINDINGS SPECT images demonstrate homogeneous tracer distribution throughout the myocardium. FUNCTIONAL RESULTS (calculated via Gated SPECT) Stress Image LV EF (%): 77 Stress EDV (mL):78 TID: 1.02 Stress ESV (mL):18 FUNCTIONAL FINDINGS: There is normal left ventricular systolic function. IMPRESSIONS 1. Normal myocardial perfusion imaging with no evidence of ischemia 2. LV systolic function is normal Yuval Landis MD (Electronically Signed) Final Date: 24 January 2023 13:38 S
[2023-01-22 09:17] VITALS: BMI 22.1
[2023-01-22] MEDS: regadenoson 0.4 Mg/5 ml Syringe IVP (10:39)
[2023-01-22 10:53] VITALS: BP 99/57; PULSE 60
== END 2023-01-22 08:58 | disposition home or self-care (01) ==
LOC: CDL 08:57
PROVIDERS: PCP Family Medicine; Visit Provider Family Medicine
DX: R07.9 Chest pain, unspecified (principal)
CPT/HCPCS: 36415; 78452; 93017; 96374; A9500; J2785

== ENCOUNTER → 2023-01-30 12:52 | Outpatient (BNVA) | payer MEDICARE, SELFPAY | PROVIDERS: PCP Family Medicine; Visit Provider Internal Medicine Pulmonary Disease | DX: Z09 Encounter for follow-up examination after completed treatment for conditions other than malignant neoplasm (principal); J44.9 Chronic obstructive pulmonary disease, unspecified; N28.89 Other specified disorders of kidney and ureter; J96.12 Chronic respiratory failure with hypercapnia; Z87.891 Personal history of nicotine dependence; J98.11 Atelectasis | CPT/HCPCS: 99204; 99214 ==

== ENCOUNTER 2023-02-12 09:04 | Outpatient (CLI) | payer MEDICARE, SELFPAY ==
--- NOTE | 2023-02-12 09:30 | USCV_ITS ---
Keri Fang Age: 72 Gender: F : 1950 Exam Date: 02/12/2023 09:32 Ordering Phys: Norm Michel MD ([email or web address]) Technologist: CT Exam [place] [facility] [place] Indication: pericardial eff f/u BP: 109 / 75 HR: 113 Rhythm: Sinus Technical Quality: Adequate MEASUREMENTS (Male / Female) Normal Values 2D ECHO LV Chamber Size 4.2 cm RV Chamber Size 3.7 cm LVOT Diameter 2.0 cm LV Ejection Fraction MOD 2C 51.0 % LV Ejection Fraction 2C AL 58.1 % LA Diameter 5.3 cm LA Width 4.5 cm LA Height 5.6 cm RA Width 4.3 cm RA Height 5.4 cm Aorta at Sinotubular Diameter 2.6 cm IVC Diameter 1.8 cm M-MODE Aortic Annulus Diameter 2.8 cm LA Ao Ratio MM 2.1 MV E Point Septal Separation 0.7 cm FINDINGS Left Ventricle Because of atrial fibrillation with rapid ventricular rate, segmental wall motion analysis somewhat difficult The left-ventricular appears to be of normal size and systolic function, EF 58% Right Ventricle Right Atrium Moderately increased right atrial size. Left Atrium Moderately increased left atrial size. Mitral Valve Thickened mitral valve. Aortic Valve Thickened aortic valve. Tricuspid Valve No gross abnormalities noted Pulmonic Valve No gross abnormalities Pericardium Minimal pericardial effusion. Some left-sided pleural effusion is noted Aorta Normal aortic annulus size. IVC Normal inferior vena cava. CONCLUSIONS The left-ventricular appears to be of normal size and systolic function, EF 58%. Because of atrial fibrillation with rapid ventricular rate, segmental wall motion analysis somewhat difficult. Moderate biatrial enlargement. Thickened aortic and mitral valves Minimal pericardial effusion. Compared to the study from 01/14/2023, the pericardial effusion has decreased Some features of a left-sided pleural effusion Dr Norm Michel MD [facility] (Electronically Signed) Final Date: 14 February 2023 21:04 S
== END 2023-02-12 09:05 | disposition home or self-care (01) ==
PROVIDERS: PCP Family Medicine; Visit Provider Internal Medicine Cardiovascular Disease
DX: I31.39 Other pericardial effusion (noninflammatory) (principal)
CPT/HCPCS: 93308

== ENCOUNTER 2023-02-16 10:26 | Observation (INO) | payer MEDICARE, SELFPAY ==
--- NOTE | 2023-02-16 10:38 | ECG_ITS ---
[facility] Test Date: 2023-02-16 Pat Name: Keri Fang Department: Room: Gender: Female A/C Tech: : 1950 Requested By: Noah Caicedo Order Number: [id number] Nikky MD: Norm Michel M.D. Measurements Intervals [place] Rate: 76 P: 0 IL: 0 QRS: 34 QRSD: 132 T: -62 QT: 406 QTc: 457 Interpretive Statements ATRIAL FIBRILLATION RIGHT BUNDLE BRANCH BLOCK [120+ ms QRS DURATION, UPRIGHT V1, 40+ ms S IN I/aVL/V4/V5/V6] Compared to ECG 01/12/2023 21:18:35 No significant changes Electronically Signed On 02-16-2023 19:23:30 CDT by Norm Michel M.D. [email or web address] [email or web address] general [id number] f
[2023-02-16 10:39] VITALS: BP 132/79; PULSE 76; RESP 20; TEMP 36.8; O2SAT 94; BMI 21.6
--- NOTE | 2023-02-16 10:44 | XRR_ITS ---
PROCEDURE INFORMATION: Exam: XR Chest Exam date and time: 02/16/2023 11:17 AM Age: 72 years old Clinical indication: Dyspnea and shortness of breath; Patient HX: Increased SOB x 2 days; HX afib, copd, HTN; Ex smoker x 50+ yrs-recently quit TECHNIQUE: Imaging protocol: Radiologic exam of the chest. Views: 1 view. COMPARISON: CT chest [facility] [id number] 01/15/2023 9:35 AM FINDINGS: Lungs: Increased bilateral lower lung atelectasis and/or pneumonitis. Otherwise, unremarkable. Pleural spaces: Large left pleural effusion is increased. Unchanged small right pleural effusion. No pneumothorax. Heart/Mediastinum: Unremarkable. No cardiomegaly. Bones/joints: Unremarkable. XR/XR chest 1V portable [id number] IMPRESSION: 1. Increased large left pleural effusion and unchanged small right pleural effusion. 2. Increased bibasilar atelectasis and/or pneumonitis.
--- NOTE | 2023-02-16 11:09 | ED_ITS ---
HPI - SOB/Dyspnea General: Chief Complaint: Shortness of Breath/Dyspnea Stated Complaint: sob Time Seen by Provider: 02/16/23 10:36 History of Present Illness: HPI Narrative: Patient presents to the ER with worsening shortness of breath over the last few days. Patient is normally using 3 L of oxygen per nasal cannula at baseline when she got into triage she was satting 88% nurse increased her oxygen to 4 L and her saturation, up to 92%. Patient does have a history of COPD and is oxygen dependent at all times. Patient has a history of A-fib. Patient has a dry cough and complains of chest pressure. Patient denies any fever and chills. Patient denies any sick contacts. Review of Systems General: Reports: 10 or more systems reviewed and unremarkable except in HPI and below PFSH ED PFSH: Medical History Acute respiratory failure with hypoxia and hypercarbia Afib Broken wrist COPD (chronic obstructive pulmonary disease) COPD exacerbation Facial droop Helicobacter pylori gastritis Hiatal hernia History of colon polyps History of skin cancer Hypoxia New onset a-fib Pneumonia Right renal mass Surgical History History of appendectomy History of surgery on left wrist History of tubal ligation Family History Mother , at age 75 Cancer Breast Alzheimer disease Father , at age 69 CAD (coronary artery disease) Pancreatic adenocarcinoma Social History Smoking and tobacco/nicotine status: former use of tobacco/nicotine Quit status (tobacco/nicotine): has quit using Year quit tobacco: 2021 Former quit date comment: 1.5 ppd X 51 years Alcohol intake: never Substance/Drug Use: never Adopted: No Household members: spouse Marital status: Current occupational status: retired Physical Exam Const: COMMON NORMALS: no acute distress, average body habitus, patient oriented x3, no limitations, healthy appearing, alert and well nourished HENMT: COMMON NORMALS: normocephalic, atraumatic, hearing grossly normal bilaterally, external ears normal, Normal external nose present, moist oral mucous membranes and oropharynx normal HEAD & SCALP: normocephalic and atraumatic NOSE: Normal external nose present EXTERNAL EAR: Yes external ears normal Eye: COMMON NORMALS: Equal, round and reactive pupils present, EOMs intact bilaterally, conjunctivae normal and no scleral icterus CONJUNCTIVA: Yes conjunctivae normal PUPIL: Yes Equal, round and reactive pupils present Neck/C-Spine: COMMON NORMALS: full ROM, no lymphadenopathy, supple, no meningeal signs, no JVD and Thyroid normal THYROID: Thyroid normal Chest: COMMONS NORMALS: normal inspection of the chest and normal palpation of entire chest wall Resp: COMMON NORMALS: normal respiratory effort, No retractions, No use of accessory muscles and clear to auscultation bilaterally AUSCULTATION: clear to auscultation bilaterally Cardio: COMMON NORMALS: no JVD, regular rate, regular rhythm, S1 normal heart sound present, S2 normal heart sound present, No gallops present (Cardio), No clicks present (Cardio), No murmurs present (Cardio) and No rub (Cardio) RATE: regular rate RHYTHM: regular rhythm HEART SOUNDS: S1 normal heart sound present and S2 normal heart sound present GI: COMMON NORMALS: Normal to inspection, nondistended, normoactive bowel sounds present, Soft to palpation, non-tender, No hepatosplenomegaly present and no masses PALPATION: Yes Soft to palpation and Yes No hepatosplenomegaly present Neuro: COMMON NORMALS: patient oriented x3 SENSORIUM/ORIENTATION: Yes alert MENINGEAL SIGNS: Yes no meningeal signs Course Vital Signs: Vital signs: Vital Signs Temperature 98.3 F 02/16/23 10:39 Pulse Rate 76 02/16/23 10:39 Respiratory Rate 20 H 02/16/23 10:39 Blood Pressure 132/79 02/16/23 10:39 Pulse Oximetry 94 02/16/23 10:39 Oxygen Delivery Me thod Nasal Cannula 02/16/23 10:39 Oxygen Flow Rate 4 02/16/23 10:39 MDM - SOB/Dyspnea Medical Decision Making Patient presents to the ER with worsening shortness of breath on her standard 3 L. She was given 4 L to keep her sat up a CT scan was obtained which showed large bilateral pleural effusions which have increased as well as atelectasis and pneumonitis. Lab work was obtained which was essentially benign for the patient. Dr. Johnson was consulted who agreed to place the patient observation and let radiology tomorrow perform a thoracentesis on her. Differential Diagnosis Likely acute exacerbation of chronic obstructive airways disease; Unlikely congestive heart failure, community acquired pneumonia, asthma with exacerbation or pulmonary embolism Medical Records I reviewed the patient's medical records. Lab Data I reviewed the patient's lab results. 02/16/23 11:05 02/16/23 11:05 Labs/Radiology: Radiology Impressions Chest X-Ray 02/16/23 10:44 IMPRESSION: 1. Increased large left pleural effusion and unchanged small right pleural effusion. 2. Increased bibasilar atelectasis and/or pneumonitis. Chest CT 02/16/23 12:06 IMPRESSION: 1. Large bilateral pleural effusions have increased. 2. Increased bilateral atelectasis and/or pneumonitis. 3. Unchanged mild cardiomegaly and small pericardial effusion. 4. Additional details as above. Unchanged: Laboratory Results WBC 8.13 10^3/uL (3.29-11.43) 02/16/23 11:05 RBC 3.67 10^6/uL (3.85-5.65) L 02/16/23 11:05 Hgb 9.90 g/dL (11.27-16.99) L 02/16/23 11:05 Hct 33.4 % (36-47) L 02/16/23 11:05 MCV 91.0 fl (85-98) 02/16/23 11:05 MCH 27.0 pg (27-33) 02/16/23 11:05 MCHC 29.6 g/dL (30-55) L 02/16/23 11:05 RDW 14.6 % (12.1-15.1) 02/16/23 11:05 Plt Count 219 10^3/cmm (157-399) 02/16/23 11:05 MPV 10.7 fL (7.4-10.4) H 02/16/23 11:05 Neut % (Auto) 81.5 % 02/16/23 11:05 Lymph % (Auto) 10.7 % 02/16/23 11:05 Humphreys % (Auto) 5.5 % 02/16/23 11:05 Eos % (Auto) 1.4 % 02/16/23 11:05 Baso % (Auto) 0.4 % 02/16/23 11:05 Neut # (Auto) 6.63 10^3/uL (1.8-7.7) 02/16/23 11:05 Lymph # (Auto) 0.9 10^3/uL (0.8-4.8) 02/16/23 11:05 Humphreys # (Auto) 0.5 10^3/uL (0.2-0.9) 02/16/23 11:05 Eos # (Auto) 0.1 10^3/uL (0.0-0.8) 02/16/23 11:05 Baso # (Auto) 0.0 10^3/uL (0.0-0.1) 02/16/23 11:05 Nucleated RBC % (auto) 0 % 02/16/23 11:05 Nucleated RBCs # 0.0 /100WBC 02/16/23 11:05 PT 17.50 SECONDS (12.1-14.9) H 02/16/23 11:05 INR 1.39 (0.8-1.2) H 02/16/23 11:05 Sodium 133 mmol/L (136-145) L 02/16/23 11:05 Potassium 3.8 mmol/L (3.5-5.1) 02/16/23 11:05 Chloride 96 mmol/L (98-107) L 02/16/23 11:05 Carbon Dioxide 28 mmol/L (22-29) 02/16/23 11:05 Anion Gap 12.8 (5-19) 02/16/23 11:05 BUN 10 mg/dL (8-23) 02/16/23 11:05 Creatinine 0.7 mg/dL (0.5-0.9) 02/16/23 11:05 GFR Calculation Not Reportable 02/16/23 11:05 Glucose 531 mg/dL (65-115) H* 02/16/23 11:05 Calculated Osmolality 299 mOsm/kg (285-295) H 02/16/23 11:05 Calcium 8.4 mg/dL (8.5-10.5) L 02/16/23 11:05 Total Bilirubin 0.3 mg/dL (0.15-1.2) 02/16/23 11:05 AST 11 U/L (0-32) 02/16/23 11:05 ALT 9 U/L (0-33) 02/16/23 11:05 Alkaline Phosphatase 111 U/L (35-105) H 02/16/23 11:05 Troponin T Baseline 20 ng/L (0-10) H 02/16/23 11:05 Troponin T 120 Minute 22.15 ng/L (0-10) H 02/16/23 13:06 Delta Troponin T 2.15 ABS# (0-10) 02/16/23 13:06 NT-Pro-B Natriuret Pep 3744 pg/mL (0-125) H 02/16/23 11:05 Total Protein 5.9 g/dL (6.6-8.7) L 02/16/23 11:05 Albumin 3.4 g/dL (3.5-5.2) L 02/16/23 11:05 Globulin 2.5 g/dL (1.3-4.6) 02/16/23 11:05 All radiology interpretation(s) finalized by discharge EKG Data EKG 1: I personally reviewed and interpreted this EKG as follows: EKG Interpretation Date: 02/16/23 EKG interpretation time: 10:38 Prior EKG tracings: not available for review Interpretation: EKG showed ventricular rate 76 bpm, QRS 132, QTc of 436, A-fib, right bundle branch block, Discharge Plan Discharge Patient Disposition: Placed in Observation Clinical Impression: Bilateral pleural effusion, Hypoxia, Atrial fibrillation, persistent, Diabetes mellitus Condition: Stable Prescriptions: No Action KirbyPolicyStat 160-9-4.8 mcg/actuation HFA aerosol inhaler 2 inh inhalation BID Qty: 10.7 3RF atorvastatin 20 mg tablet 20 mg PO QPM pantoprazole 40 mg tablet,delayed release (DR/EC) 40 mg PO DAILY hydralazine 50 mg tablet 50 mg PO TID duloxetine 60 mg capsule,delayed release(DR/EC) 60 mg PO DAILY nitroglycerin 0.4 mg tablet, sublingual 0.4 mg sublingual Q5M MDD 6 tabs PRN (Reason: chest pain) Qty: 30 0RF Rx Instructions: do not exceed 3 doses per episode lisinopril 20 mg Tablet 40 mg PO DAILY Qty: 60 0RF metoprolol tartrate 50 mg Tablet 75 mg PO BID Qty: 90 0RF budesonide 0.5 mg/2 mL Suspension For Nebulization 0.5 mg inhalation BID.RESPIRATORY Qty: 120 0RF ipratropium-albuterol 0.5 mg-3 mg(2.5 mg base)/3 mL Solution For Nebulization 3 ml inhalation QID.RESPIRATORY Qty: 360 0RF isosorbide mononitrate 30 mg Tablet Extended Release 24 Hr 30 mg PO DAILY Qty: 30 0RF diltiazem HCl [DILT-XR] 180 mg Capsule,Ext.Rel 24h Degradable 180 mg PO DAILY Qty: 30 0RF Jardiance 10 mg tablet 10 mg PO DAILY Qty: 30 0RF furosemide [Lasix] 40 mg tablet 40 mg PO QAM Qty: 30 0RF quetiapine 25 mg tablet 25 mg PO QPM clonidine HCl 0.1 mg tablet 0.1 mg PO BID glipizide 5 mg tablet extended release 24hr 5 mg PO BID bupropion HCl 150 mg tablet extended release 24 hr 150 mg PO DAILY clonazepam 0.5 mg tablet 0.5 mg PO QPM aspirin 81 mg Tablet,Delayed Release (Dr/Ec) 81 mg PO DAILY azelastine 137 mcg (0.1 %) aerosol,spray 2 spray INTRANASAL BID PRN (Reason: Nasal Congestion) Eliquis DVT-PE Treat 30D Start 5 mg (74 tabs) tablets,dose pack 5 mg PO BID Qty: 74 2RF Hold Instructions: Resume on 04/04/22. Until after CT is complete and follow up Referrals: Chayito Kaur MD [Primary Care Provider] - Coding Level of Care Code ED Caddy/Caddie Supervisor for Arnold Drake
[2023-02-16 11:24] LABS: Basophils % 0.4 %; Eosinophils # 0.1 10^3/uL (0.0-0.8); Eosinophils % 1.4 %; Hematocrit 33.4 % (36-47); Lymphocytes # 0.9 10^3/uL (0.8-4.8); Lymphocytes % 10.7 %; Mean Corpuscular HGB Conc 29.6 g/dL (30-55); Mean Platelet Volume 10.7 fL (7.4-10.4); Monocytes # 0.5 10^3/uL (0.2-0.9); Monocytes % 5.5 %; Neutrophils # 6.63 10^3/uL (1.8-7.7); Neutrophils % 81.5 %; Nucleated Red Blood Cells % 0 %; Platelet Count 219 10^3/cmm (157-399); Red Blood Count 3.67 10^6/uL (3.85-5.65); Red Cell Distribution Width 14.6 % (12.1-15.1); White Blood Count 8.13 10^3/uL (3.29-11.43)
[2023-02-16 11:28] LABS: INR 1.39 (0.8-1.2)
[2023-02-16 11:37] LABS: Troponin(5th) Baseline 20 ng/L (0-10)
[2023-02-16 11:53] LABS: Alanine Aminotransferase 9 U/L (0-33); Albumin Level 3.4 g/dL (3.5-5.2); Alkaline Phosphatase 111 U/L (35-105); Anion Gap 12.8 (5-19); Aspartate Amino Transferase 11 U/L (0-32); Blood Urea Nitrogen 10 mg/dL (8-23); Calcium 8.4 mg/dL (8.5-10.5); Carbon Dioxide 28 mmol/L (22-29); Chloride 96 mmol/L (98-107); Globulin 2.5 g/dL (1.3-4.6); NT Pro B Type Natriuretic Pept 3744 pg/mL (0-125); Osmolality Calculated 299 mOsm/kg (285-295); Potassium 3.8 mmol/L (3.5-5.1); Sodium 133 mmol/L (136-145); Total Bilirubin 0.3 mg/dL (0.15-1.2); Total Protein 5.9 g/dL (6.6-8.7)
[2023-02-16 12:00] LABS: Glucose 531 mg/dL (65-115)
--- NOTE | 2023-02-16 12:06 | CTR_ITS ---
PROCEDURE INFORMATION: Exam: CT Chest With Contrast; Diagnostic Exam date and time: 02/16/2023 12:30 PM Age: 72 years old Clinical indication: Dyspnea; Additional info: Dyspnea, pleural effusion, abnormal cxr TECHNIQUE: Imaging protocol: Diagnostic computed tomography of the chest with contrast. Radiation optimization: All CT scans at this facility use at least one of these dose optimization techniques: automated exposure control; mA and/or kV adjustment per patient size (includes targeted exams where dose is matched to clinical indication); or iterative reconstruction. Contrast material: OMNI 350; Contrast volume: 100 ml; Contrast route: INTRAVENOUS (IV); REPORTING DATA: Count of CT and Cardiac NM exams in prior 12 months: This patient has received 7 known CTs and 0 known cardiac nuclear medicine studies in the 12 months prior to the current study. COMPARISON: CT chest wo con [id number] 01/15/2023 9:35 AM RADIATION DOSE METRICS: Total DLP (mGy-cm): 238.24 FINDINGS: Lungs: Increased bilateral atelectasis and/or pneumonitis. Otherwise, unremarkable. Pleural spaces: Large bilateral simple appearing pleural effusions have increased. No obvious pleural thickening. No pneumothorax. Heart: Unchanged mild cardiomegaly. Unchanged small pericardial effusion. Coronary arteries: Large amount of coronary artery calcification. Lymph nodes: Unremarkable. No enlarged lymph nodes. Vasculature: Small amount of systemic arterial calcification. Otherwise, unremarkable systemic arteries. No convincing evidence of pulmonary embolism. Gallbladder and bile ducts: Unchanged cholecystectomy. Otherwise, unremarkable upper abdominal structures. Bones/joints: Bones and joints: Unchanged mild multilevel thoracic spondylosis. 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 Otherwise, unremarkable. Soft tissues: Unremarkable body wall. CT/CT chest w con* [id number] IMPRESSION: 1. Large bilateral pleural effusions have increased. 2. Increased bilateral atelectasis and/or pneumonitis. 3. Unchanged mild cardiomegaly and small pericardial effusion. 4. Additional details as above. Unchanged:
[2023-02-16] MEDS: insulin regular-human 100 units/1 mL 10 UNIT IVP (12:16)
[2023-02-16] MEDS: iohexol 350 mg/mL 500 mL Btl (per mL) IV (12:33)
--- NOTE | 2023-02-16 12:44 | ECG_ITS ---
[facility] Test Date: 2023-02-16 Pat Name: Keri Fang Department: Room: Gender: Female Monotype Caster: : 1950 Requested By: Noah Caicedo Order Number: [id number] Nikky MD: Norm Michel M.D. Measurements Intervals [place] Rate: 62 P: 0 [place]: 0 QRS: 42 QRSD: 148 T: -77 QT: 446 QTc: 454 Interpretive Statements ATRIAL FIBRILLATION WITH ABERRANT CONDUCTION OR VENTRICULAR PREMATURE COMPLEXES RIGHT BUNDLE BRANCH BLOCK [120+ ms QRS DURATION, UPRIGHT V1, 40+ ms S IN I/aVL/V4/V5/V6] SEPTAL MYOCARDIAL INFARCTION , OF INDETERMINATE AGE [40+ ms Q WAVE IN V1/V2] MODERATE T-WAVE ABNORMALITY, CONSIDER LATERAL ISCHEMIA [-0.1+ mV T-WAVE IN I/aVL/V5/V6] MODERATE T-WAVE ABNORMALITY, CONSIDER INFERIOR ISCHEMIA [-0.1+ mV T-WAVE IN II/aVF] Compared to ECG 02/16/2023 10:38:35 Ventricular premature complex(es) now present Aberrant conduction of supraventricular beat(s) now present Myocardial infarct finding now present T-wave abnormality now present Possible ischemia now present Electronically Signed On 02-16-2023 19:27:05 CDT by Norm Michel M.D. [id number]
[2023-02-16 13:33] LABS: Troponin 5 2HR 22.15 ng/L (0-10)
[2023-02-16 13:37] LABS: Troponin 5 2HR Delta 2.15 ABS# (0-10)
[2023-02-16 16:00] VITALS: BP 145/76; PULSE 79; RESP 17; TEMP 36.5; O2SAT 92
--- NOTE | 2023-02-16 16:44 | ECG_ITS ---
[facility] Test Date: 2023-02-16 Pat Name: Keri Fang Department: Room: 272 Gender: Female Infrastructure Developer: : 1950 Requested By: Noah Caicedo Order Number: [id number] Nikky MD: Norm Michel M.D. Measurements Intervals [place] Rate: 75 P: 0 [place]: 0 QRS: 48 QRSD: 142 T: -75 QT: 401 QTc: 448 Interpretive Statements ATRIAL FIBRILLATION RIGHT BUNDLE BRANCH BLOCK [120+ ms QRS DURATION, UPRIGHT V1, 40+ ms S IN I/aVL/V4/V5/V6] Compared to ECG 02/16/2023 12:10:20 Ventricular premature complex(es) no longer present Aberrant conduction of supraventricular beat(s) no longer present Myocardial infarct finding no longer present T-wave abnormality no longer present Possible ischemia no longer present Electronically Signed On 02-16-2023 19:27:29 CDT by Norm Michel M.D. [id number]
--- NOTE | 2023-02-16 17:10 | PM.HP ---
Providers/Chief Complaint Admitting Physician: Andrea Johnson MD Primary Care Provider: Chayito Kaur MD Chief Complaint: sob History of Present Illness Keri Fang is a 72 year old female with a past medical history significant for chronic hypoxic respiratory failure, COPD, and atrial fibrillation who presents emergency department with shortness of breath. Patient reports symptoms for the past 4 to 5 days. Reports exertion makes symptoms worse. Rest improves symptoms. She states that her exercise tolerance is very poor. Denies fevers, chills, nausea or emesis. In the emergency department, patient was found to have bilateral pleural effusions. She denies prior thoracentesis. Review of Systems Narrative: A complete review of systems was obtained and is negative except as stated in HPI. Medications/Allergies Home Medications Medication Instructions Recorded Confirmed Last Taken Type atorvastatin 20 mg tablet 20 mg PO QPM 11/15/19 02/16/23 02/15/23 History pantoprazole 40 mg tablet,delayed 40 mg PO DAILY 11/15/19 02/16/23 02/16/23 History release duloxetine 60 mg capsule,delayed 60 mg PO DAILY 05/21/21 02/16/23 02/16/23 History release hydralazine 50 mg tablet 50 mg PO TID 05/21/21 02/16/23 02/16/23 History aspirin 81 mg tablet,delayed 81 mg PO DAILY 03/06/22 02/16/23 02/16/23 History release azelastine 137 mcg (0.1 %) nasal 2 spray intranasal BID PRN Nasal 03/06/22 02/16/23 02/16/23 History spray aerosol Congestion clonazepam 0.5 mg tablet 0.5 mg PO QPM 03/06/22 02/16/23 02/15/23 History apixaban 5 mg (74 tabs) tablets in 5 mg PO BID #74 ea 03/08/22 02/16/23 02/16/23 Rx a dose pack (Eliquis DVT-PE Treat 30D Start) nitroglycerin 0.4 mg sublingual 0.4 mg sublingual Q5M PRN chest 12/30/22 02/16/23 Unknown Rx tablet pain #30 tabs budesonide 0.5 mg/2 mL suspension 0.5 mg (2 mL) inhalation 01/16/23 02/16/23 02/16/23 Rx for nebulization BID.RESPIRATORY #120 mL diltiazem HCl 180 mg 180 mg PO DAILY #30 caps 01/16/23 02/16/23 02/16/23 Rx capsule,extended release 24 hr, controlled (DILT-XR) empagliflozin 10 mg tablet 10 mg PO DAILY #30 tabs 01/16/23 02/16/23 02/16/23 Rx (Jardiance) furosemide 40 mg tablet (Lasix) 40 mg PO QAM #30 tabs 01/16/23 02/16/23 02/16/23 Rx ipratropium 0.5 mg-albuterol 3 mg 3 ml inhalation QID.RESPIRATORY 01/16/23 02/16/23 02/16/23 Rx (2.5 mg base)/3 mL nebulization #360 mL soln isosorbide mononitrate 30 mg 30 mg PO DAILY #30 tabs 01/16/23 02/16/23 02/16/23 Rx tablet,extended release 24 hr lisinopril 20 mg tablet 40 mg PO DAILY #60 tabs 01/16/23 02/16/23 02/16/23 Rx metoprolol tartrate 50 mg tablet 75 mg PO BID #90 tabs 01/16/23 02/16/23 02/16/23 Rx budesonide 160 mcg-glycopyr 9 2 inh inhalation BID #10.7 grams 01/30/23 02/16/23 02/16/23 Rx mcg-formot 4.8 mcg/actuation HFA inhaler (Breztri Aerosphere) bupropion HCl 150 mg 24 hr tablet, 150 mg PO DAILY 02/16/23 02/16/23 02/16/23 History extended release clonidine HCl 0.1 mg tablet 0.1 mg PO BID 02/16/23 02/16/23 02/16/23 History glipizide 5 mg tablet, extended 5 mg PO BID 02/16/23 02/16/23 02/16/23 History release 24 hr quetiapine 25 mg tablet 25 mg PO QPM 02/16/23 02/16/23 02/15/23 History Allergies Allergy/AdvReac Type Severity Reaction Status Date / Time No Known Allergies Allergy Verified 02/16/23 11:56 PFSH Acute PFSH: Medical History Acute respiratory failure with hypoxia and hypercarbia Afib Broken wrist COPD (chronic obstructive pulmonary disease) COPD exacerbation Facial droop Helicobacter pylori gastritis Hiatal hernia History of colon polyps History of skin cancer Hypoxia New onset a-fib Pneumonia Right renal mass Surgical History History of appendectomy History of surgery on left wrist History of tubal ligation Family History Mother , at age 75 Cancer Breast Alzheimer disease Father , at age 69 CAD (coronary artery disease) Pancreatic adenocarcinoma Social History Smoking and tobacco/nicotine status: former use of tobacco/nicotine Quit status (tobacco/nicotine): has quit using Year quit tobacco: 2021 Former quit date comment: 1.5 ppd X 51 years Alcohol intake: never Substance/Drug Use: never Adopted: No Household members: spouse Marital status: Current occupational status: retired Vitals/I&O/Wt Last Vital Signs Temp 97.7 F 02/16/23 16:00 Pulse 79 02/16/23 16:00 Resp 17 02/16/23 16:00 BP 145/76 02/16/23 16:00 Pulse Ox 92 02/16/23 16:00 O2 Del Method Nasal Cannula 02/16/23 15:22 O2 Flow Rate 4 02/16/23 10:39 Weight last 48 hrs Weight 55.338 kg Physical Exam Narrative: General: Patient is awake and alert. Unable to speak in full sentences due to respiratory status. Head: Normocephalic. Atraumatic. EOM intact. Neck: No JVD. Cardiovascular: RRR. No gallops. No murmurs. No peripheral edema. Lungs: Breath sounds are markedly diminished bilateral bases. No wheezing or rhonchi. Patient unable to speak in full sentences. Tachypnea and increased work of breathing with accessory muscle use when speaking. Skin: No jaundice. No rashes. Abdomen: Normal bowel sounds, abdomen soft and nontender. Extremities: No cyanosis or clubbing. Musculoskeletal: No swollen or erythematous joints. Neurological: Moves all 4 extremities. No myoclonus. Data 02/16/23 11:05 02/16/23 11:05 A&P Assessment and plan (1) Bilateral pleural effusion: Moderate-large bilateral pleural effusion likely related to underlying CHF and poorly controlled a-fib Denies prior thoracentesis Radiology consult for thoracentesis, either side appropriate, defer to performing provider Thoracentesis labs ordered, may need laterality marked INR checked, apixaban held (2) Congestive heart failure due to hypertension: Continue beta roby Continue Lasix (3) Atrial fibrillation, persistent: Lopressor for rate control Hold apixaban for thoracentesis (4) Diabetes mellitus: C/b severe hyperglycemia s/p IV insulin ED Hold home glipizide Start mSSI Avoid hyper/hypoglycemia Qualifiers: Diabetes mellitus complication status: without complication Diabetes mellitus half-way insulin use: with intermodal customer service use Diabetes mellitus type: type 2 Qualified Code(s): E11.9 - Type 2 diabetes mellitus without complications; Z79.4 - FPC (current) use of insulin (5) COPD (chronic obstructive pulmonary disease): No wheezing, not in exacerbation Nebulizing treatments (6) Accelerated hypertension: Continue home Lopressor, lisinopril, Imdur, hydralazine, diltiazem Lasix, and clonidine Plan DVT ppx: Hold apixaban Attestations Medical Necessity Statement*: Pt presents w/ SOB, found to have significant bilateral pleural effusions with expected hospital course not to cross two midnights for supplemental oxygen, thoracentesis, and supportive care. Coding Level of Care Code Acute Code for Chg Fwd Diagnoses Bilateral pleural effusion J90 Congestive heart failure due to hypertension I11.0 Atrial fibrillation, persistent I48.19 Diabetes mellitus E11.9; Z79.4 Diabetes mellitus complication status: without complication Diabetes mellitus intermodal customer service insulin use: with intermodal customer service use Diabetes mellitus type: type 2 COPD (chronic obstructive pulmonary disease) J44.9 Accelerated hypertension I10
[2023-02-16 17:14] LABS: Glucose Point of Care 273 mg/dL (70-110)
[2023-02-16 17:52] LABS: Troponin 5 6HR 21.11 ng/L (0-10)
[2023-02-16 17:58] LABS: Troponin 5 6HR Delta 1.11 ng/L (0-12)
[2023-02-16 19:08] VITALS: BP 162/82; PULSE 95; RESP 18; TEMP 37; O2SAT 94
[2023-02-16 20:13] LABS: Glucose Point of Care 317 mg/dL (70-110)
[2023-02-16] MEDS: ipratropium-albuterol 3 mL Neb INHALATION (20:33)
[2023-02-16] MEDS: budesonide 0.5 mg/2 mL Neb INHALATION (20:33)
[2023-02-16 20:34] VITALS: PULSE 101; RESP 20; O2SAT 84
[2023-02-16 20:38] VITALS: PULSE 81
[2023-02-16] MEDS: hyDRALAzine 50 mg Tablet PO (20:59)
[2023-02-16] MEDS: insulin lispro 100 unit/1 mL SUBCUT (20:59)
[2023-02-16] MEDS: CLONazepam 0.5 mg Tablet PO (22:13)
[2023-02-16] MEDS: trazodone 150 mg Tablet PO (22:13)
[2023-02-17] VITALS (17 sets, daily range): BP systolic 96–160; BP diastolic 62–84; PULSE 77–110; RESP 16–20; TEMP 36.7–37; O2SAT 91–99
--- NOTE | 2023-02-17 04:26 | PC.NURSE ---
pt took self to bathroom
[2023-02-17 05:55] LABS: Anion Gap 12.3 (5-19); Blood Urea Nitrogen 9 mg/dL (8-23); Calcium 9.3 mg/dL (8.5-10.5); Carbon Dioxide 35 mmol/L (22-29); Chloride 98 mmol/L (98-107); Glucose 203 mg/dL (65-115); Osmolality Calculated 296 mOsm/kg (285-295); Potassium 4.3 mmol/L (3.5-5.1); Sodium 141 mmol/L (136-145)
--- NOTE | 2023-02-17 06:00 | US_ITS ---
WS: [id number] ULTRASOUND-GUIDED THORACENTESIS, LEFT HISTORY: Symptomatic bilateral pleural effusion Procedure, risks, and complications were explained to the patient. With the patient in an upright pos ition, the skin over the LEFT posterior thorax was cleansed with ChloraPrep and anesthetized with 1% buffered lidocaine. A 5 Setswana Yueh needle is inserted into the pleural fluid without complication. A pproximately 1000 cc of light yellow pleural fluid is removed without difficulty. Pleural fluid specimen is collected for analysis as requested. IMPRESSION: 1. LEFT thoracentesis yielding 1000 cc of fluid. 2. Chest radiograph to follow to evaluate for pneumothorax.
[2023-02-17 06:42] LABS: Glucose Point of Care 229 mg/dL (70-110)
[2023-02-17] MEDS: FUROsemide 40 mg Tablet PO (06:46)
[2023-02-17] MEDS: budesonide 0.5 mg/2 mL Neb INHALATION ×2 (07:58→19:50)
[2023-02-17] MEDS: ipratropium-albuterol 3 mL Neb INHALATION ×4 (07:58→19:50)
[2023-02-17] MEDS: metoprolol tartrate 50 mg Tablet 75 MG PO ×2 (08:46→17:13)
[2023-02-17] MEDS: duloxetine 60 mg Capsule PO (08:46)
[2023-02-17] MEDS: insulin lispro 100 unit/1 mL SUBCUT ×4 (08:46→21:51)
[2023-02-17] MEDS: aspirin 81 mg EC Tablet PO (08:46)
[2023-02-17] MEDS: isosorbide mononitrate ER 30 mg Tablet PO (08:47)
[2023-02-17] MEDS: buPROPion XL (24 HR) 150 mg Tablet PO (08:47)
[2023-02-17] MEDS: hyDRALAzine 50 mg Tablet PO ×2 (08:47→14:56)
[2023-02-17] MEDS: cloNIDine 0.1 mg Tablet PO ×2 (08:47→17:19)
[2023-02-17] MEDS: pantoprazole DR 40 mg Tablet PO (08:47)
[2023-02-17] MEDS: lisinopril 20 mg Tablet 40 MG PO (08:47)
[2023-02-17] MEDS: dilTIAZem ER (24HR) 180 mg Capsule PO (08:47)
[2023-02-17 11:00] LABS: Glucose Point of Care 215 mg/dL (70-110)
--- NOTE | 2023-02-17 12:54 | XR_ITS ---
WS: [email or web address] PORTABLE CHEST HISTORY: thoracentesis COMPARISON: 12/30/2022, 02/16/2023 Status post LEFT thoracentesis. No pneumothorax. Improved aeration throughout the mid and lower LEFT lung. There is a small amount of atelectatic lung and a very tiny LEFT pleural effusion remaining. No significant RIGHT effusion. Otherwise lungs are clear. Cardiac size: Mildly enlarged cardiac silhouette. Mediastinum/Aorta: Moderate atherosclerotic plaque within the thoracic aorta. No osseous abnormality seen. IMPRESSION: 1. No pneumothorax status post LEFT thoracentesis. 2. Marked improved aeration LEFT thorax. Small amount of residual atelectasis and a very small LEFT p leural effusion.
[2023-02-17 14:37] LABS: Albumin Body Fluid 1.7 g/dL; LDH Body Fluid 310 U/L
[2023-02-17 17:09] LABS: Glucose Point of Care 416 mg/dL (70-110)
[2023-02-17] MEDS: acetaminophen 325 mg Tablet 650 MG PO (17:13)
[2023-02-17] MEDS: CLONazepam 0.5 mg Tablet PO (17:13)
[2023-02-17] MEDS: atorvastatin 40 mg Tablet PO (17:13)
[2023-02-17] MEDS: quetiapine 25 mg Tablet PO (17:16)
--- NOTE | 2023-02-17 17:40 | P.PN_ITS ---
Subjective Subjective: Status post paracentesis today from left lung. Thoracentesis yielding 1000 cc of fluid. Postthoracentesis chest x-ray without any pleural effusion. Improved aeration in the left thorax. Most labs available so far, total protein at 3, LDH 3.0, fluid albumin 1.7, overall consistent with a transudative effusion. Gram stain with few white blood cells but no organisms. States she is having pain at the site of thoracentesis currently. Vitals/I&O/Wt Last Vital Signs Temp 98.0 F 02/17/23 11:53 Pulse 83 02/17/23 15:18 Resp 18 02/17/23 15:13 BP 135/79 02/17/23 17:19 Pulse Ox 93 02/17/23 15:13 O2 Del Method Nasal Cannula 02/17/23 15:13 O2 Flow Rate 3 02/17/23 15:13 02/17/23 02/17/23 02/17/23 06:59 14:59 22:59 Intake Total 240 / 600 680 / 680 Balance 240 / 600 680 / 680 Weight last 48 hrs Weight 55.338 kg Physical Exam Narrative: General: No acute distress, AO x3 HEENT: PERRLA, pupils bilaterally equal and reactive, pallors not present Chest: Normal vesicular breath sounds, no added sounds, equal good air entry bilaterally CVS: S1-S2 regular, no murmurs, no tachycardia, no gallops, no rubs Abdomen: Soft, nontender, no organomegaly, bowel sounds present Neuro: No focal deficits, no facial deformity, AO x3, power 5/5 in all limbs Data 02/16/23 11:05 02/17/23 05:03 Micro: Microbiology 02/17/23 13:00 Gram Stain - Final Thoracic Fluid A&P Assessment and plan (1) Bilateral pleural effusion: Moderate-large bilateral pleural effusion likely related to underlying CHF and poorly controlled a-fib s/p left thoracentesis Thoracentesis labs ordered, may need laterality marked INR checked, apixaban held, to resume tomorrow prn morphine for pain management post thoracentesis (2) Congestive heart failure due to hypertension: Continue beta roby Continue Lasix (3) Atrial fibrillation, persistent: Lopressor for rate control Hold apixaban for thoracentesis (4) Diabetes mellitus: currently well controlled fingersticks Qualifiers: Diabetes mellitus complication status: without complication Diabetes mellitus custodial insulin use: with custodial use Diabetes mellitus type: type 2 Qualified Code(s): E11.9 - Type 2 diabetes mellitus without complications; Z79.4 - detention (current) use of insulin (5) COPD (chronic obstructive pulmonary disease): No wheezing, not in exacerbation Nebulizing treatments (6) Accelerated hypertension: Continue home Lopressor, lisinopril, Imdur, hydralazine, diltiazem Lasix, and clonidine Plan DVT ppx: Hold apixaban , resume tomorrow Attestations Medical Necessity Statement*: s/p thoracentesis, pain control Coding Level of Care Code Acute Code for Chg Fwd Moderate MDM includes number and complexity of problems actively addressed during encounter, amount and/or complexity of data reviewed/ordered and described risk of complication, morbidity or mortality of management as docu mented Diagnoses Bilateral pleural effusion J90 Congestive heart failure due to hypertension I11.0 Atrial fibrillation, persistent I48.19 Diabetes mellitus E11.9; Z79.4 Diabetes mellitus complication status: without complication Diabetes mellitus director long term care insulin use: with custodial use Diabetes mellitus type: type 2 COPD (chronic obstructive pulmonary disease) J44.9 Accelerated hypertension I10
[2023-02-17] MEDS: morphine 4 mg/mL SDV 1 mL 2 MG IVP (19:33)
[2023-02-17] MEDS: trazodone 150 mg Tablet PO (20:09)
[2023-02-17 20:11] LABS: Glucose Point of Care 188 mg/dL (70-110)
--- NOTE | 2023-02-17 22:38 | PC.NURSE ---
Pt had 50 mg of Hydralazine scheduled for 2100; due to BP of 99/68 Dr. Aranda advised to hold med.
[2023-02-18] VITALS (16 sets, daily range): BP systolic 84–135; BP diastolic 52–84; PULSE 67–113; RESP 16–20; TEMP 36.2–37.2; O2SAT 90–96
--- NOTE | 2023-02-18 04:00 | XRR_ITS ---
PROCEDURE INFORMATION: Exam: XR Chest Exam date and time: 02/18/2023 4:45 AM Age: 72 years old Clinical indication: Screening exam; Other screening; Additional info: Evalaute pleural effusion post thoracentesis TECHNIQUE: Imaging protocol: Radiologic exam of the chest. Views: 1 view. COMPARISON: CR XR chest 1V portable [id number] 02/17/2023 1:10 PM FINDINGS: Lungs: Emphysematous lung changes. Pleural spaces: Large left-sided pleural effusion is increased. Small right pleural effusion. Negative for pneumothorax. Heart/Mediastinum: Cardiomegaly. Bones/joints: Unremarkable. XR/XR chest 1V portable [id number] IMPRESSION: Increased left pleural effusion.
[2023-02-18] MEDS: FUROsemide 40 mg Tablet PO (05:19)
[2023-02-18 06:31] LABS: Glucose Point of Care 278 mg/dL (70-110)
[2023-02-18] MEDS: budesonide 0.5 mg/2 mL Neb INHALATION ×2 (08:13→20:33)
[2023-02-18] MEDS: ipratropium-albuterol 3 mL Neb INHALATION ×4 (08:13→20:33)
[2023-02-18] MEDS: insulin lispro 100 unit/1 mL SUBCUT ×3 (08:38→20:44)
[2023-02-18] MEDS: dilTIAZem ER (24HR) 180 mg Capsule PO (08:39)
[2023-02-18] MEDS: pantoprazole DR 40 mg Tablet PO (08:39)
[2023-02-18] MEDS: duloxetine 60 mg Capsule PO (08:39)
[2023-02-18] MEDS: aspirin 81 mg EC Tablet PO (08:39)
[2023-02-18] MEDS: cloNIDine 0.1 mg Tablet PO (08:39)
[2023-02-18] MEDS: metoprolol tartrate 50 mg Tablet 75 MG PO (08:39)
[2023-02-18] MEDS: lisinopril 20 mg Tablet 40 MG PO (08:39)
[2023-02-18] MEDS: isosorbide mononitrate ER 30 mg Tablet PO (08:40)
[2023-02-18] MEDS: hyDRALAzine 50 mg Tablet PO ×2 (08:40→14:50)
[2023-02-18] MEDS: buPROPion XL (24 HR) 150 mg Tablet PO (08:42)
--- NOTE | 2023-02-18 11:03 | P.DS_ITS ---
Discharge Providers Date of Admission: 02/16/23 14:11 Date of Discharge: February 18, 2023 Attending Provider at Admission: Andrea Johnson MD Attending Provider at Discharge: Kia Ocampo MD Primary Care Provider: Chayito Kaur MD Diagnoses at Discharge Discharge Diagnosis (1) Bilateral pleural effusion: Status: Acute (2) Congestive heart failure due to hypertension: Status: Acute (3) Atrial fibrillation, persistent: Status: Acute (4) Diabetes mellitus: Status: Acute Qualifiers: Diabetes mellitus complication status: without complication Diabetes mellitus terminal system operator insulin use: with fdc use Diabetes mellitus type: type 2 Qualified Code(s): E11.9 - Type 2 diabetes mellitus without complications; Z79.4 - terminal system operator (current) use of insulin (5) COPD (chronic obstructive pulmonary disease): Status: Acute (6) Accelerated hypertension: Status: Acute Reason for Visit Reason for Visit: sob Brief History: Keri Fang is a 72 year old female with a past medical history significant for chronic hypoxic respiratory failure, COPD, and atrial fibrillation who presents emergency department with shortness of breath.? Patient reports symptoms for the past 4 to 5 days.? Reports exertion makes symptoms worse.? Rest improves symptoms.? She states that her exercise tolerance is very poor.? Denies fevers, chills, nausea or emesis. In the emergency department, patient was found to have bilateral pleural effusions.? She denies prior thoracentesis Hospital Course Hospital Course (1) Bilateral pleural effusion: Moderate-large bilateral pleural effusion likely related to underlying CHF and poorly controlled a-fib s/p left sided thoracentesis with removal of 1L fluid Pleural fluid analysis with total protein 3.0, LDH 310 , likely transudative fluid Breathing status improved after thoracentesis (2) Congestive heart failure due to hypertension: Continued beta roby Continued Lasix (3) Atrial fibrillation, persistent: Lopressor for rate control, increased dose resumed apixaban at discharge (4) Diabetes mellitus: C/b severe hyperglycemia Hold home glipizide On insulin sliding scale Avoid hyper/hypoglycemia (5) COPD (chronic obstructive pulmonary disease): No wheezing, not in exacerbation Nebulizing treatments (6) Accelerated hypertension: Continue home Lopressor, lisinopril, Imdur, hydralazine, diltiazem Lasix, and clonidine Physical Exam Narrative: General: No acute distress, AO x3 HEENT: PERRLA, pupils bilaterally equal and reactive, pallors not present Chest: Normal vesicular breath sounds, no added sounds, equal good air entry bilaterally CVS: S1-S2 regular, no murmurs, no tachycardia, no gallops, no rubs Abdomen: Soft, nontender, no organomegaly, bowel sounds present Neuro: No focal deficits, no facial deformity, AO x3, power 5/5 in all limbs Discharge Data Studies Completed and Pending Completed Studies During Hospitalization Category Date Time Status CT chest w con* [id number] Stat Cat Scan 02/16/23 12:06 Completed CXRP [XR chest 1V portable [id number]] AM LABS Exams 02/18/23 04:00 Completed XR chest 1V portable [id number] Stat Exams 02/16/23 10:44 Completed XR chest 1V portable [id number] Stat Exams 02/17/23 12:54 Completed US thoracentesis [id number] Routine Ultrasound 02/17/23 06:00 Completed Pending at discharge Category Date Time Status Body Fluid Culture & GS Routine Lab 02/16/23 18:05 Results Radiology Impressions Chest CT 02/16/23 12:06 IMPRESSION: 1. Large bilateral pleural effusions have increased. 2. Increased bilateral atelectasis and/or pneumonitis. 3. Unchanged mild cardiomegaly and small pericardial effusion. 4. Additional details as above. Unchanged: Chest X-Ray 02/18/23 04:00 IMPRESSION: Increased left pleural effusion. Laboratory Results WBC 8.13 10^3/uL (3.29-11.43) 02/16/23 11:05 RBC 3.67 10^6/uL (3.85-5.65) L 02/16/23 11:05 Hgb 9.90 g/dL (11.27-16.99) L 02/16/23 11:05 Hct 33.4 % (36-47) L 02/16/23 11:05 MCV 91.0 fl (85-98) 02/16/23 11:05 MCH 27.0 pg (27-33) 02/16/23 11:05 MCHC 29.6 g/dL (30-55) L 02/16/23 11:05 RDW 14.6 % (12.1-15.1) 02/16/23 11:05 Plt Count 219 10^3/cmm (157-399) 02/16/23 11:05 MPV 10.7 fL (7.4-10.4) H 02/16/23 11:05 Neut % (Auto) 81.5 % 02/16/23 11:05 Lymph % (Auto) 10.7 % 02/16/23 11:05 Williamson % (Auto) 5.5 % 02/16/23 11:05 Eos % (Auto) 1.4 % 02/16/23 11:05 Baso % (Auto) 0.4 % 02/16/23 11:05 Neut # (Auto) 6.63 10^3/uL (1.8-7.7) 02/16/23 11:05 Lymph # (Auto) 0.9 10^3/uL (0.8-4.8) 02/16/23 11:05 Williamson # (Auto) 0.5 10^3/uL (0.2-0.9) 02/16/23 11:05 Eos # (Auto) 0.1 10^3/uL (0.0-0.8) 02/16/23 11:05 Baso # (Auto) 0.0 10^3/uL (0.0-0.1) 02/16/23 11:05 Nucleated RBC % (auto) 0 % 02/16/23 11:05 Nucleated RBCs # 0.0 /100WBC 02/16/23 11:05 PT 17.50 SECONDS (12.1-14.9) H 02/16/23 11:05 INR 1.39 (0.8-1.2) H 02/16/23 11:05 Sodium 141 mmol/L (136-145) 02/17/23 05:03 Potassium 4.3 mmol/L (3.5-5.1) 02/17/23 05:03 Chloride 98 mmol/L (98-107) 02/17/23 05:03 Carbon Dioxide 35 mmol/L (22-29) H 02/17/23 05:03 Anion Gap 12.3 (5-19) 02/17/23 05:03 BUN 9 mg/dL (8-23) 02/17/23 05:03 Creatinine 0.8 mg/dL (0.5-0.9) 02/17/23 05:03 GFR Calculation Not Reportable 02/17/23 05:03 Glucose 203 mg/dL (65-115) H 02/17/23 05:03 POC Glucose 278 mg/dL (70-110) H 02/18/23 06:24 Calculated Osmolality 296 mOsm/kg (285-295) H 02/17/23 05:03 Calcium 9.3 mg/dL (8.5-10.5) 02/17/23 05:03 Total Bilirubin 0.3 mg/dL (0.15-1.2) 02/16/23 11:05 AST 11 U/L (0-32) 02/16/23 11:05 ALT 9 U/L (0-33) 02/16/23 11:05 Alkaline Phosphatase 111 U/L (35-105) H 02/16/23 11:05 Troponin T Baseline 20 ng/L (0-10) H 02/16/23 11:05 Troponin T 120 Minute 22.15 ng/L (0-10) H 02/16/23 13:06 Delta Troponin T 2.15 ABS# (0-10) 02/16/23 13:06 Troponin T Hi Sens 6Hr 21.11 ng/L (0-10) H 02/16/23 17:07 Troponin T Hi Sens 6Hr Delta 1.11 ng/L (0-12) 02/16/23 17:07 NT-Pro-B Natriuret Pep 3744 pg/mL (0-125) H 02/16/23 11:05 Total Protein 5.9 g/dL (6.6-8.7) L 02/16/23 11:05 Albumin 3.4 g/dL (3.5-5.2) L 02/16/23 11:05 Globulin 2.5 g/dL (1.3-4.6) 02/16/23 11:05 Fluid Glucose 250.0 mg/dL 02/17/23 13:00 Fluid Albumin 1.7 g/dL 02/17/23 13:00 Fluid LDH 310 U/L 02/17/23 13:00 Pleural Total Protein 3.0 g/dL 02/17/23 13:00 Vitals Last Vital Signs Temp 97.5 F L 02/18/23 07:32 Pulse 95 02/18/23 08:13 Resp 16 02/18/23 08:13 BP 135/84 02/18/23 08:39 Pulse Ox 92 10/17/23 08:13 O2 Del Method Nasal Cannula 02/18/23 08:13 O2 Flow Rate 3 02/18/23 08:13 Discharge Plan Discharge Patient Disposition: Home Condition: Stable Prescriptions: Continued Luke Aerosphere 160-9-4.8 mcg/actuation HFA aerosol inhaler 2 inh inhalation BID Qty: 10.7 3RF atorvastatin 20 mg tablet 20 mg PO QPM pantoprazole 40 mg tablet,delayed release (DR/EC) 40 mg PO DAILY hydralazine 50 mg tablet 50 mg PO TID duloxetine 60 mg capsule,delayed release(DR/EC) 60 mg PO DAILY nitroglycerin 0.4 mg tablet, sublingual 0.4 mg sublingual Q5M MDD 6 tabs PRN (Reason: chest pain) Qty: 30 0RF Rx Instructions: do not exceed 3 doses per episode lisinopril 20 mg Tablet 40 mg PO DAILY Qty: 60 0RF budesonide 0.5 mg/2 mL Suspension For Nebulization 0.5 mg inhalation BID.RESPIRATORY Qty: 120 0RF ipratropium-albuterol 0.5 mg-3 mg(2.5 mg base)/3 mL Solution For Nebulization 3 ml inhalation QID.RESPIRATORY Qty: 360 0RF isosorbide mononitrate 30 mg Tablet Extended Release 24 Hr 30 mg PO DAILY Qty: 30 0RF diltiazem HCl [DILT-XR] 180 mg Capsule,Ext.Rel 24h Degradable 180 mg PO DAILY Qty: 30 0RF Jardiance 10 mg tablet 10 mg PO DAILY Qty: 30 0RF furosemide [Lasix] 40 mg tablet 40 mg PO QAM Qty: 30 0RF quetiapine 25 mg tablet 25 mg PO QPM clonidine HCl 0.1 mg tablet 0.1 mg PO BID glipizide 5 mg tablet extended release 24hr 5 mg PO BID bupropion HCl 150 mg tablet extended release 24 hr 150 mg PO DAILY trazodone 150 mg tablet 150 mg PO BEDTIME clonazepam 0.5 mg tablet 0.5 mg PO QPM aspirin 81 mg Tablet,Delayed Release (Dr/Ec) 81 mg PO DAILY azelastine 137 mcg (0.1 %) aerosol,spray 2 spray INTRANASAL BID PRN (Reason: Nasal Congestion) Eliquis DVT-PE Treat 30D Start 5 mg (74 tabs) tablets,dose pack 5 mg PO BID Qty: 74 2RF Hold Instructions: Resume on 04/04/22. Until after CT is complete and follow up Changed metoprolol tartrate 50 mg Tablet 100 mg PO BID Qty: 90 0RF Discharge Orders: Discharge Order (Routine); Ordered 02/18/23 Ordered By: Kia Ocampo Referrals: Chayito Kaur MD [Primary Care Provider] - Discharge Diet: Usual diet Discharge Activity: Resume usual activity Patient Instructions: Opioid Safety Discharge Attestations Time Spent in Discharge Care*: greater than 30 min Quality Metrics Clinical Quality Measures [ No reported AMI, CVA or VTE this stay] Coding Level of Care Code Acute Code for Chg Fwd Diagnoses Bilateral pleural effusion J90 Congestive heart failure due to hypertension I11.0 Atrial fibrillation, persistent I48.19 Diabetes mellitus E11.9; Z79.4 Diabetes mellitus complication status: without complication Diabetes mellitus terminal system operator insulin use: with terminal system operator use Diabetes mellitus type: type 2 COPD (chronic obstructive pulmonary disease) J44.9 Accelerated hypertension I10
[2023-02-18 11:05] LABS: Glucose Point of Care 236 mg/dL (70-110)
[2023-02-18] MEDS: ondansetron 4 MG Tablet PO (12:31)
[2023-02-18] MEDS: metoclopramide 5 mg/mL SDV 2 mL IVP (14:50)
--- NOTE | 2023-02-18 15:42 | CTR_ITS ---
PROCEDURE INFORMATION: Exam: CT Chest Without Contrast; Diagnostic Exam date and time: 02/19/2023 6:12 AM Age: 72 years old Clinical indication: Screening exam; Other screening; Additional info: S/P thoracentesis with repeat opacity left lung, evaluate for consolidation vs bronchial plug vs hemothorax TECHNIQUE: Imaging protocol: Diagnostic computed tomography of the chest without contrast. Radiation optimization: All CT scans at this facility use at least one of these dose optimization techniques: automated exposure control; mA and/or kV adjustment per patient size (includes targeted exams where dose is matched to clinical indication); or iterative reconstruction. REPORTING DATA: Count of CT and Cardiac NM exams in prior 12 months: This patient has received 8 known CTs and 0 known cardiac nuclear medicine studies in the 12 months prior to the current study. COMPARISON: 1. CT chest w con* [id number] 02/16/2023 12:30 PM 2. CR XR chest 1V portable [id number] 02/17/2023 1:10 PM 3. CR (CHEST, ) 02/18/2023 4:45 AM RADIATION DOSE METRICS: Total DLP (mGy-cm): 347.31 FINDINGS: Lungs: Stable atelectasis involving the medial, posterior and lateral basal segments of the right lower lobe. Trachea and central bronchi are normal. Multifocal opacity in the previously atelectatic portions of the left lung including the lingula and basal segments of the left lower lobe. Pleural spaces: Small left and moderate right pleural effusions, similar on the right and markedly decreased on the left since 02/16/2023. No pneumothorax. Heart: There is trace pericardial effusion. Pericardial effusion is similar to 02/16/2023. There is mild cardiac enlargement. Coronary arteries: There is moderate coronary artery calcification. Lymph nodes: There is no mediastinal or hilar lymphadenopathy. Vasculature: There is moderate aortic atherosclerotic disease. Intraperitoneal space: Visible structures in the upper abdomen are unremarkable. Bones/joints: Bones are unremarkable. Soft tissues: The extrathoracic soft tissues are unremarkable. CT/CT chest wo con [id number] IMPRESSION: 1. Markedly decreased left pleural effusion and partial re-expansion of the previously atelectatic segments of the left lower lobe and lingula which demonstrate multifocal opacity suggesting residual atelectasis and re-expansion pulmonary edema. Superimposed infection cannot be unequivocally excluded. No bronchial abnormalities to indicate aspiration or bronchial obstruction. 2. Persistent moderate right pleural effusion and segmental atelectasis in the right lower lobe. 3. No hemothorax. No pneumothorax.
--- NOTE | 2023-02-18 15:43 | ECG_ITS ---
[facility] Test Date: 2023-02-18 Pat Name: Keri Fang Department: Room: 272 Gender: Female Recreation Therapy Aide: : 1950 Requested By: Kia Ocampo Order Number: [id number] Nikky MD: Brandy Castillo M.D. Measurements Intervals [place] Rate: 71 P: 0 CA: 0 QRS: 49 QRSD: 137 T: -11 QT: 409 QTc: 445 Interpretive Statements ATRIAL FIBRILLATION WITH ABERRANT CONDUCTION OR VENTRICULAR PREMATURE COMPLEXES RIGHT BUNDLE BRANCH BLOCK [120+ ms QRS DURATION, UPRIGHT V1, 40+ ms S IN I/aVL/V4/V5/V6] Compared to ECG 02/16/2023 18:12:35 Ventricular premature complex(es) now present Aberrant conduction of supraventricular beat(s) now present Electronically Signed On 02-18-2023 17:42:40 CDT by Brandy Castillo M.D. [id number]
[2023-02-18 16:13] LABS: Basophils % 0.3 %; Eosinophils # 0.2 10^3/uL (0.0-0.8); Hematocrit 32.3 % (36-47); Lymphocytes # 1.3 10^3/uL (0.8-4.8); Lymphocytes % 14.8 %; Mean Corpuscular HGB Conc 29.4 g/dL (30-55); Mean Corpuscular Hemoglobin 26.6 pg (27-33); Mean Corpuscular Volume 90.5 fl (85-98); Mean Platelet Volume 9.6 fL (7.4-10.4); Monocytes # 0.6 10^3/uL (0.2-0.9); Monocytes % 6.4 %; Neutrophils % 76.2 %; Nucleated Red Blood Cells % 0 %; Platelet Count 239 10^3/cmm (157-399); Red Blood Count 3.57 10^6/uL (3.85-5.65); Red Cell Distribution Width 14.7 % (12.1-15.1); White Blood Count 9.06 10^3/uL (3.29-11.43)
[2023-02-18 16:38] LABS: Troponin(5th) Baseline 26 ng/L (0-10)
[2023-02-18 16:39] LABS: Alanine Aminotransferase 7 U/L (0-33); Alkaline Phosphatase 82 U/L (35-105); Anion Gap 10.1 (5-19); Aspartate Amino Transferase 7 U/L (0-32); Blood Urea Nitrogen 18 mg/dL (8-23); Calcium 8.9 mg/dL (8.5-10.5); Carbon Dioxide 35 mmol/L (22-29); Chloride 94 mmol/L (98-107); Globulin 2.6 g/dL (1.3-4.6); Glucose 70 mg/dL (65-115); Osmolality Calculated 280 mOsm/kg (285-295); Potassium 4.1 mmol/L (3.5-5.1); Sodium 135 mmol/L (136-145); Total Bilirubin 0.3 mg/dL (0.15-1.2); Total Protein 5.6 g/dL (6.6-8.7)
[2023-02-18 16:50] LABS: Glucose Point of Care 97 mg/dL (70-110)
[2023-02-18] MEDS: quetiapine 25 mg Tablet PO (17:25)
[2023-02-18] MEDS: atorvastatin 40 mg Tablet PO (17:25)
--- NOTE | 2023-02-18 17:31 | PC.NURSE ---
Pt blood pressure was 86/56 at 4pm so I held metoprolol when giving evening medications.
--- NOTE | 2023-02-18 17:43 | ECG_ITS ---
[facility] Test Date: 2023-02-18 Pat Name: Keri Fang Department: Room: 272 Gender: Female Dialysis Nurse: : 1950 Requested By: Kia Ocampo Order Number: [id number] Nikky MD: Brandy Castillo M.D. Measurements Intervals [place] Rate: 86 P: 0 [place]: 0 QRS: 31 QRSD: 135 T: -41 QT: 403 QTc: 483 Interpretive Statements ATRIAL FIBRILLATION RIGHT BUNDLE BRANCH BLOCK [120+ ms QRS DURATION, UPRIGHT V1, 40+ ms S IN I/aVL/V4/V5/V6] Compared to ECG 02/18/2023 16:07:45 Ventricular premature complex(es) no longer present Aberrant conduction of supraventricular beat(s) no longer present Electronically Signed On 02-18-2023 22:11:24 CDT by Brandy Castillo M.D. [id number]
[2023-02-18 19:03] LABS: Troponin 5 2HR 26.81 ng/L (0-10)
[2023-02-18 19:04] LABS: Troponin 5 2HR Delta 0.81 ABS# (0-10)
[2023-02-18] MEDS: trazodone 150 mg Tablet PO (20:25)
[2023-02-18 20:33] LABS: Glucose Point of Care 362 mg/dL (70-110)
--- NOTE | 2023-02-18 20:42 | ECG_ITS ---
[facility] Test Date: 2023-02-18 Pat Name: Keri Fang Department: Room: 272 Gender: Female Pump Service Supervisor: : 1950 Requested By: Kia Ocampo Order Number: [id number] Reading MD: Brandy Castillo M.D. Measurements Intervals [place] Rate: 90 P: 0 MD: 0 QRS: 5 QRSD: 132 T: -21 QT: 395 QTc: 484 Interpretive Statements ATRIAL FIBRILLATION RIGHT BUNDLE BRANCH BLOCK [120+ ms QRS DURATION, UPRIGHT V1, 40+ ms S IN I/aVL/V4/V5/V6] Compared to ECG 02/18/2023 18:01:07 No significant changes Electronically Signed On 02-18-2023 22:08:46 CDT by Brandy Castillo M.D. [id number]
[2023-02-18 22:45] LABS: Troponin 5 6HR 30.14 ng/L (0-10)
[2023-02-18 22:50] LABS: Troponin 5 6HR Delta 4.14 ng/L (0-12)
[2023-02-18] MEDS: sodium chloride 0.9% 1,000 ML 500 ML IV (23:38)
[2023-02-19] VITALS (16 sets, daily range): BP systolic 86–115; BP diastolic 52–73; PULSE 80–108; RESP 15–19; TEMP 36.6–36.8; O2SAT 92–96
[2023-02-19] MEDS: midodrine 5 mg TABLET PO (01:52)
[2023-02-19] MEDS: FUROsemide 40 mg Tablet PO (05:22)
[2023-02-19 06:39] LABS: Glucose Point of Care 228 mg/dL (70-110)
[2023-02-19] MEDS: budesonide 0.5 mg/2 mL Neb INHALATION ×2 (07:54→19:31)
[2023-02-19] MEDS: ipratropium-albuterol 3 mL Neb INHALATION ×4 (07:54→19:31)
[2023-02-19] MEDS: insulin lispro 100 unit/1 mL SUBCUT ×3 (08:44→21:04)
[2023-02-19] MEDS: pantoprazole DR 40 mg Tablet PO (09:56)
[2023-02-19] MEDS: dilTIAZem ER (24HR) 180 mg Capsule PO (09:56)
[2023-02-19] MEDS: aspirin 81 mg EC Tablet PO (09:56)
[2023-02-19] MEDS: duloxetine 60 mg Capsule PO (09:56)
[2023-02-19] MEDS: buPROPion XL (24 HR) 150 mg Tablet PO (10:33)
[2023-02-19] MEDS: levoFLOXacin 750 mg Tablet PO (10:33)
[2023-02-19] MEDS: albumin 12.5 GM/250 ML VIAL IV (10:34)
--- NOTE | 2023-02-19 11:40 | PC.SOCIAL ---
IMM Update IMM not updated with pt, pt is still in observation status.
[2023-02-19 11:53] LABS: Glucose Point of Care 323 mg/dL (70-110)
[2023-02-19] MEDS: CLONazepam 0.5 mg Tablet PO (17:13)
[2023-02-19] MEDS: quetiapine 25 mg Tablet PO (17:14)
[2023-02-19] MEDS: atorvastatin 40 mg Tablet PO (17:14)
--- NOTE | 2023-02-19 17:34 | PM.PN ---
Subjective Subjective: CT chest completed yesterday showed development of decreased pleural effusion, however there was partial reexpansion of the previous atelectatic segments of the left lower lobe and lingula and new multifocal opacities suggesting residual atelectasis and reexpansion pulmonary edema. Superimposed infection cannot be excluded. There was no hemothorax or pneumothorax. Medications: Reviewed: Yes Vitals/I&O/Wt Last Vital Signs Temp 97.8 F 02/19/23 16:08 Pulse 85 02/19/23 16:08 Resp 18 02/19/23 16:08 BP 107/66 02/19/23 16:08 Pulse Ox 93 02/19/23 16:08 O2 Del Method Nasal Cannula 02/19/23 16:08 O2 Flow Rate 3 02/19/23 15:43 02/19/23 02/19/23 02/19/23 06:59 14:59 22:59 Intake Total 1000 / 2320 1410 / 1410 Balance 1000 / 2320 1410 / 1410 Physical Exam Narrative: General: No acute distress, AO x3 HEENT: PERRLA, pupils bilaterally equal and reactive, pallors not present Chest: Normal vesicular breath sounds, crackles to aucultation LLL CVS: S1-S2 regular, no murmurs, no tachycardia, no gallops, no rubs Abdomen: Soft, nontender, no organomegaly, bowel sounds present Neuro: No focal deficits, no facial deformity, AO x3, power 5/5 in all limbs Data 02/20/23 12:35 02/20/23 12:35 Micro: Microbiology 02/17/23 13:00 Gram Stain - Final Thoracic Fluid Body Fluid Culture - Preliminary A&P Assessment and plan (1) Bilateral pleural effusion: Moderate-large bilateral pleural effusion likely related to underlying CHF and poorly controlled a-fib s/p left thoracentesis Complicated by development of partial reexpansion and atelectasis of various segments of the left lower lobe and lingula.? There was interim development of multifocal opacities suggesting either atelectasis versus reexpansion pulmonary edema.? Superadded infection could not be ruled out.? There was no hemothorax encountered.? There were no bronchial abnormalities to indicate aspiration or bronchial obstruction. Started on abx coverage with levofloxacin 750mg daily. (2) GISELA (acute kidney injury): Cr at 1.2 today from 0.7 Overnight was hypotensive with BP between 0.7-1.2 May be related to volume loss post thoracentesis. hold lasix , hold hydralazine , discontinue clonidine gentle IVF hydration at 50 cc/hr today, recheck labs on 02/21 (3) Congestive heart failure due to hypertension: Continue beta roby hold Lasix (4) Atrial fibrillation, persistent: Lopressor for rate control Hold apixaban for thoracentesis (5) Diabetes mellitus: currently well controlled fingersticks Qualifiers: Diabetes mellitus complication status: without complication Diabetes mellitus termite exterminator insulin use: with prison use Diabetes mellitus type: type 2 Qualified Code(s): E11.9 - Type 2 diabetes mellitus without complications; Z79.4 - termite control servicer (current) use of insulin (6) COPD (chronic obstructive pulmonary disease): No wheezing, not in exacerbation Nebulizing treatments (7) Accelerated hypertension: Continue home Lopressor, Imdur, diltiazem d/c clonidine Plan DVT ppx: Hold apixaban , resume tomorrow Attestations Medical Necessity Statement*: change t o inpatient admission,. IVF today, monitor BP with holding diuretics and anti hypertensive, repeat x ray, start abx Coding Level of Care Code Acute Code for Chg Fwd Diagnoses Bilateral pleural effusion J90 GISELA (acute kidney injury) N17.9 Congestive heart failure due to hypertension I11.0 Atrial fibrillation, persistent I48.19 Diabetes mellitus E11.9; Z79.4 Diabetes mellitus complication status: without complication Diabetes mellitus prison insulin use: with termite exterminator use Diabetes mellitus type: type 2 COPD (chronic obstructive pulmonary disease) J44.9 Accelerated hypertension I10
[2023-02-19] MEDS: apixaban 5 mg Tablet PO (18:45)
[2023-02-19] MEDS: sodium chloride 0.9% 1,000 ML 50 ML IV (18:45)
[2023-02-19] MEDS: trazodone 150 mg Tablet PO (21:04)
[2023-02-19 21:21] LABS: Glucose Point of Care 299 mg/dL (70-110)
[2023-02-19 21:21] LABS: Glucose Point of Care 149 mg/dL (70-110)
[2023-02-19] MEDS: FUROsemide 10 mg/mL SDV 2mL 20 MG IVP (21:57)
[2023-02-20] VITALS (7 sets, daily range): BP systolic 127–152; BP diastolic 71–92; PULSE 92–114; RESP 15–18; TEMP 36.5–36.8; O2SAT 77–98
--- NOTE | 2023-02-20 00:24 | PC.PHAR ---
Renal dosing of Levaquin. CRCL decreased to 34.02 from 51.04. Changed from 750mg daily to every other day. Thank you, Sh[facility]
--- NOTE | 2023-02-20 02:46 | PC.NURSE ---
Upon assessment I heard crackles in both bases of pts lungs; had another nurse verify. Called Manoj and she ordered 20 mg of Lasix IVP and to stop iv fluids. Will Stop IV and continue to monitor.
[2023-02-20 06:43] LABS: Glucose Point of Care 297 mg/dL (70-110)
[2023-02-20] MEDS: budesonide 0.5 mg/2 mL Neb INHALATION (07:43)
[2023-02-20] MEDS: insulin lispro 100 unit/1 mL SUBCUT ×2 (10:00→12:17)
[2023-02-20] MEDS: duloxetine 60 mg Capsule PO (10:18)
[2023-02-20] MEDS: apixaban 5 mg Tablet PO (10:18)
[2023-02-20] MEDS: isosorbide mononitrate ER 30 mg Tablet PO (10:18)
[2023-02-20] MEDS: dilTIAZem ER (24HR) 180 mg Capsule PO (10:18)
[2023-02-20] MEDS: pantoprazole DR 40 mg Tablet PO (10:19)
[2023-02-20] MEDS: metoprolol tartrate 50 mg Tablet 75 MG PO (10:19)
[2023-02-20] MEDS: aspirin 81 mg EC Tablet PO (10:19)
[2023-02-20] MEDS: buPROPion XL (24 HR) 150 mg Tablet PO (10:22)
[2023-02-20] MEDS: ipratropium-albuterol 3 mL Neb INHALATION ×2 (11:13→11:14)
[2023-02-20 11:37] LABS: Glucose Point of Care 223 mg/dL (70-110)
--- NOTE | 2023-02-20 11:53 | XR_ITS ---
WS: [id number] Portable AP upright chest, 02/20/2023 Clinical Data: follow up atelactasis Comparison: Portable chest, 02/18/2023 Findings: The left pleural effusion has diminished greatly and there is a small residual. There are m inimal opacities over the surface of the left diaphragm which may represent atelectasis and/or minima l pneumonia. The heart is enlarged. The right lung shows minimal opacity over the surface of the righ t diaphragm. No pneumothorax is seen. The aortic arch and descending thoracic aorta show tortuosity a nd minimal calcification. Impression: 1. Significant clearing and reduction of left pleural effusion. 2. Minimal bibasilar opacities. 3. Cardiomegaly and atherosclerosis.
[2023-02-20 12:55] LABS: Basophils % 0.4 %; Eosinophils # 0.1 10^3/uL (0.0-0.8); Eosinophils % 1.6 %; Lymphocytes % 12.8 %; Mean Corpuscular Volume 90.2 fl (85-98); Mean Platelet Volume 10.3 fL (7.4-10.4); Monocytes # 0.5 10^3/uL (0.2-0.9); Monocytes % 6.1 %; Neutrophils # 6.31 10^3/uL (1.8-7.7); Neutrophils % 78.8 %; Nucleated Red Blood Cells % 0 %; Platelet Count 249 10^3/cmm (157-399); Red Blood Count 3.66 10^6/uL (3.85-5.65); Red Cell Distribution Width 14.6 % (12.1-15.1)
[2023-02-20 13:13] LABS: Alanine Aminotransferase 6 U/L (0-33); Albumin Level 3.2 g/dL (3.5-5.2); Alkaline Phosphatase 92 U/L (35-105); Anion Gap 13.5 (5-19); Aspartate Amino Transferase 14 U/L (0-32); Blood Urea Nitrogen 15 mg/dL (8-23); Carbon Dioxide 34 mmol/L (22-29); Chloride 97 mmol/L (98-107); Globulin 2.9 g/dL (1.3-4.6); Glucose 143 mg/dL (65-115); Osmolality Calculated 293 mOsm/kg (285-295); Potassium 4.5 mmol/L (3.5-5.1); Sodium 140 mmol/L (136-145); Total Bilirubin 0.2 mg/dL (0.15-1.2); Total Protein 6.1 g/dL (6.6-8.7)
--- NOTE | 2023-02-20 13:55 | P.DS_ITS ---
Discharge Providers Date of Admission: 02/16/23 14:11 Date of Discharge: February 20, 2023 Attending Provider at Admission: Andrea Johnson MD Attending Provider at Discharge: Kia Ocampo MD Primary Care Provider: Chayito Kaur MD Diagnoses at Discharge Discharge Diagnosis (1) Bilateral pleural effusion: Status: Acute (2) Congestive heart failure due to hypertension: Status: Acute (3) Atrial fibrillation, persistent: Status: Acute (4) Diabetes mellitus: Status: Acute Qualifiers: Diabetes mellitus complication status: without complication Diabetes mellitus card fixer insulin use: with usp use Diabetes mellitus type: type 2 Qualified Code(s): E11.9 - Type 2 diabetes mellitus without complications; 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 Patient reports symptoms for the past 4 to 5 days.? Reports exertion makes symptoms worse.? Rest improves symptoms.? She states that her exercise tolerance is very poor.? Denies fevers, chills, nausea or emesis. In the emergency department, patient was found to have bilateral pleural effusions.?? Hospital course as below: Hospital Course Hospital Course (1) Bilateral pleural effusion: Moderate-large bilateral pleural effusion likely related to underlying CHF and poorly controlled a-fib s/p left sided thoracentesis on 02/17/23 with removal of 1L fluid.No growth on cx, no organisms on gram stain. Pleural fluid analysis with total protein 3.0, LDH 310 , likely transudative f luid Post thoracentesis Course was complicated by only partial reexpansion and atelectasis of various segments of the left lower lobe and lingula. There was interim development of multifocal opacities suggesting either atelectasis versus reexpansion pulmonary edema. Superadded infection could not be ruled out. There was no hemothorax encountered. There were no bronchial abnormalities to indicate aspiration or bronchial obstruction. She was started on antibiotics given that multifocal pneumonia could not be excluded conclusively. Incentive spirometer was ordered. Patient has remained stable over the course of last 24 hours and is being discharged today in stable to improved condition after the thoracentesis. Recommended to follow-up with cardiology within 7 to 10 days. Dose of lisinopril was dropped in half at the time of discharge as patient developed transient hypotension on the night of 02/18/2023. (2) Congestive heart failure due to hypertension: Continued beta roby Continued Lasix, briefly held on 02/19 due to transient GISELA (3) Atrial fibrillation, persistent: Lopressor and ca channel blockers for rate control resumed apixaban at discharge (4) Diabetes mellitus: C/b severe hyperglycemia On insulin sliding scale during admission transitioned back to home medications at discharge (5) COPD (chronic obstructive pulmonary disease): No wheezing, not in exacerbation Nebulizing treatments to continue (6) Accelerated hypertension: now resolved. trended towards hypotension , lisinopril dose reduced to half. Physical Exam Narrative: General: No acute distress, AO x3 HEENT: PERRLA, pupils bilaterally equal and reactive, pallors not present Chest: Normal vesicular breath sounds, no added sounds, equal good air entry bilaterally CVS: S1-S2 regular, no murmurs, no tachycardia, no gallops, no rubs Abdomen: Soft, nontender, no organomegaly, bowel sounds present Neuro: No focal deficits, no facial deformity, AO x3, power 5/5 in all limbs Discharge Data Studies Completed and Pending Completed Studies During Hospitalization Category Date Time Status CT chest w con* [id number] Stat Cat Scan 02/16/23 12:[address] chest wo con [id number] Routine Cat Scan 02/18/23 15:42 Completed CXRP [XR chest 1V portable [id number]] AM LABS Exams 02/18/23 04:00 Completed XR chest 1V portable [id number] Stat Exams 02/16/23 10:44 Completed XR chest 1V portable [id number] Stat Exams 02/17/23 12:54 Completed US thoracentesis [id number] Routine Ultrasound 02/17/23 06:00 Completed Pending at discharge Category Date Time Status CXRP [XR chest 1V portable [id number]] Routine Exams 02/20/23 11:53 Taken Body Fluid Culture & GS Routine Lab 02/16/23 18:05 Results Radiology Impressions Chest CT 02/18/23 15:42 IMPRESSION: 1. Markedly decreased left pleural effusion and partial re-expansion of the previously atelectatic segments of the left lower lobe and lingula which demonstrate multifocal opacity suggesting residual atelectasis and re-expansion pulmonary edema. Superimposed infection cannot be unequivocally excluded. No bronchial abnormalities to indicate aspiration or bronchial obstruction. 2. Persistent moderate right pleural effusion and segmental atelectasis in the right lower lobe. 3. No hemothorax. No pneumothorax. Laboratory Results WBC 8.00 10^3/uL (3.29-11.43) 02/20/23 12:35 RBC 3.66 10^6/uL (3.85-5.65) L 02/20/23 12:35 Hgb 9.90 g/dL (11.27-16.99) L 02/20/23 12:35 Hct 33.0 % (36-47) L 02/20/23 12:35 MCV 90.2 fl (85-98) 02/20/23 12:35 MCH 27.0 pg (27-33) 02/20/23 12:35 MCHC 30.0 g/dL (30-55) 02/20/23 12:35 RDW 14.6 % (12.1-15.1) 02/20/23 12:35 Plt Count 249 10^3/cmm (157-399) 02/20/23 12:35 MPV 10.3 fL (7.4-10.4) 02/20/23 12:35 Neut % (Auto) 78.8 % 02/20/23 12:35 Lymph % (Auto) 12.8 % 02/20/23 12:35 [place] % (Auto) 6.1 % 02/20/23 12:35 Eos % (Auto) 1.6 % 02/20/23 12:35 Baso % (Auto) 0.4 % 02/20/23 12:35 Neut # (Auto) 6.31 10^3/uL (1.8-7.7) 02/20/23 12:35 Lymph # (Auto) 1.0 10^3/uL (0.8-4.8) 02/20/23 12:35 [place] # (Auto) 0.5 10^3/uL (0.2-0.9) 02/20/23 12:35 Eos # (Auto) 0.1 10^3/uL (0.0-0.8) 02/20/23 12:35 Baso # (Auto) 0.0 10^3/uL (0.0-0.1) 02/20/23 12:35 Nucleated RBC % (auto) 0 % 02/20/23 12:35 Nucleated RBCs # 0.0 /100WBC 02/20/23 12:35 PT 17.50 SECONDS (12.1-14.9) H 02/16/23 11:05 INR 1.39 (0.8-1.2) H 02/16/23 11:05 Sodium 140 mmol/L (136-145) 02/20/23 12:35 Potassium 4.5 mmol/L (3.5-5.1) 02/20/23 12:35 Chloride 97 mmol/L (98-107) L 02/20/23 12:35 Carbon Dioxide 34 mmol/L (22-29) H 02/20/23 12:35 Anion Gap 13.5 (5-19) 02/20/23 12:35 BUN 15 mg/dL (8-23) 02/20/23 12:35 Creatinine 0.7 mg/dL (0.5-0.9) 02/20/23 12:35 GFR Calculation Not Reportable 02/20/23 12:35 Glucose 143 mg/dL (65-115) H 02/20/23 12:35 POC Glucose 223 mg/dL (70-110) H 02/20/23 11:18 Calculated Osmolality 293 mOsm/kg (285-295) 02/20/23 12:35 Calcium 9.0 mg/dL (8.5-10.5) 02/20/23 12:35 Total Bilirubin 0.2 mg/dL (0.15-1.2) 02/20/23 12:35 AST 14 U/L (0-32) 02/20/23 12:35 ALT 6 U/L (0-33) 02/20/23 12:35 Alkaline Phosphatase 92 U/L (35-105) 02/20/23 12:35 Troponin T Baseline 26 ng/L (0-10) H 02/18/23 16:05 Troponin T 120 Minute 26.81 ng/L (0-10) H 02/18/23 18:04 Delta Troponin T 0.81 ABS# (0-10) 02/18/23 18:04 Troponin T Hi Sens 6Hr 30.14 ng/L (0-10) H 02/18/23 22:15 Troponin T Hi Sens 6Hr Delta 4.14 ng/L (0-12) 02/18/23 22:15 NT-Pro-B Natriuret Pep 3744 pg/mL (0-125) H 02/16/23 11:05 Total Protein 6.1 g/dL (6.6-8.7) L 02/20/23 12:35 Albumin 3.2 g/dL (3.5-5.2) L 02/20/23 12:35 Globulin 2.9 g/dL (1.3-4.6) 02/20/23 12:35 Fluid Glucose 250.0 mg/dL 02/17/23 13:00 Fluid Albumin 1.7 g/dL 02/17/23 13:00 Fluid LDH 310 U/L 02/17/23 13:00 Pleural Total Protein 3.0 g/dL 02/17/23 13:00 Vitals Last Vital Signs Temp 98.2 F 02/20/23 11:20 Pulse 94 02/20/23 11:20 Resp 16 02/20/23 11:20 BP 136/81 02/20/23 11:20 Pulse Ox 97 02/20/23 11:20 O2 Del Method Nasal Cannula 02/20/23 11:05 O2 Flow Rate 3 02/20/23 11:05 Discharge Plan Discharge Patient Disposition: Home Condition: Stable Prescriptions: New levofloxacin 750 mg Tablet 500 mg PO DAILY 5 Days Qty: 5 0RF Continued Breztri Aerosphere 160-9-4.8 mcg/actuation HFA aerosol inhaler 2 inh inhalation BID Qty: 10.7 3RF atorvastatin 20 mg tablet 20 mg PO QPM pantoprazole 40 mg tablet,delayed release (DR/EC) 40 mg PO DAILY hydralazine 50 mg tablet 50 mg PO TID duloxetine 60 mg capsule,delayed release(DR/EC) 60 mg PO DAILY nitroglycerin 0.4 mg tablet, sublingual 0.4 mg sublingual Q5M MDD 6 tabs PRN (Reason: chest pain) Qty: 30 0RF Rx Instructions: do not exceed 3 doses per episode budesonide 0.5 mg/2 mL Suspension For Nebulization 0.5 mg inhalation BID.RESPIRATORY Qty: 120 0RF ipratropium-albuterol 0.5 mg-3 mg(2.5 mg base)/3 mL Solution For Nebulization 3 ml inhalation QID.RESPIRATORY Qty: 360 0RF isosorbide mononitrate 30 mg Tablet Extended Release 24 Hr 30 mg PO DAILY Qty: 30 0RF diltiazem HCl [DILT-XR] 180 mg Capsule,Ext.Rel 24h Degradable 180 mg PO DAILY Qty: 30 0RF Jardiance 10 mg tablet 10 mg PO DAILY Qty: 30 0RF furosemide [Lasix] 40 mg tablet 40 mg PO QAM Qty: 30 0RF quetiapine 25 mg tablet 25 mg PO QPM clonidine HCl 0.1 mg tablet 0.1 mg PO BID glipizide 5 mg tablet extended release 24hr 5 mg PO BID bupropion HCl 150 mg tablet extended release 24 hr 150 mg PO DAILY trazodone 150 mg tablet 150 mg PO BEDTIME clonazepam 0.5 mg tablet 0.5 mg PO QPM aspirin 81 mg Tablet,Delayed Release (Dr/Ec) 81 mg PO DAILY azelastine 137 mcg (0.1 %) aerosol,spray 2 spray INTRANASAL BID PRN (Reason: Nasal Congestion) Eliquis DVT-PE Treat 30D Start 5 mg (74 tabs) tablets,dose pack 5 mg PO BID Qty: 74 2RF Hold Instructions: Resume on 04/04/22. Until after CT is complete and follow up Changed metoprolol tartrate 50 mg Tablet 100 mg PO BID Qty: 90 0RF lisinopril 20 mg Tablet 20 mg PO DAILY Qty: 60 0RF Discharge Orders: Discharge Order (Routine); Ordered 02/20/23 Ordered By: Kia Ocampo Referrals: Chayito Kaur MD [Primary Care Provider] - 02/26/23 9:30 am Renetta Correa FNP [Nurse Practitioner] - 7-10 days (We have notified your physician's clinic of the need for a follow-up appointment to be scheduled. If you have not heard from them within the next 2 business days, please call them directly. You may also reach out to our commercial lending relationship manager at [phone] and she can assist you.) Discharge Diet: Usual diet Discharge Activity: Resume usual activity Patient Instructions: Levofloxacin (By mouth) (Levaquin, Levaquin Leva-michelle), Heart Failure (ED), Pleural Effusion (GEN), Thoracentesis (GEN), CHF Stoplight, Opioid Safety Discharge Attestations Time Spent in Discharge Care*: greater than 30 min Quality Metrics Clinical Quality Measures [ No reported AMI, CVA or VTE this stay] Coding Level of Care Code Acute Code for Chg Fwd Diagnoses Bilateral pleural effusion J90 Congestive heart failure due to hypertension I11.0 Atrial fibrillation, persistent I48.19 Diabetes mellitus E11.9; Z79.4 Diabetes mellitus complication status: without complication Diabetes mellitus card fixer insulin use: with card fixer use Diabetes mellitus type: type 2 COPD (chronic obstructive pulmonary disease) J44.9 Accelerated hypertension I10
== END 2023-02-20 14:53 | disposition home or self-care (01) ==
LOC: ER 14:11 → MEDSURG 14:46
PROVIDERS: Admitting Provider Internal Medicine; Emergency Provider Emergency Medicine; PCP Family Medicine; Visit Provider Student in an Organized Health Care Education/Training Program
DX: J90 Pleural effusion, not elsewhere classified (principal); I11.0 Hypertensive heart disease with heart failure; I50.9 Heart failure, unspecified; I48.19 Other persistent atrial fibrillation; E11.65 Type 2 diabetes mellitus with hyperglycemia; Z79.4 Long term (current) use of insulin; J44.9 Chronic obstructive pulmonary disease, unspecified; N17.9 Acute kidney failure, unspecified; I45.10 Unspecified right bundle-branch block; Z79.82 Long term (current) use of aspirin; Z87.891 Personal history of nicotine dependence
CPT/HCPCS: 32555; 36415; 36416; 71045; 71250; 71260; 80048; 80053; 82042; 82945; 82962; 83615; 83880; 84157; 84484; 85025; 85610; 87070; 87075; 87205; 93005; 94640; 96361; 96365; 96372; 96375; 99285; G0378; J1815; J1940; J2270; J2765; J7030; J7626; P9045; Q0162; Q9967

== ENCOUNTER → 2023-02-28 08:55 | Outpatient (BNVA) | payer MEDICARE, SELFPAY | PROVIDERS: PCP Family Medicine; Visit Provider Nurse Practitioner Family | DX: I48.19 Other persistent atrial fibrillation (principal); Z87.891 Personal history of nicotine dependence; Z79.01 Long term (current) use of anticoagulants; Z79.82 Long term (current) use of aspirin | CPT/HCPCS: 99214 ==

== ENCOUNTER 2023-05-20 15:16 | Emergency (ER) | payer MEDICARE, SELFPAY ==
--- NOTE | 2023-05-20 15:18 | ECG_ITS ---
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 Measurements Intervals [place] Rate: 91 P: 0 [place]: 0 QRS: -2 QRSD: 144 T: -18 QT: 402 QTc: 497 Interpretive Statements ATRIAL FIBRILLATION RIGHT BUNDLE BRANCH BLOCK [120+ ms QRS DURATION, UPRIGHT V1, 40+ ms S IN I/aVL/V4/V5/V6] POSSIBLE SEPTAL MYOCARDIAL INFARCTION , OF INDETERMINATE AGE [30 ms Q WAVE IN V1/V2] Compared to ECG 02/18/2023 20:42:19 Myocardial infarct finding now present Electronically Signed On 05-20-2023 19:38:17 BOILER SETTER by Norm Michel M.D. [id number]
[2023-05-20 15:23] VITALS: BP 101/75; PULSE 88; RESP 18; TEMP 36.7; O2SAT 90; BMI 22.1
--- NOTE | 2023-05-20 15:28 | PC.NURSE ---
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
--- NOTE | 2023-05-20 15:29 | PC.NURSE ---
Aspirin 324mg give by EMS en route
[2023-05-20 15:30] VITALS: BP 110/70; PULSE 82; RESP 18; O2SAT 92
--- NOTE | 2023-05-20 15:33 | W.ED.CHESTPA ---
Documented by User: Tl Poe DO 05/21/23 06:06 HPI - Chest Pain General: Chief Complaint: Chest Pain Stated Complaint: Chest Pain Time Seen by Provider: 05/20/23 15:17 Source: patient Mode of arrival: EMS History of Present Illness: 72-year-old female presents emergency room complaining of headache and chest pain. Shooting pain between her shoulder blades she has had cough and congestion for the last week she is finishing a course of antibiotics for presumptive pneumonia. She did receive medications and route with the ambulance and had some relief of her discomfort. MD complaint: chest pain Onset (ago): hour(s) Timing of current episode: episodic Onset: during rest Pain location: left chest Pain radiation: back Severity: moderate Quality: tightness and aching Relieving factors: nothing Exacerbating factors: nothing Associated symptoms: Deny abdominal pain, diaphoresis, dyspnea, fever(s), leg edema, nausea, palpitations, sense of impending doom, syncope or vomiting Review of Systems Const: Denies: fever(s), chills or diaphoresis Card: Reports: chest pain; Denies: palpitations or syncope Resp: Denies: dyspnea GI: Denies: abdominal pain, nausea or vomiting : Denies: dysuria, urinary frequency or urinary urgency Musc: Denies: neck pain or back pain Skin/Breast: Denies: rash PFSH ED PFSH: Medical History Right renal mass COPD (chronic obstructive pulmonary disease) COPD exacerbation Afib Hypoxia Broken wrist History of skin cancer Helicobacter pylori gastritis New onset a-fib Facial droop Acute respiratory failure with hypoxia and hypercarbia Pneumonia Hiatal hernia History of colon polyps Surgical History History of appendectomy History of tubal ligation History of surgery on left wrist Family History Mother , at age 75 Cancer Breast Alzheimer disease Father , at age 69 CAD (coronary artery disease) Pancreatic adenocarcinoma Social History Smoking and tobacco/nicotine status: former use of tobacco/nicotine Quit status (tobacco/nicotine): has quit using Year quit tobacco: 2021 Former quit date comment: 1.5 ppd X 51 years Alcohol intake: never Substance/Drug Use: never Adopted: No Household members: spouse Marital status: Current occupational status: retired Physical Exam Const: COMMON NORMALS: no acute distress GENERAL APPEARANCE: cooperative and comfortable ORIENTATION/CONSCIOUSNESS: Yes awake, Yes oriented to person, Yes oriented to place and Yes oriented to time HENMT: COMMON NORMALS: normocephalic, atraumatic and hearing grossly normal bilaterally HEAD & SCALP: normocephalic and atraumatic Resp: COMMON NORMALS: normal respiratory effort, No retractions, No use of accessory muscles and clear to auscultation bilaterally AUSCULTATION: clear to auscultation bilaterally Cardio: COMMON NORMALS: regular rate, regular rhythm and No murmurs present (Cardio) RATE: regular rate RHYTHM: regular rhythm GI: COMMON NORMALS: Soft to palpation and No hepatosplenomegaly present AUSCULTATION: Yes normoactive bowel sounds PALPATION: Yes Soft to palpation, No Tenderness to palpation present (GI), No Guarding due to palpation present (GI) and Yes No hepatosplenomegaly present Extremity: COMMON NORMALS: normal to inspection, capillary refill normal, no clubbing, cyanosis or edema, no calf tenderness and no pedal edema Neuro: SENSORIUM/ORIENTATION: Yes oriented to person, Yes oriented to place and Yes oriented to time Skin: COMMON NORMALS: no rashes or lesions noted GENERAL SKIN EXAM: no rashes or lesions noted Course Vital Signs: Vital signs: Vital Signs Temperature 98.1 F 05/20/23 15:23 Pulse Rate 97 05/20/23 20:41 Respiratory Rate 21 H 05/20/23 20:41 Blood Pressure 110/70 05/20/23 15:30 Pulse Oximetry 95 05/20/23 20:41 Oxygen Delivery Me thod Nasal Cannula 05/20/23 19:28 Oxygen Flow Rate 3 05/20/23 19:28 MDM - Chest Pain Medical Decision Making Care signed out to Dr. Caicedo at change of shift. See final notes for diagnosis and disposition. Patient's lab work showed elevated white count of 20,000, elevated troponin of 25 with a 2-hour troponin approximately 24 for delta of about 1. Chest x-ray showed no acute findings. Close waiting for the lab work to come back patient decided she is ready to leave and was going to leave. Patient be discharged home to follow-up with her PCP for further evaluation and treatment. Lab Data 05/20/23 15:28 05/20/23 15: Radiology Impressions Chest X-Ray 05/20/23 17:59 IMPRESSION: No acute findings. Laboratory Results WBC 20.45 10^3/uL (3.29-11.43) H 05/20/23: RBC 4.19 10^6/uL (3.85-5.65) 05/20/23 15: Hgb 10.90 g/dL (11.27-16.99) L 05/20/23: Hct 37.8 % (36-47) 05/20/23: MCV 90.2 fl (85-98) 05/20/23: MCH 26.0 pg (27-33) L 05/20/23: MCHC 28.8 g/dL (30-55) L 05/20/23: RDW 16.1 % (12.1-15.1) H 05/20/23: Plt Count 270 10^3/cmm (157-399) 05/20/23: MPV 9.7 fL (7.4-10.4) 05/20/23: Neut % (Auto) 88.4 % 05/20/23: Lymph % (Auto) 5.5 % 05/20/23: Hendricks % (Auto) 4.9 % 05/20/23: Eos % (Auto) 0.2 % 05/20/23: Baso % (Auto) 0.5 % 05/20/23 Neut # (Auto) 18.08 10^3/uL (1.8-7.7) H 05/20/23: Lymph # (Auto) 1.1 10^3/uL (0.8-4.8) 05/20/23: Hendricks # (Auto) 1.0 10^3/uL (0.2-0.9) H 05/20/23: Eos # (Auto) 0.0 10^3/uL (0.0-0.8) 01/16/24 15:28 Baso # (Auto) 0.1 10^3/uL (0.0-0.1) 05/20/23 15: Nucleated RBC % (auto) 0 % 05/20/23 15: Nucleated RBCs # 0.0 /100WBC 05/20/23 15:28 Sodium 138 mmol/L (136-145) 05/20/23 15:28 Potassium 3.5 mmol/L (3.5-5.1) 05/20/23 15: Chloride 96 mmol/L (98-107) L 05/20/23 15:28 Carbon Dioxide 31 mmol/L (22-29) H 05/20/23 15:28 Anion Gap 14.5 (5-19) 05/20/23 15: BUN 21 mg/dL (8-23) 05/20/23 15:28 Creatinine 0.9 mg/dL (0.5-0.9) 05/20/23 15:28 GFR Calculation Not Reportable 05/20/23 15: Glucose 108 mg/dL (65-115) 05/20/23 15:28 Calculated Osmolality 290 mOsm/kg (285-295) 05/20/23 15:28 Calcium 8.5 mg/dL (8.5-10.5) 05/20/23 15:28 Total Bilirubin 0.3 mg/dL (0.15-1.2) 05/20/23 15:28 AST 11 U/L (0-32) 05/20/23 15:28 ALT 9 U/L (0-33) 05/20/23 15: Alkaline Phosphatase 74 U/L (35-105) 05/20/23 15:28 Troponin T Baseline 25 ng/L (0-10) H 05/20/23 15:28 Troponin T 120 Minute 24.70 ng/L (0-10) H 05/20/23 17:47 Delta Troponin T -0.30 ABS# (0-10) L 05/20/23 17:47 Total Protein 6.0 g/dL (6.6-8.7) L 05/20/23 15:28 Albumin 3.7 g/dL (3.5-5.2) 05/20/23 15: Globulin 2.3 g/dL (1.3-4.6) 05/20/23 15:28 Discharge Plan Discharge Patient Disposition: Home Clinical Impression: Chest pain Qualifiers: Chest pain type: unspecified Qualified Code(s): R07.9 - Chest pain, unspecified Leukocytosis Qualifiers: Leukocytosis type: unspecified Qualified Code(s): D72.829 - Elevated white blood cell count, unspecified Condition: Stable Prescriptions: No Action Breztri Aerosphere 160-9-4.8 mcg/actuation HFA aerosol inhaler 2 inh inhalation BID Qty: 10.7 3RF diltiazem HCl 240 mg capsule,ext.rel 24h degradable 240 mg PO DAILY Qty: 30 1RF hydralazine 25 mg tablet 25 mg PO TID Qty: 90 3RF atorvastatin 20 mg tablet 20 mg PO QPM pantoprazole 40 mg tablet,delayed release (DR/EC) 40 mg PO DAILY duloxetine 60 mg capsule,delayed release(DR/EC) 60 mg PO DAILY nitroglycerin 0.4 mg tablet, sublingual 0.4 mg sublingual Q5M MDD 6 tabs PRN (Reason: chest pain) Qty: 30 0RF Rx Instructions: do not exceed 3 doses per episode budesonide 0.5 mg/2 mL Suspension For Nebulization 0.5 mg inhalation BID.RESPIRATORY Qty: 120 0RF ipratropium-albuterol 0.5 mg-3 mg(2.5 mg base)/3 mL Solution For Nebulization 3 ml inhalation QID.RESPIRATORY Qty: 360 0RF isosorbide mononitrate 30 mg Tablet Extended Release 24 Hr 30 mg PO DAILY Qty: 30 0RF Jardiance 10 mg tablet 10 mg PO DAILY Qty: 30 0RF furosemide [Lasix] 40 mg tablet 40 mg PO QAM Qty: 30 0RF quetiapine 25 mg tablet 25 mg PO QPM glipizide 5 mg tablet extended release 24hr 5 mg PO BID bupropion HCl 150 mg tablet extended release 24 hr 150 mg PO DAILY trazodone 150 mg tablet 150 mg PO BEDTIME metoprolol tartrate 50 mg Tablet 100 mg PO BID Qty: 90 0RF lisinopril 20 mg Tablet 20 mg PO DAILY Qty: 60 0RF clonazepam 0.5 mg tablet 0.5 mg PO QPM aspirin 81 mg Tablet,Delayed Release (Dr/Ec) 81 mg PO DAILY azelastine 137 mcg (0.1 %) aerosol,spray 2 spray INTRANASAL BID PRN (Reason: Nasal Congestion) Eliquis DVT-PE Treat 30D Start 5 mg (74 tabs) tablets,dose pack 5 mg PO BID Qty: 74 2RF Hold Instructions: Resume on 04/04/22. Until after CT is complete and follow up Discharge Orders: Discharge ED (Routine); Ordered 05/20/23 Ordered By: Noah Caicedo Referrals: Chayito Kaur MD [Primary Care Provider] - 1 week Patient Instructions: Chest Pain (ED), Leukocytosis (ED) Activity Restrictions/Additional Instructions: Your chest x-ray was negative for pneumonia, your lab work showed your troponin was stable which decreases the likelihood of this being cardiac in nature, your white blood cells was elevated which can be caused from stress or infection. Please follow-up with your family practice physician for further evaluation and treatment within the next 7 days. If your symptoms worsen please return to the ER for further evaluation. Coding Level of Care Code ED Cutting Machine Tender for Chg Fwd Documented by User: Noah Caicedo DO 05/20/23 20:19 HPI - Chest Pain General: Chief Complaint: Chest Pain Stated Complaint: Chest Pain Time Seen by Provider: 05/20/23 15:17 [facility] ED PFSH: Medical History Right renal mass COPD (chronic obstructive pulmonary disease) COPD exacerbation Afib Hypoxia Broken wrist History of skin cancer Helicobacter pylori gastritis New onset a-fib Facial droop Acute respiratory failure with hypoxia and hypercarbia Pneumonia Hiatal hernia History of colon polyps Surgical History History of appendectomy History of tubal ligation History of surgery on left wrist Family History Mother , at age 75 Cancer Breast Alzheimer disease Father , at age 69 CAD (coronary artery disease) Pancreatic adenocarcinoma Social History Smoking and tobacco/nicotine status: former use of tobacco/nicotine Quit status (tobacco/nicotine): has quit using Year quit tobacco: 2021 Former quit date comment: 1.5 ppd X 51 years Alcohol intake: never Substance/Drug Use: never Adopted: No Household members: spouse Marital status: Current occupational status: retired Course Vital Signs: Vital signs: Vital Signs Temperature 98.1 F 05/20/23 15:23 Pulse Rate 97 05/20/23 20:41 Respiratory Rate 21 H 05/20/23 20:41 Blood Pressure 110/70 05/20/23 15:30 Pulse Oximetry 95 05/20/23 20:41 Oxygen Delivery Me thod Nasal Cannula 05/20/23 19:28 Oxygen Flow Rate 3 05/20/23 19:28 MDM - Chest Pain Medical Decision Making Patient's lab work showed elevated white count of 20,000, elevated troponin of 25 with a 2-hour troponin approximately 24 for delta of about 1. Chest x-ray showed no acute findings. Close waiting for the lab work to come back patient decided she is ready to leave and was going to leave. Patient be discharged home to follow-up with her PCP for further evaluation and treatment. Differential Diagnosis Unlikely acute massive pulmonary embolism, acute respiratory failure, acute myocardial infarction, cardiac arrest or sudden cardiac Medical Records I reviewed the patient's medical records. Lab Data I reviewed the patient's lab results. 05/20/23 15:28 05/20/23 15:28 Radiology Impressions Chest X-Ray 05/20/23 17:59 IMPRESSION: No acute findings. Laboratory Results WBC 20.45 10^3/uL (3.29-11.43) H 05/20/23 15: RBC 4.19 10^6/uL (3.85-5.65) 05/20/23 15:28 Hgb 10.90 g/dL (11.27-16.99) L 05/20/23 15:28 Hct 37.8 % (36-47) 05/20/23 15: MCV 90.2 fl (85-98) 05/20/23 15: MCH 26.0 pg (27-33) L 05/20/23: MCHC 28.8 g/dL (30-55) L 05/20/23: RDW 16.1 % (12.1-15.1) H 05/20/23 15: Plt Count 270 10^3/cmm (157-399) 05/20/23 15: MPV 9.7 fL (7.4-10.4) 05/20/23: Neut % (Auto) 88.4 % 05/20/23: Lymph % (Auto) 5.5 % 05/20/23: Hendricks % (Auto) 4.9 % 05/20/23: Eos % (Auto) 0.2 % 05/20/23 Baso % (Auto) 0.5 % 05/20/23 Neut # (Auto) 18.08 10^3/uL (1.8-7.7) H 05/20/23: Lymph # (Auto) 1.1 10^3/uL (0.8-4.8) 05/20/23: Hendricks # (Auto) 1.0 10^3/uL (0.2-0.9) H 05/20/23: Eos # (Auto) 0.0 10^3/uL (0.0-0.8) 05/20/23: Baso # (Auto) 0.1 10^3/uL (0.0-0.1) 05/20/23: Nucleated RBC % (auto) 0 % 05/20/23: Nucleated RBCs # 0.0 /100WBC 05/20/23: Sodium 138 mmol/L (136-145) 05/20/23: Potassium 3.5 mmol/L (3.5-5.1) 05/20/23: Chloride 96 mmol/L (98-107) L 05/20/23: Carbon Dioxide 31 mmol/L (22-29) H 05/20/23: Anion Gap 14.5 (5-19) 05/20/23: BUN 21 mg/dL (8-23) 05/20/23: Creatinine 0.9 mg/dL (0.5-0.9) 05/20/23 15:28 GFR Calculation Not Reportable 05/20/23 15:28 Glucose 108 mg/dL (65-115) 05/20/23 15:28 Calculated Osmolality 290 mOsm/kg (285-295) 05/20/23 15:28 Calcium 8.5 mg/dL (8.5-10.5) 05/20/23 15:28 Total Bilirubin 0.3 mg/dL (0.15-1.2) 05/20/23 15:28 AST 11 U/L (0-32) 05/20/23 15:28 ALT 9 U/L (0-33) 05/20/23 15:28 Alkaline Phosphatase 74 U/L (35-105) 05/20/23 15:28 Troponin T Baseline 25 ng/L (0-10) H 05/20/23 15:28 Troponin T 120 Minute 24.70 ng/L (0-10) H 05/20/23 17:47 Delta Troponin T -0.30 ABS# (0-10) L 05/20/23 17:47 Total Protein 6.0 g/dL (6.6-8.7) L 05/20/23 15:28 Albumin 3.7 g/dL (3.5-5.2) 05/20/23 15:28 Globulin 2.3 g/dL (1.3-4.6) 05/20/23 15:28 All radiology interpretation(s) finalized by discharge Discharge Plan Discharge Patient Disposition: Home Clinical Impression: Chest pain Qualifiers: Chest pain type: unspecified Qualified Code(s): R07.9 - Chest pain, unspecified Leukocytosis Qualifiers: Leukocytosis type: unspecified Qualified Code(s): D72.829 - Elevated white blood cell count, unspecified Condition: Stable Prescriptions: No Action Breztri Aerosphere 160-9-4.8 mcg/actuation HFA aerosol inhaler 2 inh inhalation BID Qty: 10.7 3RF diltiazem HCl 240 mg capsule,ext.rel 24h degradable 240 mg PO DAILY Qty: 30 1RF hydralazine 25 mg tablet 25 mg PO TID Qty: 90 3RF atorvastatin 20 mg tablet 20 mg PO QPM pantoprazole 40 mg tablet,delayed release (DR/EC) 40 mg PO DAILY duloxetine 60 mg capsule,delayed release(DR/EC) 60 mg PO DAILY nitroglycerin 0.4 mg tablet, sublingual 0.4 mg sublingual Q5M MDD 6 tabs PRN (Reason: chest pain) Qty: 30 0RF Rx Instructions: do not exceed 3 doses per episode budesonide 0.5 mg/2 mL Suspension For Nebulization 0.5 mg inhalation BID.RESPIRATORY Qty: 120 0RF ipratropium-albuterol 0.5 mg-3 mg(2.5 mg base)/3 mL Solution For Nebulization 3 ml inhalation QID.RESPIRATORY Qty: 360 0RF isosorbide mononitrate 30 mg Tablet Extended Release 24 Hr 30 mg PO DAILY Qty: 30 0RF Jardiance 10 mg tablet 10 mg PO DAILY Qty: 30 0RF furosemide [Lasix] 40 mg tablet 40 mg PO QAM Qty: 30 0RF quetiapine 25 mg tablet 25 mg PO QPM glipizide 5 mg tablet extended release 24hr 5 mg PO BID bupropion HCl 150 mg tablet extended release 24 hr 150 mg PO DAILY trazodone 150 mg tablet 150 mg PO BEDTIME metoprolol tartrate 50 mg Tablet 100 mg PO BID Qty: 90 0RF lisinopril 20 mg Tablet 20 mg PO DAILY Qty: 60 0RF clonazepam 0.5 mg tablet 0.5 mg PO QPM aspirin 81 mg Tablet,Delayed Release (Dr/Ec) 81 mg PO DAILY azelastine 137 mcg (0.1 %) aerosol,spray 2 spray INTRANASAL BID PRN (Reason: Nasal Congestion) Eliquis DVT-PE Treat 30D Start 5 mg (74 tabs) tablets,dose pack 5 mg PO BID Qty: 74 2RF Hold Instructions: Resume on 04/04/22. Until after CT is complete and follow up Discharge Orders: Discharge ED (Routine); Ordered 05/20/23 Ordered By: Noah Caicedo Referrals: Chayito Kaur MD [Primary Care Provider] - 1 week Patient Instructions: Chest Pain (ED), Leukocytosis (ED) Activity Restrictions/Additional Instructions: Your chest x-ray was negative for pneumonia, your lab work showed your troponin was stable which decreases the likelihood of this being cardiac in nature, your white blood cells was elevated which can be caused from stress or infection. Please follow-up with your family practice physician for further evaluation and treatment within the next 7 days. If your symptoms worsen please return to the ER for further evaluation. Coding Level of Care Code ED Cutting Machine Tender for Arnold Drake
[2023-05-20 15:36] LABS: Basophils # 0.1 10^3/uL (0.0-0.1); Basophils % 0.5 %; Eosinophils % 0.2 %; Hematocrit 37.8 % (36-47); Lymphocytes # 1.1 10^3/uL (0.8-4.8); Lymphocytes % 5.5 %; Mean Corpuscular HGB Conc 28.8 g/dL (30-55); Mean Corpuscular Volume 90.2 fl (85-98); Mean Platelet Volume 9.7 fL (7.4-10.4); Monocytes % 4.9 %; Neutrophils # 18.08 10^3/uL (1.8-7.7); Neutrophils % 88.4 %; Nucleated Red Blood Cells % 0 %; Platelet Count 270 10^3/cmm (157-399); Red Blood Count 4.19 10^6/uL (3.85-5.65); Red Cell Distribution Width 16.1 % (12.1-15.1); White Blood Count 20.45 10^3/uL (3.29-11.43)
[2023-05-20 15:56] LABS: Alanine Aminotransferase 9 U/L (0-33); Albumin Level 3.7 g/dL (3.5-5.2); Alkaline Phosphatase 74 U/L (35-105); Anion Gap 14.5 (5-19); Aspartate Amino Transferase 11 U/L (0-32); Blood Urea Nitrogen 21 mg/dL (8-23); Calcium 8.5 mg/dL (8.5-10.5); Carbon Dioxide 31 mmol/L (22-29); Chloride 96 mmol/L (98-107); Globulin 2.3 g/dL (1.3-4.6); Glucose 108 mg/dL (65-115); Osmolality Calculated 290 mOsm/kg (285-295); Potassium 3.5 mmol/L (3.5-5.1); Sodium 138 mmol/L (136-145); Total Bilirubin 0.3 mg/dL (0.15-1.2)
[2023-05-20 15:57] LABS: Troponin(5th) Baseline 25 ng/L (0-10)
--- NOTE | 2023-05-20 17:59 | XRR_ITS ---
PROCEDURE INFORMATION: Exam: XR Chest Exam date and time: 05/20/2023 6:12 PM Age: 72 years old Clinical indication: Pain; Chest pressure; Additional info: Dyspnea/cough TECHNIQUE: Imaging protocol: Radiologic exam of the chest. Views: 1 view. COMPARISON: CR XR chest 1V portable [id number] 02/20/2023 12:05 PM FINDINGS: Lungs: Linear atelectasis or scarring at the left lung base. No consolidation. Pleural spaces: Unremarkable. No pleural effusion. No pneumothorax. Heart/Mediastinum: Similar mild cardiomegaly. Bones/joints: Unremarkable. XR/XR chest 1V portable [id number] IMPRESSION: No acute findings.
--- NOTE | 2023-05-20 19:03 | ECG_ITS ---
[facility] Test Date: 2023-05-20 Pat Name: Keri Fang Department: Room: Gender: Female Department Supervisor: : 1950 Requested By: Tl Sebastian Order Number: [id number] Nikky MD: Norm Michel M.D. Measurements Intervals [place] Rate: 81 P: 0 UT: 0 QRS: 1 QRSD: 138 T: -19 QT: 426 QTc: 497 Interpretive Statements Atrial fibrillation RIGHT BUNDLE BRANCH BLOCK [120+ ms QRS DURATION, UPRIGHT V1, 40+ ms S IN I/aVL/V4/V5/V6] MODERATE T-WAVE ABNORMALITY, CONSIDER LATERAL ISCHEMIA [-0.1+ mV T-WAVE IN I/aVL/V5/V6] Compared to ECG 05/20/2023 15:30:08 T-wave abnormality now present Possible ischemia now present Atrial fibrillation no longer present Myocardial infarct finding no longer present Electronically Signed On 05-20-2023 19:45:38 CONSULTING TECHNICAL DIRECTOR by Norm Michel M.D. [email or web address]
[2023-05-20 19:28] VITALS: PULSE 87; RESP 18; O2SAT 98
[2023-05-20] MEDS: ipratropium-albuterol 3 mL Neb INHALATION (19:28)
[2023-05-20 19:48] VITALS: PULSE 83; RESP 19; O2SAT 95
--- NOTE | 2023-05-20 20:07 | PC.NURSE ---
SPOKE WITH DAUGHTER ECHO ON PHONE REGARDING WHETHER PATIENT PLANS ON BEING ADMITTED OR DISCHARGED. ECHO EXPRESSED CONCERN REGARDING THE FACT THAT HER MOTHER HASN'T EATEN OR DRANK ALL DAY, AND WANTED TO KNOW ADMISSION WAS ANTICIPATED FOR HER CARE. THIS NURSE TO SPEAK WITH DR WHO ASSUMED CARE AND TO CALL ECHO BACK.
[2023-05-20 20:41] VITALS: PULSE 97; RESP 21; O2SAT 95
--- NOTE | 2023-05-20 20:42 | PC.NURSE ---
PATIENT UP FOR DISCHARGE. PATIENT WAS ASKED IF SHE WANTED THIS NURSE TO CALL JAGDEEP DODGE FOR RIDE, OR IF PATIENT WANTED TO CALL DAUGHTER. PATIENT DECIDED TO CALL DAUGHTER. JAGDEEP DODGE ON WAY UP TO CIRCUIT RECORDER PATIENT FROM WAITING ROOM.
== END 2023-05-20 20:44 | disposition home or self-care (01) ==
PROVIDERS: Emergency Provider Family Medicine; PCP Family Medicine
DX: R07.9 Chest pain, unspecified (principal); D72.829 Elevated white blood cell count, unspecified
CPT/HCPCS: 36415; 71045; 80053; 84484; 85025; 93005; 94640; 99285

== ENCOUNTER → 2023-06-06 18:10 | Outpatient (BNVA) | payer MEDICARE, SELFPAY | PROVIDERS: Visit Provider Emergency Medicine | DX: B34.9 Viral infection, unspecified (principal); J44.0 Chronic obstructive pulmonary disease with (acute) lower respiratory infection; J96.12 Chronic respiratory failure with hypercapnia; J98.8 Other specified respiratory disorders; B97.89 Other viral agents as the cause of diseases classified elsewhere | CPT/HCPCS: 87400; 87426 ==